=== PATIENT | male | born 1945 | race African-American/Black ===

== ENCOUNTER 2016-11-06 14:04 | Inpatient (IN) | payer MEDICARE, OTHER ==
[~2016-11-06] VITALS: Ht 182.9 cm; Wt 59.3 kg
[~2016-11-06 14:04] MED LIST: BUDE6HFA IH; CEPASTAT MT; COLC0.6T49 PO; DICL50TA11 PO; DILT240C70 PO; DOXY100T2 PO; IPRA14.76 IH; LOSA25TA2 PO; MAXIDE PO; PRED10TA PO; PRED20TA PO; PRED50TA PO; SILD100T51 PO; TAMS-14 PO; TIOT18CA PO; TOLT4CAP PO; [UNRECOGNIZED DRUG - CODE] PO; [UNRECOGNIZED DRUG - CODE] TP
[2016-11-06] MEDS ORDERED: ALBUTEROL 0.083% (NEB) 2.5 MG/3 ML AMP HHN STA ×2 (14:21→20:14)
[2016-11-06] MEDS ORDERED: METHYLPREDNISOLONE 125 MG INJ IV ONE (14:30)
[2016-11-06] MEDS ORDERED: IPRATROPIUM (NEB) 0.5 MG/2.5 ML AMP HHN ONE (14:30)
[2016-11-06 14:54] LABS: AADO2 Arterial 558.5 mmHg (7.0-24.0); Allen Test ACCEPTAB; Arterial Base Excess 8.6 mmol/L (-3.0-3); Arterial COHb 0.9 % (0.0-3.0); Arterial Fraction of Oxyhgb 95.5 % (93.0-99.0); Arterial HCO3 35.6 mmol/L (22.0-26.0); Arterial MetHb 0.3 % (0.0-1.5); Arterial Total Hemglobin 12.4 g/dl (12.0-18.0); MODE MASK - NRB
[2016-11-06 15:09] LABS: ABNORMAL IP MESSAGE 1; HEMOGLOBIN 11.9 g/dl (14.0-18.0); MEAN CORPUSCULAR HEMOGLOBIN 24.6 pg (29.0-33.0); MEAN CORPUSCULAR HGB CONC 29.8 g/dl (32.0-37.0); MEAN CORPUSCULAR VOLUME 82.8 fl (82.0-101.0); MEAN PLATELET VOLUME 9.9 fl (7.4-10.4); PLATELET COUNT 299 10^3/UL (140-415); POSITIVE DIFF @See below; RED BLOOD COUNT 4.83 10^6/ul (4.70-6.10); WHITE BLOOD COUNT 47.7 10^3/ul (4.8-10.8)
[2016-11-06 15:26] LABS: CALCIUM 9.3 mg/dl (8.4-10.2); CREATININE 2.53 mg/dl (0.61-1.24); POTASSIUM 4.1 mmol/L (3.5-5.1)
[2016-11-06 15:42] LABS: TROPONIN-I 5.14 ng/ml (0.00-0.12)
[2016-11-06] MEDS ORDERED: HEPARIN 1000 UNITS/ML 10 ML INJ IV STA (15:45)
[2016-11-06] MEDS ORDERED: HEPARIN 25000 UNITS/250 ML 250 ML IV STA (15:53)
[2016-11-06] MEDS ORDERED: ASPIRIN 81 MG TAB PO ONE (16:00)
--- NOTE | 2016-11-06 16:08 | RADRPT ---
PROCEDURE: XR Chest. CLINICAL INDICATION: Chest pain. Dyspnea. TECHNIQUE: Anterior chest x-ray. COMPARISON: 07/04/2014 FINDINGS: Dense infiltrate in lateral segment of right middle lobe. No pleural effusion identified. There is no evidence of pneumothorax. Atherosclerotic calcification of the aorta. The cardiomediastinal silhouette is unremarkable. The soft tissues are normal. Healed fracture deformity of the anterior right seventh rib, unchanged. Osseous structures are otherwise unremarkable. IMPRESSION: 1. Dense infiltrate in the right middle lobe. Follow-up after treatment is suggested to exclude und erlying mass. 2. Atherosclerotic calcification of the aorta. RPTAT: QQ .Madan Gomez MD, MD Date Time Electronically viewed and signed by .Madan Gomez MD, on 11/06/2016 16:07 .[place]
[2016-11-06 16:09] LABS: EOSINOPHILS % (M) 4 % (0-7); MONOCYTES % (M) 8 % (0-11); PLATELET ESTIMATE NORMAL; POLYCHROMASIA 1+ (0-0)
[2016-11-06] MEDS ORDERED: LEVOFLOXACIN 750MG/D5W (PMX) 150 ML IVPB STA (16:20)
[2016-11-06] MEDS ORDERED: SODIUM CHLORIDE 0.9% 1L BAG IV* STA (16:20)
[2016-11-06] MEDS ORDERED: ACETAMINOPHEN 325 MG TAB PO PRN (16:30)
[2016-11-06] MEDS ORDERED: ONDANSETRON 4 MG INJ IV PRN ×2 (16:30→20:30)
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
[2016-11-06 17:40] LABS: CK-MB 7.25 ng/ml (0.0-2.4)
[2016-11-06 17:44] LABS: TROPONIN-I 6.01 ng/ml (0.00-0.12)
[2016-11-06 18:16] LABS: ADD UMIC YES; UR ASCORBIC ACID NEGATIVE (NEGATIVE); UR BACTERIA MANY /HPF (NONE SEEN); UR BILIRUBIN (Dip) NEGATIVE (NEGATIVE); UR BLOOD (Dip) 3+ mg/dL (NEGATIVE); UR CLARITY CLOUDY (CLEAR); UR COLOR AMBER (YELLOW); UR GLUCOSE (Dip) NEGATIVE (NEGATIVE); UR KETONES (Dip) NEGATIVE (NEGATIVE); UR LEUKOCYTE ESTERASE (Dip) 2+ Leu/ul (NEGATIVE); UR MUCUS FEW /HPF (NONE SEEN); UR NITRITE (Dip) NEGATIVE (NEGATIVE); UR RBC 3 /HPF (0-5); UR SPECIFIC GRAVITY (Dip) 1.014 (1.003-1.030); UR TOTAL PROTEIN (Dip) 2+ mg/dl (NEGATIVE); UR UROBILINOGEN (Dip) 2+ mg/dL (NEGATIVE)
[2016-11-06] MEDS ORDERED: SOD CHLORIDE 0.9% 1,000 ML IV SCH (20:15)
[2016-11-06 20:25] LABS: INR 1.47; PROTIME 17.9 Sec (12.2-14.2); PT RATIO 1.4
[2016-11-06 20:26] LABS: PARTIAL THROMBOPLASTIN TIME 44.5 Sec (25.0-35.0)
[2016-11-06 21:11] LABS: CK-MB 10.6 ng/ml (0.0-2.4); TROPONIN-I 5.87 ng/ml (0.00-0.12)
[2016-11-07] VITALS (27 sets, daily range): BP systolic 116–150; BP diastolic 62–99; PULSE 94–115; RESP 18–39; TEMP 97.1; Ht 182.9 cm; Wt 59.3 kg
[2016-11-07] MEDS ORDERED: LEVOFLOXACIN 750MG/D5W (PMX) 150 ML IVPB SCH (03:00)
[2016-11-07] MEDS ORDERED: FUROSEMIDE 40 MG INJ IV ONE (03:00)
--- NOTE | 2016-11-07 03:02 | RADRPT ---
PROCEDURE: XR Chest. CLINICAL INDICATION: Pain. Pneumonia.. TECHNIQUE: Single frontal chest x-ray. COMPARISON: 11/16/2016 FINDINGS: The cardiomediastinal silhouette is unremarkable. There are atherosclerotic calcifications of the a ortic knob. There is no CHF.. There is a right mid lung infiltrate which is not significantly change d.. There is no pleural effusion. There is no pneumothorax. The osseous structures are unremarkab le. IMPRESSION: No significant change. Unchanged right mid lung infiltrate. RPTAT: HMVK .Rickey Shields MD, MD Date Time Electronically viewed and signed by .Rickey Shields MD, MD on 11/07/2016 03:01 .K/
[2016-11-07] MEDS: PANTOPRAZOLE 40 MG INJ IV SCH (05:32)
[2016-11-07 06:20] LABS: INR 1.47; PROTIME 17.9 Sec (12.2-14.2); PT RATIO 1.4
[2016-11-07 06:28] LABS: ABNORMAL IP MESSAGE 1; HEMATOCRIT 33.3 % (42.0-52.0); HEMOGLOBIN 10.5 g/dl (14.0-18.0); MEAN CORPUSCULAR HEMOGLOBIN 25.6 pg (29.0-33.0); MEAN CORPUSCULAR HGB CONC 31.5 g/dl (32.0-37.0); MEAN CORPUSCULAR VOLUME 81.2 fl (82.0-101.0); MEAN PLATELET VOLUME 9.3 fl (7.4-10.4); PLATELET COUNT 283 10^3/UL (140-415); POSITIVE DIFF @See below; RED CELL DISTRIBUTION WIDTH 18.3 % (11.5-14.5); WHITE BLOOD COUNT 53.6 10^3/ul (4.8-10.8)
[2016-11-07 06:40] LABS: ALBUMIN 3.6 g/dl (3.3-4.9); ALBUMIN/GLOBULIN RATIO 0.7; BILIRUBIN,DIRECT 0.8 mg/dl (0.00-0.20); BILIRUBIN,INDIRECT 0.6 mg/dl (0-1.1); BILIRUBIN,TOTAL 1.4 mg/dl (0.2-1.3); CALCIUM 8.6 mg/dl (8.4-10.2); CREATININE 1.47 mg/dl (0.61-1.24); TOTAL PROTEIN 8.7 g/dl (6.1-8.1)
[2016-11-07 06:56] LABS: CK-MB 10.4 ng/ml (0.0-2.4); POTASSIUM 2.9 mmol/L (3.5-5.1); TROPONIN-I 2.7 ng/ml (0.00-0.12)
--- NOTE | 2016-11-07 07:24 | HP ---
Date/Time of Note Date/Time of Note DATE: 11/07/16 TIME: 07:07 Assessment/Plan VTE Prophylaxis VTE Prophylaxis Intervention: heparin Lines/Catheters IV Catheter Type (from Nrs): Peripheral IV Urinary Cath still in place: Yes Reason Cath still needed: other (indicate) (critical conditon) Assessment/Plan Chief Complaint/Hosp Course This is a 8-year-old male being admitted to the ICU floor for: #1 Acute respiratory distress: Likely appears to be multifactorial in the setting of COPD exacerbation as well as Nstemi. ABG shows pH of 7.3 with CO2 retaining pattern consistent with COPD. Continue patient on supplemental oxygen. Will start patient on heparin drip as he does have elevated troponins. Lungs appear to have wheezing on auscultation. Patient was given steroids in the ED as well as Lasix. Lungs do sound slightly wet on auscultation however x- ray does not show any signs of pulmonary vascular congestion. He does not appear to be volume overloaded. BNP though is 20,000. Will check a echocardiogram. Will consult cardiology. #2 Nstemi: Troponin 5.1, patient started on heparin drip. Continue to trend troponins. Cardiology was consulted via the ED based on slight ST elevations on EKG however patient did not meet criteria for STEMI. Follow further cardiology recommendations. Nitro/morphine for pain #3 COPD: Patient did receive steroids in the ED. Continue nebulization., BiPAP if indicated. #4 elevated BNP: Patient denies any history of heart failure. BNP level is 20, 000. Will check a echocardiogram, cardiology is on board. Patient likely will eventually need to be started on MITA inhibitor statin and aspirin. #5 Renal failure, acute versus chronic: Previous creatinine from 2014 showed a creatinine of 1.0. At the current time is elevated at approximately 2.5. This could be secondary to prerenal etiology as well as possible cardiorenal syndrome however that will need to be further worked up. At the current time will provide very gentle fluid hydration. And monitor creatinine levels. Will also consult nephrology. #6 lactic acidosis: Multifactorial in nature secondary to the acute illness as well as possible underlying infection. Will continue to trend lactate and provide IV antibiotics. #7 leukocytosis: Patient has white blood cell count of 47 which significantly high just for a acute underlying infection. He does have history of bladder cancer and hepatitis C. Chest x-ray does show a possible right-sided infiltrate versus mass. Will obtain a CAT scan of the chest when the patient is more stable. At the current time patient is on antibiotics for possible suspected pneumonia. #8 community acquired pneumonia: There is a possible infiltrate versus mass seen on the chest x-ray at the current time is being treated with Levaquin. Will obtain a CAT scan when the patient is more stable respiratory nam to further assess his lung morphology. #9 history of bladder cancer: There appears to be an infiltrate versus mass on the chest x-ray. Patient also has a significantly elevated white blood cell count which I feel is simply too high just for a infectious process, nonetheless we will treating him for underlying pneumonia. Will also obtain a CAT scan to further assess the lungs. Depending on the findings may need hematology consultation. #10 history of hepatitis C: We will check a HCV RNA level. #11 DVT and GI prophylactic: Heparin drip, Protonix Further treatment strategy will be implemented as per the clinical course Problems: HPI/ROS Admit Date/Time Admit Date/Time Nov 06, 2016 at 16:26 Hx of Present Illness Chief complaint: Shortness of breath 2 days This is a 71-year-old male brought in by ambulance for increasing shortness of breath for 2 days. He is also had a cough. Denies fever or chills. Denies chest pain denies nausea and vomiting. States that he has COPD and has home oxygen which she has been using increasingly. Did not take his medications today because he felt so bad this morning. He states he lives by himself and does not have any sick contacts that he knows of at this time. He states that because he was not getting better thus we called ambulance. Allergies: Mometasone, oxybutynin, amoxicillin, doxycycline, indomethacin, Medications: See Apr Const: As per HPI Eyes : No pain discharge or redness or change in visual acuity ENT: No pain, sore throat, congestion, congestion, dysphagia or discharge Respiratory: As per HPI Cardiovascular: As per HPI GI : no change in appetite, abdominal pain, nausea, vomiting, diarrhea, constipation, or change in the color his stool Genitourinary: No dysuria, hematuria, flank pain , discharge or CVA tenderness Musculoskeletal: No joint pain, back pain, neck pain, restricted range of motion in neck or joints Skin: No rash, bruising or hives Neuro: No headache, dizziness, syncope, seizure, focal weakness Endocrine: No polyuria, polydipsia, temperature intolerance Psych: No hallucination, depression, anxiety or suicidal ideation PMH/Family/Social Past Medical History COPD/emphysema, hypertension, hyperlipidemia, Hepatitis C, Bladder cancer. Past Surgical History Right foot surgery Family History Significant Family History: hypertension Social History Alcohol Use: none (He smoked cocaine in the past) Smoking Status: Current every day smoker (Half pack per day 30 years) Drug Use: other Exam/Review of Systems Vital Signs Vitals Vital Signs Date Time Temp Pulse Resp B/P Pulse Ox O2 Delivery O2 Flow Rate FiO2 11/07/16 06:00 109 27 130/75 96 Nasal Cannula 3.0 11/07/16 04:00 98.5 11/06/16 15:23 30 Intake and Output 11/06/16 11/06/16 11/07/16 15:00 23:00 07:00 Intake Total 987.4 ml Output Total 1625 ml Balance -637.6 ml Exam Exam General: Patient is lying in bed and appears to be showing increased work of breathing with the use of accessory muscles, he has to pause to catch his breath while speaking HEENT: Atraumatic, normocephalic. The pupils are equal, round and reactive. Extraocular motor are intact Neck: Supple with full range of motion. No rigidity or meningismus Chest: Nontender Lungs: Diffuse bilateral coarse breath sounds and expiratory wheezing, increased work of breathing with use of accessory muscles and abdominal retractions Heart: Normal S1-S2, Regular rhythm and rate. No overt murmurs appreciated Abdomen: Soft , nontender, nondistended , bowel sounds are present. No guarding no rebound tenderness , No masses or organomegaly. No costovertebral temporal angle mass Extremities: Normal to inspection, no edema no cyanosis Neurologic: Normal mental status, speech normal, cranial nerves II through XII are intact, motor and sensory are intact, unable to assess gait secondary to patient's respiratory distress Additional Comments PROCEDURE: XR Chest. CLINICAL INDICATION: Chest pain. Dyspnea. TECHNIQUE: Anterior chest x-ray. COMPARISON: 07/04/2014 FINDINGS: Dense infiltrate in lateral segment of right middle lobe. No pleural effusion identified. There is no evidence of pneumothorax. Atherosclerotic calcification of the aorta. The cardiomediastinal silhouette is unremarkable. The soft tissues are normal. Healed fracture deformity of the anterior right seventh rib, unchanged. Osseous structures are otherwise unremarkable. IMPRESSION: 1. Dense infiltrate in the right middle lobe. Follow-up after treatment is suggested to exclude underlying mass. 2. Atherosclerotic calcification of the aorta. RPTAT: QQ .Madan Gomez MD, MD Date Time Electronically viewed and signed by .Madan Gomez MD, MD on 11/06/2016 16: 07 .M/ CC: CHELSEY MONTOYA DO EKG interpretation: Sinus tachycardia rate of 120, 2 PVCs, mild ST elevations in leads V1 and V2 with ST depression in lead II. EKG does not meet STEMI criteria. Normal axis, normal intervals. As per ED physician augmentation Labs Result Diagram: 11/07/1653311/07/16533 Medications Medications Current Medications Sodium Chloride (NS) 1,000 ml @ 50 mls/hr Q20H IV Last administered on 21:00; Admin Dose 50 MLS/HR; Start 11/06/16 at 20:15 Ondansetron HCl (Zofran Inj) 4 mg Q6H PRN IV NAUSEA AND/OR VOMITING; Start 12/13 at 20:30 Acetaminophen (Tylenol Liquid) 650 mg Q6H PRN PO PAIN LEVEL 1-3 OR FEVER; Start 11/06/16 at 20:30 Morphine Sulfate (morphine) 2 mg Q4H PRN IV PAIN LEVEL 7-10; Start 11/06/16 at 20:30 Pantoprazole 40 mg 40 mg DAILY@06 IV Last administered on 11/07/16 05:32; Admin Dose 40 MG; Start 11/07/16 at 06:00 Levofloxacin/ Dextrose 150 ml @ 100 mls/hr Q48H IVPB Last administered on 11/07 05:20; Admin Dose 100 MLS/HR; Start 11/07/16 at 03:00 Potassium Chloride (KCl 40 MEQ/250 ML NS) 250 ml @ 62.5 mls/hr Q4H IVPB ; Start 9/11/17 at 07:30; Stop 11/07/16 at 15:29 LINDA REYNOLDS Nov 07, 2016 07:18
[2016-11-07] MEDS ORDERED: HEPARIN 1000 UNITS/ML 10 ML INJ ONE (07:30)
[2016-11-07] MEDS ORDERED: HEPARIN 1000 UNITS/ML 10 ML INJ IV ONE (08:00)
[2016-11-07] MEDS ORDERED: HEPARIN 1000 UNITS/ML 10 ML INJ IV PRN ×2 (08:00)
[2016-11-07] MEDS: POTASSIUM CHLORIDE 250 ML IVPB SCH ×2 (08:34→12:41)
[2016-11-07 09:34] LABS: ANISOCYTOSIS 2+ (0-0); EOSINOPHILS % (M) 1 % (0-7); HYPOCHROMASIA 1+ (0-0); MICROCYTOSIS 1+ (0-0); MONOCYTES % (M) 20 % (0-11); MYELOCYTES % (M) 2 % (0-0); PLATELET ESTIMATE NORMAL; POIKILOCYTOSIS 2+ (0-0); POLYCHROMASIA 3+ (0-0)
[2016-11-07] MEDS ORDERED: POTASSIUM CHLORIDE 20 MEQ POWDER FOR ORAL SOLN PO ONE ×2 (10:00→13:00)
--- NOTE | 2016-11-07 10:00 | CONS ---
Date/Time of Note Date/Time of Note DATE: 11/07/16 TIME: 09:46 Assessment/Plan Assessment/Plan Chief Complaint/Hosp Course NSTEMI: Peak trop 6. Pt will need a cardiac cath at some point but currently has active issues including respiratory failure (multifactorial), renal failure , sepsis. No chest pain or significant EKG changes. For now medical management including heparin drip Acute on chronic respiratory failure: Has underlying COPD and is on oxygen at baseline. Likely has a RML PNA on CXR but per radiology read cant exclude mass especially in this pt with long standing smoking history. Possibly component of CHF as well. Lactic acidosis: improved with IV hydration and antibiotics Acute renal failure: Cr 25 on admission, now 1.5 after IVF Hep C COPD with acute exacerbation chronic leukocytosis: ?MDS tobacco use -continue heparin drip to complete 48 hrs -ASA, lipitor -hold off on MTP for now with active COPD exacerbation -f/u echo -?CTA at some point when renal function improves to evaluated RML infiltrate vs mass prior to cardiac cath as if this is a mass and needs biopsy/surgical intervention, would change house attendant strategy during cath -cardiac cath when active issues resolved -hold lasix for now but will not give further IVF either Problems: Consultation Date/Type/Reason Admit Date/Time Nov 06, 2016 at 16:26 Date of Consultation: Nov 07, 2016 Type of Consultation: Cardiology Reason for Consultation NSTEMI Referring Provider: LINDA REYNOLDS Hx of Present Illness 71 yo M with a h/o Hep C, chronic resp failure on 3L home oxygen, COPD, chronic leukocytosis, tobacco use, who presented with SOB and was found to have COPD exacerbation, PNA, NSTEMI. The pt is a poor historian. When asked when his SOB started, he states "when havent I been SOB". He denies CP. No prior cardiac disease. He tells me that [facility] told him about his leukocytosis but it is unclear what the diagnosis is. limited, per HPI. Past Medical History per HPI Social History Alcohol Use: none (He smoked cocaine in the past) Smoking Status: Current every day smoker (Half pack per day 30 years) Drug Use: other Exam/Review of Systems Vital Signs Vitals Vital Signs Date Time Temp Pulse Resp B/P Pulse Ox O2 Delivery O2 Flow Rate FiO2 11/07/16 09:00 111 26 137/70 96 Nasal Cannula 3.0 11/07/16 08:00 98.5 11/06/16 15:23 30 Intake and Output 11/06/16 11/06/16 11/07/16 15:00 23:00 07:00 Intake Total 987.4 ml Output Total 1625 ml Balance -637.6 ml Exam Constitutional: alert, distress (mild respiratory ), oriented Psych: No nl mood/affect Head: atraumatic, normocephalic Neck: jvd (distended EJ during expiration ) Respiratory: crackles/rales, diminished breath sounds, No clear to auscultation (ronchi) Cardiovascular: systolic murmur (2/6 ROXANNE), No edema, No regular rate and rhythm (tachycardic ) Gastrointestinal: soft, No non-tender (mild to palpation ) Neurological: nl mental status, nl speech Skin: No rash or lesions Results EKG: sinus tachycardia, PVCs, inferolateral ST/T changes Result Diagram: 11/07/16 0534 11/07/16 0534 Results 24 hrs Laboratory Tests Test 11/06/16 14:42 11/06/16 14:50 11/06/16 17:00 11/06/16 17:50 Blood Gas Specimen Source Blood arterial Arterial Blood Date Drawn 11/06/2016 2:50:51 PM Arterial Blood pH (Temp corrected) 7.386 Arterial Blood pCO2 (Temp correct) 60.7 H Arterial Blood pO2 (Temp corrected) 93.8 Arterial Blood HCO3 35.6 H Arterial Blood Base Excess 8.6 H Arterial Blood Oxygen Saturation 96.7 Trent Test ACCEPTAB Arterial Blood Gas Puncture Site Right Radial Arterial Blood Carboxyhemoglobin 0.9 Arterial Blood Methemoglobin 0.3 Blood Gas A-a O2 Differential 558.5 H Oxyhemoglobin Percent 95.5 Total Hemoglobin 12.4 Blood Gas Temperature 37.0 Blood Gas Modality MASK - NRB FiO2 100.0 Blood Gas Notified Whom RT Blood Gas Notified Time 11/06/2016 2:53:50 PM White Blood Count 47.7 #H Red Blood Count 4.83 # Hemoglobin 11.9 L Hematocrit 40.0 L Mean Corpuscular Volume 82.8 Mean Corpuscular Hemoglobin 24.6 L Mean Corpuscular Hemoglobin Concent 29.8 L Red Cell Distribution Width 19.0 #H Platelet Count 299 Mean Platelet Volume 9.9 # Neutrophils % Segmented Neutrophils % (Manual) 84 H Lymphocytes % Lymphocytes % (Manual) 4 L Monocytes % Monocytes % (Manual) 8 Eosinophils % Eosinophils % (Manual) 4 Basophils % Nucleated Red Blood Cells % 0.0 Neutrophils # (Manual) Absolute Lymphocytes (Manual) 1.9 Lymphocytes # Monocytes # Absolute Monocytes (Manual) 3.8 H Eosinophils # Basophils # Nucleated Red Blood Cells # Platelet Estimate NORMAL Polychromasia 1+ Sodium Level 132 L Potassium Level 4.1 Chloride Level 80 L Carbon Dioxide Level 34 H Anion Gap 22 H Blood Urea Nitrogen 70 H Creatinine 2.53 H Glucose Level 96 Calcium Level 9.3 Troponin I 5.140 *H 6.010 *H Lactic Acid Level 4.2 *H Creatine Kinase 740 H Creatine Kinase Index 1.0 Creatinine Kinase MB (Mass) 7.25 H B-Type Natriuretic Peptide 95765 H Urine Color TESS Urine Clarity CLOUDY A Urine pH 5.0 Urine Specific [place] 1.014 Urine Ketones NEGATIVE Urine Nitrite NEGATIVE Urine Bilirubin NEGATIVE Urine Urobilinogen 2+ H Urine Leukocyte Esterase 2+ H Urine Microscopic RBC 3 Urine Microscopic WBC 37 H Urine Bacteria MANY A Urine Mucus FEW A Urine Hemoglobin 3+ H Urine Glucose NEGATIVE Urine Total Protein 2+ H Test 11/06/16 18:55 11/06/16 20:05 11/07/16 05:34 Lactic Acid Level 5.2 *H 4.2 *H 2.3 *H Prothrombin Time 17.9 H 17.9 H Prothrombin Time Ratio 1.4 1.4 INR International Normalized Ratio 1.47 1.47 Activated Partial Thromboplast Time 44.5 H 39.0 H Creatine Kinase 749 H 615 H Creatine Kinase Index 1.4 1.7 Creatinine Kinase MB (Mass) 10.60 H 10.40 H Troponin I 5.870 *H 2.700 *H White Blood Count 53.6 H Red Blood Count 4.10 L Hemoglobin 10.5 L Hematocrit 33.3 L Mean Corpuscular Volume 81.2 L Mean Corpuscular Hemoglobin 25.6 L Mean Corpuscular Hemoglobin Concent 31.5 L Red Cell Distribution Width 18.3 H Platelet Count 283 Mean Platelet Volume 9.3 Neutrophils % Segmented Neutrophils % (Manual) 65 Band Neutrophils % (Manual) 3 Lymphocytes % Lymphocytes % (Manual) 9 L Monocytes % Monocytes % (Manual) 20 H Eosinophils % Eosinophils % (Manual) 1 Basophils % Myelocytes % (Manual) 2 H Nucleated Red Blood Cells % 0.0 Neutrophils # (Manual) 35.7 H Band Neutrophils # 1.6 H Absolute Lymphocytes (Manual) 4.8 H Lymphocytes # Monocytes # Absolute Monocytes (Manual) 10.7 H Eosinophils # Basophils # Myelocytes # 1.0 H Nucleated Red Blood Cells # Platelet Estimate NORMAL Polychromasia 3+ Hypochromasia 1+ Poikilocytosis 2+ Anisocytosis 2+ Microcytosis 1+ Macrocytosis 2+ Sodium Level 134 L Potassium Level 2.9 *L Chloride Level 88 L Carbon Dioxide Level 38 H Anion Gap 11 # Blood Urea Nitrogen 63 H Creatinine 1.47 #H Glucose Level 117 Calcium Level 8.6 Magnesium Level 2.3 Total Bilirubin 1.4 H Direct Bilirubin 0.80 H Indirect Bilirubin 0.6 Aspartate Amino Transf (AST/SGOT) 110 H Alanine Aminotransferase (ALT/SGPT) 29 Alkaline Phosphatase 97 Total Protein 8.7 H Albumin 3.6 Globulin 5.10 H Albumin/Globulin Ratio 0.70 Medications Medications Current Medications Ondansetron HCl (Zofran Inj) 4 mg Q6H PRN IV NAUSEA AND/OR VOMITING; Start 12/13 at 20:30 Acetaminophen (Tylenol Liquid) 650 mg Q6H PRN PO PAIN LEVEL 1-3 OR FEVER; Start 11/06/16 at 20:30 Morphine Sulfate (morphine) 2 mg Q4H PRN IV PAIN LEVEL 7-10; Start 11/06/16 at 20:30 Pantoprazole 40 mg 40 mg DAILY@06 IV Last administered on 11/07/16 05:32; Admin Dose 40 MG; Start 11/07/16 at 06:00 Levofloxacin/ Dextrose 150 ml @ 100 mls/hr Q48H IVPB Last administered on 11/07 05:20; Admin Dose 100 MLS/HR; Start 11/07/16 at 03:00 Potassium Chloride (KCl 40 MEQ/250 ML NS) 250 ml @ 62.5 mls/hr Q4H IVPB Last administered on 11/07/16 08:34; Admin Dose 62.5 MLS/HR; Start 11/07/16 at 07:30 ; Stop 11/07/16 at 15:29 Potassium Chloride (Potassium Chloride Pwd/Soln) 40 meq ONCE ONCE PO ; Start at 10:00; Stop 11/07/16 at 10:01 RAULITO PRATT Nov 07, 2016 09:59
--- NOTE | 2016-11-07 10:02 | PN ---
Date/Time of Note Date/Time of Note DATE: 11/07/16 TIME: 09:56 Assessment/Plan VTE Prophylaxis VTE Prophylaxis Intervention: heparin Lines/Catheters IV Catheter Type (from Nrs): Peripheral IV Urinary Cath still in place: Yes Reason Cath still needed: urinary retention Assessment/Plan Chief Complaint/Hosp Course This is a 71-year-old male being admitted to the ICU floor for: #1 Acute respiratory distress: Likely appears to be multifactorial in the setting of COPD exacerbation as well as Nstemi. Initial ABG showed pH of 7.3 with CO2 retaining pattern consistent with COPD. Patient was given steroids in the ED as well as Lasix. Lungs do sound slightly wet on auscultation however x- ray does not show any signs of pulmonary vascular congestion. He does not appear to be volume overloaded. BNP though is 20,000. Lungs appear to have wheezing on auscultation. -Continue patient on supplemental oxygen. - continue heparin drip as he does have elevated troponins. -Follow-up final echocardiogram results and cardiology rec's #2 Nstemi: Troponin 5.1, patient started on heparin drip. Cardiology was consulted via the ED based on slight ST elevations on EKG however patient did not meet criteria for STEMI. - Continue to trend troponins. -Follow further cardiology recommendations. Nitro/morphine for pain #3 COPD: Patient did receive steroids in the ED. -Continue nebulization., BiPAP if indicated. #4 elevated BNP: Patient denies any history of heart failure. BNP level is 20, 000 -again,. f/u echocardiogram, cardiology is on board. Patient likely will eventually need to be started on MITA inhibitor statin and aspirin. #5 Renal failure, acute versus chronic: Previous creatinine from 2014 showed a creatinine of 1.0. On admission creatinine elevated at approximately 2.5 -> 1.4 This could be secondary to prerenal etiology as well as possible cardiorenal syndrome however that will need to be further worked up. - At the current time will provide very gentle fluid hydration. And monitor creatinine levels. -f/u consult nephrology. #6 lactic acidosis: Multifactorial in nature secondary to the acute illness as well as possible underlying infection. - Will continue to trend lactate and provide IV antibiotics. #7 leukocytosis: Patient had white blood cell count of 47 on admission which significantly high just for a acute underlying infection. He does have history of bladder cancer and hepatitis C. Chest x-ray does show a possible right-sided infiltrate versus mass. -Follow-up CAT scan of the chest when the patient is more stable. -continue antibiotics for possible suspected pneumonia. #8 community acquired pneumonia: There is a possible infiltrate versus mass seen on the chest x-ray at the current time is being treated with Levaquin. Will obtain a CAT scan when the patient is more stable respiratory nam to further assess his lung morphology. #9 history of bladder cancer: There appears to be an infiltrate versus mass on the chest x-ray. Patient also has a significantly elevated white blood cell count which I feel is simply too high just for a infectious process, nonetheless we will treating him for underlying pneumonia. Will also obtain a CAT scan to further assess the lungs. Depending on the findings may need hematology consultation. #10 history of hepatitis C: Follow-up HCV RNA level. #11 DVT and GI prophylactic: Heparin drip, Protonix Critical care time spent on patient care today equals 50 minutes. Problems: Subjective 24 Hr Interval Summary Free Text/Dictation Patient seen by cardiology team, occasionally moaning out in distress, but alert. Exam/Review of Systems Vital Signs Vitals Vital Signs Date Time Temp Pulse Resp B/P Pulse Ox O2 Delivery O2 Flow Rate FiO2 11/07/16 09:00 111 26 137/70 96 Nasal Cannula 3.0 11/07/16 08:00 98.5 11/06/16 15:23 30 Intake and Output 11/06/16 11/06/16 11/07/16 15:00 23:00 07:00 Intake Total 987.4 ml Output Total 1625 ml Balance -637.6 ml Exam General: Patient is lying in bed, in mod distress but alert, also appears to be showing increased work of breathing with the use of accessory muscles, he has to pause to catch his breath while speaking HEENT: Atraumatic, normocephalic. The pupils are equal, round and reactive. Extraocular motor are intact Neck: Supple with full range of motion. No rigidity or meningismus Chest: Nontender Lungs: some bilateral coarse breath sounds and expiratory wheezing, increased work of breathing with use of accessory muscles and abdominal retractions Heart: Normal S1-S2, Regular rhythm and rate. No overt murmurs appreciated Abdomen: Soft , nontender, nondistended , bowel sounds are present. No guarding no rebound tenderness , No masses or organomegaly. No costovertebral temporal angle mass Extremities: Normal to inspection, no edema no cyanosis Neurologic: Normal mental status, speech normal, cranial nerves II through XII are intact, motor and sensory are intact, unable to assess gait secondary to patient's respiratory distress Results Result Diagram: 11/07/16 0534 11/07/16 0534 Results 24 hrs Laboratory Tests Test 11/06/16 14:42 11/06/16 14:50 11/06/16 17:00 11/06/16 17:50 Blood Gas Specimen Source Blood arterial Arterial Blood Date Drawn 11/06/2016 2:50:51 PM Arterial Blood pH (Temp corrected) 7.386 Arterial Blood pCO2 (Temp correct) 60.7 H Arterial Blood pO2 (Temp corrected) 93.8 Arterial Blood HCO3 35.6 H Arterial Blood Base Excess 8.6 H Arterial Blood Oxygen Saturation 96.7 Trent Test ACCEPTAB Arterial Blood Gas Puncture Site Right Radial Arterial Blood Carboxyhemoglobin 0.9 Arterial Blood Methemoglobin 0.3 Blood Gas A-a O2 Differential 558.5 H Oxyhemoglobin Percent 95.5 Total Hemoglobin 12.4 Blood Gas Temperature 37.0 Blood Gas Modality MASK - NRB FiO2 100.0 Blood Gas Notified Whom RT Blood Gas Notified Time 11/06/2016 2:53:50 PM White Blood Count 47.7 #H Red Blood Count 4.83 # Hemoglobin 11.9 L Hematocrit 40.0 L Mean Corpuscular Volume 82.8 Mean Corpuscular Hemoglobin 24.6 L Mean Corpuscular Hemoglobin Concent 29.8 L Red Cell Distribution Width 19.0 #H Platelet Count 299 Mean Platelet Volume 9.9 # Neutrophils % Segmented Neutrophils % (Manual) 84 H Lymphocytes % Lymphocytes % (Manual) 4 L Monocytes % Monocytes % (Manual) 8 Eosinophils % Eosinophils % (Manual) 4 Basophils % Nucleated Red Blood Cells % 0.0 Neutrophils # (Manual) Absolute Lymphocytes (Manual) 1.9 Lymphocytes # Monocytes # Absolute Monocytes (Manual) 3.8 H Eosinophils # Basophils # Nucleated Red Blood Cells # Platelet Estimate NORMAL Polychromasia 1+ Sodium Level 132 L Potassium Level 4.1 Chloride Level 80 L Carbon Dioxide Level 34 H Anion Gap 22 H Blood Urea Nitrogen 70 H Creatinine 2.53 H Glucose Level 96 Calcium Level 9.3 Troponin I 5.140 *H 6.010 *H Lactic Acid Level 4.2 *H Creatine Kinase 740 H Creatine Kinase Index 1.0 Creatinine Kinase MB (Mass) 7.25 H B-Type Natriuretic Peptide 96966 H Urine Color TESS Urine Clarity CLOUDY A Urine pH 5.0 Urine Specific [place] 1.014 Urine Ketones NEGATIVE Urine Nitrite NEGATIVE Urine Bilirubin NEGATIVE Urine Urobilinogen 2+ H Urine Leukocyte Esterase 2+ H Urine Microscopic RBC 3 Urine Microscopic WBC 37 H Urine Bacteria MANY A Urine Mucus FEW A Urine Hemoglobin 3+ H Urine Glucose NEGATIVE Urine Total Protein 2+ H Test 11/06/16 18:55 11/06/16 20:05 11/07/16 05:34 Lactic Acid Level 5.2 *H 4.2 *H 2.3 *H Prothrombin Time 17.9 H 17.9 H Prothrombin Time Ratio 1.4 1.4 INR International Normalized Ratio 1.47 1.47 Activated Partial Thromboplast Time 44.5 H 39.0 H Creatine Kinase 749 H 615 H Creatine Kinase Index 1.4 1.7 Creatinine Kinase MB (Mass) 10.60 H 10.40 H Troponin I 5.870 *H 2.700 *H White Blood Count 53.6 H Red Blood Count 4.10 L Hemoglobin 10.5 L Hematocrit 33.3 L Mean Corpuscular Volume 81.2 L Mean Corpuscular Hemoglobin 25.6 L Mean Corpuscular Hemoglobin Concent 31.5 L Red Cell Distribution Width 18.3 H Platelet Count 283 Mean Platelet Volume 9.3 Neutrophils % Segmented Neutrophils % (Manual) 65 Band Neutrophils % (Manual) 3 Lymphocytes % Lymphocytes % (Manual) 9 L Monocytes % Monocytes % (Manual) 20 H Eosinophils % Eosinophils % (Manual) 1 Basophils % Myelocytes % (Manual) 2 H Nucleated Red Blood Cells % 0.0 Neutrophils # (Manual) 35.7 H Band Neutrophils # 1.6 H Absolute Lymphocytes (Manual) 4.8 H Lymphocytes # Monocytes # Absolute Monocytes (Manual) 10.7 H Eosinophils # Basophils # Myelocytes # 1.0 H Nucleated Red Blood Cells # Platelet Estimate NORMAL Polychromasia 3+ Hypochromasia 1+ Poikilocytosis 2+ Anisocytosis 2+ Microcytosis 1+ Macrocytosis 2+ Sodium Level 134 L Potassium Level 2.9 *L Chloride Level 88 L Carbon Dioxide Level 38 H Anion Gap 11 # Blood Urea Nitrogen 63 H Creatinine 1.47 #H Glucose Level 117 Calcium Level 8.6 Magnesium Level 2.3 Total Bilirubin 1.4 H Direct Bilirubin 0.80 H Indirect Bilirubin 0.6 Aspartate Amino Transf (AST/SGOT) 110 H Alanine Aminotransferase (ALT/SGPT) 29 Alkaline Phosphatase 97 Total Protein 8.7 H Albumin 3.6 Globulin 5.10 H Albumin/Globulin Ratio 0.70 Medications Medications Current Medications Ondansetron HCl (Zofran Inj) 4 mg Q6H PRN IV NAUSEA AND/OR VOMITING; Start 12/13 at 20:30 Acetaminophen (Tylenol Liquid) 650 mg Q6H PRN PO PAIN LEVEL 1-3 OR FEVER; Start 11/06/16 at 20:30 Morphine Sulfate (morphine) 2 mg Q4H PRN IV PAIN LEVEL 7-10; Start 11/06/16 at 20:30 Pantoprazole 40 mg 40 mg DAILY@06 IV Last administered on 11/07/16 05:32; Admin Dose 40 MG; Start 11/07/16 at 06:00 Levofloxacin/ Dextrose 150 ml @ 100 mls/hr Q48H IVPB Last administered on 11/07 05:20; Admin Dose 100 MLS/HR; Start 11/07/16 at 03:00 Potassium Chloride (KCl 40 MEQ/250 ML NS) 250 ml @ 62.5 mls/hr Q4H IVPB Last administered on 11/07/16 08:34; Admin Dose 62.5 MLS/HR; Start 11/07/16 at 07:30 ; Stop 11/07/16 at 15:29 Potassium Chloride (Potassium Chloride Pwd/Soln) 40 meq ONCE ONCE PO ; Start at 10:00; Stop 11/07/16 at 10:01 Aspirin (Aspirin) 81 mg DAILY PO ; Start 11/07/16 at 10:00 Atorvastatin Calcium (Lipitor) 40 mg HS PO ; Start 11/07/16 at 21:00 TAYLOR WIGGINS Nov 07, 2016 10:02
[2016-11-07] MEDS: ASPIRIN 81 MG TAB PO SCH (11:00)
[2016-11-07] MEDS: morphine 2 MG INJ IV PRN (11:11)
--- NOTE | 2016-11-07 12:18 | RADRPT ---
Echocardiogram Report Patient Name: MARCSO AUSTIN Gender: Male Date: 1945 Study Date: 07-Nov-2016 Retail Inventory Control Clerk: Chrissie Hidalgo RDCS Location: [facility] Ref. Physician: LINDA REYNOLDS Quality: Technically Difficult Study Procedures: Transthoracic echocardiogram with complete 2D, M-Mode, and doppler examination. Indications: NSTEMI. 2D/M Mode Doppler Measurement Value Normal Ranges Measurement Value Normal Ranges LVIDd 2D 3.3 3.5 - 5.6 cm AV Peak Eric 1.2 m/sec LVIDs 2D 1.9 2.1 - 4.1 cm AV Peak PG 5.6 mmHg LVPWd 2D 1.0 0.6 - 1.1 cm LVOT Peak Eric 0.9 m/sec IVSd 2D 1.0 0.6 - 1.1 cm LVOT Peak PG 3.0 mmHg AoR Diam 2D 2.9 2.0 - 3.7 cm MV E Peak Eric 0.7 m/sec EDV 2D 44.5 cm3 MV A Peak Eric 0.8 m/sec ESV 2D 6.6 cm3 MV E/A 0.9 LA Dimen 2D 2.4 2.3 - 4.0 cm MV Decel Time 121 msec MV Decel [place] 6 MV E/A 0.9 TR Peak Eric 2.6 m/sec TR Peak PG 27.3 mmHg RVSP 30.0 mmHg Findings Left Ventricle: Hyperdynamic left ventricular systolic function. Normal left ventricular cavity size. Normal left ventricular wall thickness. Ejection fraction is visually estimated at 70 %. Tissue Doppler/Mitral Doppler indices are consistent with impaired relaxation (Stage I diastolic dysfunction). Right Ventricle: Moderate enlargement of right ventricle. Mild right ventricular hypokinesis. Flattened septum in systole consistent with RV pressure overload. Left Atrium: There is mild enlargement of left atrium. Right Atrium: There is severe enlargement of right atrium. Mitral Valve: Mitral valve leaflets appear mildly thickened. Mild mitral annular calcification. No mitral valve regurgitation is seen. Aortic Valve: Normal appearance of the aortic valve. No significant aortic stenosis or insufficiency. Tricuspid Valve: Normal appearance of the tricuspid valve. Estimated peak PA systolic pressure 30 mmHg. There is trace tricuspid regurgitation. Pulmonic Valve: Normal pulmonic valve appearance. Pericardium: Normal pericardium with no significant pericardial effusion. Aorta: Normal aortic root. IVC: Normal size and normal respiratory collapse consistent with normal right atrial pressure. Conclusions 1.Hyperdynamic left ventricular systolic function. Normal left ventricular cavity size. Normal left ventricular wall thickness. Ejection fraction is visually estimated at 70 %. 2.Moderate enlargement of right ventricle. Mild right ventricular hypokinesis. Flattened septum in systole consistent with RV pressure overload. There is severe enlargement of right atrium. 3.No significant valvular disease. 4.Estimated peak PA systolic pressure 30 mmHg which may be underestimated as there is evidence of RV pressure overload. Electronically Signed By: Michael Jessica 07-Nov-2016 12:17:55 -0700 Patient Name: MARCOS AUSTIN Study Date: 07-Nov-2016 [id number]
--- NOTE | 2016-11-07 13:20 | RADRPT ---
PROCEDURE: US Renal CLINICAL INDICATION: Acute renal insufficiency. TECHNIQUE: Multiple sonographic images of the kidneys and bladder were obtained. Evaluation of th e kidneys and bladder was performed as well with lopes scale and color and Doppler evaluation using a curved array transducer. The images were reviewed on a high-resolution PACS workstation. COMPARISON: No prior studies are available for comparison. FINDINGS: The right kidney measures 9.2 cm. The left kidney measures 10.1 cm. There is normal echogenicity within the parenchyma of the kidneys bilaterally. There is a 1.7 cm cyst in the left kidney.. No perinephric fluid collection is seen. Puente catheter in the urinary bladder. IMPRESSION: 1. Unremarkable renal ultrasound. 2. 1.7 cm left renal cyst. RPTAT: [facility] Physician Flora Date Time Electronically viewed and signed by Physician Flora on 11/07/2016 13:20 /
[2016-11-07] MEDS: HEPARIN 25000 UNITS/250 ML 250 ML IV SCH (14:46)
[2016-11-07 14:50] LABS: AADO2 Arterial 49.3 mmHg (7.0-24.0); Allen Test ACCEPTAB; Arterial Base Excess 8.8 mmol/L (-3.0-3); Arterial COHb 0.1 % (0.0-3.0); Arterial Fraction of Oxyhgb 92.3 % (93.0-99.0); Arterial HCO3 35.6 mmol/L (22.0-26.0); Arterial MetHb 0.3 % (0.0-1.5); Arterial Total Hemglobin 11.5 g/dl (12.0-18.0); MODE NASAL CANNULA
[2016-11-07] MEDS ORDERED: CEFEPIME 2GM/50 ML (PMX) 50 ML IVPB SCH (15:01)
[2016-11-07] MEDS: ALBUTEROL/IPRATROPIUM (NEB) 3 ML AMP HHN SCH ×3 (15:02→20:01)
--- NOTE | 2016-11-07 15:04 | RADRPT ---
PROCEDURE: CT Chest without contrast. CLINICAL INDICATION: Dyspnea, right lung mass/infiltrate TECHNIQUE: CT of the chest was performed on a multi-detector scanner without IV contrast. Coronal and sagittal images were reformatted from the axial data set. One or more of the following dose re duction techniques were used: automated exposure control, adjustment of the mA and/or kV according t o patient size, use of iterative reconstruction technique. CTDI = 7.79, 9.74 mGy. DLP = 532.56 mGy- cm. COMPARISON: CT, 07/09/2014 FINDINGS: There is severe pulmonary emphysema. Consolidation is seen posteriorly within the right upper and ri ght lower lobes, new when compared to the prior CT, compatible with multilobar pneumonia. No pleural effusion, pulmonary edema or pneumothorax is identified. Bilateral bronchial wall thickening and ec carmen are noted, compatible with chronic bronchitis. No pulmonary nodule or mass lesion is identif ied. The heart size is normal, without pericardial effusion. Coronary arterial and aortic atheroscleroti c calcifications are present. There is no thoracic aortic aneurysm. No mediastinal, hilar, axillar y or supraclavicular lymphadenopathy is identified. Visualized portions of the upper abdomen demonstrate no acute abnormality. The surrounding osseous s tructures are remarkable for degenerative enthesopathy of the spine. No osteolytic or osteoblastic lesion is detected. IMPRESSION: 1. Findings compatible with multilobar pneumonia involving right upper and lower lobes, as above. 2. Severe pulmonary emphysema and findings of chronic bronchitis are identified. 3. Coronary arterial and aortic atherosclerotic calcifications are present. 4. No mass or lymphadenopathy is identified. RPTAT: PP .Munir Olivares MD, MD Date Time Electronically viewed and signed by .Munir Olivares MD, MD on 11/07/2016 15:04 .R/
--- NOTE | 2016-11-07 17:19 | CONS ---
DATE OF ADMISSION: 11/06/2016 DATE OF CONSULTATION: 11/07/2016 REASON FOR CONSULTATION: Acute kidney injury, CKD. REQUESTING PHYSICIAN: Ben Felder MD HISTORY OF PRESENT ILLNESS: This is a 71-year-old male with a past medical history of chronic kidney disease, history of bladder cancer, history of dyslipidemia, hypertension, COPD, hepatitis C, who presents to [facility] with 2 days of shortness of breath. Patient states he has COPD on home oxygen at home which he has been increasingly using. The patient said he did not take his medications and was not feeling well. When he came into the emergency room, the patient had laboratory data drawn which showed a BUN 70, creatinine 2.43, lactic acid 4.2, and troponin 5.4. Patient had a white count of 47,000. X- rays at the time showed infiltration of the right lobe and aortic calcification. The patient was placed on antibiotics, IV fluid, heparin drip, was given 1 dose of diuretics and admitted to intensive care unit. In terms of patient's renal history, patient states he does have underlying renal dysfunction that has been being monitored. He does not know what his baseline renal function is. The patient further denies any hemoptysis, hematemesis, hematochezia, any frothy urine. PAST MEDICAL HISTORY: History of hepatitis C, history of chronic kidney disease, history of COPD, history of bladder cancer. PAST SURGICAL HISTORY: Right foot surgery. FAMILY HISTORY: Positive for hypertension. SOCIAL HISTORY: Positive for smoking. MEDICATION: Reviewed. REVIEW OF SYSTEMS: Fourteen point review of systems was conducted. Pertinent positives in HPI, otherwise negative. PHYSICAL EXAMINATION: VITAL SIGNS: Blood pressure is 130/74, respirations 25, pulse 109, temperature 98.5. HEENT: Head is normocephalic. NECK: Supple. HEART: Tachycardic. LUNGS: Show diminished breath sounds at the base. ABDOMEN: Soft, nontender to palpation. No rebound or guarding. EXTREMITIES: Negative for clubbing, cyanosis. No edema. DERMATOLOGIC: Clean. No rashes. MUSCULOSKELETAL: No joint effusion. NEUROLOGIC: No change. No focal deficits. LABORATORY: Shows sodium 132, potassium 4.1, chloride 80, BUN 70, creatinine 2.53. Lactic acid 4.2. Troponin 6.0. White count 53.6, hemoglobin 10.5, hematocrit 33.3, and platelet count 283. IMPRESSION AND PLAN: This is a 71-year-old male who presents with: 1. Nonoliguric acute kidney injury on top of chronic kidney disease with unknown baseline creatinine. Etiology of acute kidney injury is likely secondary to hemodynamics. Questionable tubular injury. The patient's initial urinalysis shows evidence of pyuria and proteinuria. Plan at this point is to continue current treatment plan, continue supportive care. Renally dose all meds. Continue intravenous antibiotics. Plan will be to further check a renal ultrasound. Will get repeat urinalysis with urine electrolytes. 2. Hypokalemia. Replete with potassium chloride. 3. Hyponatremia. Continue to monitor. 4. Sepsis secondary to possible pneumonia. Continue current antibiotic regimen. 5. Acute respiratory failure secondary to chronic obstructive pulmonary disease, bjl-WY-wlydpvnaa myocardial infarction. Continue current medical management. Continue nebulizers. 6. Ehg-GA-lxwknxlks myocardial infarction. Continue current treatment plan. Continue heparin drip. Follow up with Cardiology. 7. Lactic acidosis likely secondary to underlying sepsis. Continue current treatment plan. Will monitor. 8. History of bladder cancer. 9. History of hepatitis C. Thank you, Dr. Felder for this interesting consult. It will be a pleasure to follow patient with you throughout the hospital course. Dictated By: Ephraim Joya DO /maira/frederick /Document#: [id number]
[2016-11-07 18:38] LABS: ADD UMIC YES; UR ASCORBIC ACID NEGATIVE (NEGATIVE); UR BACTERIA FEW /HPF (NONE SEEN); UR BILIRUBIN (Dip) NEGATIVE (NEGATIVE); UR BLOOD (Dip) 2+ mg/dL (NEGATIVE); UR CLARITY SLIGHTLY CLOUDY (CLEAR); UR COLOR YELLOW (YELLOW); UR GLUCOSE (Dip) NEGATIVE (NEGATIVE); UR KETONES (Dip) NEGATIVE (NEGATIVE); UR LEUKOCYTE ESTERASE (Dip) 3+ Leu/ul (NEGATIVE); UR MUCUS FEW /HPF (NONE SEEN); UR NITRITE (Dip) NEGATIVE (NEGATIVE); UR RBC 16 /HPF (0-5); UR SPECIFIC GRAVITY (Dip) 1.012 (1.003-1.030); UR TOTAL PROTEIN (Dip) NEGATIVE (NEGATIVE); UR UROBILINOGEN (Dip) 2+ mg/dL (NEGATIVE); UR WBC CLUMPS FEW /HPF (NONE SEEN)
--- NOTE | 2016-11-07 19:11 | CONS ---
DATE OF ADMISSION: 11/06/2016 DATE OF CONSULTATION: 11/07/2016 REASON FOR CONSULTATION: Ventilator management. Thank you, Dr. Brito for this consultation. HISTORY OF PRESENT ILLNESS: This is a 71-year-old gentleman well known to me with a history of severe COPD, normally followed at the [place] [facility], comes in with increasing shortness of breath for several days. No nausea. No vomiting. Per chart, he has a history of advanced COPD. On x-ray today, he has lobar infiltrate right middle lobe. In addition, he has also been noted to have significant leukocytosis with lactic acidosis and positive troponins. Per chart, EKG showed no acute ischemic changes. PAST MEDICAL HISTORY: As above. MEDICATION: Per chart. ALLERGIES: INCLUDE: MOMETASONE. AMOXICILLIN. DOXYCYCLINE. INDOMETHACIN. SOCIAL HISTORY: He is an ex-smoker. PHYSICAL EXAMINATION: GENERAL: Well-nourished well-developed gentleman, comfortable at rest, no acute distress. VITAL SIGNS: Currently afebrile. Pulse is 100, blood pressure 137/70, O2 sat 96 percent on 3 L nasal cannula. NECK: Supple. No JVD, no lymphadenopathy. CARDIAC: S1, S2. No added sounds or murmurs. CHEST: Diminished air entry bilaterally. ABDOMEN: Soft, nontender. No guarding or rebound. EXTREMITIES: No cyanosis, clubbing. NEUROLOGIC: Generalized weakness. LABORATORY: White count 53.6, hemoglobin 10.5, platelets of 283. Potassium 2.9, BUN 63, creatinine 1.47. Troponin elevated at 2.7. Lactic acid 2.3. INR 1.47. Arterial blood gas, PaO2 was 60 on non-rebreather. Chest x-ray as above. IMPRESSION AND PLAN: 1. Possible healthcare associated pneumonia. 2. Underlying severe chronic obstructive pulmonary disease. 3. Possible itu-JZ-qzrehqnzr myocardial infarction. 4. 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 PLAN: Patient will need continued antibiotics, bronchodilators, sputum studies, cardiac recommendations, DVT and GI prophylaxis. Dictated By: Jett Modi MD /maira/frederick /Document#: [id number]
[2016-11-07] MEDS: ATORVASTATIN 40 MG TAB PO SCH (21:11)
[2016-11-07] MEDS: ACETAMINOPHEN 650MG/20.3ML CUP PO PRN (21:30)
[2016-11-08] VITALS (21 sets, daily range): BP systolic 106–164; BP diastolic 67–101; PULSE 62–113; RESP 17–28
--- NOTE | 2016-11-08 06:01 | CONS ---
DATE OF ADMISSION: 11/06/2016 DATE OF CONSULTATION: 11/08/2016 I am seeing this patient for Dr. Kareem Bang. REQUESTING PHYSICIAN: Perry Brito MD HISTORY OF PRESENT ILLNESS: The patient is a 71-year-old, Afro- [place] male that presented on 11/06/2016, arriving by rescue ambulance, with a 2-day history of increasing shortness of breath and cough. The patient has COPD and home oxygenation and smokes. On arrival he was noted to have a white count of 47,700, and with 84 polys, hematocrit 40 percent. Urinalysis has a pH of 5, specific gravity 1.014, leukocyte esterase +2, red blood cells 3, white blood cells 37, protein 2+. The patient had a urine culture which grew greater than 100,000 gram-negative rods. The patient was thought to have perhaps a yec-YI-tlpbdam myocardial infarction which was not sustained after being evaluated by the hand tufter. He had an echocardiogram which revealed a 70 percent ejection fraction. Moderate enlargement of the right ventricle and right mid ventricular hyperkinesia. Chest x-ray initially was read as infiltrate versus mass in possible right middle lobe. A CT scan revealed multiple lobar pneumonia right upper lobe and right lower lobe. An ultrasound of the kidneys was revealed as normal. The patient's arterial blood gas on arrival was pH 7.386, pCO2 of 61, and a pO2 of 94. After arrival, the patient's white blood cell count christianne to 53,000. Serum potassium was 2.9, BUN 63, and creatinine 1.40 and subsequently this christianne to a BUN of 70, with a creatinine of 2.43 shortly there afterwards. The patient was treated with methylprednisolone, breathing treatments, supplemental oxygen and transferred to the intensive care unit. PAST MEDICAL HISTORY: Benign prostatic hypertrophy, chronic obstructive pulmonary disease, inflammatory arthritis, possibly gout, and hypertension, and bladder control problems. ALLERGIES: AMOXICILLIN. INDOMETHACIN. DOXYCYCLINE. OXYBUTYNIN. MOMETASONE. MEDICATION: Include: 1. Cefepime. 2. Levaquin. 3. Heparin. 4. Potassium chloride IV. 5. Aspirin 81 mg daily. 6. Atorvastatin 40 mg daily. 7. Furosemide 40 mg one daily. 8. Pantoprazole 40 mg daily. REVIEW OF SYSTEMS: Reveals a talkative, oppositional gainsaying Afro-Israeli male, who is ambivalent about speaking with the examiner, talking about anything except his difficulties prior to coming in here to the hospital. I am unable to get a coherent history out of him and he seems to have fluctuations in consciousness. He does not have any tremor. PHYSICAL EXAMINATION: VITAL SIGNS: The patient's most recent vital signs are pulse 109, respirations 31, blood pressure 194/99, pulse oximetry 93 percent on 3 L/minute by nasal cannula. GENERAL APPEARANCE: The patient declined examination, he did not appear to have labored respirations, but he has rapid respirations. ABDOMEN: Flat. EXTREMITIES: There is no pedal edema. IMPRESSION: 1. Systemic inflammatory response. 2. Right upper and right lower lobe pneumonia. 3. Urinary tract infection and gram-negative dick. 4. Chronic obstructive pulmonary disease, oxygen-dependent. 5. Tobacco use. 6. Hypertension. 7. Hyperlipidemia. 8. Benign prostatic hypertrophy. 9. Dehydration. RECOMMENDATIONS: I would change the patient's antibiotics to ceftriaxone pending culture and sensitivity results and discontinue the Levaquin and cefepime as these are rather over broad for somebody coming in from home without benefit of indicating culture and sensitivity results. I suggest getting sputum culture, cultures of the nares for MRSA and recommend vigorous rehydration and pulmonary toilet to clear the patient's lungs. I have seen this patient for Dr. Kareem Bang. Dictated By: Saira Evans MD /maira/frederick /Document#: [id number]
[2016-11-08] MEDS: PANTOPRAZOLE 40 MG INJ IV SCH (07:03)
[2016-11-08] MEDS: ALBUTEROL/IPRATROPIUM (NEB) 3 ML AMP HHN SCH ×4 (08:31→20:58)
[2016-11-08] MEDS: ASPIRIN 81 MG TAB PO SCH (08:54)
[2016-11-08] MEDS: morphine 2 MG INJ IV PRN ×2 (08:57→22:08)
--- NOTE | 2016-11-08 09:15 | PN ---
DATE: 11/08/2016 SUBJECTIVE DATA: The patient remains tachypneic, although clinically improving. The patient is pending CT angio today. No other events noted. No hemoptysis, hematemesis, hematochezia. The patient is pending cardiac cath today. Otherwise, no other events noted. OBJECTIVE DATA: VITAL SIGNS: Blood pressure 119/83, respirations 18, pulse 102, temperature 98.1. I's and O's have been reviewed, the patient has 1.5 liters in and 2 liters out. HEENT: Head is normocephalic. NECK: Supple. CARDIAC: Heart is tachycardic. LUNGS: Diminished breath sounds base. Positive rhonchi. ABDOMEN: Soft, nontender to palpation. No rebound or guarding. EXTREMITIES: Negative for clubbing, cyanosis. No edema. DERMATOLOGIC: No rashes. MUSCULOSKELETAL: No joint effusion. NEUROLOGIC: No focal deficits. LABORATORY AND DIAGNOSTIC DATA: Shows urinalysis shows a FENa less than 1 percent. Protein creatinine ratio approximately 100 mg/g creatinine. Renal ultrasound is unremarkable. The patient's renal panel is currently pending this morning. White count is 53, hemoglobin 10.5, hematocrit 33.3, platelet count is 283,000. ASSESSMENT AND PLAN: 1. Nonoliguric acute kidney injury on top of chronic kidney disease with unknown baseline creatinine. Etiology of acute kidney injury appears to be secondary to pre-renal volume depleted state. The patient's FENa is less 1 percent consistent with possibly renal state. Urinalysis does show evidence of pyuria and the patient has non-glomerular proteinuria. At this point, would continue current treatment plan. Continue supportive care. Renally dose all meds. Continue IV antibiotics. May consider gentle IV hydration. 2. Hypokalemia. Continue to monitor and replete. 3. Hyponatremia. Continue to monitor. 4. Sepsis secondary to pneumonia. Continue current antibiotic regimen. 5. Acute respiratory failure secondary to chronic obstructive pulmonary disease, pneumonia. Continue current treatment plan. Continue supplemental oxygen. 6. Non-ST elevation myocardial infarction. Continue medical management. Heparin drip. The patient is pending cardiac cath. 7. Lactic acidosis secondary to sepsis. Continue to monitor. 8. History of bladder cancer. 9. History of hepatitis-C. Dictated By: Ephraim Joya DO /maira/ros /Document#: [id number]
[2016-11-08 09:58] LABS: ABNORMAL IP MESSAGE 1; BASOPHIL # 0.1 10^3/ul (0.0-0.1); BASOPHILS % 0.2 % (0.0-2.0); HEMATOCRIT 31.5 % (42.0-52.0); HEMOGLOBIN 9.3 g/dl (14.0-18.0); LYMPHOCYTES # 1.6 10^3/ul (0.8-2.9); LYMPHOCYTES % 3.7 % (15.0-51.0); MEAN CORPUSCULAR HEMOGLOBIN 24.4 pg (29.0-33.0); MEAN CORPUSCULAR HGB CONC 29.5 g/dl (32.0-37.0); MEAN CORPUSCULAR VOLUME 82.7 fl (82.0-101.0); MEAN PLATELET VOLUME 9.3 fl (7.4-10.4); MONOCYTE # 2.8 10^3/ul (0.3-0.9); MONOCYTES % 6.5 % (0.0-11.0); NEUTROPHILS % 87.9 % (39.0-77.0); PLATELET COUNT 292 10^3/UL (140-415); POSITIVE DIFF @See below; RED BLOOD COUNT 3.81 10^6/ul (4.70-6.10); RED CELL DISTRIBUTION WIDTH 18.8 % (11.5-14.5); WHITE BLOOD COUNT 42.3 10^3/ul (4.8-10.8)
[2016-11-08 10:06] LABS: ALBUMIN 2.7 g/dl (3.3-4.9); BILIRUBIN,DIRECT 0.8 mg/dl (0.00-0.20); BILIRUBIN,INDIRECT 0.2 mg/dl (0-1.1); TOTAL PROTEIN 6.7 g/dl (6.1-8.1)
[2016-11-08 10:07] LABS: CALCIUM 8.3 mg/dl (8.4-10.2); CREATININE 0.91 mg/dl (0.61-1.24); MAGNESIUM 2.6 mg/dl (1.7-2.5); PHOSPHORUS 2.4 mg/dl (2.5-4.9); POTASSIUM 3.5 mmol/L (3.5-5.1)
--- NOTE | 2016-11-08 10:11 | CONS ---
Date/Time of Note Date/Time of Note DATE: 11/08/16 TIME: 10:01 Consult Date/Type/Reason Admit Date/Time Nov 06, 2016 at 16:26 Initial Consult Date 11/07/16 Type of Consultation: Pulmonary Ordering Provider: LINDA REYNOLDS Subjective Patient stable this morning. Experienced shortness of breath yesterday requiring temporary BiPAP. Still complaining of shortness of breath. Objective Vital Signs Date Time Temp Pulse Resp B/P Pulse Ox O2 Delivery O2 Flow Rate FiO2 11/08/16 08:32 106 23 100 Nasal Cannula 2.0 11/08/16 07:00 119/83 11/08/16 04:00 98.1 11/07/16 14:50 30 Intake and Output 11/07/16 11/07/16 11/08/16 15:00 23:00 07:00 Intake Total 985 ml 592.0 ml 86.8 ml Output Total 760 ml 670 ml 735 ml Balance 225 ml -78.0 ml -648.2 ml Exam PHYSICAL EXAMINATION: GENERAL: Well-nourished well-developed gentleman, comfortable at rest, no acute distress. VITAL SIGNS: NECK: Supple. No JVD, no lymphadenopathy. CARDIAC: S1, S2. No added sounds or murmurs. CHEST: Diminished air entry bilaterally. ABDOMEN: Soft, nontender. No guarding or rebound. EXTREMITIES: No cyanosis, clubbing. NEUROLOGIC: Generalized weakness. Results/Medications Result Diagram: 11/07/16 0534 11/07/16 0534 Results 24 hrs Laboratory Tests Test 11/07/16 13:35 11/07/16 13:43 11/07/16 14:31 11/07/16 16:22 Troponin I 2.150 *H Activated Partial Thromboplast Time 75.6 *H Lactic Acid Level 1.9 Blood Gas Specimen Source Blood arterial Arterial Blood Date Drawn 11/07/2016 2:40:06 PM Arterial Blood pH (Temp corrected) 7.385 Arterial Blood pCO2 (Temp correct) 60.9 H Arterial Blood pO2 (Temp corrected) 71.2 L Arterial Blood HCO3 35.6 H Arterial Blood Base Excess 8.8 H Arterial Blood Oxygen Saturation 92.7 L Trent Test ACCEPTAB Arterial Blood Gas Puncture Site Right Radial Arterial Blood Carboxyhemoglobin 0.1 Arterial Blood Methemoglobin 0.3 Blood Gas A-a O2 Differential 49.3 H Oxyhemoglobin Percent 92.3 L Total Hemoglobin 11.5 L Blood Gas Temperature 37.0 Blood Gas Modality NASAL CANNULA FiO2 27.0 Blood Gas Notified Whom JLD Blood Gas Notified Time 11/07/2016 2:50:39 PM Bedside Glucose 134 Test 11/07/16 18:45 11/07/16 20:05 11/08/16 01:55 11/08/16 08:58 Lactic Acid Level 1.8 1.3 1.0 Activated Partial Thromboplast Time 58.8 H 58.3 H White Blood Count Pending Red Blood Count Pending Hemoglobin Pending Hematocrit Pending Mean Corpuscular Volume Pending Mean Corpuscular Hemoglobin Pending Mean Corpuscular Hemoglobin Concent Pending Red Cell Distribution Width Pending Platelet Count Pending Mean Platelet Volume Pending Medications Current Medications Ondansetron HCl (Zofran Inj) 4 mg Q6H PRN IV NAUSEA AND/OR VOMITING; Start 12/13 at 20:30 Acetaminophen (Tylenol Liquid) 650 mg Q6H PRN PO PAIN LEVEL 1-3 OR FEVER Last administered on 11/07/16 21:30; Admin Dose 650 MG; Start 11/06/16 at 20:30 Morphine Sulfate (morphine) 2 mg Q4H PRN IV PAIN LEVEL 7-10 Last administered on 11/08/16 08:57; Admin Dose 2 MG; Start 11/06/16 at 20:30 Pantoprazole (Protonix Iv) 40 mg DAILY@06 IV Last administered on 11/08/16 07: 03; Admin Dose 40 MG; Start 11/07/16 at 06:00 Aspirin (Aspirin) 81 mg DAILY PO Last administered on 11/08/16 08:54; Admin Dose 81 MG; Start 11/07/16 at 10:00 Atorvastatin Calcium (Lipitor) 40 mg HS PO Last administered on 11/07/16 21:11 ; Admin Dose 40 MG; Start 11/07/16 at 21:00 Assessment/Plan Chief Complaint/Hosp Course IMPRESSION AND PLAN: 1. Possible healthcare associated pneumonia. 2. Underlying severe chronic obstructive pulmonary disease. 3. Possible nkj-WS-ztfyrjrer myocardial infarction. 4. Severe emphysema with right upper lobe pneumonia 5. Hypokalemia Plan 1. Continue antibiotic coverage 2. Cardiac catheterization today 3. Likely leukemoid reaction. 4. Replace potassium Keep in icu. Problems: ANGE KUHN MD, [facility] Nov 08, 2016 10:11
--- NOTE | 2016-11-08 10:29 | PN ---
Date/Time of Note Date/Time of Note DATE: 11/08/16 TIME: 10:21 Assessment/Plan VTE Prophylaxis VTE Prophylaxis Intervention: heparin Lines/Catheters IV Catheter Type (from [facility]): Peripheral IV Urinary Cath still in place: Yes Reason Cath still needed: urinary retention Assessment/Plan Chief Complaint/Hosp Course This is a 71-year-old male being admitted to the ICU floor for: #1 Acute respiratory distress: Likely appears to be multifactorial: Multifocal pneumonia plus COPD exacerbation as well as Nstemi. -Continue duo nebs, broad-spectrum antibiotics - continue heparin drip as he does have elevated troponins. -Follow-up pulmonary, infectious disease, and cardiology rec's #2 Nstemi: Troponin 5.1 on admission, patient started on heparin drip. Cardiology was consulted via the ED based on slight ST elevations on EKG however patient did not meet criteria for STEMI. - Continue to trend troponins, heparin drip -Follow further cardiology recommendations. Likely for left heart cath later today - nitro/morphine for pain #3 COPD: Patient did receive steroids in the ED. -Continue nebulization., BiPAP if indicated. #4 Renal failure, acute versus chronic: Previous creatinine from 2015 showed a creatinine of 1.0. On admission creatinine elevated at approximately 2.5 -> 1.4 This could be secondary to prerenal etiology as well as possible cardiorenal syndrome -Monitor urine output, BMP every morning -f/u consult nephrology recommendations #5 lactic acidosis: Multifactorial in nature secondary to the acute illness as well as possible underlying infection. Trending down now - Will continue to trend lactate and provide IV antibiotics. #6 leukocytosis: Patient had white blood cell count of 47 on admission which significantly high just for a acute underlying infection. He does have history of bladder cancer and hepatitis C. Again, he does have multifocal pneumonia, also could be leukemoid reaction -continue antibiotics , monitor daily CBC #7 history of bladder cancer: Monitor for now #8 history of hepatitis C: Follow-up HCV RNA level. #9 DVT and GI prophylactic: Heparin drip, Protonix Critical care time spent on patient care today = 45 minutes. Problems: Subjective 24 Hr Interval Summary Free Text/Dictation Still on heparin drip, required BiPAP yesterday. Awaiting left heart cath for later today. Seen by [facility] consultant teams yesterday, no acute events overnight. Exam/Review of Systems Vital Signs Vitals Vital Signs Date Time Temp Pulse Resp B/P Pulse Ox O2 Delivery O2 Flow Rate FiO2 11/08/16 08:32 106 23 100 Nasal Cannula 2.0 11/08/16 07:00 119/83 11/08/16 04:00 98.1 11/07/16 14:50 30 Intake and Output 11/07/16 11/07/16 11/08/16 15:00 23:00 07:00 Intake Total 985 ml 592.0 ml 86.8 ml Output Total 760 ml 670 ml 735 ml Balance 225 ml -78.0 ml -648.2 ml Exam General: Patient is lying in bed, NAD HEENT: Atraumatic, normocephalic. The pupils are equal, round and reactive. Extraocular motor are intact Neck: Supple with full range of motion. No rigidity or meningismus Lungs: less bilateral coarse breath sounds and expiratory wheezing B/L Heart: Normal S1-S2, Regular rhythm and rate. No overt murmurs appreciated Abdomen: Soft , nontender, nondistended , bowel sounds are present. No guarding no rebound tenderness , No masses or organomegaly Neurologic: no focal deficits Results Result Diagram: 11/08/16 0858 11/07/16 0534 Results 24 hrs Laboratory Tests Test 11/07/16 13:35 11/07/16 13:43 11/07/16 14:31 11/07/16 16:22 Troponin I 2.150 *H Activated Partial Thromboplast Time 75.6 *H Lactic Acid Level 1.9 Blood Gas Specimen Source Blood arterial Arterial Blood Date Drawn 11/07/2016 2:40:06 PM Arterial Blood pH (Temp corrected) 7.385 Arterial Blood pCO2 (Temp correct) 60.9 H Arterial Blood pO2 (Temp corrected) 71.2 L Arterial Blood HCO3 35.6 H Arterial Blood Base Excess 8.8 H Arterial Blood Oxygen Saturation 92.7 L Trent Test ACCEPTAB Arterial Blood Gas Puncture Site Right Radial Arterial Blood Carboxyhemoglobin 0.1 Arterial Blood Methemoglobin 0.3 Blood Gas A-a O2 Differential 49.3 H Oxyhemoglobin Percent 92.3 L Total Hemoglobin 11.5 L Blood Gas Temperature 37.0 Blood Gas Modality NASAL CANNULA FiO2 27.0 Blood Gas Notified Whom WILFREDD Blood Gas Notified Time 11/07/2016 2:50:39 PM Bedside Glucose 134 Test 11/07/16 18:45 11/07/16 20:05 11/08/16 01:55 11/08/16 08:58 Lactic Acid Level 1.8 1.3 1.0 Activated Partial Thromboplast Time 58.8 H 58.3 H White Blood Count 42.3 #H Red Blood Count 3.81 L Hemoglobin 9.3 L Hematocrit 31.5 L Mean Corpuscular Volume 82.7 Mean Corpuscular Hemoglobin 24.4 L Mean Corpuscular Hemoglobin Concent 29.5 L Red Cell Distribution Width 18.8 H Platelet Count 292 Mean Platelet Volume 9.3 Neutrophils % 87.9 H Lymphocytes % 3.7 L Monocytes % 6.5 Eosinophils % 0.0 Basophils % 0.2 Nucleated Red Blood Cells % 0.0 Neutrophils # (Manual) 37.2 H Lymphocytes # 1.6 Monocytes # 2.8 H Eosinophils # 0.0 Basophils # 0.1 Nucleated Red Blood Cells # 0.0 Total Bilirubin 1.0 Direct Bilirubin 0.80 H Indirect Bilirubin 0.2 Aspartate Amino Transf (AST/SGOT) 71 H Alanine Aminotransferase (ALT/SGPT) 43 Alkaline Phosphatase 78 Total Protein 6.7 # Albumin 2.7 L Medications Medications Current Medications Ondansetron HCl (Zofran Inj) 4 mg Q6H PRN IV NAUSEA AND/OR VOMITING; Start 12/13 at 20:30 Acetaminophen (Tylenol Liquid) 650 mg Q6H PRN PO PAIN LEVEL 1-3 OR FEVER Last administered on 11/07/16 21:30; Admin Dose 650 MG; Start 11/06/16 at 20:30 Morphine Sulfate (morphine) 2 mg Q4H PRN IV PAIN LEVEL 7-10 Last administered on 11/08/16 08:57; Admin Dose 2 MG; Start 11/06/16 at 20:30 Pantoprazole (Protonix Iv) 40 mg DAILY@06 IV Last administered on 11/08/16 07: 03; Admin Dose 40 MG; Start 11/07/16 at 06:00 Aspirin (Aspirin) 81 mg DAILY PO Last administered on 11/08/16 08:54; Admin Dose 81 MG; Start 11/07/16 at 10:00 Atorvastatin Calcium (Lipitor) 40 mg HS PO Last administered on 11/07/16 21:11 ; Admin Dose 40 MG; Start 11/07/16 at 21:[address] chest: IMPRESSION: 1. Findings compatible with multilobar pneumonia involving right upper and lower lobes, as above. 2. Severe pulmonary emphysema and findings of chronic bronchitis are identified. 3. Coronary arterial and aortic atherosclerotic calcifications are present. 4. No mass or lymphadenopathy is identified. B. 2D ECHO: Conclusions 1. Hyperdynamic left ventricular systolic function. Normal left ventricular cavity size. Normal left ventricular wall thickness. Ejection fraction is visually estimated at 70 %. 2. Moderate enlargement of right ventricle. Mild right ventricular hypokinesis. Flattened septum in systole consistent with RV pressure overload. There is severe enlargement of right atrium. 3. No significant valvular disease. 4. Estimated peak PA systolic pressure 30 mmHg which may be underestimated as there is evidence of RV pressure overload. TAYLOR WIGGINS Nov 08, 2016 10:29
--- NOTE | 2016-11-08 11:04 | RADRPT ---
PROCEDURE: XR Chest. CLINICAL INDICATION: Pneumonia and congestive heart failure. TECHNIQUE: Chest x-ray, single view. COMPARISON: Chest x-ray 11/07/2016. CT chest 11/07/2016. FINDINGS: The cardiac silhouette is magnified.Thoracic aortic arch atherosclerotic calcification is present. P ulmonary vascularity is within normal limits. Hyperinflation is present. Focal parenchymal opacifica tion within the midportion of the right lung is grossly unchanged. There is no evidence of new pulmo nary parenchymal abnormality. Degenerative changes of the spine are observed. The visualized upper a bdomen is unremarkable. IMPRESSION: Focal parenchymal opacification within the midportion of the right lung, unchanged. No evidence of n ew pulmonary parenchymal abnormality. Hyperinflation. Thoracic aortic atherosclerosis. RPTAT: HLST .Rabia Jones MD, MD Date Time Electronically viewed and signed by .Rabia Jones MD, MD on 11/08/2016 11:03 .T/
[2016-11-08] MEDS: HEPARIN 25000 UNITS/250 ML 250 ML IV SCH (12:25)
[2016-11-08] MEDS: CEFEPIME 1GM/50 ML (PMX) 50 ML IVPB SCH ×2 (14:16→21:53)
--- NOTE | 2016-11-08 17:05 | PN ---
DATE: 11/08/2016 SUBJECTIVE DATA: No events overnight. The patient is lying comfortably in bed. No fevers. OBJECTIVE DATA: VITAL SIGNS: Temperature 98.1, pulse 105, respirations 26, blood pressure 131/84, and saturation 100 on 3 L. LABORATORY AND DIAGNOSTIC DATA: WBC 42.3, H and H 9.3 and 31.5, platelets 292,000, neutrophils 87.9, BUN 43, and creatinine 0.91. MICROBIOLOGY: Urine culture growing Klebsiella oxytoca. Blood cultures remain negative. DIAGNOSTICS: Chest x-ray revealed focal pericardial opacification with the midpoint of the right lung unchanged, hyperinflation. ANTIMICROBIALS: The patient is on cefepime. PHYSICAL EXAMINATION: GENERAL: Cachectic, well-developed, elderly man who is in no distress. HEENT: Head atraumatic, normocephalic. Sclerae anicteric. Buccal mucosa dry. NECK: Supple. CHEST: Rise symmetrical. Breath sounds diminished at the bases. HEART: S1, S2. ABDOMEN: Soft, bowel sounds present. EXTREMITIES: Without cyanosis. ASSESSMENT: 1. Pneumonia with a severe chronic obstructive pulmonary disease (COPD). 2. Cachexia. 3. Acute renal failure. 4. Non ST-elevation myocardial infarction (CT). 5. History of bladder cancer. 6. Hepatitis C virus. 7. Allergy to amoxicillin and doxycycline. PLAN: 1. Patient remains hemodynamically stable. 2. Covered with appropriate antibiotics. 3. He is being seen by multiple consultants. 4. He is on heparin drip. 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 Dictated By: Chang Pop NP /maira/brown /Document#: [id number]
[2016-11-08] MEDS: ATORVASTATIN 40 MG TAB PO SCH (21:48)
--- NOTE | 2016-11-08 21:52 | CONS ---
Date/Time of Note Date/Time of Note DATE: 11/08/16 TIME: 21:41 Assessment/Plan Assessment/Plan Chief Complaint/Hosp Course Assessment: NSTEMI - peak troponin 6 Right ventricular dysfunction - rule out pulmonary embolism, can also be from severe chronic obstructive pulmonary disease Acute on chronic hypoxic respiratory failure Chronic obstructive pulmonary disease exacerbation and possible pneumonia - per pulmonology Acute kidney injury - improving Chronic leukocytosis - possible myelodysplastic syndrome Hepatitis C Tobacco use Recommendations: -echocardiogram showed LVEF 70%, moderate RV enlargement with mild hypokinesis -renal function has improved, will obtain chest CTA to rule out pulmonary embolism -if negative for pulmonary embolism, will eventually need coronary angiography when respiratory status improved -continue heparin drip -continue aspirin and atorvastatin -hold off on metoprolol for now given chronic obstructive pulmonary disease exacerbation Problems: Consultation Date/Type/Reason Admit Date/Time Nov 06, 2016 at 16:26 Initial Consult Date 11/07/16 Type of Consultation: Cardiology 24 HR Interval Summary Free Text/Dictation Transferred out of ICU. Still complaining of shortness of breath. Detailed Summary Additional Comments 14 point review of systems without changes. Exam/Review of Systems Vital Signs Vitals Vital Signs Date Time Temp Pulse Resp B/P Pulse Ox O2 Delivery O2 Flow Rate FiO2 11/08/16 20:58 2.0 11/08/16 20:58 111 24 98 Nasal Cannula 11/08/16 20:13 98.3 149/80 11/07/16 14:50 30 Intake and Output 11/07/16 11/07/16 11/08/16 15:00 23:00 07:00 Intake Total 985 ml 592.0 ml 99.2 ml Output Total 760 ml 670 ml 735 ml Balance 225 ml -78.0 ml -635.8 ml Exam Constitutional: alert, distress (mild respiratory ), oriented Psych: No nl mood/affect Head: atraumatic, normocephalic Neck: jvd (distended EJ during expiration ) Respiratory: crackles/rales, diminished breath sounds, No clear to auscultation (ronchi) Cardiovascular: systolic murmur (2/6 ROXANNE), No edema, No regular rate and rhythm (tachycardic ) Gastrointestinal: soft, No non-tender (mild to palpation ) Neurological: nl mental status, nl speech Skin: No rash or lesions Results Result Diagram: 11/08/1658 11/08/1658 Results 24 hrs Laboratory Tests Test 11/08/16 01:55 11/08/16 08:58 11/08/16 11:40 11/08/16 15:07 Activated Partial Thromboplast Time 58.3 H 67.7 H Lactic Acid Level 1.3 1.0 1.3 White Blood Count 42.3 #H Red Blood Count 3.81 L Hemoglobin 9.3 L Hematocrit 31.5 L Mean Corpuscular Volume 82.7 Mean Corpuscular Hemoglobin 24.4 L Mean Corpuscular Hemoglobin Concent 29.5 L Red Cell Distribution Width 18.8 H Platelet Count 292 Mean Platelet Volume 9.3 Neutrophils % 87.9 H Lymphocytes % 3.7 L Monocytes % 6.5 Eosinophils % 0.0 Basophils % 0.2 Nucleated Red Blood Cells % 0.0 Neutrophils # (Manual) 37.2 H Lymphocytes # 1.6 Monocytes # 2.8 H Eosinophils # 0.0 Basophils # 0.1 Nucleated Red Blood Cells # 0.0 Sodium Level 136 Potassium Level 3.5 Chloride Level 92 L Carbon Dioxide Level 39 H Anion Gap 9 Blood Urea Nitrogen 43 #H Creatinine 0.91 Glucose Level 90 Calcium Level 8.3 L Phosphorus Level 2.4 L Magnesium Level 2.6 H Total Bilirubin 1.0 Direct Bilirubin 0.80 H Indirect Bilirubin 0.2 Aspartate Amino Transf (AST/SGOT) 71 H Alanine Aminotransferase (ALT/SGPT) 43 Alkaline Phosphatase 78 Total Protein 6.7 # Albumin 2.7 L Test 11/08/16 18:50 Lactic Acid Level 1.5 Medications Medications Current Medications Ondansetron HCl (Zofran Inj) 4 mg Q6H PRN IV NAUSEA AND/OR VOMITING; Start 12/13 at 20:30 Acetaminophen (Tylenol Liquid) 650 mg Q6H PRN PO PAIN LEVEL 1-3 OR FEVER Last administered on 11/07/16 21:30; Admin Dose 650 MG; Start 11/06/16 at 20:30 Morphine Sulfate (morphine) 2 mg Q4H PRN IV PAIN LEVEL 7-10 Last administered on 11/08/16 08:57; Admin Dose 2 MG; Start 11/06/16 at 20:30 Aspirin (Aspirin) 81 mg DAILY PO Last administered on 11/08/16 08:54; Admin Dose 81 MG; Start 11/07/16 at 10:00 Atorvastatin Calcium 40 mg 40 mg HS PO Last administered on 11/07/16 21:11; Admin Dose 40 MG; Start 11/07/16 at 21:00 Cefepime HCl (Maxipime 1gm/50 ml (Pmx)) 50 ml @ 100 mls/hr Q12 IVPB Last administered on 11/08/16 14:16; Admin Dose 100 MLS/HR; Start 11/08/16 at 13:30 Pantoprazole (Protonix Tab) 40 mg DAILY@06 PO ; Start 11/09/16 at 06:00 LISA SEARS MD Nov 08, 2016 21:52
[2016-11-09] VITALS (11 sets, daily range): BP systolic 109–134; BP diastolic 60–71; PULSE 98–117; RESP 16–20
[2016-11-09] MEDS: morphine 2 MG INJ IV PRN ×5 (02:51→20:54)
[2016-11-09] MEDS: ALBUTEROL/IPRATROPIUM (NEB) 3 ML AMP HHN PRN (05:34)
[2016-11-09] MEDS: PANTOPRAZOLE (EC) 40 MG TAB PO SCH (06:18)
[2016-11-09 06:23] LABS: ABNORMAL IP MESSAGE 1; BASOPHIL # 0.1 10^3/ul (0.0-0.1); BASOPHILS % 0.2 % (0.0-2.0); HEMATOCRIT 33.5 % (42.0-52.0); HEMOGLOBIN 9.9 g/dl (14.0-18.0); LYMPHOCYTES # 2.2 10^3/ul (0.8-2.9); LYMPHOCYTES % 7.3 % (15.0-51.0); MEAN CORPUSCULAR HEMOGLOBIN 24.8 pg (29.0-33.0); MEAN CORPUSCULAR HGB CONC 29.6 g/dl (32.0-37.0); MEAN PLATELET VOLUME 9.2 fl (7.4-10.4); MONOCYTE # 2.4 10^3/ul (0.3-0.9); NEUTROPHILS % 82.7 % (39.0-77.0); PLATELET COUNT 316 10^3/UL (140-415); POSITIVE DIFF @See below; RED BLOOD COUNT 3.99 10^6/ul (4.70-6.10); WHITE BLOOD COUNT 30.4 10^3/ul (4.8-10.8)
[2016-11-09 06:58] LABS: CALCIUM 8.6 mg/dl (8.4-10.2); CREATININE 0.82 mg/dl (0.61-1.24); POTASSIUM 3.5 mmol/L (3.5-5.1)
[2016-11-09] MEDS: ALBUTEROL/IPRATROPIUM (NEB) 3 ML AMP HHN SCH ×4 (08:04→20:27)
[2016-11-09] MEDS: CEFEPIME 1GM/50 ML (PMX) 50 ML IVPB SCH ×2 (08:35→20:48)
[2016-11-09] MEDS: ASPIRIN 81 MG TAB PO SCH (08:35)
[2016-11-09] MEDS: HEPARIN 25000 UNITS/250 ML 250 ML IV SCH (08:41)
--- NOTE | 2016-11-09 10:39 | RADRPT ---
PROCEDURE: XR Chest 1 View. CLINICAL INDICATION: Shortness of breath. TECHNIQUE: AP view of the chest was obtained. COMPARISON: November 08, 2016 FINDINGS: The heart size is within normal limits. Calcified atherosclerosis is noted in the aorta. The lungs are hyperexpanded. Right upper lobe infiltrates are stable. The osseous structures are unchanged. IMPRESSION: Calcified atherosclerosis in the aorta. Stable patchy right upper lobe infiltrates. Hyperexpanded lungs. RPTAT: AA .Sergei Fish MD, MD Date Time Electronically viewed and signed by .Sergei Fish MD, on 11/09/2016 10:39 .P/
--- NOTE | 2016-11-09 10:47 | CONS ---
Date/Time of Note Date/Time of Note DATE: 11/09/16 TIME: 10:42 Consult Date/Type/Reason Admit Date/Time Nov 06, 2016 at 16:26 Initial Consult Date 11/07/16 Type of Consultation: pulm Subjective Doing okay. Still short of breath. No fever or chills. Objective Vital Signs Date Time Temp Pulse Resp B/P Pulse Ox O2 Delivery O2 Flow Rate FiO2 11/09/16 10:06 Nasal Cannula 2.0 11/09/16 08:05 112 11/09/16 08:05 95 11/09/16 08:05 28 11/09/16 07:59 99.3 134/71 11/07/16 14:50 30 Intake and Output 11/08/16 11/08/16 11/09/16 15:00 23:00 07:00 Intake Total 149.2 ml 327.2 ml 650 ml Output Total 690 ml 260 ml 800 ml Balance -540.8 ml 67.2 ml -150 ml Results/Medications Result Diagram: 11/09/16 0606 11/09/16 0606 Results 24 hrs Laboratory Tests Test 11/08/16 11:40 11/08/16 15:07 11/08/16 18:50 11/09/16 06:06 Activated Partial Thromboplast Time 67.7 H 66.6 H Lactic Acid Level 1.3 1.5 White Blood Count 30.4 #H Red Blood Count 3.99 L Hemoglobin 9.9 L Hematocrit 33.5 L Mean Corpuscular Volume 84.0 Mean Corpuscular Hemoglobin 24.8 L Mean Corpuscular Hemoglobin Concent 29.6 L Red Cell Distribution Width 19.0 H Platelet Count 316 Mean Platelet Volume 9.2 Neutrophils % 82.7 H Lymphocytes % 7.3 L Monocytes % 8.0 Eosinophils % 0.0 Basophils % 0.2 Nucleated Red Blood Cells % 0.0 Neutrophils # (Manual) 25.1 H Lymphocytes # 2.2 Monocytes # 2.4 H Eosinophils # 0.0 Basophils # 0.1 Nucleated Red Blood Cells # 0.0 Sodium Level 134 L Potassium Level 3.5 Chloride Level 90 L Carbon Dioxide Level 44 *H Anion Gap 4 L Blood Urea Nitrogen 27 #H Creatinine 0.82 Glucose Level 87 Calcium Level 8.6 Medications Current Medications Ondansetron HCl (Zofran Inj) 4 mg Q6H PRN IV NAUSEA AND/OR VOMITING; Start 12/13 at 20:30 Acetaminophen (Tylenol Liquid) 650 mg Q6H PRN PO PAIN LEVEL 1-3 OR FEVER Last administered on 11/07/16 21:30; Admin Dose 650 MG; Start 11/06/16 at 20:30 Morphine Sulfate (morphine) 2 mg Q4H PRN IV PAIN LEVEL 7-10 Last administered on 11/09/16 06:18; Admin Dose 2 MG; Start 11/06/16 at 20:30 Aspirin (Aspirin) 81 mg DAILY PO Last administered on 11/09/16 08:35; Admin Dose 81 MG; Start 11/07/16 at 10:00 Atorvastatin Calcium 40 mg 40 mg HS PO Last administered on 11/08/16 21:48; Admin Dose 40 MG; Start 11/07/16 at 21:00 Cefepime HCl (Maxipime 1gm/50 ml (Pmx)) 50 ml @ 100 mls/hr Q12 IVPB Last administered on 11/09/16 08:35; Admin Dose 100 MLS/HR; Start 11/08/16 at 13:30 Pantoprazole (Protonix Tab) 40 mg DAILY@06 PO Last administered on 11/09/16 06 :18; Admin Dose 40 MG; Start 11/09/16 at 06:00 Guaifenesin (Robitussin Liquid Cup) 200 mg Q4H PRN PO COUGH; Start 11/09/16 at 11:00 Phenol (Cepastat Lozenge) 1 lozenge Q1H PRN MT COUGH; Start 11/09/16 at 11:00 Acetaminophen/ Hydrocodone Bitart ([place] (5/325)) 1 tab Q6H PRN PO PAIN LEVEL 8 -10; Start 11/09/16 at 11:00; Status UNV Assessment/Plan Chief Complaint/Hosp Course IMPRESSION AND PLAN: 1. Probable healthcare associated pneumonia. 2. Underlying severe chronic obstructive pulmonary disease. 3. Non-ST elevation CA, preserved ejection fraction elevated PA pressures concerning for possible pulmonary embolism although may be secondary to chronic hypoxemia from underlying severe COPD. 4. Severe emphysema with right upper lobe pneumonia 5. Hypokalemia Plan 1. Continue antibiotic coverage 2. CTPA 3. Likely leukemoid reaction. 4. Replace potassium 5. Encourage out of bed Problems: ANGE KUHN MD, [facility] Nov 09, 2016 10:47
--- NOTE | 2016-11-09 10:55 | PN ---
Date/Time of Note Date/Time of Note DATE: 11/09/16 TIME: 10:51 Assessment/Plan VTE Prophylaxis VTE Prophylaxis Intervention: heparin Lines/Catheters IV Catheter Type (from Nrs): Saline Lock Urinary Cath still in place: Yes Reason Cath still needed: urinary retention Assessment/Plan Chief Complaint/Hosp Course This is a 71-year-old male being admitted to the ICU floor for: #1 Acute respiratory distress: Likely appears to be multifactorial: Multifocal pneumonia plus COPD exacerbation as well as Nstemi. -Continue duo nebs, broad-spectrum antibiotics, will add Mucomyst as well - continue heparin drip as he does have elevated troponins - NSTEMI -Follow-up pulmonary, infectious disease, and cardiology rec's -Consider repeat ABG - PT eval #2 Nstemi: Troponin 5.1 on admission, patient started on heparin drip. Cardiology was consulted via the ED based on slight ST elevations on EKG however patient did not meet criteria for STEMI. - Continue to trend troponins, heparin drip -Follow further cardiology recommendations. For possible heart cath this admission after results of CTA are known - nitro/morphine for pain #3 COPD: Patient did receive steroids in the ED. -Continue nebulization., BiPAP if indicated, add Mucomyst #4 Renal failure, acute versus chronic: Previous creatinine from 2014 showed a creatinine of 1.0. On admission creatinine elevated at approximately 2.5 -> 1.4 -> 1.0, so normalizing now - this could be secondary to prerenal etiology as well as possible cardiorenal syndrome -Monitor urine output, BMP every morning -f/u consult nephrology recommendations #5 lactic acidosis: Multifactorial in nature secondary to the acute illness as well as possible underlying infection. Trending down now. - Will continue IV antibiotics. #6 leukocytosis: Patient had white blood cell count of 47 on admission which significantly high just for a acute underlying infection. He does have history of bladder cancer and hepatitis C. Again, he does have multifocal pneumonia, also could be leukemoid reaction, now trending down to 30,000 range today. -continue antibiotics , monitor daily CBC #7 history of bladder cancer: Monitor for now #8 history of hepatitis C: Follow-up HCV RNA level. #9 DVT and GI prophylactic: Heparin drip, Protonix Problems: Subjective 24 Hr Interval Summary Free Text/Dictation Patient states slightly less shortness of breath since admission. Seen by cardiology team and pulmonary team. Still on heparin drip. Awaiting CTA chest. Exam/Review of Systems Vital Signs Vitals Vital Signs Date Time Temp Pulse Resp B/P Pulse Ox O2 Delivery O2 Flow Rate FiO2 11/09/16 10:06 Nasal Cannula 2.0 11/09/16 08:05 112 11/09/16 08:05 95 11/09/16 08:05 28 11/09/16 07:59 99.3 134/71 11/07/16 14:50 30 Intake and Output 11/08/16 11/08/16 11/09/16 15:00 23:00 07:00 Intake Total 149.2 ml 327.2 ml 650 ml Output Total 690 ml 260 ml 800 ml Balance -540.8 ml 67.2 ml -150 ml Exam General: Patient is lying in bed, answering questions appropriately HEENT: Atraumatic, normocephalic. The pupils are equal, round and reactive. Extraocular motor are intact Neck: Supple with full range of motion. No rigidity or meningismus Lungs: less bilateral coarse breath sounds Heart: Normal S1-S2, Regular rhythm and rate. No overt murmurs appreciated Abdomen: Soft , nontender, nondistended , bowel sounds are present. No guarding no rebound tenderness , No masses or organomegaly Neurologic: no focal deficits Results Result Diagram: 11/09/16 0611/09/16 0606 Results 24 hrs Laboratory Tests Test 11/08/16 11:40 11/08/16 15:07 11/08/16 18:50 11/09/16 06:06 Activated Partial Thromboplast Time 67.7 H 66.6 H Lactic Acid Level 1.3 1.5 White Blood Count 30.4 #H Red Blood Count 3.99 L Hemoglobin 9.9 L Hematocrit 33.5 L Mean Corpuscular Volume 84.0 Mean Corpuscular Hemoglobin 24.8 L Mean Corpuscular Hemoglobin Concent 29.6 L Red Cell Distribution Width 19.0 H Platelet Count 316 Mean Platelet Volume 9.2 Neutrophils % 82.7 H Lymphocytes % 7.3 L Monocytes % 8.0 Eosinophils % 0.0 Basophils % 0.2 Nucleated Red Blood Cells % 0.0 Neutrophils # (Manual) 25.1 H Lymphocytes # 2.2 Monocytes # 2.4 H Eosinophils # 0.0 Basophils # 0.1 Nucleated Red Blood Cells # 0.0 Sodium Level 134 L Potassium Level 3.5 Chloride Level 90 L Carbon Dioxide Level 44 *H Anion Gap 4 L Blood Urea Nitrogen 27 #H Creatinine 0.82 Glucose Level 87 Calcium Level 8.6 Medications Medications Current Medications Ondansetron HCl (Zofran Inj) 4 mg Q6H PRN IV NAUSEA AND/OR VOMITING; Start 12/13 at 20:30 Acetaminophen (Tylenol Liquid) 650 mg Q6H PRN PO PAIN LEVEL 1-3 OR FEVER Last administered on 11/07/16 21:30; Admin Dose 650 MG; Start 11/06/16 at 20:30 Morphine Sulfate (morphine) 2 mg Q4H PRN IV PAIN LEVEL 7-10 Last administered on 11/09/16 10:44; Admin Dose 2 MG; Start 11/06/16 at 20:30 Aspirin (Aspirin) 81 mg DAILY PO Last administered on 11/09/16 08:35; Admin Dose 81 MG; Start 11/07/16 at 10:00 Atorvastatin Calcium 40 mg 40 mg HS PO Last administered on 11/08/16 21:48; Admin Dose 40 MG; Start 11/07/16 at 21:00 Cefepime HCl (Maxipime 1gm/50 ml (Pmx)) 50 ml @ 100 mls/hr Q12 IVPB Last administered on 11/09/16 08:35; Admin Dose 100 MLS/HR; Start 11/08/16 at 13:30 Pantoprazole (Protonix Tab) 40 mg DAILY@06 PO Last administered on 11/09/16 06 :18; Admin Dose 40 MG; Start 11/09/16 at 06:00 Guaifenesin (Robitussin Liquid Cup) 200 mg Q4H PRN PO COUGH Last administered on 11/09/16 10:43; Admin Dose 200 MG; Start 11/09/16 at 11:00 Phenol (Cepastat Lozenge) 1 lozenge Q1H PRN MT COUGH; Start 11/09/16 at 11:00 Acetaminophen/ Hydrocodone Bitart ([place] (5/325)) 1 tab Q6H PRN PO PAIN LEVEL 8 -10; Start 11/09/16 at 11:00 TAYLOR WIGGINS Nov 09, 2016 10:55
--- NOTE | 2016-11-09 10:59 | PN ---
DATE: 11/09/2016 SUBJECTIVE DATA: The patient is stable. No events overnight. The patient continues to have respiratory distress. The patient remains tachycardic. A CT angio is pending. No other events noted. OBJECTIVE DATA: VITAL SIGNS: Blood pressure is 134/71, respirations 18, pulse 112, temperature 99.3. HEENT: Head is normocephalic. NECK: Supple. HEART: Regular rate. LUNGS: Showed diminished breath sounds at the base. ABDOMEN: Soft, nontender to palpation. No rebound or guarding. EXTREMITIES: Negative for clubbing, cyanosis. No edema. DERMATOLOGIC: Clean. No rashes. MUSCULOSKELETAL: No joint effusion. NEUROLOGIC: Unchanged exam. MEDICATIONS: Reviewed. LABORATORY AND DIAGNOSTIC DATA: Shows white count 30.4, hemoglobin 9.9, crit 33.5, platelet count 316. Sodium 134, potassium 3.5, chloride 95, BUN 26, creatinine 0.82. ASSESSMENT AND PLAN: 1. Nonoliguric acute kidney injury on top of chronic kidney disease with unknown baseline creatinine. Etiology of acute kidney injury secondary to volume depletion. The patient's renal function has improved with supportive care. Continue current treatment plan. Renally dose all meds. Avoid nephrotoxins. 2. Hypokalemia, improved. Continue to monitor. 3. Hyponatremia. Continue to monitor. 4. Sepsis secondary to pneumonia. Continue current antibiotic regimen. 5. Acute respiratory failure secondary to chronic obstructive pulmonary disease, pneumonia. Continue current treatment plan. 6. [id number] myocardial infarction. Continue medical management. Follow up with Cardiology. 7. History of bladder cancer. 8. History of hepatitis C. Dictated By: Ephraim Joya DO /maira/anita /Document#: [id number]
[2016-11-09] MEDS ORDERED: CEPASTAT LOZENGE MT PRN (11:00)
[2016-11-09] MEDS ORDERED: GUAIFENESIN 20 MG/ML 5ML CUP PO PRN (11:00)
[2016-11-09] MEDS: ACETYLCYSTEINE 20% 4 ML VIAL NEB SCH ×3 (11:00→20:28)
[2016-11-09 11:43] LABS: AADO2 Arterial 43.8 mmHg (7.0-24.0); Allen Test ACCEPTAB; Arterial Base Excess 12.4 mmol/L (-3.0-3); Arterial COHb 0.3 % (0.0-3.0); Arterial Fraction of Oxyhgb 94.7 % (93.0-99.0); Arterial HCO3 38.4 mmol/L (22.0-26.0); Arterial MetHb 0.5 % (0.0-1.5); Arterial Total Hemglobin 10.1 g/dl (12.0-18.0); MODE NASAL CANNULA
[2016-11-09 14:12] LABS: MICROALBUMIN 5.5 mg/dL
--- NOTE | 2016-11-09 14:52 | CONS ---
Date/Time of Note Date/Time of Note DATE: 11/09/16 TIME: 14:50 Assessment/Plan Assessment/Plan Chief Complaint/Hosp Course Assessment: NSTEMI - peak troponin 6 Right ventricular dysfunction - rule out pulmonary embolism, can also be from severe chronic obstructive pulmonary disease Acute on chronic hypoxic respiratory failure Chronic obstructive pulmonary disease exacerbation and possible pneumonia - per pulmonology Acute kidney injury - improving Chronic leukocytosis - possible myelodysplastic syndrome Hepatitis C Tobacco use Recommendations: -echocardiogram showed LVEF 70%, moderate RV enlargement with mild hypokinesis -chest CTA pending to rule out pulmonary embolism -if negative for pulmonary embolism, will eventually need coronary angiography when respiratory status improved -continue heparin drip -continue aspirin and atorvastatin -hold off on metoprolol for now given chronic obstructive pulmonary disease exacerbation Problems: Consultation Date/Type/Reason Admit Date/Time Nov 06, 2016 at 16:26 Initial Consult Date 11/07/16 Type of Consultation: Cardiology 24 HR Interval Summary Free Text/Dictation Shortness of breath improving. No chest pain. Awaiting chest CTA. Detailed Summary Additional Comments 14 point review of systems without changes. Exam/Review of Systems Vital Signs Vitals Vital Signs Date Time Temp Pulse Resp B/P Pulse Ox O2 Delivery O2 Flow Rate FiO2 11/09/16 13:26 111 18 99 Nasal Cannula 2.0 11/09/16 12:08 98.2 121/69 11/07/16 14:50 30 Intake and Output 11/08/16 11/08/16 11/09/16 15:00 23:00 07:00 Intake Total 149.2 ml 327.2 ml 650 ml Output Total 690 ml 260 ml 800 ml Balance -540.8 ml 67.2 ml -150 ml Exam Constitutional: alert, distress (mild respiratory ), oriented Psych: No nl mood/affect Head: atraumatic, normocephalic Neck: jvd (distended EJ during expiration ) Respiratory: crackles/rales, diminished breath sounds, No clear to auscultation (ronchi) Cardiovascular: systolic murmur (2/6 ROXANNE), No edema, No regular rate and rhythm (tachycardic ) Gastrointestinal: soft, No non-tender (mild to palpation ) Neurological: nl mental status, nl speech Skin: No rash or lesions Results Result Diagram: 11/09/16 0606 11/09/16 0606 Results 24 hrs Laboratory Tests Test 11/08/16 15:07 11/08/16 18:50 11/09/16 06:06 11/09/16 10:31 Lactic Acid Level 1.3 1.5 White Blood Count 30.4 #H Red Blood Count 3.99 L Hemoglobin 9.9 L Hematocrit 33.5 L Mean Corpuscular Volume 84.0 Mean Corpuscular Hemoglobin 24.8 L Mean Corpuscular Hemoglobin Concent 29.6 L Red Cell Distribution Width 19.0 H Platelet Count 316 Mean Platelet Volume 9.2 Neutrophils % 82.7 H Lymphocytes % 7.3 L Monocytes % 8.0 Eosinophils % 0.0 Basophils % 0.2 Nucleated Red Blood Cells % 0.0 Neutrophils # (Manual) 25.1 H Lymphocytes # 2.2 Monocytes # 2.4 H Eosinophils # 0.0 Basophils # 0.1 Nucleated Red Blood Cells # 0.0 Activated Partial Thromboplast Time 66.6 H Sodium Level 134 L Potassium Level 3.5 Chloride Level 90 L Carbon Dioxide Level 44 *H Anion Gap 4 L Blood Urea Nitrogen 27 #H Creatinine 0.82 Glucose Level 87 Calcium Level 8.6 Blood Gas Specimen Source Blood arterial Arterial Blood Date Drawn 11/09/2016 11:30:36 AM Arterial Blood pH (Temp corrected) 7.434 Arterial Blood pCO2 (Temp correct) 58.7 H Arterial Blood pO2 (Temp corrected) 79.3 L Arterial Blood HCO3 38.4 H Arterial Blood Base Excess 12.4 H Arterial Blood Oxygen Saturation 95.5 [place] Test ACCEPTAB Arterial Blood Gas Puncture Site Right Radial Arterial Blood Carboxyhemoglobin 0.3 Arterial Blood Methemoglobin 0.5 Blood Gas A-a O2 Differential 43.8 H Oxyhemoglobin Percent 94.7 Total Hemoglobin 10.1 L Blood Gas Temperature 37.0 Blood Gas Modality NASAL CANNULA FiO2 27.0 Blood Gas Notified Whom JLD Blood Gas Notified Time 11/09/2016 11:43:18 AM Medications Medications Current Medications Ondansetron HCl (Zofran Inj) 4 mg Q6H PRN IV NAUSEA AND/OR VOMITING; Start 12/13 at 20:30 Acetaminophen (Tylenol Liquid) 650 mg Q6H PRN PO PAIN LEVEL 1-3 OR FEVER Last administered on 11/07/16t 21:30; Admin Dose 650 MG; Start 11/06/16 at 20:30 Morphine Sulfate (morphine) 2 mg Q4H PRN IV PAIN LEVEL 7-10 Last administered on 11/09/16 14:48; Admin Dose 2 MG; Start 11/06/16 at 20:30 Aspirin (Aspirin) 81 mg DAILY PO Last administered on 11/09/16 08:35; Admin Dose 81 MG; Start 11/07/16 at 10:00 Atorvastatin Calcium 40 mg 40 mg HS PO Last administered on 11/08/16 21:48; Admin Dose 40 MG; Start 11/07/16 at 21:00 Cefepime HCl (Maxipime 1gm/50 ml (Pmx)) 50 ml @ 100 mls/hr Q12 IVPB Last administered on 11/09/16 08:35; Admin Dose 100 MLS/HR; Start 11/08/16 at 13:30 Pantoprazole (Protonix Tab) 40 mg DAILY@06 PO Last administered on 11/09/16 06 :18; Admin Dose 40 MG; Start 11/09/16 at 06:00 Guaifenesin (Robitussin Liquid Cup) 200 mg Q4H PRN PO COUGH Last administered on 11/09/16 10:43; Admin Dose 200 MG; Start 11/09/16 at 11:00 Phenol (Cepastat Lozenge) 1 lozenge Q1H PRN MT COUGH; Start 11/09/16 at 11:00 Acetaminophen/ Hydrocodone Bitart ([place] (5/325)) 1 tab Q6H PRN PO PAIN LEVEL 8 -10; Start 11/09/16 at 11:00 LISA SEARS MD Nov 09, 2016 14:52
[2016-11-09] MEDS: HYDROCODONE/APAP (5/325) TAB PO PRN (17:56)
[2016-11-09] MEDS ORDERED: IOHEXOL 100 ML ONE (18:25)
[2016-11-09] MEDS ORDERED: IOHEXOL 350MG/ML 50 ML BTL ONE (18:25)
[2016-11-09] MEDS ORDERED: SOD CHLORIDE 0.9% 100 ML ONE (18:25)
[2016-11-09] MEDS: ATORVASTATIN 40 MG TAB PO SCH (20:46)
--- NOTE | 2016-11-09 21:27 | PN ---
DATE: 11/09/2016 SUBJECTIVE DATA: No acute changes overnight. Patient is lying comfortably in bed. He is afebrile and in no distress. VITAL SIGNS: Temperature 98.2, pulse 112, respirations 16, blood pressure 121/69, saturation 96 on nasal cannula. LABORATORY AND DIAGNOSTIC DATA: WBC 30.4, H and H 9.9 and 33.5, platelets 316, neutrophils 82.7. BUN 27, creatinine 0.82. MICROBIOLOGY: Blood culture negative. Sputum culture pending. Urine culture growing Klebsiella oxytoca. DIAGNOSTICS: Chest x-ray this morning revealed stable patchy right upper lobe infiltrates. ANTIMICROBIALS: Patient is on cefepime. OBJECTIVE DATA: GENERAL: Wasted, elderly man who is lethargic, weak, in no distress. HEENT: Head atraumatic, normocephalic. Sclerae anicteric. Buccal mucosa dry. NECK: Supple. CHEST: Rise symmetrical. Breath sounds diminished at the bases. HEART: S1, S2. ABDOMEN: Soft, bowel sounds present. EXTREMITIES: No cyanosis. ASSESSMENT: 1. Pneumonia, with chronic obstructive pulmonary disease exacerbation. 2. Urinary tract infection. 3. Gvdgl-cg-oalooku kidney disease. 4. Non ST-elevation myocardial infarction. 5. History of bladder cancer. 6. History of hepatitis C virus. 7. Cachexia. 8. ALLERGY: AMOXICILLIN, DOXYCYCLINE. PLAN: Patient remains stable on appropriate antimicrobials. Seen by multiple consultants. Pending CT of the chest. Dictated By: Chang Pop NP /maira/lindsay /Document#: [id number]
[2016-11-10] VITALS (12 sets, daily range): BP systolic 112–132; BP diastolic 60–72; PULSE 93–116; RESP 16–19
[2016-11-10] MEDS: ACETYLCYSTEINE 20% 4 ML VIAL NEB SCH ×4 (01:22→20:04)
[2016-11-10] MEDS: ALBUTEROL/IPRATROPIUM (NEB) 3 ML AMP HHN PRN (01:26)
--- NOTE | 2016-11-10 01:36 | RADRPT ---
PROCEDURE: CT angiogram of the chest with contrast. CLINICAL INDICATION: Chest pain. TECHNIQUE: CT angiogram of the chest was obtained using a multi-detector high-resolution CT. Con tiguous axial images were obtained during the dynamic injection of 80 cc of Omnipaque 350 intravenou s contrast. Coronal and sagittal reformatted images were obtained. 3-D reformatted images were als o obtained. Images were reviewed on a PACS workstation. One or more of the following dose reduction techniques were used: - Automated exposure control. - Adjustment of the mA and/or kV according to patient size. - Use of iterative reconstruction technique. Exam CTD/vol = 7.14 mGy. Total exam DLP = 344.59 mGy-cm. COMPARISON: 11/07/2016. FINDINGS: The main pulmonary artery followed to the segmental divisions are well opacified. There is no filli ng defect or evidence of pulmonary embolism. The heart is normal in size. There is no pericardial thickening or effusion. The aorta is of normal course and caliber with scattered atherosclerotic ca lcifications. There is no evidence of aortic aneurysm or dissection. There is no evidence of chest wall mass. The visualized thyroid is unremarkable. There are no enla rged axillary lymph nodes. There are paratracheal, precarinal, subcarinal and right hilar lymph nod es with the largest in the precarinal space measuring 2.1 x 1.2 cm. There are extensive emphysematou s changes. There is bilateral peribronchial thickening with distal mucus plugging within the right l ower lung. There are patchy consolidations within the right upper and lower lobes. There is a small right pleural effusion. Limited evaluation of the upper abdomen demonstrates a small right renal cysts. IMPRESSION: No evidence of pulmonary embolism or aortic dissection. Right upper and lower lobe patchy consolidations, unchanged. Small right-sided pleural effusion, new compared with the prior study. Extensive emphysematous changes. Bilateral peribronchial thickening compatible with chronic bronchitis. There is right lower lobe dis sinan mucus plugging. Shotty mediastinal and right hilar lymph nodes. Vascular calcifications reflective of atherosclerosis. .Salvador Daley MD, MD Date Time Electronically viewed and signed by .Salvador Daley MD, on 11/10/2016 01:36 .T/
[2016-11-10] MEDS: morphine 2 MG INJ IV PRN ×4 (03:47→16:10)
[2016-11-10] MEDS: PANTOPRAZOLE (EC) 40 MG TAB PO SCH (05:28)
[2016-11-10] MEDS: HEPARIN 25000 UNITS/250 ML 250 ML IV SCH (05:33)
[2016-11-10 07:02] LABS: ABNORMAL IP MESSAGE 1; BASOPHILS % 0.1 % (0.0-2.0); EOSINOPHILS # 0.2 10^3/ul (0.0-0.5); EOSINOPHILS % 0.7 % (0.0-7.0); HEMOGLOBIN 9.8 g/dl (14.0-18.0); LYMPHOCYTES # 2.7 10^3/ul (0.8-2.9); LYMPHOCYTES % 12.2 % (15.0-51.0); MEAN CORPUSCULAR HEMOGLOBIN 24.4 pg (29.0-33.0); MEAN CORPUSCULAR HGB CONC 28.8 g/dl (32.0-37.0); MEAN CORPUSCULAR VOLUME 84.6 fl (82.0-101.0); MEAN PLATELET VOLUME 10.1 fl (7.4-10.4); MONOCYTE # 2.2 10^3/ul (0.3-0.9); MONOCYTES % 9.9 % (0.0-11.0); NEUTROPHIL # 16.8 10^3/ul (1.6-7.5); NEUTROPHILS % 74.8 % (39.0-77.0); PLATELET COUNT 305 10^3/UL (140-415); POSITIVE DIFF @See below; RED BLOOD COUNT 4.02 10^6/ul (4.70-6.10); WHITE BLOOD COUNT 22.5 10^3/ul (4.8-10.8)
[2016-11-10 07:24] LABS: CALCIUM 8.6 mg/dl (8.4-10.2); CREATININE 0.75 mg/dl (0.61-1.24); POTASSIUM 3.3 mmol/L (3.5-5.1)
[2016-11-10 07:27] LABS: MAGNESIUM 2.3 mg/dl (1.7-2.5); PHOSPHORUS 2.6 mg/dl (2.5-4.9)
[2016-11-10] MEDS: ALBUTEROL/IPRATROPIUM (NEB) 3 ML AMP HHN SCH ×3 (08:34→20:04)
[2016-11-10] MEDS: ASPIRIN 81 MG TAB PO SCH (09:05)
[2016-11-10] MEDS: CEFEPIME 1GM/50 ML (PMX) 50 ML IVPB SCH ×2 (09:05→21:27)
[2016-11-10] MEDS ORDERED: POTASSIUM CHLORIDE (SR) 20 MEQ TAB PO STA (09:17)
--- NOTE | 2016-11-10 10:17 | PN ---
DATE: 11/10/2016 SUBJECTIVE DATA: The patient continues to have low-grade fever, positive shortness of breath. No other events noted. OBJECTIVE DATA: VITAL SIGNS: Blood pressure is 120/72, respirations 19, pulse 111, temperature 100. HEENT: Head is normocephalic. NECK: Supple. HEART: Regular rate. LUNGS: Showed diminished breath sounds at the base. Positive rhonchi. ABDOMEN: Soft, nontender to palpation. No rebound or guarding. EXTREMITIES: Negative for clubbing, cyanosis. No edema. DERMATOLOGIC: Clean. No rashes. MUSCULOSKELETAL: No joint effusion. NEUROLOGIC: Unchanged exam. MEDICATIONS: Reviewed. LABORATORY AND DIAGNOSTIC DATA: Shows white count 22.5, hemoglobin 9.8, crit 34.0, platelet count 305. Sodium 134, potassium 3.3, BUN 16, creatinine 0.75. It is also of note, patient had a CT angio, which shows no evidence of PE, positive for consolidation, emphysematous changes. ASSESSMENT AND PLAN: 1. Nonoliguric acute kidney injury on top of chronic kidney disease with unknown baseline creatinine. Etiology secondary to hemodynamics. The patient's renal function has improved. Continue current treatment plan and supportive care. Renally dose all meds. 2. Hypokalemia. Continue to monitor and replete. 3. Hyponatremia. Continue to monitor. 4. Sepsis secondary to pneumonia. Continue current antibiotic regimen. 5. Acute respiratory failure secondary to chronic obstructive pulmonary disease, pneumonia, possible congestive heart failure. Continue current treatment plan. 6. Shh-IH-vqynktogx myocardial infarction. Continue current medical management. Follow up with Cardiology. Pending possible cardiac cath. 7. History of bladder cancer. 8. History of hepatitis C. Dictated By: Ephraim Joya DO /maira/aarti /Document#: [id number]
--- NOTE | 2016-11-10 10:17 | RADRPT ---
PROCEDURE: XR Chest. CLINICAL INDICATION: Shortness of breath. TECHNIQUE: Single frontal view. COMPARISON: 11/09/2016. FINDINGS: There is patchy consolidation in the right mid and lower lung zones, unchanged. The lungs are otherw ise clear. The heart size is normal. There is calcification in the aorta consistent with atherosclerosis. There is no pleural effusion. There is no pneumothorax. IMPRESSION: 1. Patchy consolidation in the right mid and lower lung zones, unchanged. 2. Atherosclerosis. 2. Otherwise normal chest x-ray. RPTAT: QQ .Femi Rivero MD, MD Date Time Electronically viewed and signed by .Femi Rivero MD, on 11/10/2016 10:17 .R/
--- NOTE | 2016-11-10 10:42 | CONS ---
Date/Time of Note Date/Time of Note DATE: 11/10/16 TIME: 10:39 Consult Date/Type/Reason Admit Date/Time Nov 06, 2016 at 16:26 Initial Consult Date 11/07/16 Type of Consultation: Pulmonary Subjective States he is feeling somewhat better today. Still has limited mobility. Objective Vital Signs Date Time Temp Pulse Resp B/P Pulse Ox O2 Delivery O2 Flow Rate FiO2 11/10/16 08:35 83 23 96 Nasal Cannula 2.0 11/10/16 07:13 100.0 120/72 11/07/16 14:50 30 Intake and Output 11/09/16 11/09/16 11/10/16 15:00 23:00 07:00 Intake Total 798.8 ml 500 ml Output Total 1000 ml 1000 ml Balance -201.2 ml -500 ml Exam GENERAL: Chronically ill-appearing gentleman comfortable at rest VITAL SIGNS: per chart NECK: Supple. No JVD or lymphadenopathy. CARDIAC EXAM: S1, S2. No added sounds or murmurs. CHEST: Diminished air entry bilaterally. ABDOMEN: Soft, nontender. No guarding or rebound. EXTREMITIES: No cyanosis, clubbing or edema. NEUROLOGIC: Generalized weakness. No focal deficits. Results/Medications Result Diagram: 11/10/16 0543 11/10/16 [address] chest Severe emphysema and no pneumonia noted. No pulmonary embolism Laboratory Tests Test 11/10/16 05:43 White Blood Count 22.5 #H Red Blood Count 4.02 L Hemoglobin 9.8 L Hematocrit 34.0 L Mean Corpuscular Volume 84.6 Mean Corpuscular Hemoglobin 24.4 L Mean Corpuscular Hemoglobin Concent 28.8 L Red Cell Distribution Width 19.0 H Platelet Count 305 Mean Platelet Volume 10.1 Neutrophils % 74.8 Lymphocytes % 12.2 L Monocytes % 9.9 Eosinophils % 0.7 Basophils % 0.1 Nucleated Red Blood Cells % 0.0 Neutrophils # 16.8 H Lymphocytes # 2.7 Monocytes # 2.2 H Eosinophils # 0.2 Basophils # 0.0 Nucleated Red Blood Cells # 0.0 Activated Partial Thromboplast Time 63.2 H Sodium Level 134 L Potassium Level 3.3 L Chloride Level 88 L Carbon Dioxide Level Anion Gap 5 L Blood Urea Nitrogen 16 # Creatinine 0.75 Glucose Level 117 Calcium Level 8.6 Phosphorus Level 2.6 Magnesium Level 2.3 Medications Current Medications Ondansetron HCl (Zofran Inj) 4 mg Q6H PRN IV NAUSEA AND/OR VOMITING; Start 12/13 at 20:30 Acetaminophen (Tylenol Liquid) 650 mg Q6H PRN PO PAIN LEVEL 1-3 OR FEVER Last administered on 11/07/16 21:30; Admin Dose 650 MG; Start 11/06/16 at 20:30 Morphine Sulfate (morphine) 2 mg Q4H PRN IV PAIN LEVEL 7-10 Last administered on 11/10/16 07:58; Admin Dose 2 MG; Start 11/06/16 at 20:30 Aspirin (Aspirin) 81 mg DAILY PO Last administered on 11/10/16 09:05; Admin Dose 81 MG; Start 11/07/16 at 10:00 Atorvastatin Calcium 40 mg 40 mg HS PO Last administered on 11/09/16 20:46; Admin Dose 40 MG; Start 11/07/16 at 21:00 Cefepime HCl (Maxipime 1gm/50 ml (Pmx)) 50 ml @ 100 mls/hr Q12 IVPB Last administered on 11/10/16 09:05; Admin Dose 100 MLS/HR; Start 11/08/16 at 13:30 Pantoprazole (Protonix Tab) 40 mg DAILY@06 PO Last administered on 11/10/16 05 :28; Admin Dose 40 MG; Start 11/09/16 at 06:00 Guaifenesin (Robitussin Liquid Cup) 200 mg Q4H PRN PO COUGH Last administered on 11/09/16 10:43; Admin Dose 200 MG; Start 11/09/16 at 11:00 Phenol (Cepastat Lozenge) 1 lozenge Q1H PRN MT COUGH; Start 11/09/16 at 11:00 Acetaminophen/ Hydrocodone Bitart ([place] (5/325)) 1 tab Q6H PRN PO PAIN LEVEL 8 -10 Last administered on 11/09/16 17:56; Admin Dose 1 TAB; Start 11/09/16 at 11 :00 Assessment/Plan Chief Complaint/Hosp Course IMPRESSION AND PLAN: 1. Probable healthcare associated pneumonia. 2. Underlying severe chronic obstructive pulmonary disease. No evidence of pulmonary embolism on CT angiogram 3. Non-ST elevation [place], preserved ejection fraction elevated PA pressures probably secondary to chronic lung disease and hypoxemia. 4. Severe emphysema with right upper lobe pneumonia 5. Hypokalemia Plan 1. Continue antibiotic coverage 2. Bronchodilators, 3. Likely leukemoid reaction. 4. Replace potassium 5. Encourage out of bed, PT eval may need fci facility. Consider transfer to [place] associated [facility] facility. Problems: ANGE KUHN MD, [facility] Nov 10, 2016 10:42
[2016-11-10] MEDS: ACETAMINOPHEN 650MG/20.3ML CUP PO PRN (11:39)
--- NOTE | 2016-11-10 11:45 | PN ---
Date/Time of Note Date/Time of Note DATE: 11/10/16 TIME: 11:44 Assessment/Plan VTE Prophylaxis VTE Prophylaxis Intervention: heparin Lines/Catheters IV [facility] Saline Lock Urinary Cath still in place: Yes Reason Cath still needed: urinary retention Assessment/Plan Chief Complaint/Hosp Course This is a 71-year-old male being admitted to the ICU floor for: #1 Acute respiratory distress: Likely appears to be multifactorial: Multifocal pneumonia plus COPD exacerbation as well as Nstemi. CTA was negative for pulmonary embolism -Continue duo nebs, broad-spectrum antibiotics, Mucomyst as well - continue heparin drip as he does have elevated troponins - NSTEMI -Follow-up pulmonary, infectious disease, and cardiology rec's - PT eval #2 Nstemi: Troponin 5.1 on admission, patient started on heparin drip. Cardiology was consulted via the ED based on slight ST elevations on EKG however patient did not meet criteria for STEMI. - Continue to trend troponins, heparin drip -Follow further cardiology recommendations. For possible heart cath this admission - nitro/morphine for pain #3 COPD: Patient did receive steroids in the ED. -Continue nebulization., BiPAP if indicated, add Mucomyst #4 Renal failure, acute versus chronic: Previous creatinine from 2014 showed a creatinine of 1.0. On admission creatinine elevated at approximately 2.5 -> 1.4 -> 1.0, so normalizing now - this could be secondary to prerenal etiology as well as possible cardiorenal syndrome -Monitor urine output, BMP every morning -f/u consult nephrology recommendations #5 lactic acidosis: Multifactorial in nature secondary to the acute illness as well as possible underlying infection. Trending down now. - Will continue IV antibiotics. #6 leukocytosis: Patient had white blood cell count of 47 on admission which significantly high just for a acute underlying infection. He does have history of bladder cancer and hepatitis C. Again, he does have multifocal pneumonia, also could be leukemoid reaction, now trending down to 22 range today. -continue antibiotics , monitor daily CBC #7 history of bladder cancer: Monitor for now #8 history of hepatitis C: Follow-up HCV RNA level. #9 DVT and GI prophylactic: Heparin drip, Protonix Problems: Subjective 24 Hr Interval Summary Free Text/Dictation Patient had CTA performed yesterday. Still with some productive cough. Seen by pulmonary team this morning. Still on heparin drip. Exam/Review of Systems Vital Signs Vitals Vital Signs Date Time Temp Pulse Resp B/P Pulse Ox O2 Delivery O2 Flow Rate FiO2 11/10/16 10:58 100.5 109 19 112/64 98 11/10/16 08:35 Nasal Cannula 2.0 11/07/16 14:50 30 Intake and Output 11/09/16 11/09/16 11/10/16 15:00 23:00 07:00 Intake Total 798.8 ml 500 ml Output Total 1000 ml 1000 ml Balance -201.2 ml -500 ml Exam General: Patient is lying in bed, answering questions appropriately HEENT: Atraumatic, normocephalic. The pupils are equal, round and reactive. Extraocular motor are intact Neck: Supple with full range of motion. No rigidity or meningismus Lungs: less bilateral coarse breath sounds Heart: Normal S1-S2, Regular rhythm and rate. No overt murmurs appreciated Abdomen: Soft , nontender, nondistended , bowel sounds are present. No guarding no rebound tenderness , No masses or organomegaly Neurologic: no focal deficits Results Result Diagram: 11/10/16 0543 11/10/16 0543 Results 24 hrs Laboratory Tests Test 11/10/16 05:43 White Blood Count 22.5 #H Red Blood Count 4.02 L Hemoglobin 9.8 L Hematocrit 34.0 L Mean Corpuscular Volume 84.6 Mean Corpuscular Hemoglobin 24.4 L Mean Corpuscular Hemoglobin Concent 28.8 L Red Cell Distribution Width 19.0 H Platelet Count 305 Mean Platelet Volume 10.1 Neutrophils % 74.8 Lymphocytes % 12.2 L Monocytes % 9.9 Eosinophils % 0.7 Basophils % 0.1 Nucleated Red Blood Cells % 0.0 Neutrophils # 16.8 H Lymphocytes # 2.7 Monocytes # 2.2 H Eosinophils # 0.2 Basophils # 0.0 Nucleated Red Blood Cells # 0.0 Activated Partial Thromboplast Time 63.2 H Sodium Level 134 L Potassium Level 3.3 L Chloride Level 88 L Carbon Dioxide Level Anion Gap 5 L Blood Urea Nitrogen 16 # Creatinine 0.75 Glucose Level 117 Calcium Level 8.6 Phosphorus Level 2.6 Magnesium Level 2.3 Medications Medications Current Medications Ondansetron HCl (Zofran Inj) 4 mg Q6H PRN IV NAUSEA AND/OR VOMITING; Start 12/13 at 20:30 Acetaminophen (Tylenol Liquid) 650 mg Q6H PRN PO PAIN LEVEL 1-3 OR FEVER Last administered on 11/10/16 11:39; Admin Dose 650 MG; Start 11/06/16 at 20:30 Morphine Sulfate (morphine) 2 mg Q4H PRN IV PAIN LEVEL 7-10 Last administered on 11/10/16 11:39; Admin Dose 2 MG; Start 11/06/16 at 20:30 Aspirin (Aspirin) 81 mg DAILY PO Last administered on 11/10/16 09:05; Admin Dose 81 MG; Start 11/07/16 at 10:00 Atorvastatin Calcium 40 mg 40 mg HS PO Last administered on 11/09/16 20:46; Admin Dose 40 MG; Start 11/07/16 at 21:00 Cefepime HCl (Maxipime 1gm/50 ml (Pmx)) 50 ml @ 100 mls/hr Q12 IVPB Last administered on 11/10/16 09:05; Admin Dose 100 MLS/HR; Start 11/08/16 at 13:30 Pantoprazole (Protonix Tab) 40 mg DAILY@06 PO Last administered on 11/10/16 05 :28; Admin Dose 40 MG; Start 11/09/16 at 06:00 Guaifenesin (Robitussin Liquid Cup) 200 mg Q4H PRN PO COUGH Last administered on 11/09/16 10:43; Admin Dose 200 MG; Start 11/09/16 at 11:00 Phenol (Cepastat Lozenge) 1 lozenge Q1H PRN MT COUGH; Start 11/09/16 at 11:00 Acetaminophen/ Hydrocodone Bitart ([place] (5/325)) 1 tab Q6H PRN PO PAIN LEVEL 8 -10 Last administered on 11/09/16 17:56; Admin Dose 1 TAB; Start 11/09/16 at 11 :00 TAYLOR WIGGINS Nov 10, 2016 11:45
--- NOTE | 2016-11-10 15:24 | CONS ---
Date/Time of Note Date/Time of Note DATE: 11/10/16 TIME: 15:21 Assessment/Plan Assessment/Plan Chief Complaint/Hosp Course SUBJECTIVE DATA: No acute changes overnight. Patient is awake, denies pain, no v/d Tm 100.5 MICROBIOLOGY: Blood culture negative. Sputum culture pending. Urine culture growing Klebsiella oxytoca. ANTIMICROBIALS: Cefepime. OBJECTIVE DATA: GENERAL: Wasted, elderly man who is lethargic, weak, in no distress. HEENT: Head atraumatic, normocephalic. Sclerae anicteric. Buccal mucosa dry. NECK: Supple. CHEST: Rise symmetrical. Breath sounds diminished at the bases. HEART: S1, S2. ABDOMEN: Soft, bowel sounds present. EXTREMITIES: No cyanosis. ASSESSMENT: 1. Pneumonia, with chronic obstructive pulmonary disease exacerbation. 2. Urinary tract infection. 3. Vacsm-cc-lawzrwe kidney disease. 4. Non ST-elevation myocardial infarction. 5. History of bladder cancer. 6. History of hepatitis C virus. 7. Cachexia. 8. ALLERGY: AMOXICILLIN, DOXYCYCLINE. PLAN: Patient remains stable, s/p low grade temp earlier, he is on appropriate antimicrobials, pulmonary follows, will repeat bld cx for t 101. DW staff Problems: Consultation Date/Type/Reason Admit Date/Time Nov 06, 2016 at 16:26 Initial Consult Date 11/07/16 Type of Consultation: ID Exam/Review of Systems Vital Signs Vitals Vital Signs Date Time Temp Pulse Resp B/P Pulse Ox O2 Delivery O2 Flow Rate FiO2 11/10/16 15:19 98.3 105 18 120/60 95 11/10/16 14:54 3.0 11/10/16 14:53 Nasal Cannula 11/07/16 14:50 30 Intake and Output 11/09/16 11/09/16 11/10/16 15:00 23:00 07:00 Intake Total 798.8 ml 500 ml Output Total 1000 ml 1000 ml Balance -201.2 ml -500 ml Results Result Diagram: 11/10/16 0543 11/10/16 0543 Results 24 hrs Laboratory Tests Test 11/10/16 05:43 White Blood Count 22.5 #H Red Blood Count 4.02 L Hemoglobin 9.8 L Hematocrit 34.0 L Mean Corpuscular Volume 84.6 Mean Corpuscular Hemoglobin 24.4 L Mean Corpuscular Hemoglobin Concent 28.8 L Red Cell Distribution Width 19.0 H Platelet Count 305 Mean Platelet Volume 10.1 Neutrophils % 74.8 Lymphocytes % 12.2 L Monocytes % 9.9 Eosinophils % 0.7 Basophils % 0.1 Nucleated Red Blood Cells % 0.0 Neutrophils # 16.8 H Lymphocytes # 2.7 Monocytes # 2.2 H Eosinophils # 0.2 Basophils # 0.0 Nucleated Red Blood Cells # 0.0 Activated Partial Thromboplast Time 63.2 H Sodium Level 134 L Potassium Level 3.3 L Chloride Level 88 L Carbon Dioxide Level Anion Gap 5 L Blood Urea Nitrogen 16 # Creatinine 0.75 Glucose Level 117 Calcium Level 8.6 Phosphorus Level 2.6 Magnesium Level 2.3 Medications Medications Current Medications Ondansetron HCl (Zofran Inj) 4 mg Q6H PRN IV NAUSEA AND/OR VOMITING; Start 12/13 at 20:30 Acetaminophen (Tylenol Liquid) 650 mg Q6H PRN PO PAIN LEVEL 1-3 OR FEVER Last administered on 11/10/16 11:39; Admin Dose 650 MG; Start 11/06/16 at 20:30 Morphine Sulfate (morphine) 2 mg Q4H PRN IV PAIN LEVEL 7-10 Last administered on 11/10/16 11:39; Admin Dose 2 MG; Start 11/06/16 at 20:30 Aspirin (Aspirin) 81 mg DAILY PO Last administered on 11/10/16 09:05; Admin Dose 81 MG; Start 11/07/16 at 10:00 Atorvastatin Calcium 40 mg 40 mg HS PO Last administered on 11/09/16 20:46; Admin Dose 40 MG; Start 11/07/16 at 21:00 Cefepime HCl (Maxipime 1gm/50 ml (Pmx)) 50 ml @ 100 mls/hr Q12 IVPB Last administered on 11/10/16 09:05; Admin Dose 100 MLS/HR; Start 11/08/16 at 13:30 Pantoprazole (Protonix Tab) 40 mg DAILY@06 PO Last administered on 11/10/16 05 :28; Admin Dose 40 MG; Start 11/09/16 at 06:00 Guaifenesin (Robitussin Liquid Cup) 200 mg Q4H PRN PO COUGH Last administered on 11/09/16 10:43; Admin Dose 200 MG; Start 11/09/16 at 11:00 Phenol (Cepastat Lozenge) 1 lozenge Q1H PRN MT COUGH; Start 11/09/16 at 11:00 Acetaminophen/ Hydrocodone Bitart ([place] (5/325)) 1 tab Q6H PRN PO PAIN LEVEL 8 -10 Last administered on 11/09/16t 17:56; Admin Dose 1 TAB; Start 11/09/16 at 11 :00 MITCH MELGAR NP Nov 10, 2016 15:24
--- NOTE | 2016-11-10 15:42 | CONS ---
Date/Time of Note Date/Time of Note DATE: 11/10/16 TIME: 15:39 Assessment/Plan Assessment/Plan Chief Complaint/Hosp Course Assessment: NSTEMI - peak troponin 6 Right ventricular dysfunction - no pulmonary embolism on CTA, likely from severe chronic obstructive pulmonary disease Acute on chronic hypoxic respiratory failure Chronic obstructive pulmonary disease exacerbation and pneumonia - per pulmonology and infectious disease Acute kidney injury - improving Chronic leukocytosis - possible myelodysplastic syndrome Hepatitis C Tobacco use Recommendations: -echocardiogram showed LVEF 70%, moderate RV enlargement with mild hypokinesis -discontinue heparin drip -continue aspirin and atorvastatin -hold off on metoprolol for now given chronic obstructive pulmonary disease exacerbation -plan for coronary angiography after ensuring renal function stable after recent contrast load and as respiratory status improves Problems: Consultation Date/Type/Reason Admit Date/Time Nov 06, 2016 at 16:26 Initial Consult Date 11/07/16 Type of Consultation: Cardiology 24 HR Interval Summary Free Text/Dictation Chest CTA negative for pulmonary embolism. Detailed Summary Additional Comments 14 point review of systems without changes. Exam/Review of Systems Vital Signs Vitals Vital Signs Date Time Temp Pulse Resp B/P Pulse Ox O2 Delivery O2 Flow Rate FiO2 11/10/16 15:19 98.3 105 18 120/60 95 11/10/16 14:54 3.0 11/10/16 14:53 Nasal Cannula 11/07/16 14:50 30 Intake and Output 11/09/16 11/09/16 11/10/16 15:00 23:00 07:00 Intake Total 798.8 ml 500 ml Output Total 1000 ml 1000 ml Balance -201.2 ml -500 ml Exam Constitutional: alert, distress (mild respiratory ), oriented Psych: No nl mood/affect Head: atraumatic, normocephalic Neck: jvd (distended EJ during expiration ) Respiratory: crackles/rales, diminished breath sounds, No clear to auscultation (ronchi) Cardiovascular: systolic murmur (2/6 ROXANNE), No edema, No regular rate and rhythm (tachycardic ) Gastrointestinal: soft, No non-tender (mild to palpation ) Neurological: nl mental status, nl speech Skin: No rash or lesions Results Result Diagram: 11/10/16 0543 11/10/16 0543 Results 24 hrs Laboratory Tests Test 11/10/16 05:43 White Blood Count 22.5 #H Red Blood Count 4.02 L Hemoglobin 9.8 L Hematocrit 34.0 L Mean Corpuscular Volume 84.6 Mean Corpuscular Hemoglobin 24.4 L Mean Corpuscular Hemoglobin Concent 28.8 L Red Cell Distribution Width 19.0 H Platelet Count 305 Mean Platelet Volume 10.1 Neutrophils % 74.8 Lymphocytes % 12.2 L Monocytes % 9.9 Eosinophils % 0.7 Basophils % 0.1 Nucleated Red Blood Cells % 0.0 Neutrophils # 16.8 H Lymphocytes # 2.7 Monocytes # 2.2 H Eosinophils # 0.2 Basophils # 0.0 Nucleated Red Blood Cells # 0.0 Activated Partial Thromboplast Time 63.2 H Sodium Level 134 L Potassium Level 3.3 L Chloride Level 88 L Carbon Dioxide Level Anion Gap 5 L Blood Urea Nitrogen 16 # Creatinine 0.75 Glucose Level 117 Calcium Level 8.6 Phosphorus Level 2.6 Magnesium Level 2.3 Medications Medications Current Medications Ondansetron HCl (Zofran Inj) 4 mg Q6H PRN IV NAUSEA AND/OR VOMITING; Start 12/13 at 20:30 Acetaminophen (Tylenol Liquid) 650 mg Q6H PRN PO PAIN LEVEL 1-3 OR FEVER Last administered on 11/10/16 11:39; Admin Dose 650 MG; Start 11/06/16 at 20:30 Morphine Sulfate (morphine) 2 mg Q4H PRN IV PAIN LEVEL 7-10 Last administered on 11/10/16 11:39; Admin Dose 2 MG; Start 11/06/16 at 20:30 Aspirin (Aspirin) 81 mg DAILY PO Last administered on 11/10/16 09:05; Admin Dose 81 MG; Start 11/07/16 at 10:00 Atorvastatin Calcium 40 mg 40 mg HS PO Last administered on 11/09/16 20:46; Admin Dose 40 MG; Start 11/07/16 at 21:00 Cefepime HCl (Maxipime 1gm/50 ml (Pmx)) 50 ml @ 100 mls/hr Q12 IVPB Last administered on 11/10/16 09:05; Admin Dose 100 MLS/HR; Start 11/08/16 at 13:30 Pantoprazole (Protonix Tab) 40 mg DAILY@06 PO Last administered on 11/10/16 05 :28; Admin Dose 40 MG; Start 11/09/16 at 06:00 Guaifenesin (Robitussin Liquid Cup) 200 mg Q4H PRN PO COUGH Last administered on 11/09/16 10:43; Admin Dose 200 MG; Start 11/09/16 at 11:00 Phenol (Cepastat Lozenge) 1 lozenge Q1H PRN MT COUGH; Start 11/09/16 at 11:00 Acetaminophen/ Hydrocodone Bitart ([place] (5/325)) 1 tab Q6H PRN PO PAIN LEVEL 8 -10 Last administered on 11/09/16 17:56; Admin Dose 1 TAB; Start 11/09/16 at 11 :00 LISA SEARS MD Nov 10, 2016 15:42
[2016-11-10] MEDS: ATORVASTATIN 40 MG TAB PO SCH (21:15)
[2016-11-11] VITALS (27 sets, daily range): BP systolic 110–139; BP diastolic 66–83; PULSE 100–114; RESP 17–37
[2016-11-11] MEDS: morphine 2 MG INJ IV PRN ×6 (00:08→17:39)
[2016-11-11] MEDS: ACETYLCYSTEINE 20% 4 ML VIAL NEB SCH ×4 (02:00→20:03)
[2016-11-11] MEDS: HYDROCODONE/APAP (5/325) TAB PO PRN ×2 (02:32→11:53)
[2016-11-11] MEDS: PANTOPRAZOLE (EC) 40 MG TAB PO SCH (05:53)
[2016-11-11] MEDS: ASPIRIN 81 MG TAB PO SCH (07:52)
[2016-11-11] MEDS: CEFEPIME 1GM/50 ML (PMX) 50 ML IVPB SCH ×2 (07:52→20:39)
[2016-11-11] MEDS: ALBUTEROL/IPRATROPIUM (NEB) 3 ML AMP HHN SCH ×4 (08:27→20:03)
[2016-11-11] MEDS ORDERED: MIDAZOLAM 1 MG/ML 2 ML INJ ONE (08:49)
[2016-11-11] MEDS ORDERED: NITROGLYCERIN (IC) 100 MCG/ML INJ ONE (08:54)
[2016-11-11] MEDS ORDERED: HEPARIN 1000 UNITS/ML 10 ML INJ ONE (08:54)
[2016-11-11] MEDS ORDERED: LIDOCAINE 1% (MDV) 20 ML INJ ONE (08:54)
[2016-11-11] MEDS ORDERED: VERAPAMIL 5 MG INJ ONE (08:54)
[2016-11-11] MEDS ORDERED: FENTAnyl 50 MCG/ML VIAL ONE (08:55)
--- NOTE | 2016-11-11 09:23 | OPR ---
Date/Time of Note Date/Time of Note DATE: 11/11/16 TIME: 09:19 Operative Report Free Text/Dictation Procedure Date:11/11/2016 Crusher Foreman/surgeon:Michael Jessica MD. Procedures Performed: 1)Left heart catheterization with selective left and right coronary angiography. 2)Left ventricle angiography Pre-operative Diagnosis:NSTEMI Post-operative Diagnosis: NSTEMI Indications: 71 yo M with COPD, HCV, heavy tobacco use, who presented with respiratory failure and was found to have an NSTEMI (trop 6). CTA did not show a PE. He had renal failure which resolved. Cardiac cath for definitive coronary evaluation. Description of Procedure: After informed consent, the patient was brought to the cardiac catheterization lab. The procedure site was prepped and draped in usual manner. The patient was premedicated with versed 0.5 mg and fentanyl 25 mcg. 2 mL lidocaine was injected into the right wrist. Next using the posterior wall technique, the 6/ 5 congolese sheath was inserted into the right radial artery. Next using the JL3.0 and JR4, selective angiography of the left and right coronary arteries were obtained. The pigtail was then advanced into the ventricle and hemodynamics obtained. Left ventricle angiography was obtained. Next all equipment was removed and hemostasis was obtained by TR band. Findings: Anatomy/Hemodynamics: Calcification of coronaries noted Left main:luminal irregularities LAD:luminal irregularities Diagonal:luminal irregularities Circumflex:luminal irregularities Obtuse marginal:luminal irregularities RCA:luminal irregularities PDA:luminal irregularities PLV:luminal irregularities LV angiography: EF hyperdynamic >80% LV-Ao: no gradient LVEDP: 12 mmHg Contrast used: 68 mL Fluoroscopy time: 3.6 mL Estimated bloss loss<10 mL. Specimen: none Complications: none Assessment: NSTEMI without obstructive CAD CAD: no obstructive lesions but coronary calcification noted Respiratory failure Renal failure: resolved Plan: -back to tele room after TR band is removed -medical management Surgeon see signature line MICHAEL JESSICA Nov 11, 2016 09:23
[2016-11-11] MEDS ORDERED: SOD CHLORIDE 0.9% 1,000 ML IV SCH (09:25)
--- NOTE | 2016-11-11 09:37 | PN ---
DATE: 11/11/2016 SUBJECTIVE DATA: The patient remains tachycardic, febrile, pending cardiac cath today. No other events noted. OBJECTIVE DATA: VITAL SIGNS: Blood pressure 134/80, respiration 18, pulse 103, temperature 100.6. HEENT: Head is normocephalic. NECK: Supple. CARDIAC: Heart is tachycardic. LUNGS: Showed diminished breath sounds base. ABDOMEN: Soft, nontender to palpation. No rebound or guarding. EXTREMITIES: Negative for clubbing, cyanosis. No edema. DERMATOLOGIC: Clean. No rashes. MUSCULOSKELETAL: No joint effusion. NEUROLOGIC: Unchanged exam. MEDICATIONS: Reviewed. LABORATORY AND DIAGNOSTIC DATA: Reviewed. Currently pending. ASSESSMENT AND PLAN: 1. Nonoliguric acute kidney injury on top of chronic kidney disease with unknown baseline creatinine. Etiology secondary to hemodynamics. Renal function has improved. At this point, continue current treatment, supportive care. Renally dose all meds. Monitor for any signs of contrast-associated nephropathy. 2. Hypokalemia. Continue to monitor and replete. 3. Hyponatremia. Continue to monitor. 4. Sepsis secondary to pneumonia. Continue antibiotic regimen. 5. Acute respiratory failure secondary to chronic obstructive pulmonary disease, pneumonia, possible congestive heart failure. Continue current treatment plan. 6. Gjx-AB-hypccgmzd myocardial infarction. Continue medical management. Follow up with Cardiology. 7. History of thyroid cancer. 8. History of hepatitis C. Dictated By: Ephraim Joya DO /maira/anita /Document#: [id number]
--- NOTE | 2016-11-11 09:39 | CONS ---
Date/Time of Note Date/Time of Note DATE: 11/11/16 TIME: 09:37 Assessment/Plan Assessment/Plan Additional Assessment/Plan Assessment and recommendations; 1. Patient admitted with right upper lobe community-acquired pneumonia with significant clinical improvement. 2. Underlying COPD. Continue current treatment. Consultation Date/Type/Reason Admit Date/Time Nov 06, 2016 at 16:26 Initial Consult Date 11/07/16 Type of Consultation: Pulmonary 24 HR Interval Summary Free Text/Dictation Patient's condition stable. Feeling much better since admission. Denies any chest pain, coughing. General exam; elderly male, awake and alert. Currently in no distress. Exam/Review of Systems Vital Signs Vitals Vital Signs Date Time Temp Pulse Resp B/P Pulse Ox O2 Delivery O2 Flow Rate FiO2 11/11/16 07:03 100.6 103 18 134/80 100 11/11/16 02:15 3.0 11/10/16 21:30 Nasal Cannula 11/07/16 14:50 30 Intake and Output 11/10/16 11/10/16 11/11/16 15:00 23:00 07:00 Intake Total 1361.6 ml 1040 ml Output Total 1000 ml 1900 ml Balance 361.6 ml -860 ml Exam HEENT exam; supple neck, no JVD. No lymphadenopathy. Midline trachea. No thyromegaly. Pharynx is clear. Is edentulous. Pupils are midsize and reactive to light. Chest exam; diminished but clear breath sound. S1-S2 audible, no murmurs. Regular rhythm. Abdomen exam; soft, no organomegaly. Bowel sounds audible. Extremity exam; no peripheral edema. No clubbing. [employer] exam; no focal deficit. Results Result Diagram: 11/10/16 0543 11/10/16 0543 Medications Medications Current Medications Ondansetron HCl (Zofran Inj) 4 mg Q6H PRN IV NAUSEA AND/OR VOMITING; Start 12/13 at 20:30 Acetaminophen (Tylenol Liquid) 650 mg Q6H PRN PO PAIN LEVEL 1-3 OR FEVER Last administered on 11/10/16 11:39; Admin Dose 650 MG; Start 11/06/16 at 20:30 Morphine Sulfate (morphine) 2 mg Q4H PRN IV PAIN LEVEL 7-10 Last administered on 11/11/16 07:52; Admin Dose 2 MG; Start 11/06/16 at 20:30 Aspirin (Aspirin) 81 mg DAILY PO Last administered on 11/11/16 07:52; Admin Dose 81 MG; Start 11/07/16 at 10:00 Atorvastatin Calcium 40 mg 40 mg HS PO Last administered on 11/10/16 21:15; Admin Dose 40 MG; Start 11/07/16 at 21:00 Cefepime HCl (Maxipime 1gm/50 ml (Pmx)) 50 ml @ 100 mls/hr Q12 IVPB Last administered on 11/11/16 07:52; Admin Dose 100 MLS/HR; Start 11/08/16 at 13:30 Pantoprazole (Protonix Tab) 40 mg DAILY@06 PO Last administered on 11/11/16 05 :53; Admin Dose 40 MG; Start 11/09/16 at 06:00 Guaifenesin (Robitussin Liquid Cup) 200 mg Q4H PRN PO COUGH Last administered on 11/09/16 10:43; Admin Dose 200 MG; Start 11/09/16 at 11:00 Phenol (Cepastat Lozenge) 1 lozenge Q1H PRN MT COUGH; Start 11/09/16 at 11:00 Acetaminophen/ Hydrocodone Bitart 1 tab 1 tab Q6H PRN PO PAIN LEVEL 8-10 Last administered on 11/11/16 02:32; Admin Dose 1 TAB; Start 11/09/16 at 11:00 Sodium Chloride (NS) 1,000 ml @ 75 mls/hr [id number] IV ; Start 11/11/16 at 09:25 ; Stop 11/11/16 at 14:24 ANNIKA KAYE Nov 11, 2016 09:39
--- NOTE | 2016-11-11 10:47 | PN ---
Date/Time of Note Date/Time of Note DATE: 11/11/16 TIME: 10:40 Assessment/Plan VTE Prophylaxis VTE Prophylaxis Intervention: SCD's Lines/Catheters IV Catheter Type (from Nrs): Peripheral IV Urinary Cath still in place: Yes Reason Cath still needed: urinary retention Assessment/Plan Chief Complaint/Hosp Course This is a 71-year-old male being admitted to the ICU floor for: #1 Acute respiratory distress: Likely appears to be multifactorial: Multifocal pneumonia plus COPD exacerbation as well as Nstemi. CTA was negative for pulmonary embolism -Continue duo nebs, broad-spectrum antibiotics, Mucomyst as well - for NSTEMI -follow up post catheterization results, cardiology recommendations, continue current cardiac medication -Follow-up pulmonary, infectious disease - PT eval #2 Nstemi: Troponin 5.1 on admission, patient started on heparin drip. Cardiology was consulted via the ED based on slight ST elevations on EKG however patient did not meet criteria for STEMI. - Continue to trend troponins, again, getting left heart catheterization, follow-up results from this -Follow further cardiology recommendations - nitro/morphine for pain #3 COPD: Patient did receive steroids in the ED. slowly improving overall -Continue nebulization., BiPAP if indicated, Mucomyst, antibiotics #4 Renal failure, acute versus chronic: Previous creatinine from 2014 showed a creatinine of 1.0. On admission creatinine elevated at approximately 2.5 -> 1.4 -> 1.0, so normalizing now - this could be secondary to prerenal etiology as well as possible cardiorenal syndrome -Monitor urine output, BMP every morning -f/u consult nephrology recommendations #5 lactic acidosis: Multifactorial in nature secondary to the acute illness as well as possible underlying infection. Trending down now. - Will continue IV antibiotics. #6 leukocytosis: Patient had white blood cell count of 47 on admission which significantly high just for a acute underlying infection. He does have history of bladder cancer and hepatitis C. Again, he does have multifocal pneumonia, also could be leukemoid reaction, now trending down to 22 range today. -continue antibiotics , monitor daily CBC #7 history of bladder cancer: Monitor for now #8 history of hepatitis C: Follow-up HCV RNA level. #9 GI prophylactic: Protonix Problems: Subjective 24 Hr Interval Summary Free Text/Dictation Patient had fever 100.6 this morning, presently getting left heart cath. Otherwise no acute events overnight. Exam/Review of Systems Vital Signs Vitals Vital Signs Date Time Temp Pulse Resp B/P Pulse Ox O2 Delivery O2 Flow Rate FiO2 11/11/16 10:02 Nasal Cannula 3.0 11/11/16 09:52 106 35 123/66 98 11/11/16 09:42 99.6 11/07/16 14:50 30 Intake and Output 11/10/16 11/10/16 11/11/16 15:00 23:00 07:00 Intake Total 1361.6 ml 1040 ml Output Total 1000 ml 1900 ml Balance 361.6 ml -860 ml Exam Physical exam: Unable to be performed today because patient is presently off the floor at left heart cath Results Result Diagram: 11/10/16 0543 11/10/16 0543 Medications Medications Current Medications Ondansetron HCl (Zofran Inj) 4 mg Q6H PRN IV NAUSEA AND/OR VOMITING; Start 12/13 at 20:30 Acetaminophen (Tylenol Liquid) 650 mg Q6H PRN PO PAIN LEVEL 1-3 OR FEVER Last administered on 11/10/16 11:39; Admin Dose 650 MG; Start 11/06/16 at 20:30 Morphine Sulfate (morphine) 2 mg Q4H PRN IV PAIN LEVEL 7-10 Last administered on 11/11/16 09:48; Admin Dose 2 MG; Start 11/06/16 at 20:30 Aspirin (Aspirin) 81 mg DAILY PO Last administered on 11/11/16 07:52; Admin Dose 81 MG; Start 11/07/16 at 10:00 Atorvastatin Calcium 40 mg 40 mg HS PO Last administered on 11/10/16 21:15; Admin Dose 40 MG; Start 11/07/16 at 21:00 Cefepime HCl (Maxipime 1gm/50 ml (Pmx)) 50 ml @ 100 mls/hr Q12 IVPB Last administered on 11/11/16 07:52; Admin Dose 100 MLS/HR; Start 11/08/16 at 13:30 Pantoprazole (Protonix Tab) 40 mg DAILY@06 PO Last administered on 11/11/16 05 :53; Admin Dose 40 MG; Start 11/09/16 at 06:00 Guaifenesin (Robitussin Liquid Cup) 200 mg Q4H PRN PO COUGH Last administered on 11/09/16 10:43; Admin Dose 200 MG; Start 11/09/16 at 11:00 Phenol (Cepastat Lozenge) 1 lozenge Q1H PRN MT COUGH; Start 11/09/16 at 11:00 Acetaminophen/ Hydrocodone Bitart 1 tab 1 tab Q6H PRN PO PAIN LEVEL 8-10 Last administered on 11/11/16 02:32; Admin Dose 1 TAB; Start 11/09/16 at 11:00 Sodium Chloride (NS) 1,000 ml @ 75 mls/hr [id number] IV ; Start 11/11/16 at 09:25 ; Stop 11/11/16 at 14:24 TAYLOR WIGGINS Nov 11, 2016 10:47
[2016-11-11 12:50] LABS: ABNORMAL IP MESSAGE 1; BASOPHIL # 0.1 10^3/ul (0.0-0.1); BASOPHILS % 0.3 % (0.0-2.0); EOSINOPHILS # 0.5 10^3/ul (0.0-0.5); EOSINOPHILS % 2.6 % (0.0-7.0); HEMATOCRIT 29.5 % (42.0-52.0); HEMOGLOBIN 8.8 g/dl (14.0-18.0); LYMPHOCYTES # 3.1 10^3/ul (0.8-2.9); MEAN CORPUSCULAR HEMOGLOBIN 25.7 pg (29.0-33.0); MEAN CORPUSCULAR HGB CONC 29.8 g/dl (32.0-37.0); MEAN PLATELET VOLUME 8.9 fl (7.4-10.4); MONOCYTE # 2.2 10^3/ul (0.3-0.9); MONOCYTES % 10.7 % (0.0-11.0); NEUTROPHIL # 13.8 10^3/ul (1.6-7.5); NEUTROPHILS % 66.1 % (39.0-77.0); PLATELET COUNT 323 10^3/UL (140-415); POSITIVE DIFF @See below; RED BLOOD COUNT 3.43 10^6/ul (4.70-6.10); WHITE BLOOD COUNT 20.8 10^3/ul (4.8-10.8)
[2016-11-11 13:10] LABS: CALCIUM 8.4 mg/dl (8.4-10.2); CREATININE 0.82 mg/dl (0.61-1.24); POTASSIUM 3.5 mmol/L (3.5-5.1)
[2016-11-11] MEDS: FLUCONAZOLE 100 MG TAB PO SCH (13:52)
[2016-11-11] MEDS ORDERED: BISACODYL (EC) 5 MG TAB PO PRN (17:00)
[2016-11-11] MEDS: NYSTATIN SUSP 5 ML CUP PO SCH ×2 (17:39→20:39)
--- NOTE | 2016-11-11 20:19 | CONS ---
Date/Time of Note Date/Time of Note DATE: 11/11/16 TIME: 20:18 Assessment/Plan Assessment/Plan Chief Complaint/Hosp Course Assessment: NSTEMI - appears to be type 2, coronary angiography without significant coronary artery disease Right ventricular dysfunction - no pulmonary embolism on CTA, likely from severe chronic obstructive pulmonary disease Acute on chronic hypoxic respiratory failure Chronic obstructive pulmonary disease exacerbation and pneumonia - per pulmonology and infectious disease Acute kidney injury - resolved Chronic leukocytosis - possible myelodysplastic syndrome Hepatitis C Tobacco use Recommendations: -echocardiogram showed LVEF 70%, moderate RV enlargement with mild hypokinesis -continue aspirin and atorvastatin -hold off on metoprolol for now given chronic obstructive pulmonary disease exacerbation Problems: Consultation Date/Type/Reason Admit Date/Time Nov 06, 2016 at 16:26 Initial Consult Date 11/07/16 Type of Consultation: Cardiology 24 HR Interval Summary Free Text/Dictation Coronary angiography today showed no significant coronary artery disease. Right radial artery access site intact. Detailed Summary Additional Comments 14 point review of systems without changes. Exam/Review of Systems Vital Signs Vitals Vital Signs Date Time Temp Pulse Resp B/P Pulse Ox O2 Delivery O2 Flow Rate FiO2 11/11/16 20:04 3.0 11/11/16 20:04 110 18 96 Nasal Cannula 11/11/16 15:26 98.0 116/73 11/07/16 14:50 30 Intake and Output 11/10/16 11/10/16 11/11/16 15:00 23:00 07:00 Intake Total 1361.6 ml 1040 ml Output Total 1000 ml 1900 ml Balance 361.6 ml -860 ml Exam Constitutional: alert, no distress Psych: No nl mood/affect Head: atraumatic, normocephalic Neck: jvd (distended EJ during expiration ) Respiratory: crackles/rales, diminished breath sounds, No clear to auscultation (ronchi) Cardiovascular: systolic murmur (2/6 ROXANNE), No edema, No regular rate and rhythm (tachycardic ) Gastrointestinal: soft, No non-tender (mild to palpation ) Neurological: nl mental status, nl speech Skin: No rash or lesions Results Result Diagram: 11/11/16 1236 11/11/16 1236 Results 24 hrs Laboratory Tests Test 11/11/16 12:36 White Blood Count 20.8 H Red Blood Count 3.43 L Hemoglobin 8.8 L Hematocrit 29.5 L Mean Corpuscular Volume 86.0 Mean Corpuscular Hemoglobin 25.7 L Mean Corpuscular Hemoglobin Concent 29.8 L Red Cell Distribution Width 19.0 H Platelet Count 323 Mean Platelet Volume 8.9 Neutrophils % 66.1 Lymphocytes % 15.0 Monocytes % 10.7 Eosinophils % 2.6 Basophils % 0.3 Nucleated Red Blood Cells % 0.0 Neutrophils # 13.8 H Lymphocytes # 3.1 H Monocytes # 2.2 H Eosinophils # 0.5 Basophils # 0.1 Nucleated Red Blood Cells # 0.0 Sodium Level 133 L Potassium Level 3.5 Chloride Level 92 L Carbon Dioxide Level 43 *H Anion Gap 2 L Blood Urea Nitrogen 10 Creatinine 0.82 Glucose Level 143 Calcium Level 8.4 Medications Medications Current Medications Ondansetron HCl (Zofran Inj) 4 mg Q6H PRN IV NAUSEA AND/OR VOMITING; Start 12/13 at 20:30 Acetaminophen (Tylenol Liquid) 650 mg Q6H PRN PO PAIN LEVEL 1-3 OR FEVER Last administered on 11/10/16 11:39; Admin Dose 650 MG; Start 11/06/16 at 20:30 Morphine Sulfate (morphine) 2 mg Q4H PRN IV PAIN LEVEL 7-10 Last administered on 11/11/16 17:39; Admin Dose 2 MG; Start 11/06/16 at 20:30 Aspirin (Aspirin) 81 mg DAILY PO Last administered on 11/11/16 07:52; Admin Dose 81 MG; Start 11/07/16 at 10:00 Atorvastatin Calcium 40 mg 40 mg HS PO Last administered on 11/10/16 21:15; Admin Dose 40 MG; Start 11/07/16 at 21:00 Cefepime HCl (Maxipime 1gm/50 ml (Pmx)) 50 ml @ 100 mls/hr Q12 IVPB Last administered on 11/11/16 07:52; Admin Dose 100 MLS/HR; Start 11/08/16 at 13:30 Pantoprazole (Protonix Tab) 40 mg DAILY@06 PO Last administered on 11/11/16 05 :53; Admin Dose 40 MG; Start 11/09/16 at 06:00 Guaifenesin (Robitussin Liquid Cup) 200 mg Q4H PRN PO COUGH Last administered on 11/09/16 10:43; Admin Dose 200 MG; Start 11/09/16 at 11:00 Phenol (Cepastat Lozenge) 1 lozenge Q1H PRN MT COUGH; Start 11/09/16 at 11:00 Acetaminophen/ Hydrocodone Bitart ([place] (5/325)) 1 tab Q6H PRN PO PAIN LEVEL 8 -10 Last administered on 11/11/16 11:53; Admin Dose 1 TAB; Start 11/09/16 at 11 :00 Fluconazole (Diflucan) 100 mg DAILY PO Last administered on 11/11/16 13:52; Admin Dose 100 MG; Start 11/11/16 at 13:30 Nystatin (Nystatin Susp) 5 ml QID PO Last administered on 11/11/16 17:39; Admin Dose 5 ML; Start 11/11/16 at 17:00 Bisacodyl (Dulcolax) 10 mg DAILY PRN PO CONSTIPATION Last administered on 17:39; Admin Dose 10 MG; Start 11/11/16 at 17:00 LISA SEARS MD Nov 11, 2016 20:19
--- NOTE | 2016-11-11 20:21 | PN ---
DATE: 11/11/2016 SUBJECTIVE DATA: The patient is lying comfortably in bed. Still with low grade fevers. T-max 100.6 this morning. OBJECTIVE DATA: VITAL SIGNS: T current 99.6, pulse 114, respirations 20, blood pressure 116/66, and saturation 96 on 3 L. LABORATORY AND DIAGNOSTIC DATA: WBC 20.8, H and H 8.8 and 29.5, platelets 323, no shift. BUN 10, creatinine 0.82. MICROBIOLOGY: Stool for C difficile came back negative. ANTIMICROBIAL: Cefepime. ALLERGIES: AMOXICILLIN AND DOXYCYCLINE. LABORATORY AND DIAGNOSTIC DATA: Puente catheter. PHYSICAL EXAMINATION: GENERAL: This is a well-developed, wasted, cachectic elderly man who is alert, in no distress. HEENT: Head atraumatic, normocephalic. Sclerae anicteric. Buccal mucosa pink. NECK: Supple. CHEST: Chest rise symmetrical. Breath sounds diminished at the bases. HEART: S1, S2. ABDOMEN: Soft, bowel sounds present. EXTREMITIES: Without cyanosis. SKIN: No jaundice. No cyanosis. ASSESSMENT: 1. Resolving sepsis. 2. Acute respiratory failure secondary to pneumonia and chronic obstructive pulmonary disease (COPD) exacerbation. 3. Resolving urinary tract infection (UTI). 4. Non ST-elevation myocardial infarction (AR). 5. Acute on chronic kidney disease. 6. History of bladder cancer. PLAN: 1. The patient remains stable. 2. We are going to add Diflucan and oral nystatin to the regimen as he is growing yeast in his sputum. 3. Continue him on cefepime. 4. Repeat urine culture and repeat blood cultures if he spikes a fever of 101 or above. Dictated By: Chang Pop NP /maira/brown /Document#: [id number] JULIANA
[2016-11-11] MEDS: ATORVASTATIN 40 MG TAB PO SCH (20:39)
[2016-11-12] VITALS (12 sets, daily range): BP systolic 116–145; BP diastolic 68–78; PULSE 96–106; RESP 16–20
[2016-11-12] MEDS: ALBUTEROL/IPRATROPIUM (NEB) 3 ML AMP HHN PRN (01:14)
[2016-11-12] MEDS: ACETYLCYSTEINE 20% 4 ML VIAL NEB SCH ×4 (01:14→21:38)
[2016-11-12] MEDS: morphine 2 MG INJ IV PRN ×6 (03:53→23:54)
[2016-11-12] MEDS: PANTOPRAZOLE (EC) 40 MG TAB PO SCH (07:03)
[2016-11-12 07:11] LABS: ABNORMAL IP MESSAGE 1; BASOPHILS % 0.1 % (0.0-2.0); EOSINOPHILS # 0.5 10^3/ul (0.0-0.5); EOSINOPHILS % 1.9 % (0.0-7.0); HEMATOCRIT 28.9 % (42.0-52.0); HEMOGLOBIN 8.2 g/dl (14.0-18.0); LYMPHOCYTES # 3.3 10^3/ul (0.8-2.9); LYMPHOCYTES % 13.6 % (15.0-51.0); MEAN CORPUSCULAR HEMOGLOBIN 24.3 pg (29.0-33.0); MEAN CORPUSCULAR HGB CONC 28.4 g/dl (32.0-37.0); MEAN CORPUSCULAR VOLUME 85.5 fl (82.0-101.0); MEAN PLATELET VOLUME 9.3 fl (7.4-10.4); MONOCYTE # 2.5 10^3/ul (0.3-0.9); MONOCYTES % 10.4 % (0.0-11.0); NEUTROPHIL # 16.7 10^3/ul (1.6-7.5); NEUTROPHILS % 69.7 % (39.0-77.0); PLATELET COUNT 360 10^3/UL (140-415); POSITIVE DIFF @See below; RED BLOOD COUNT 3.38 10^6/ul (4.70-6.10)
[2016-11-12 07:41] LABS: MAGNESIUM 1.8 mg/dl (1.7-2.5); PHOSPHORUS 3.3 mg/dl (2.5-4.9)
[2016-11-12 08:15] LABS: CALCIUM 8.3 mg/dl (8.4-10.2); CREATININE 0.85 mg/dl (0.61-1.24); POTASSIUM 3.8 mmol/L (3.5-5.1)
[2016-11-12] MEDS: ASPIRIN 81 MG TAB PO SCH (08:26)
[2016-11-12] MEDS: NYSTATIN SUSP 5 ML CUP PO SCH ×4 (08:26→20:26)
[2016-11-12] MEDS: FLUCONAZOLE 100 MG TAB PO SCH (08:26)
[2016-11-12] MEDS: CEFEPIME 1GM/50 ML (PMX) 50 ML IVPB SCH ×2 (08:26→20:26)
[2016-11-12] MEDS: ALBUTEROL/IPRATROPIUM (NEB) 3 ML AMP HHN SCH ×4 (10:06→21:38)
--- NOTE | 2016-11-12 10:32 | PN ---
Date/Time of Note Date/Time of Note DATE: 11/12/16 TIME: 10:31 Assessment/Plan VTE Prophylaxis VTE Prophylaxis Intervention: other Lines/Catheters IV Catheter Type (from [facility]): Peripheral IV Urinary Cath still in place: No Assessment/Plan Chief Complaint/Hosp Course SUBJECTIVE DATA: events were reviewed d/w Dr Joya OBJECTIVE DATA: HEENT: Head is normocephalic. NECK: Supple. CARDIAC: Heart is tachycardic. LUNGS: Showed diminished breath sounds base. ABDOMEN: Soft, nontender to palpation. No rebound or guarding. EXTREMITIES: Negative for clubbing, cyanosis. No edema. DERMATOLOGIC: Clean. No rashes. MUSCULOSKELETAL: No joint effusion. NEUROLOGIC: Unchanged exam. MEDICATIONS: Reviewed. LABORATORY AND DIAGNOSTIC DATA: Reviewed. Currently pending. ASSESSMENT AND PLAN: 1. Nonoliguric acute kidney injury on top of chronic kidney disease with unknown baseline creatinine. Etiology secondary to hemodynamics. Renal function has improved. At this point, continue current treatment, supportive care. Renally dose all meds. Monitor for any signs of contrast-associated nephropathy. 2. Hypokalemia. Continue to monitor and replete. 3. Hyponatremia. Continue to monitor. 4. Sepsis secondary to pneumonia. Continue antibiotic regimen. 5. Acute respiratory failure secondary to chronic obstructive pulmonary disease, pneumonia, possible congestive heart failure. Continue current treatment plan. 6. Sba-FY-wzjxuaadd myocardial infarction. Continue medical management. Follow up with Cardiology. 7. History of thyroid cancer. 8. History of hepatitis C. Problems: Exam/Review of Systems Vital Signs Vitals Vital Signs Date Time Temp Pulse Resp B/P Pulse Ox O2 Delivery O2 Flow Rate FiO2 11/12/16 10:09 98 3.0 11/12/16 10:07 112 26 Nasal Cannula 11/12/16 08:09 99.9 145/68 Intake and Output 11/11/16 11/11/16 11/12/16 15:00 23:00 07:00 Intake Total 1200 ml 500 ml Output Total 1150 ml 600 ml Balance 50 ml -100 ml Results Result Diagram: 11/12/1631 11/12/1631 Results 24 hrs Laboratory Tests Test 11/11/16 12:36 11/12/16 06:31 11/12/16 07:56 White Blood Count 20.8 H 24.0 H Red Blood Count 3.43 L 3.38 L Hemoglobin 8.8 L 8.2 L Hematocrit 29.5 L 28.9 L Mean Corpuscular Volume 86.0 85.5 Mean Corpuscular Hemoglobin 25.7 L 24.3 L Mean Corpuscular Hemoglobin Concent 29.8 L 28.4 L Red Cell Distribution Width 19.0 H 19.0 H Platelet Count 323 360 Mean Platelet Volume 8.9 9.3 Neutrophils % 66.1 69.7 Lymphocytes % 15.0 13.6 L Monocytes % 10.7 10.4 Eosinophils % 2.6 1.9 Basophils % 0.3 0.1 Nucleated Red Blood Cells % 0.0 0.0 Neutrophils # 13.8 H 16.7 H Lymphocytes # 3.1 H 3.3 H Monocytes # 2.2 H 2.5 H Eosinophils # 0.5 0.5 Basophils # 0.1 0.0 Nucleated Red Blood Cells # 0.0 0.0 Sodium Level 133 L 136 Potassium Level 3.5 3.8 Chloride Level 92 L 94 L Carbon Dioxide Level 43 *H 41 *H Anion Gap 2 L 6 L Blood Urea Nitrogen 10 8 Creatinine 0.82 0.85 Glucose Level 143 85 # Calcium Level 8.4 8.3 L Phosphorus Level 3.3 Magnesium Level 1.8 Bedside Glucose 144 Medications Medications Current Medications Ondansetron HCl (Zofran Inj) 4 mg Q6H PRN IV NAUSEA AND/OR VOMITING; Start 12/13 at 20:30 Acetaminophen (Tylenol Liquid) 650 mg Q6H PRN PO PAIN LEVEL 1-3 OR FEVER Last administered on 11/10/16 11:39; Admin Dose 650 MG; Start 11/06/16 at 20:30 Morphine Sulfate (morphine) 2 mg Q4H PRN IV PAIN LEVEL 7-10 Last administered on 11/12/16 08:23; Admin Dose 2 MG; Start 11/06/16 at 20:30 Aspirin (Aspirin) 81 mg DAILY PO Last administered on 11/12/16 08:26; Admin Dose 81 MG; Start 11/07/16 at 10:00 Atorvastatin Calcium 40 mg 40 mg HS PO Last administered on 11/11/16 20:39; Admin Dose 40 MG; Start 11/07/16 at 21:00 Cefepime HCl (Maxipime 1gm/50 ml (Pmx)) 50 ml @ 100 mls/hr Q12 IVPB Last administered on 11/12/16 08:26; Admin Dose 100 MLS/HR; Start 11/08/16 at 13:30 Pantoprazole (Protonix Tab) 40 mg DAILY@06 PO Last administered on 11/12/16 07 :03; Admin Dose 40 MG; Start 11/09/16 at 06:00 Guaifenesin (Robitussin Liquid Cup) 200 mg Q4H PRN PO COUGH Last administered on 11/09/16 10:43; Admin Dose 200 MG; Start 11/09/16 at 11:00 Phenol (Cepastat Lozenge) 1 lozenge Q1H PRN MT COUGH; Start 11/09/16 at 11:00 Acetaminophen/ Hydrocodone Bitart ([place] (5/325)) 1 tab Q6H PRN PO PAIN LEVEL 8 -10 Last administered on 11/11/16 11:53; Admin Dose 1 TAB; Start 11/09/16 at 11 :00 Fluconazole (Diflucan) 100 mg DAILY PO Last administered on 11/12/16 08:26; Admin Dose 100 MG; Start 11/11/16 at 13:30 Nystatin (Nystatin Susp) 5 ml QID PO Last administered on 11/12/16 08:26; Admin Dose 5 ML; Start 11/11/16 at 17:00 Bisacodyl (Dulcolax) 10 mg DAILY PRN PO CONSTIPATION Last administered on 17:39; Admin Dose 10 MG; Start 11/11/16 at 17:00 MICHAEL ALVARENGA DO Nov 12, 2016 10:32
--- NOTE | 2016-11-12 11:38 | PN ---
Date/Time of Note Date/Time of Note DATE: 11/12/16 TIME: 11:33 Assessment/Plan VTE Prophylaxis VTE Prophylaxis Intervention: heparin Lines/Catheters IV Catheter Type (from [facility]): Peripheral IV Urinary Cath still in place: No Assessment/Plan Chief Complaint/Hosp Course This is a 71-year-old male being admitted to the ICU floor for: #1 Acute respiratory distress: Likely appears to be multifactorial: Multifocal pneumonia plus COPD exacerbation as well as Nstemi - type 2 event. CTA was negative for pulmonary embolism -Continue duo nebs, broad-spectrum antibiotics, Mucomyst as well - NSTEMI - appears to be type 2, coronary angiography without significant coronary artery disease -continue medical management for now -Follow-up pulmonary, infectious disease -Follow-up PT eval #2 Nstemi: Likely type II event: Troponin 5.1 on admission, patient started on heparin drip. Cardiology was consulted via the ED based on slight ST elevations on EKG however patient did not meet criteria for STEMI. - NSTEMI - appears to be type 2, coronary angiography without significant coronary artery disease -continue medical management for now -Follow further cardiology recommendations - nitro/morphine for pain #3 COPD: Patient did receive steroids in the ED. slowly improving overall -Continue nebulization., BiPAP if indicated, Mucomyst, antibiotics #4 Renal failure, acute versus chronic: Previous creatinine from 2014 showed a creatinine of 1.0. On admission creatinine elevated at approximately 2.5 -> 1.4 -> 1.0, so normalizing now - this could be secondary to prerenal etiology as well as possible cardiorenal syndrome -Monitor urine output, BMP every morning -f/u consult nephrology recommendations #5 lactic acidosis: Multifactorial in nature secondary to the acute illness as well as possible underlying infection. Trending down now. - Will continue IV antibiotics. #6 leukocytosis: Patient had white blood cell count of 47 on admission which significantly high just for a acute underlying infection. He does have history of bladder cancer and hepatitis C. Again, he does have multifocal pneumonia, also could be leukemoid reaction, now trending down to 22 range today. -continue antibiotics , monitor daily CBC #7 history of bladder cancer: Monitor for now #8 history of hepatitis C: Follow-up HCV RNA level. #9 GI prophylactic: Protonix 10. Dispo: Likely to [facility] facility in the next 24-48 hours Problems: Subjective 24 Hr Interval Summary Free Text/Dictation Patient had left heart cath yesterday. 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 Exam/Review of Systems Vital Signs Vitals Vital Signs Date Time Temp Pulse Resp B/P Pulse Ox O2 Delivery O2 Flow Rate FiO2 11/12/16 11:11 99.2 110 20 129/69 98 11/12/16 10:09 3.0 11/12/16 10:07 Nasal Cannula Intake and Output 11/11/16 11/11/16 11/12/16 15:00 23:00 07:00 Intake Total 1200 ml 500 ml Output Total 1150 ml 600 ml Balance 50 ml -100 ml Exam General: Patient is lying in bed, answering questions appropriately HEENT: Atraumatic, normocephalic. The pupils are equal, round and reactive. Extraocular motor are intact Neck: Supple with full range of motion. No rigidity or meningismus Lungs: less bilateral coarse breath sounds Heart: Normal S1-S2, Regular rhythm and rate. No overt murmurs appreciated Abdomen: Soft , nontender, nondistended , bowel sounds are present. No guarding no rebound tenderness , No masses or organomegaly Neurologic: no focal deficits Results Result Diagram: 11/12/16 0631 11/12/16 0631 Results 24 hrs Laboratory Tests Test 11/11/16 12:36 11/12/16 06:31 11/12/16 07:56 White Blood Count 20.8 H 24.0 H Red Blood Count 3.43 L 3.38 L Hemoglobin 8.8 L 8.2 L Hematocrit 29.5 L 28.9 L Mean Corpuscular Volume 86.0 85.5 Mean Corpuscular Hemoglobin 25.7 L 24.3 L Mean Corpuscular Hemoglobin Concent 29.8 L 28.4 L Red Cell Distribution Width 19.0 H 19.0 H Platelet Count 323 360 Mean Platelet Volume 8.9 9.3 Neutrophils % 66.1 69.7 Lymphocytes % 15.0 13.6 L Monocytes % 10.7 10.4 Eosinophils % 2.6 1.9 Basophils % 0.3 0.1 Nucleated Red Blood Cells % 0.0 0.0 Neutrophils # 13.8 H 16.7 H Lymphocytes # 3.1 H 3.3 H Monocytes # 2.2 H 2.5 H Eosinophils # 0.5 0.5 Basophils # 0.1 0.0 Nucleated Red Blood Cells # 0.0 0.0 Sodium Level 133 L 136 Potassium Level 3.5 3.8 Chloride Level 92 L 94 L Carbon Dioxide Level 43 *H 41 *H Anion Gap 2 L 6 L Blood Urea Nitrogen 10 8 Creatinine 0.82 0.85 Glucose Level 143 85 # Calcium Level 8.4 8.3 L Phosphorus Level 3.3 Magnesium Level 1.8 Bedside Glucose 144 Medications Medications Current Medications Ondansetron HCl (Zofran Inj) 4 mg Q6H PRN IV NAUSEA AND/OR VOMITING; Start 12/13 at 20:30 Acetaminophen (Tylenol Liquid) 650 mg Q6H PRN PO PAIN LEVEL 1-3 OR FEVER Last administered on 11/10/16 11:39; Admin Dose 650 MG; Start 11/06/16 at 20:30 Morphine Sulfate (morphine) 2 mg Q4H PRN IV PAIN LEVEL 7-10 Last administered on 11/12/16 08:23; Admin Dose 2 MG; Start 11/06/16 at 20:30 Aspirin (Aspirin) 81 mg DAILY PO Last administered on 11/12/16 08:26; Admin Dose 81 MG; Start 11/07/16 at 10:00 Atorvastatin Calcium 40 mg 40 mg HS PO Last administered on 11/11/16 20:39; Admin Dose 40 MG; Start 11/07/16 at 21:00 Cefepime HCl (Maxipime 1gm/50 ml (Pmx)) 50 ml @ 100 mls/hr Q12 IVPB Last administered on 11/12/16 08:26; Admin Dose 100 MLS/HR; Start 11/08/16 at 13:30 Pantoprazole (Protonix Tab) 40 mg DAILY@06 PO Last administered on 11/12/16 07 :03; Admin Dose 40 MG; Start 11/09/16 at 06:00 Guaifenesin (Robitussin Liquid Cup) 200 mg Q4H PRN PO COUGH Last administered on 11/09/16 10:43; Admin Dose 200 MG; Start 11/09/16 at 11:00 Phenol (Cepastat Lozenge) 1 lozenge Q1H PRN MT COUGH; Start 11/09/16 at 11:00 Acetaminophen/ Hydrocodone Bitart ([place] (5/325)) 1 tab Q6H PRN PO PAIN LEVEL 8 -10 Last administered on 11/11/16 11:53; Admin Dose 1 TAB; Start 11/09/16 at 11 :00 Fluconazole (Diflucan) 100 mg DAILY PO Last administered on 11/12/16 08:26; Admin Dose 100 MG; Start 11/11/16 at 13:30 Nystatin (Nystatin Susp) 5 ml QID PO Last administered on 11/12/16 08:26; Admin Dose 5 ML; Start 11/11/16 at 17:00 Bisacodyl (Dulcolax) 10 mg DAILY PRN PO CONSTIPATION Last administered on 17:39; Admin Dose 10 MG; Start 11/11/16 at 17:00 TAYLOR WIGGINS Nov 12, 2016 11:38
[2016-11-12] MEDS ORDERED: VANCOMYCIN IV PER PHARMACY XX SCH (15:30)
--- NOTE | 2016-11-12 15:41 | CONS ---
Date/Time of Note Date/Time of Note DATE: 11/12/16 TIME: 15:13 Assessment/Plan Assessment/Plan Chief Complaint/Hosp Course ID PROGRESS NOTE CURRENT ABX: Cefepime + Diflucan 24H INTERVAL SUMMARY * A/A/O, (+)course cough, (+)wheeze, tells me breathing is not back to normal yet, supplemental O2 * Fever > 103 -- UA, urine cx, blood cx ordered, Mycoplasma PNA order, Start Vanco after BCx sent * (+)Large volume liquid diarrhea last night "i woke up and it was everywhere and I didn't even know I did it" EXAM GEN: 71 yo M on supplemental O2 via NC with course bronchial cough, wheeze, VSS HEENT: Unremarkable except edentulous NECK: supple CV: RRR CHEST: Equal chest rise bilaterally, shallow breathing, diminished BLL, expir wheeze ABD: Soft, NT, + BS EXT: No c/c/e NEURO: Grossly intact, moves all extremities SKIN: No diaphoresis, no obvious rash ID ASSESSMENT 71 yo M admit with: 1. Resolving sepsis. * Fevers: Temp range 99.6-100.6 * Leukocytosis: partially r/t IV steroids demargination 2. Acute respiratory failure secondary to pneumonia and chronic obstructive pulmonary disease (COPD) exacerbation. * CT CHEST * Right upper and lower lobe patchy consolidations, unchanged. * Small right-sided pleural effusion, new compared with the prior study. * Extensive emphysematous changes. * Bilateral peribronchial thickening compatible with chronic bronchitis. There is right lower lobe distal mucus plugging. 3. Resolving urinary tract infection (UTI). 4. Non ST-elevation myocardial infarction (SD). 5. Acute on chronic kidney disease. 6. History of bladder cancer. 7. NEW: ABX associated diarrhea (-)MRSA Nares INVASIVES: PIV ABX ALLERGIES: Doxy/Amoxicillin CURRENT ABX: Cefepime + Diflucan ID RECOMMENDATIONS 1. Fever > 103 -- UA, urine cx, blood cx ordered, Mycoplasma PNA order, Start Vanco after BCx sent 2. Change Diflucan to Cancidas as yeast is NOT C.Albicans 3. Add Flagyl po 250 TID for ABX associated diarrhea, despite (-)C.Diff toxin 4. Send Mycoplasma PNA IFA 5. Per CT -> (+)DIstal LLL mucous plugging -- defer to pulmonary ?Bronch? . Problems: Consultation Date/Type/Reason Admit Date/Time Nov 06, 2016 at 16:26 Initial Consult Date 11/07/16 Type of Consultation: ID Exam/Review of Systems Vital Signs Vitals Vital Signs Date Time Temp Pulse Resp B/P Pulse Ox O2 Delivery O2 Flow Rate FiO2 11/12/16 12:03 103 11/12/16 11:11 99.2 20 129/69 98 11/12/16 10:09 3.0 11/12/16 10:07 Nasal Cannula Intake and Output 11/11/16 11/11/16 11/12/16 15:00 23:00 07:00 Intake Total 1200 ml 500 ml Output Total 1150 ml 600 ml Balance 50 ml -100 ml Results Result Diagram: 11/12/16 0631 11/12/16 0631 Results 24 hrs Laboratory Tests Test 11/12/16 06:31 11/12/16 07:56 White Blood Count 24.0 H Red Blood Count 3.38 L Hemoglobin 8.2 L Hematocrit 28.9 L Mean Corpuscular Volume 85.5 Mean Corpuscular Hemoglobin 24.3 L Mean Corpuscular Hemoglobin Concent 28.4 L Red Cell Distribution Width 19.0 H Platelet Count 360 Mean Platelet Volume 9.3 Neutrophils % 69.7 Lymphocytes % 13.6 L Monocytes % 10.4 Eosinophils % 1.9 Basophils % 0.1 Nucleated Red Blood Cells % 0.0 Neutrophils # 16.7 H Lymphocytes # 3.3 H Monocytes # 2.5 H Eosinophils # 0.5 Basophils # 0.0 Nucleated Red Blood Cells # 0.0 Sodium Level 136 Potassium Level 3.8 Chloride Level 94 L Carbon Dioxide Level 41 *H Anion Gap 6 L Blood Urea Nitrogen 8 Creatinine 0.85 Glucose Level 85 # Calcium Level 8.3 L Phosphorus Level 3.3 Magnesium Level 1.8 Bedside Glucose 144 Medications Medications Current Medications Ondansetron HCl (Zofran Inj) 4 mg Q6H PRN IV NAUSEA AND/OR VOMITING; Start 12/13 at 20:30 Acetaminophen (Tylenol Liquid) 650 mg Q6H PRN PO PAIN LEVEL 1-3 OR FEVER Last administered on 11/10/16t 11:39; Admin Dose 650 MG; Start 11/06/16 at 20:30 Morphine Sulfate (morphine) 2 mg Q4H PRN IV PAIN LEVEL 7-10 Last administered on 11/12/16 11:34; Admin Dose 2 MG; Start 11/06/16 at 20:30 Aspirin (Aspirin) 81 mg DAILY PO Last administered on 11/12/16 08:26; Admin Dose 81 MG; Start 11/07/16 at 10:00 Atorvastatin Calcium 40 mg 40 mg HS PO Last administered on 11/11/16 20:39; Admin Dose 40 MG; Start 11/07/16 at 21:00 Cefepime HCl (Maxipime 1gm/50 ml (Pmx)) 50 ml @ 100 mls/hr Q12 IVPB Last administered on 11/12/16 08:26; Admin Dose 100 MLS/HR; Start 11/08/16 at 13:30 Pantoprazole (Protonix Tab) 40 mg DAILY@06 PO Last administered on 11/12/16 07 :03; Admin Dose 40 MG; Start 11/09/16 at 06:00 Guaifenesin (Robitussin Liquid Cup) 200 mg Q4H PRN PO COUGH Last administered on 11/09/16 10:43; Admin Dose 200 MG; Start 11/09/16 at 11:00 Phenol (Cepastat Lozenge) 1 lozenge Q1H PRN MT COUGH; Start 11/09/16 at 11:00 Acetaminophen/ Hydrocodone Bitart ([place] (5/325)) 1 tab Q6H PRN PO PAIN LEVEL 8 -10 Last administered on 11/11/16 11:53; Admin Dose 1 TAB; Start 11/09/16 at 11 :00 Fluconazole (Diflucan) 100 mg DAILY PO Last administered on 11/12/16 08:26; Admin Dose 100 MG; Start 11/11/16 at 13:30 Nystatin (Nystatin Susp) 5 ml QID PO Last administered on 11/12/16 13:50; Admin Dose 5 ML; Start 11/11/16 at 17:00 Bisacodyl (Dulcolax) 10 mg DAILY PRN PO CONSTIPATION Last administered on 17:39; Admin Dose 10 MG; Start 11/11/16 at 17:00 CALVIN HO NP Nov 12, 2016 15:23
[2016-11-12] MEDS: ACETAMINOPHEN 650MG/20.3ML CUP PO PRN (15:42)
[2016-11-12 15:54] LABS: AADO2 Arterial 68.6 mmHg (7.0-24.0); Arterial Base Excess 15.7 mmol/L (-3.0-3); Arterial COHb 0.2 % (0.0-3.0); Arterial Fraction of Oxyhgb 93.4 % (93.0-99.0); Arterial HCO3 42.1 mmol/L (22.0-26.0); Arterial MetHb 0.3 % (0.0-1.5); Arterial Total Hemglobin 9.5 g/dl (12.0-18.0); MODE NASAL CANNULA
[2016-11-12 15:57] LABS: ADD UMIC YES; UR ASCORBIC ACID NEGATIVE (NEGATIVE); UR BACTERIA FEW /HPF (NONE SEEN); UR BILIRUBIN (Dip) NEGATIVE (NEGATIVE); UR BLOOD (Dip) 2+ mg/dL (NEGATIVE); UR CLARITY CLEAR (CLEAR); UR COLOR YELLOW (YELLOW); UR GLUCOSE (Dip) NEGATIVE (NEGATIVE); UR KETONES (Dip) NEGATIVE (NEGATIVE); UR LEUKOCYTE ESTERASE (Dip) TRACE Leu/ul (NEGATIVE); UR NITRITE (Dip) NEGATIVE (NEGATIVE); UR RBC 10 /HPF (0-5); UR SPECIFIC GRAVITY (Dip) 1.006 (1.003-1.030); UR TOTAL PROTEIN (Dip) NEGATIVE (NEGATIVE); UR UROBILINOGEN (Dip) 2+ mg/dL (NEGATIVE)
[2016-11-12] MEDS ORDERED: CASPOFUNGIN 70 MG in SOD CHLORIDE 0.9% 250 ML IVPB ONE (17:00)
[2016-11-12] MEDS: metroNIDAZOLE 250 MG TAB PO SCH ×2 (17:29→22:50)
--- NOTE | 2016-11-12 18:48 | CONS ---
Date/Time of Note Date/Time of Note DATE: 11/12/16 TIME: 18:47 Consult Date/Type/Reason Admit Date/Time Nov 06, 2016 at 16:26 Initial Consult Date 11/07/16 Type of Consultation: Pulm Subjective No events. Objective Vital Signs Date Time Temp Pulse Resp B/P Pulse Ox O2 Delivery O2 Flow Rate FiO2 11/12/16 16:02 106 11/12/16 16:00 Nasal Cannula 3.0 11/12/16 15:33 100.3 20 116/74 98 Intake and Output 11/11/16 11/11/16 11/12/16 15:00 23:00 07:00 Intake Total 1200 ml 500 ml Output Total 1150 ml 600 ml Balance 50 ml -100 ml Exam HEENT: Neck supple; no JVD; no LAD CVS: RRR, S1 and S2 CHEST: Coarse BS ABD: Soft, NT, + BS EXT: No c/c/e Results/Medications Result Diagram: 11/12/16 0631 11/12/16 0631 Results 24 hrs Laboratory Tests Test 11/12/16 06:31 11/12/16 07:56 11/12/16 15:30 11/12/16 16:00 White Blood Count 24.0 H Red Blood Count 3.38 L Hemoglobin 8.2 L Hematocrit 28.9 L Mean Corpuscular Volume 85.5 Mean Corpuscular Hemoglobin 24.3 L Mean Corpuscular Hemoglobin Concent 28.4 L Red Cell Distribution Width 19.0 H Platelet Count 360 Mean Platelet Volume 9.3 Neutrophils % 69.7 Lymphocytes % 13.6 L Monocytes % 10.4 Eosinophils % 1.9 Basophils % 0.1 Nucleated Red Blood Cells % 0.0 Neutrophils # 16.7 H Lymphocytes # 3.3 H Monocytes # 2.5 H Eosinophils # 0.5 Basophils # 0.0 Nucleated Red Blood Cells # 0.0 Sodium Level 136 Potassium Level 3.8 Chloride Level 94 L Carbon Dioxide Level 41 *H Anion Gap 6 L Blood Urea Nitrogen 8 Creatinine 0.85 Glucose Level 85 # Calcium Level 8.3 L Phosphorus Level 3.3 Magnesium Level 1.8 Bedside Glucose 144 Urine Color YELLOW Urine Clarity CLEAR Urine pH 7.0 Urine Specific [place] 1.006 Urine Ketones NEGATIVE Urine Nitrite NEGATIVE Urine Bilirubin NEGATIVE Urine Urobilinogen 2+ H Urine Leukocyte Esterase TRACE A Urine Microscopic RBC 10 H Urine Microscopic WBC 6 H Urine Bacteria FEW A Urine Hemoglobin 2+ H Urine Glucose NEGATIVE Urine Total Protein NEGATIVE Blood Gas Specimen Source Blood arterial Arterial Blood Date Drawn 11/12/2016 3:45:29 PM Arterial Blood pH (Temp corrected) 7.441 Arterial Blood pCO2 (Temp correct) 63.2 H Arterial Blood pO2 (Temp corrected) 71.0 L Arterial Blood HCO3 42.1 *H Arterial Blood Base Excess 15.7 H Arterial Blood Oxygen Saturation 93.9 L Trent Test N/A Arterial Blood Gas Puncture Site LB Arterial Blood Carboxyhemoglobin 0.2 Arterial Blood Methemoglobin 0.3 Blood Gas A-a O2 Differential 68.6 H Oxyhemoglobin Percent 93.4 Total Hemoglobin 9.5 L Blood Gas Temperature 37.0 Blood Gas Modality NASAL CANNULA FiO2 30.0 Blood Gas Critical Value Read Back ab Blood Gas Notified Whom Chris cardenas Blood Gas Notified Time 11/12/2016 3:54:28 PM Medications Current Medications Ondansetron HCl (Zofran Inj) 4 mg Q6H PRN IV NAUSEA AND/OR VOMITING; Start 12/13 at 20:30 Acetaminophen (Tylenol Liquid) 650 mg Q6H PRN PO PAIN LEVEL 1-3 OR FEVER Last administered on 11/12/16 15:42; Admin Dose 650 MG; Start 11/06/16 at 20:30 Morphine Sulfate (morphine) 2 mg Q4H PRN IV PAIN LEVEL 7-10 Last administered on 11/12/16 15:42; Admin Dose 2 MG; Start 11/06/16 at 20:30 Aspirin (Aspirin) 81 mg DAILY PO Last administered on 11/12/16 08:26; Admin Dose 81 MG; Start 11/07/16 at 10:00 Atorvastatin Calcium 40 mg 40 mg HS PO Last administered on 11/11/16 20:39; Admin Dose 40 MG; Start 11/07/16 at 21:00 Cefepime HCl (Maxipime 1gm/50 ml (Pmx)) 50 ml @ 100 mls/hr Q12 IVPB Last administered on 11/12/16 08:26; Admin Dose 100 MLS/HR; Start 11/08/16 at 13:30 Pantoprazole (Protonix Tab) 40 mg DAILY@06 PO Last administered on 11/12/16 07 :03; Admin Dose 40 MG; Start 11/09/16 at 06:00 Guaifenesin (Robitussin Liquid Cup) 200 mg Q4H PRN PO COUGH Last administered on 11/09/16 10:43; Admin Dose 200 MG; Start 11/09/16 at 11:00 Phenol (Cepastat Lozenge) 1 lozenge Q1H PRN MT COUGH; Start 11/09/16 at 11:00 Acetaminophen/ Hydrocodone Bitart ([place] (5/325)) 1 tab Q6H PRN PO PAIN LEVEL 8 -10 Last administered on 11/11/16 11:53; Admin Dose 1 TAB; Start 11/09/16 at 11 :00 Nystatin (Nystatin Susp) 5 ml QID PO Last administered on 11/12/16 16:56; Admin Dose 5 ML; Start 11/11/16 at 17:00 Bisacodyl (Dulcolax) 10 mg DAILY PRN PO CONSTIPATION Last administered on 17:39; Admin Dose 10 MG; Start 11/11/16 at 17:00 Metronidazole 250 mg 250 mg Q8 PO Last administered on 11/12/16 17:29; Admin Dose 250 MG; Start 11/12/16 at 17:00 Caspofungin 50 mg/ Sodium Chloride 250 ml @ 250 mls/hr Q24H IVPB ; Start at 17:00 Vancomycin HCl/ Sodium Chloride (Vancocin/NS) 250 ml @ 83.333 mls/ hr Q24H IVPB ; Start 11/12/16 at 18:00 Assessment/Plan Additional Assessment/Plan MPRESSION: 1. Probable healthcare associated pneumonia. 2. Underlying severe chronic obstructive pulmonary disease. No evidence of pulmonary embolism on CT angiogram 3. Non-ST elevation MN, preserved ejection fraction elevated PA pressures probably secondary to chronic lung disease and hypoxemia. 4. Severe emphysema with right upper lobe pneumonia 5. Hypokalemia RECS 1. Aspiration precautions 2. BDs 3. RITU Cook MD Nov 12, 2016 18:48
[2016-11-12] MEDS: VANCOMYCIN 1.25 GM in SOD CHLORIDE 0.9% 250 ML IVPB SCH (18:59)
--- NOTE | 2016-11-12 19:36 | CONS ---
Date/Time of Note Date/Time of Note DATE: 11/12/16 TIME: 19:34 Assessment/Plan Assessment/Plan Chief Complaint/Hosp Course Assessment: NSTEMI - appears to be type 2, coronary angiography without significant coronary artery disease Right ventricular dysfunction - no pulmonary embolism on CTA, likely from severe chronic obstructive pulmonary disease Acute on chronic hypoxic respiratory failure Chronic obstructive pulmonary disease exacerbation and pneumonia - per pulmonology and infectious disease Acute kidney injury - resolved Chronic leukocytosis - possible myelodysplastic syndrome Hepatitis C Tobacco use Recommendations: -echocardiogram showed LVEF 70%, moderate RV enlargement with mild hypokinesis -continue aspirin and atorvastatin -hold off on metoprolol for now given chronic obstructive pulmonary disease exacerbation Problems: Consultation Date/Type/Reason Admit Date/Time Nov 06, 2016 at 16:26 Initial Consult Date 11/07/16 Type of Consultation: Cardiology 24 HR Interval Summary Free Text/Dictation No acute events. Detailed Summary Additional Comments 14 point review of systems without changes. Exam/Review of Systems Vital Signs Vitals Vital Signs Date Time Temp Pulse Resp B/P Pulse Ox O2 Delivery O2 Flow Rate FiO2 11/12/16 16:02 106 11/12/16 16:00 Nasal Cannula 3.0 11/12/16 15:33 100.3 20 116/74 98 Intake and Output 11/11/16 11/11/16 11/12/16 15:00 23:00 07:00 Intake Total 1200 ml 500 ml Output Total 1150 ml 600 ml Balance 50 ml -100 ml Exam Constitutional: alert, no distress Psych: No nl mood/affect Head: atraumatic, normocephalic Neck: jvd (distended EJ during expiration ) Respiratory: crackles/rales, diminished breath sounds, No clear to auscultation (ronchi) Cardiovascular: systolic murmur (2/6 ROXANNE), No edema, No regular rate and rhythm (tachycardic ) Gastrointestinal: soft, No non-tender (mild to palpation ) Neurological: nl mental status, nl speech Skin: No rash or lesions Results Result Diagram: 11/12/16 0631 11/12/16 0631 Results 24 hrs Laboratory Tests Test 11/12/16 06:31 11/12/16 07:56 11/12/16 15:30 11/12/16 16:00 White Blood Count 24.0 H Red Blood Count 3.38 L Hemoglobin 8.2 L Hematocrit 28.9 L Mean Corpuscular Volume 85.5 Mean Corpuscular Hemoglobin 24.3 L Mean Corpuscular Hemoglobin Concent 28.4 L Red Cell Distribution Width 19.0 H Platelet Count 360 Mean Platelet Volume 9.3 Neutrophils % 69.7 Lymphocytes % 13.6 L Monocytes % 10.4 Eosinophils % 1.9 Basophils % 0.1 Nucleated Red Blood Cells % 0.0 Neutrophils # 16.7 H Lymphocytes # 3.3 H Monocytes # 2.5 H Eosinophils # 0.5 Basophils # 0.0 Nucleated Red Blood Cells # 0.0 Sodium Level 136 Potassium Level 3.8 Chloride Level 94 L Carbon Dioxide Level 41 *H Anion Gap 6 L Blood Urea Nitrogen 8 Creatinine 0.85 Glucose Level 85 # Calcium Level 8.3 L Phosphorus Level 3.3 Magnesium Level 1.8 Bedside Glucose 144 Urine Color YELLOW Urine Clarity CLEAR Urine pH 7.0 Urine Specific [place] 1.006 Urine Ketones NEGATIVE Urine Nitrite NEGATIVE Urine Bilirubin NEGATIVE Urine Urobilinogen 2+ H Urine Leukocyte Esterase TRACE A Urine Microscopic RBC 10 H Urine Microscopic WBC 6 H Urine Bacteria FEW A Urine Hemoglobin 2+ H Urine Glucose NEGATIVE Urine Total Protein NEGATIVE Blood Gas Specimen Source Blood arterial Arterial Blood Date Drawn 11/12/2016 3:45:29 PM Arterial Blood pH (Temp corrected) 7.441 Arterial Blood pCO2 (Temp correct) 63.2 H Arterial Blood pO2 (Temp corrected) 71.0 L Arterial Blood HCO3 42.1 *H Arterial Blood Base Excess 15.7 H Arterial Blood Oxygen Saturation 93.9 L Trent Test N/A Arterial Blood Gas Puncture Site LB Arterial Blood Carboxyhemoglobin 0.2 Arterial Blood Methemoglobin 0.3 Blood Gas A-a O2 Differential 68.6 H Oxyhemoglobin Percent 93.4 Total Hemoglobin 9.5 L Blood Gas Temperature 37.0 Blood Gas Modality NASAL CANNULA FiO2 30.0 Blood Gas Critical Value Read Back ab Blood Gas Notified Whom Chris carednas Blood Gas Notified Time 11/12/2016 3:54:28 PM Medications Medications Current Medications Ondansetron HCl (Zofran Inj) 4 mg Q6H PRN IV NAUSEA AND/OR VOMITING; Start 12/13 at 20:30 Acetaminophen (Tylenol Liquid) 650 mg Q6H PRN PO PAIN LEVEL 1-3 OR FEVER Last administered on 11/12/16t 15:42; Admin Dose 650 MG; Start 11/06/16 at 20:30 Morphine Sulfate (morphine) 2 mg Q4H PRN IV PAIN LEVEL 7-10 Last administered on 11/12/16 15:42; Admin Dose 2 MG; Start 11/06/16 at 20:30 Aspirin (Aspirin) 81 mg DAILY PO Last administered on 11/12/16 08:26; Admin Dose 81 MG; Start 11/07/16 at 10:00 Atorvastatin Calcium 40 mg 40 mg HS PO Last administered on 11/11/16 20:39; Admin Dose 40 MG; Start 11/07/16 at 21:00 Cefepime HCl (Maxipime 1gm/50 ml (Pmx)) 50 ml @ 100 mls/hr Q12 IVPB Last administered on 11/12/16 08:26; Admin Dose 100 MLS/HR; Start 11/08/16 at 13:30 Pantoprazole (Protonix Tab) 40 mg DAILY@06 PO Last administered on 11/12/16 07 :03; Admin Dose 40 MG; Start 11/09/16 at 06:00 Guaifenesin (Robitussin Liquid Cup) 200 mg Q4H PRN PO COUGH Last administered on 11/09/16 10:43; Admin Dose 200 MG; Start 11/09/16 at 11:00 Phenol (Cepastat Lozenge) 1 lozenge Q1H PRN MT COUGH; Start 11/09/16 at 11:00 Acetaminophen/ Hydrocodone Bitart ([place] (5/325)) 1 tab Q6H PRN PO PAIN LEVEL 8 -10 Last administered on 11/11/16 11:53; Admin Dose 1 TAB; Start 11/09/16 at 11 :00 Nystatin (Nystatin Susp) 5 ml QID PO Last administered on 11/12/16 16:56; Admin Dose 5 ML; Start 11/11/16 at 17:00 Bisacodyl (Dulcolax) 10 mg DAILY PRN PO CONSTIPATION Last administered on 17:39; Admin Dose 10 MG; Start 11/11/16 at 17:00 Metronidazole 250 mg 250 mg Q8 PO Last administered on 11/12/16 17:29; Admin Dose 250 MG; Start 11/12/16 at 17:00 Caspofungin 50 mg/ Sodium Chloride 250 ml @ 250 mls/hr Q24H IVPB ; Start at 17:00 Vancomycin HCl/ Sodium Chloride (Vancocin/NS) 250 ml @ 83.333 mls/ hr Q24H IVPB Last administered on 11/12/16t 18:59; Admin Dose 83.333 MLS/HR; Start at 18:00 LISA SEARS MD Nov 12, 2016 19:36
[2016-11-12] MEDS: ATORVASTATIN 40 MG TAB PO SCH (20:26)
[2016-11-12] MEDS: HYDROCODONE/APAP (5/325) TAB PO PRN (21:02)
[2016-11-13] VITALS (13 sets, daily range): BP systolic 118–152; BP diastolic 66–95; PULSE 89–103; RESP 19–22
[2016-11-13] MEDS: ACETYLCYSTEINE 20% 4 ML VIAL NEB SCH ×4 (02:18→20:24)
[2016-11-13] MEDS: morphine 2 MG INJ IV PRN ×5 (03:56→21:03)
[2016-11-13] MEDS: PANTOPRAZOLE (EC) 40 MG TAB PO SCH (05:38)
[2016-11-13] MEDS: metroNIDAZOLE 250 MG TAB PO SCH ×3 (05:38→20:56)
[2016-11-13] MEDS: CEFEPIME 1GM/50 ML (PMX) 50 ML IVPB SCH ×2 (08:06→20:56)
[2016-11-13] MEDS: NYSTATIN SUSP 5 ML CUP PO SCH ×4 (08:06→20:57)
[2016-11-13] MEDS: ASPIRIN 81 MG TAB PO SCH (08:06)
[2016-11-13] MEDS: ALBUTEROL/IPRATROPIUM (NEB) 3 ML AMP HHN SCH ×3 (08:54→20:24)
--- NOTE | 2016-11-13 09:44 | PN ---
Date/Time of Note Date/Time of Note DATE: 11/13/16 TIME: 09:44 Assessment/Plan VTE Prophylaxis VTE Prophylaxis Intervention: other Lines/Catheters IV [facility]ter [facility]from [facility]): Saline Lock Urinary Cath still in place: No Assessment/Plan Chief Complaint/Hosp Course SUBJECTIVE DATA: events were reviewed d/w Dr Joya OBJECTIVE DATA: HEENT: Head is normocephalic. NECK: Supple. CARDIAC: Heart is tachycardic. LUNGS: Showed diminished breath sounds base. ABDOMEN: Soft, nontender to palpation. No rebound or guarding. EXTREMITIES: Negative for clubbing, cyanosis. No edema. DERMATOLOGIC: Clean. No rashes. MUSCULOSKELETAL: No joint effusion. NEUROLOGIC: Unchanged exam. MEDICATIONS: Reviewed. LABORATORY AND DIAGNOSTIC DATA: Reviewed. Currently pending. ASSESSMENT AND PLAN: 1. Nonoliguric acute kidney injury on top of chronic kidney disease with unknown baseline creatinine. Etiology secondary to hemodynamics. Renal function has improved. At this point, continue current treatment, supportive care. Renally dose all meds. Monitor for any signs of contrast-associated nephropathy. 2. Hypokalemia. Continue to monitor and replete. 3. Hyponatremia. Continue to monitor. 4. Sepsis secondary to pneumonia. Continue antibiotic regimen. 5. Acute respiratory failure secondary to chronic obstructive pulmonary disease, pneumonia, possible congestive heart failure. Continue current treatment plan. 6. [id number] myocardial infarction. Continue medical management. Follow up with Cardiology. 7. History of thyroid cancer. 8. History of hepatitis C. Problems: Exam/Review of Systems Vital Signs Vitals Vital Signs Date Time Temp Pulse Resp B/P Pulse Ox O2 Delivery O2 Flow Rate FiO2 11/13/16 09:02 100 22 97 Nasal Cannula 3.0 11/13/16 07:39 99.1 142/78 11/13/16 02:18 30 Intake and Output 11/12/16 11/12/16 11/13/16 15:00 23:00 07:00 Intake Total 50 ml 1510 ml 200 ml Output Total 1300 ml 1100 ml Balance 50 ml 210 ml -900 ml Results Result Diagram: 11/12/16 0631 11/12/16 0631 Results 24 hrs Laboratory Tests Test 11/12/16 15:30 11/12/16 16:00 Urine Color YELLOW Urine Clarity CLEAR Urine pH 7.0 Urine Specific [place] 1.006 Urine Ketones NEGATIVE Urine Nitrite NEGATIVE Urine Bilirubin NEGATIVE Urine Urobilinogen 2+ H Urine Leukocyte Esterase TRACE A Urine Microscopic RBC 10 H Urine Microscopic WBC 6 H Urine Bacteria FEW A Urine Hemoglobin 2+ H Urine Glucose NEGATIVE Urine Total Protein NEGATIVE Blood Gas Specimen Source Blood arterial Arterial Blood Date Drawn 11/12/2016 3:45:29 PM Arterial Blood pH (Temp corrected) 7.441 Arterial Blood pCO2 (Temp correct) 63.2 H Arterial Blood pO2 (Temp corrected) 71.0 L Arterial Blood HCO3 42.1 *H Arterial Blood Base Excess 15.7 H Arterial Blood Oxygen Saturation 93.9 L Trent Test N/A Arterial Blood Gas Puncture Site LB Arterial Blood Carboxyhemoglobin 0.2 Arterial Blood Methemoglobin 0.3 Blood Gas A-a O2 Differential 68.6 H Oxyhemoglobin Percent 93.4 Total Hemoglobin 9.5 L Blood Gas Temperature 37.0 Blood Gas Modality NASAL CANNULA FiO2 30.0 Blood Gas Critical Value Read Back ab Blood Gas Notified Whom Chris cardenas Blood Gas Notified Time 11/12/2016 3:54:28 PM Medications Medications Current Medications Ondansetron HCl (Zofran Inj) 4 mg Q6H PRN IV NAUSEA AND/OR VOMITING; Start 12/13 at 20:30 Acetaminophen (Tylenol Liquid) 650 mg Q6H PRN PO PAIN LEVEL 1-3 OR FEVER Last administered on 11/12/16 15:42; Admin Dose 650 MG; Start 11/06/16 at 20:30 Morphine Sulfate (morphine) 2 mg Q4H PRN IV PAIN LEVEL 7-10 Last administered on 11/13/16 08:06; Admin Dose 2 MG; Start 11/06/16 at 20:30 Aspirin (Aspirin) 81 mg DAILY PO Last administered on 11/13/16 08:06; Admin Dose 81 MG; Start 11/07/16 at 10:00 Atorvastatin Calcium 40 mg 40 mg HS PO Last administered on 11/12/16 20:26; Admin Dose 40 MG; Start 11/07/16 at 21:00 Cefepime HCl (Maxipime 1gm/50 ml (Pmx)) 50 ml @ 100 mls/hr Q12 IVPB Last administered on 11/13/16 08:06; Admin Dose 100 MLS/HR; Start 11/08/16 at 13:30 Pantoprazole (Protonix Tab) 40 mg DAILY@06 PO Last administered on 11/13/16 05 :38; Admin Dose 40 MG; Start 11/09/16 at 06:00 Guaifenesin (Robitussin Liquid Cup) 200 mg Q4H PRN PO COUGH Last administered on 11/09/16 10:43; Admin Dose 200 MG; Start 11/09/16 at 11:00 Phenol (Cepastat Lozenge) 1 lozenge Q1H PRN MT COUGH; Start 11/09/16 at 11:00 Acetaminophen/ Hydrocodone Bitart ([place] (5/325)) 1 tab Q6H PRN PO PAIN LEVEL 8 -10 Last administered on 11/12/16 21:02; Admin Dose 1 TAB; Start 11/09/16 at 11 :00 Nystatin (Nystatin Susp) 5 ml QID PO Last administered on 11/13/16 08:06; Admin Dose 5 ML; Start 11/11/16 at 17:00 Bisacodyl (Dulcolax) 10 mg DAILY PRN PO CONSTIPATION Last administered on 17:39; Admin Dose 10 MG; Start 11/11/16 at 17:00 Metronidazole 250 mg 250 mg Q8 PO Last administered on 11/13/16 05:38; Admin Dose 250 MG; Start 11/12/16 at 17:00 Caspofungin 50 mg/ Sodium Chloride 250 ml @ 250 mls/hr Q24H IVPB ; Start at 17:00 Vancomycin HCl/ Sodium Chloride (Vancocin/NS) 250 ml @ 83.333 mls/ hr Q24H IVPB Last administered on 11/12/16 18:59; Admin Dose 83.333 MLS/HR; Start at 18:00 MICHAEL ALVARENGA DO Nov 13, 2016 09:44
--- NOTE | 2016-11-13 10:48 | PN ---
Date/Time of Note Date/Time of Note DATE: 11/13/16 TIME: 10:43 Assessment/Plan VTE Prophylaxis VTE Prophylaxis Intervention: heparin Lines/Catheters IV Catheter Type (from Nrs): Saline Lock Urinary Cath still in place: No Assessment/Plan Chief Complaint/Hosp Course This is a 71-year-old male being admitted to the ICU floor for: #1 Acute respiratory distress: Likely appears to be multifactorial: Multifocal pneumonia plus COPD exacerbation as well as Nstemi - type 2 event. CTA was negative for pulmonary embolism -Continue duo nebs, broad-spectrum antibiotics, Mucomyst as well - NSTEMI - appears to be type 2, coronary angiography without significant coronary artery disease - continue medical management for now -Follow-up pulmonary, infectious disease -Follow-up PT eval #2 Nstemi: Likely type II event: Troponin 5.1 on admission, patient started on heparin drip. Cardiology was consulted via the ED based on slight ST elevations on EKG however patient did not meet criteria for STEMI. - NSTEMI - appears to be type 2, coronary angiography without significant coronary artery disease -continue medical management for now -Follow further cardiology recommendations - nitro/morphine for pain #3 COPD: Patient did receive steroids in the ED. slowly improving overall, although ABG yesterday showed slightly elevated PCO2 levels. -Continue nebulization, will order for BiPAP today 2 hours, continue Mucomyst, antibiotics #4 Renal failure, acute versus chronic: Improving now - this could be secondary to prerenal etiology as well as possible cardiorenal syndrome -Monitor urine output, BMP every morning -f/u consult nephrology recommendations #5 lactic acidosis: Resolved now - Will continue IV antibiotics Flagyl, caspofungin, vancomycin per ID recommendation for treatment of pneumonia and likely antibiotic associated diarrhea #6 leukocytosis: Patient had white blood cell count of 47 on admission, He does have history of bladder cancer and hepatitis C. Again, he does have multifocal pneumonia, also could be leukemoid reaction, hovering the low 20,000 range the last few days now -continue antibiotics , monitor daily CBC #7 history of bladder cancer: Monitor for now #8 history of hepatitis C: Follow-up HCV RNA level. #9 GI prophylactic: Protonix 10. Dispo: [facility] facility in the next 24-48 hours Problems: Subjective 24 Hr Interval Summary Free Text/Dictation Patient still with some mild shortness of breath symptoms, seen by renal team this morning. Exam/Review of Systems Vital Signs Vitals Vital Signs Date Time Temp Pulse Resp B/P Pulse Ox O2 Delivery O2 Flow Rate FiO2 11/13/16 09:02 100 22 97 Nasal Cannula 3.0 11/13/16 07:39 99.1 142/78 11/13/16 02:18 30 Intake and Output 11/12/16 11/12/16 11/13/16 15:00 23:00 07:00 Intake Total 50 ml 1510 ml 200 ml Output Total 1300 ml 1100 ml Balance 50 ml 210 ml -900 ml Exam General: Patient is lying in bed, answering questions appropriately HEENT: Atraumatic, normocephalic. The pupils are equal, round and reactive. Extraocular motor are intact Neck: Supple with full range of motion. No rigidity or meningismus Lungs: less bilateral coarse breath sounds Heart: Normal S1-S2, Regular rhythm and rate. No overt murmurs appreciated Abdomen: Soft , nontender, nondistended , bowel sounds are present. No guarding no rebound tenderness , No masses or organomegaly Neurologic: no focal deficits Results Result Diagram: 11/12/16 0631 11/12/1631 Results 24 hrs Laboratory Tests Test 11/12/16 15:30 11/12/16 16:00 Urine Color YELLOW Urine Clarity CLEAR Urine pH 7.0 Urine Specific [place] 1.006 Urine Ketones NEGATIVE Urine Nitrite NEGATIVE Urine Bilirubin NEGATIVE Urine Urobilinogen 2+ H Urine Leukocyte Esterase TRACE A Urine Microscopic RBC 10 H Urine Microscopic WBC 6 H Urine Bacteria FEW A Urine Hemoglobin 2+ H Urine Glucose NEGATIVE Urine Total Protein NEGATIVE Blood Gas Specimen Source Blood arterial Arterial Blood Date Drawn 11/12/2016 3:45:29 PM Arterial Blood pH (Temp corrected) 7.441 Arterial Blood pCO2 (Temp correct) 63.2 H Arterial Blood pO2 (Temp corrected) 71.0 L Arterial Blood HCO3 42.1 *H Arterial Blood Base Excess 15.7 H Arterial Blood Oxygen Saturation 93.9 L Trent Test N/A Arterial Blood Gas Puncture Site LB Arterial Blood Carboxyhemoglobin 0.2 Arterial Blood Methemoglobin 0.3 Blood Gas A-a O2 Differential 68.6 H Oxyhemoglobin Percent 93.4 Total Hemoglobin 9.5 L Blood Gas Temperature 37.0 Blood Gas Modality NASAL CANNULA FiO2 30.0 Blood Gas Critical Value Read Back ab Blood Gas Notified Whom Chris cardenas Blood Gas Notified Time 11/12/2016 3:54:28 PM Medications Medications Current Medications Ondansetron HCl (Zofran Inj) 4 mg Q6H PRN IV NAUSEA AND/OR VOMITING; Start 12/13 at 20:30 Acetaminophen (Tylenol Liquid) 650 mg Q6H PRN PO PAIN LEVEL 1-3 OR FEVER Last administered on 11/12/16 15:42; Admin Dose 650 MG; Start 11/06/16 at 20:30 Morphine Sulfate (morphine) 2 mg Q4H PRN IV PAIN LEVEL 7-10 Last administered on 11/13/16 08:06; Admin Dose 2 MG; Start 11/06/16 at 20:30 Aspirin (Aspirin) 81 mg DAILY PO Last administered on 11/13/16 08:06; Admin Dose 81 MG; Start 11/07/16 at 10:00 Atorvastatin Calcium 40 mg 40 mg HS PO Last administered on 11/12/16 20:26; Admin Dose 40 MG; Start 11/07/16 at 21:00 Cefepime HCl (Maxipime 1gm/50 ml (Pmx)) 50 ml @ 100 mls/hr Q12 IVPB Last administered on 11/13/16 08:06; Admin Dose 100 MLS/HR; Start 11/08/16 at 13:30 Pantoprazole (Protonix Tab) 40 mg DAILY@06 PO Last administered on 11/13/16 05 :38; Admin Dose 40 MG; Start 11/09/16 at 06:00 Guaifenesin (Robitussin Liquid Cup) 200 mg Q4H PRN PO COUGH Last administered on 11/09/16 10:43; Admin Dose 200 MG; Start 11/09/16 at 11:00 Phenol (Cepastat Lozenge) 1 lozenge Q1H PRN MT COUGH; Start 11/09/16 at 11:00 Acetaminophen/ Hydrocodone Bitart ([place] (5/325)) 1 tab Q6H PRN PO PAIN LEVEL 8 -10 Last administered on 11/12/16 21:02; Admin Dose 1 TAB; Start 11/09/16 at 11 :00 Nystatin (Nystatin Susp) 5 ml QID PO Last administered on 11/13/16 08:06; Admin Dose 5 ML; Start 11/11/16 at 17:00 Bisacodyl (Dulcolax) 10 mg DAILY PRN PO CONSTIPATION Last administered on 17:39; Admin Dose 10 MG; Start 11/11/16 at 17:00 Metronidazole 250 mg 250 mg Q8 PO Last administered on 11/13/16 05:38; Admin Dose 250 MG; Start 11/12/16 at 17:00 Caspofungin 50 mg/ Sodium Chloride 250 ml @ 250 mls/hr Q24H IVPB ; Start at 17:00 Vancomycin HCl/ Sodium Chloride (Vancocin/NS) 250 ml @ 83.333 mls/ hr Q24H IVPB Last administered on 11/12/16 18:59; Admin Dose 83.333 MLS/HR; Start at 18:00 TAYLOR WIGGINS Nov 13, 2016 10:48
[2016-11-13] MEDS: CASPOFUNGIN 50 MG in SOD CHLORIDE 0.9% 250 ML IVPB SCH (16:32)
--- NOTE | 2016-11-13 16:51 | CONS ---
Date/Time of Note Date/Time of Note DATE: 11/13/16 TIME: 16:42 Assessment/Plan Assessment/Plan Chief Complaint/Hosp Course ID PROGRESS NOTE CURRENT ABX: Cefepime + Cancidas + Vanco IV + Flagyl PO 24H INTERVAL SUMMARY * TMax yesterday 103 (not recorded ?) -> today @ 99.7 => severe emphysema + RUL PNA * (+)course cough, (+)wheeze, supplemental O2 * I was called by RN yesterday pm pt had Fever > 103 -- UA, urine cx, blood cx ordered, Mycoplasma PNA order, Started Vanco after BCx sent * (+)Large volume liquid diarrhea 2 nights ago -> laxative given "i woke up and it was everywhere and I didn't even know I did it" EXAM GEN: 71 yo M on supplemental O2 via NC with course bronchial cough, wheeze, VSS HEENT: Unremarkable except edentulous NECK: supple CV: RRR CHEST: Equal chest rise bilaterally, shallow breathing, diminished BLL, expir wheeze ABD: Soft, NT, + BS EXT: No c/c/e NEURO: Grossly intact, moves all extremities SKIN: No diaphoresis, no obvious rash ID ASSESSMENT 71 yo M admit with: 1. Resolving sepsis. * Fevers: Temp range 99.6-100.6 * Fever 103 reported to me by FAISAL 11/12/16 = I do not see recorded ? * Leukocytosis: partially r/t IV steroids demargination 2. Acute respiratory failure secondary to pneumonia and chronic obstructive pulmonary disease (COPD) exacerbation. * CT CHEST * Right upper and lower lobe patchy consolidations, unchanged. * Small right-sided pleural effusion, new compared with the prior study. * Extensive emphysematous changes. * Bilateral peribronchial thickening compatible with chronic bronchitis. There is right lower lobe distal mucus plugging. 3. Resolving urinary tract infection (UTI). 4. Non ST-elevation myocardial infarction (VT). 5. Acute on chronic kidney disease. 6. History of bladder cancer. 7. NEW: ABX associated diarrhea (-)MRSA Nares INVASIVES: PIV ABX ALLERGIES: Doxy/Amoxicillin CURRENT ABX: Cefepime + Cancidas #2 + Vanco IV #2 + Flagyl PO ID RECOMMENDATIONS 1.I was called by RN yesterday pm pt had Fever > 103 * Fever 103 reported to me by FAISAL 11/12/16 = I do not see recorded ? * 11/12/16 orders -- UA, urine cx, blood cx ordered, Mycoplasma PNA order, Started Vanco after BCx sent 2. Changed Diflucan to Cancidas as yeast is NOT C.Albicans 3. Added Flagyl po 250 TID for ABX associated diarrhea, despite (-)C.Diff toxin 4.Mycoplasma PNA 5. Per CT -> (+)DIstal LLL mucous plugging -- defer to pulmonary ?Bronch? 6. f/u on micro pending from 11/12/16 . Problems: Consultation Date/Type/Reason Admit Date/Time Nov 06, 2016 at 16:26 Initial Consult Date 11/07/16 Type of Consultation: ID Exam/Review of Systems Vital Signs Vitals Vital Signs Date Time Temp Pulse Resp B/P Pulse Ox O2 Delivery O2 Flow Rate FiO2 11/13/16 16:25 100 11/13/16 15:27 98.2 20 119/66 99 11/13/16 13:53 Nasal Cannula 3.0 11/13/16 02:18 30 Intake and Output 11/12/16 11/12/16 11/13/16 14:59 22:59 06:59 Intake Total 50 ml 1510 ml 200 ml Output Total 1300 ml 1100 ml Balance 50 ml 210 ml -900 ml Results Result Diagram: 11/12/16 0631 11/12/16 0631 Medications Medications Current Medications Ondansetron HCl (Zofran Inj) 4 mg Q6H PRN IV NAUSEA AND/OR VOMITING; Start 12/13 at 20:30 Acetaminophen (Tylenol Liquid) 650 mg Q6H PRN PO PAIN LEVEL 1-3 OR FEVER Last administered on 11/12/16 15:42; Admin Dose 650 MG; Start 11/06/16 at 20:30 Morphine Sulfate (morphine) 2 mg Q4H PRN IV PAIN LEVEL 7-10 Last administered on 11/13/16 15:59; Admin Dose 2 MG; Start 11/06/16 at 20:30 Aspirin (Aspirin) 81 mg DAILY PO Last administered on 11/13/16 08:06; Admin Dose 81 MG; Start 11/07/16 at 10:00 Atorvastatin Calcium 40 mg 40 mg HS PO Last administered on 11/12/16 20:26; Admin Dose 40 MG; Start 11/07/16 at 21:00 Cefepime HCl (Maxipime 1gm/50 ml (Pmx)) 50 ml @ 100 mls/hr Q12 IVPB Last administered on 11/13/16 08:06; Admin Dose 100 MLS/HR; Start 11/08/16 at 13:30 Pantoprazole (Protonix Tab) 40 mg DAILY@06 PO Last administered on 11/13/16 05 :38; Admin Dose 40 MG; Start 11/09/16 at 06:00 Guaifenesin (Robitussin Liquid Cup) 200 mg Q4H PRN PO COUGH Last administered on 11/09/16 10:43; Admin Dose 200 MG; Start 11/09/16 at 11:00 Phenol (Cepastat Lozenge) 1 lozenge Q1H PRN MT COUGH; Start 11/09/16 at 11:00 Acetaminophen/ Hydrocodone Bitart ([place] (5/325)) 1 tab Q6H PRN PO PAIN LEVEL 8 -10 Last administered on 11/12/16 21:02; Admin Dose 1 TAB; Start 11/09/16 at 11 :00 Nystatin (Nystatin Susp) 5 ml QID PO Last administered on 11/13/16 16:32; Admin Dose 5 ML; Start 11/11/16 at 17:00 Bisacodyl (Dulcolax) 10 mg DAILY PRN PO CONSTIPATION Last administered on 17:39; Admin Dose 10 MG; Start 11/11/16 at 17:00 Metronidazole 250 mg 250 mg Q8 PO Last administered on 11/13/16 13:12; Admin Dose 250 MG; Start 11/12/16 at 17:00 Caspofungin 50 mg/ Sodium Chloride 250 ml @ 250 mls/hr Q24H IVPB Last administered on 11/13/16 16:32; Admin Dose 250 MLS/HR; Start 11/13/16 at 17:00 Vancomycin HCl/ Sodium Chloride (Vancocin/NS) 250 ml @ 83.333 mls/ hr Q24H IVPB Last administered on 11/12/16 18:59; Admin Dose 83.333 MLS/HR; Start at 18:00 CALVIN HO NP Nov 13, 2016 16:51
--- NOTE | 2016-11-13 17:11 | CONS ---
Date/Time of Note Date/Time of Note DATE: 11/13/16 TIME: 17:10 Consult Date/Type/Reason Admit Date/Time Nov 06, 2016 at 16:26 Initial Consult Date 11/07/16 Type of Consultation: Pulm Subjective Febrile overnight Objective Vital Signs Date Time Temp Pulse Resp B/P Pulse Ox O2 Delivery O2 Flow Rate FiO2 11/13/16 16:25 100 11/13/16 15:27 98.2 20 119/66 99 11/13/16 13:53 Nasal Cannula 3.0 11/13/16 02:18 30 Intake and Output 11/12/16 11/12/16 11/13/16 15:00 23:00 07:00 Intake Total 50 ml 1510 ml 200 ml Output Total 1300 ml 1100 ml Balance 50 ml 210 ml -900 ml Exam HEENT: Neck supple; no JVD; no LAD CVS: RRR, S1 and S2 CHEST: Coarse BS ABD: Soft, NT, + BS EXT: No c/c/e Results/Medications Result Diagram: 11/12/1631 11/12/16 0631 Medications Current Medications Ondansetron HCl (Zofran Inj) 4 mg Q6H PRN IV NAUSEA AND/OR VOMITING; Start 12/13 at 20:30 Acetaminophen (Tylenol Liquid) 650 mg Q6H PRN PO PAIN LEVEL 1-3 OR FEVER Last administered on 11/12/16 15:42; Admin Dose 650 MG; Start 11/06/16 at 20:30 Morphine Sulfate (morphine) 2 mg Q4H PRN IV PAIN LEVEL 7-10 Last administered on 11/13/16 15:59; Admin Dose 2 MG; Start 11/06/16 at 20:30 Aspirin (Aspirin) 81 mg DAILY PO Last administered on 11/13/16 08:06; Admin Dose 81 MG; Start 11/07/16 at 10:00 Atorvastatin Calcium 40 mg 40 mg HS PO Last administered on 11/12/16 20:26; Admin Dose 40 MG; Start 11/07/16 at 21:00 Cefepime HCl (Maxipime 1gm/50 ml (Pmx)) 50 ml @ 100 mls/hr Q12 IVPB Last administered on 11/13/16 08:06; Admin Dose 100 MLS/HR; Start 11/08/16 at 13:30 Pantoprazole (Protonix Tab) 40 mg DAILY@06 PO Last administered on 11/13/16 05 :38; Admin Dose 40 MG; Start 11/09/16 at 06:00 Guaifenesin (Robitussin Liquid Cup) 200 mg Q4H PRN PO COUGH Last administered on 11/09/16 10:43; Admin Dose 200 MG; Start 11/09/16 at 11:00 Phenol (Cepastat Lozenge) 1 lozenge Q1H PRN MT COUGH; Start 11/09/16 at 11:00 Acetaminophen/ Hydrocodone Bitart ([place] (5/325)) 1 tab Q6H PRN PO PAIN LEVEL 8 -10 Last administered on 11/12/16 21:02; Admin Dose 1 TAB; Start 11/09/16 at 11 :00 Nystatin (Nystatin Susp) 5 ml QID PO Last administered on 11/13/16 16:32; Admin Dose 5 ML; Start 11/11/16 at 17:00 Bisacodyl (Dulcolax) 10 mg DAILY PRN PO CONSTIPATION Last administered on 17:39; Admin Dose 10 MG; Start 11/11/16 at 17:00 Metronidazole 250 mg 250 mg Q8 PO Last administered on 11/13/16 13:12; Admin Dose 250 MG; Start 11/12/16 at 17:00 Caspofungin 50 mg/ Sodium Chloride 250 ml @ 250 mls/hr Q24H IVPB Last administered on 11/13/16 16:32; Admin Dose 250 MLS/HR; Start 11/13/16 at 17:00 Vancomycin HCl/ Sodium Chloride (Vancocin/NS) 250 ml @ 83.333 mls/ hr Q24H IVPB Last administered on 11/12/16 18:59; Admin Dose 83.333 MLS/HR; Start at 18:00 Assessment/Plan Additional Assessment/Plan IMP: 1. Probable healthcare associated pneumonia. 2. Underlying severe chronic obstructive pulmonary disease. No evidence of pulmonary embolism on CT angiogram 3. Non-ST elevation VA, preserved ejection fraction elevated PA pressures probably secondary to chronic lung disease and hypoxemia. 4. Severe emphysema with right upper lobe pneumonia 5. Hypokalemia RECS 1. Aspiration precautions 2. BDs 3. Abx as per RITU LEE MD Nov 13, 2016 17:11
[2016-11-13] MEDS: VANCOMYCIN 1.25 GM in SOD CHLORIDE 0.9% 250 ML IVPB SCH (17:45)
--- NOTE | 2016-11-13 18:00 | CONS ---
Date/Time of Note Date/Time of Note DATE: 11/13/16 TIME: 17:59 Assessment/Plan Assessment/Plan Chief Complaint/Hosp Course Assessment: NSTEMI - appears to be type 2, coronary angiography without significant coronary artery disease Right ventricular dysfunction - no pulmonary embolism on CTA, likely from severe chronic obstructive pulmonary disease Acute on chronic hypoxic respiratory failure Chronic obstructive pulmonary disease exacerbation and pneumonia - per pulmonology and infectious disease Acute kidney injury - resolved Chronic leukocytosis - possible myelodysplastic syndrome Hepatitis C Tobacco use Recommendations: -echocardiogram showed LVEF 70%, moderate RV enlargement with mild hypokinesis -continue aspirin and atorvastatin -hold off on metoprolol for now given chronic obstructive pulmonary disease exacerbation Problems: Consultation Date/Type/Reason Admit Date/Time Nov 06, 2016 at 16:26 Initial Consult Date 11/07/16 Type of Consultation: Cardiology 24 HR Interval Summary Free Text/Dictation Shortness of breath improving. Detailed Summary Additional Comments 14 point review of systems without changes. Exam/Review of Systems Vital Signs Vitals Vital Signs Date Time Temp Pulse Resp B/P Pulse Ox O2 Delivery O2 Flow Rate FiO2 11/13/16 16:25 100 11/13/16 15:27 98.2 20 119/66 99 11/13/16 13:53 Nasal Cannula 3.0 11/13/16 02:18 30 Intake and Output 11/12/16 11/12/16 11/13/16 15:00 23:00 07:00 Intake Total 50 ml 1510 ml 200 ml Output Total 1300 ml 1100 ml Balance 50 ml 210 ml -900 ml Exam Constitutional: alert, no distress Psych: No nl mood/affect Head: atraumatic, normocephalic Neck: jvd (distended EJ during expiration ) Respiratory: crackles/rales, diminished breath sounds, No clear to auscultation (ronchi) Cardiovascular: systolic murmur (2/6 ROXANNE), No edema, No regular rate and rhythm (tachycardic ) Gastrointestinal: soft, No non-tender (mild to palpation ) Neurological: nl mental status, nl speech Skin: No rash or lesions Results Result Diagram: 11/12/1631 11/12/1631 Medications Medications Current Medications Ondansetron HCl (Zofran Inj) 4 mg Q6H PRN IV NAUSEA AND/OR VOMITING; Start 12/13 at 20:30 Acetaminophen (Tylenol Liquid) 650 mg Q6H PRN PO PAIN LEVEL 1-3 OR FEVER Last administered on 11/12/16 15:42; Admin Dose 650 MG; Start 11/06/16 at 20:30 Morphine Sulfate (morphine) 2 mg Q4H PRN IV PAIN LEVEL 7-10 Last administered on 11/13/16 15:59; Admin Dose 2 MG; Start 11/06/16 at 20:30 Aspirin (Aspirin) 81 mg DAILY PO Last administered on 11/13/16 08:06; Admin Dose 81 MG; Start 11/07/16 at 10:00 Atorvastatin Calcium 40 mg 40 mg HS PO Last administered on 11/12/16 20:26; Admin Dose 40 MG; Start 11/07/16 at 21:00 Cefepime HCl (Maxipime 1gm/50 ml (Pmx)) 50 ml @ 100 mls/hr Q12 IVPB Last administered on 11/13/16 08:06; Admin Dose 100 MLS/HR; Start 11/08/16 at 13:30 Pantoprazole (Protonix Tab) 40 mg DAILY@06 PO Last administered on 11/13/16 05 :38; Admin Dose 40 MG; Start 11/09/16 at 06:00 Guaifenesin (Robitussin Liquid Cup) 200 mg Q4H PRN PO COUGH Last administered on 11/09/16 10:43; Admin Dose 200 MG; Start 11/09/16 at 11:00 Phenol (Cepastat Lozenge) 1 lozenge Q1H PRN MT COUGH; Start 11/09/16 at 11:00 Acetaminophen/ Hydrocodone Bitart ([place] (5/325)) 1 tab Q6H PRN PO PAIN LEVEL 8 -10 Last administered on 11/12/16 21:02; Admin Dose 1 TAB; Start 11/09/16 at 11 :00 Nystatin (Nystatin Susp) 5 ml QID PO Last administered on 11/13/16 16:32; Admin Dose 5 ML; Start 11/11/16 at 17:00 Bisacodyl (Dulcolax) 10 mg DAILY PRN PO CONSTIPATION Last administered on 17:39; Admin Dose 10 MG; Start 11/11/16 at 17:00 Metronidazole 250 mg 250 mg Q8 PO Last administered on 11/13/16 13:12; Admin Dose 250 MG; Start 11/12/16 at 17:00 Caspofungin 50 mg/ Sodium Chloride 250 ml @ 250 mls/hr Q24H IVPB Last administered on 11/13/16 16:32; Admin Dose 250 MLS/HR; Start 11/13/16 at 17:00 Vancomycin HCl/ Sodium Chloride (Vancocin/NS) 250 ml @ 83.333 mls/ hr Q24H IVPB Last administered on 11/13/16 17:45; Admin Dose 83.333 MLS/HR; Start at 18:00 LISA SEARS MD Nov 13, 2016 18:00
[2016-11-13] MEDS: ATORVASTATIN 40 MG TAB PO SCH (20:56)
[2016-11-14] VITALS (12 sets, daily range): BP systolic 128–149; BP diastolic 64–78; PULSE 93–103; RESP 17–18
[2016-11-14] MEDS: morphine 2 MG INJ IV PRN ×5 (01:03→22:40)
[2016-11-14] MEDS ORDERED: GUAIFENESIN/CODEINE 5ML CUP PO ONE (02:00)
[2016-11-14] MEDS: ACETYLCYSTEINE 20% 4 ML VIAL NEB SCH ×4 (02:00→21:50)
[2016-11-14] MEDS: metroNIDAZOLE 250 MG TAB PO SCH ×2 (05:07→12:41)
[2016-11-14] MEDS: PANTOPRAZOLE (EC) 40 MG TAB PO SCH (05:07)
[2016-11-14 07:53] LABS: CREATININE 0.77 mg/dl (0.61-1.24)
[2016-11-14] MEDS: HYDROCODONE/APAP (5/325) TAB PO PRN (08:13)
[2016-11-14] MEDS: ALBUTEROL/IPRATROPIUM (NEB) 3 ML AMP HHN SCH ×4 (09:00→22:02)
[2016-11-14] MEDS: NYSTATIN SUSP 5 ML CUP PO SCH ×4 (09:05→21:57)
[2016-11-14] MEDS: CEFEPIME 1GM/50 ML (PMX) 50 ML IVPB SCH ×2 (09:05→21:57)
[2016-11-14] MEDS: ASPIRIN 81 MG TAB PO SCH (09:06)
--- NOTE | 2016-11-14 11:02 | CONS ---
Date/Time of Note Date/Time of Note DATE: 11/14/16 TIME: 11:01 Assessment/Plan Assessment/Plan Additional Assessment/Plan Chest pain and recommendations; 1. Patient admitted with right upper lobe pneumonia with significant clinical improvement. 2. underlying COPD. Continue current treatment. Consultation Date/Type/Reason Admit Date/Time Nov 06, 2016 at 16:26 Initial Consult Date 11/07/16 Type of Consultation: Pulmonary 24 HR Interval Summary Free Text/Dictation Patient condition stable. Denies any shortness of breath, coughing, wheezing. General exam; elderly male, awake alert currently in no distress. Exam/Review of Systems Vital Signs Vitals Vital Signs Date Time Temp Pulse Resp B/P Pulse Ox O2 Delivery O2 Flow Rate FiO2 11/14/16 08:15 98 4.0 11/14/16 08:07 103 11/14/16 07:19 99.0 18 149/77 11/13/16 20:26 Nasal Cannula 11/13/16 02:18 30 Intake and Output 11/13/16 11/13/16 11/14/16 15:00 23:00 07:00 Intake Total 50 ml 1210 ml 250 ml Output Total 1600 ml 1000 ml Balance 50 ml -390 ml -750 ml Exam HEENT exam; supple neck, no JVD. No lymphadenopathy. Midline trachea. No thyromegaly. Patient is edentulous. Chest exam; diminished but clear breath sounds. S1-S2 audible, no murmurs. Regular rhythm. Abdomen exam; soft, no organomegaly. Nontender. Bowel sounds audible. Extremity exam; no peripheral edema. [employer] exam; no focal deficit. Results Result Diagram: 11/12/16 0631 11/14/16 0705 Results 24 hrs Laboratory Tests Test 11/14/16 07:05 Blood Urea Nitrogen 8 Creatinine 0.77 Medications Medications Current Medications Ondansetron HCl (Zofran Inj) 4 mg Q6H PRN IV NAUSEA AND/OR VOMITING; Start 12/13 at 20:30 Acetaminophen (Tylenol Liquid) 650 mg Q6H PRN PO PAIN LEVEL 1-3 OR FEVER Last administered on 11/12/16 15:42; Admin Dose 650 MG; Start 11/06/16 at 20:30 Morphine Sulfate (morphine) 2 mg Q4H PRN IV PAIN LEVEL 7-10 Last administered on 11/14/16 05:07; Admin Dose 2 MG; Start 11/06/16 at 20:30 Aspirin (Aspirin) 81 mg DAILY PO Last administered on 11/14/16 09:06; Admin Dose 81 MG; Start 11/07/16 at 10:00 Atorvastatin Calcium 40 mg 40 mg HS PO Last administered on 11/13/16 20:56; Admin Dose 40 MG; Start 11/07/16 at 21:00 Cefepime HCl (Maxipime 1gm/50 ml (Pmx)) 50 ml @ 100 mls/hr Q12 IVPB Last administered on 11/14/16 09:05; Admin Dose 100 MLS/HR; Start 11/08/16 at 13:30 Pantoprazole (Protonix Tab) 40 mg DAILY@06 PO Last administered on 11/14/16 05 :07; Admin Dose 40 MG; Start 11/09/16 at 06:00 Guaifenesin (Robitussin Liquid Cup) 200 mg Q4H PRN PO COUGH Last administered on 11/09/16 10:43; Admin Dose 200 MG; Start 11/09/16 at 11:00 Phenol (Cepastat Lozenge) 1 lozenge Q1H PRN MT COUGH; Start 11/09/16 at 11:00 Acetaminophen/ Hydrocodone Bitart ([place] (5/325)) 1 tab Q6H PRN PO PAIN LEVEL 8 -10 Last administered on 11/14/16 08:13; Admin Dose 1 TAB; Start 11/09/16 at 11 :00 Nystatin (Nystatin Susp) 5 ml QID PO Last administered on 11/14/16 09:05; Admin Dose 5 ML; Start 11/11/16 at 17:00 Bisacodyl (Dulcolax) 10 mg DAILY PRN PO CONSTIPATION Last administered on 17:39; Admin Dose 10 MG; Start 11/11/16 at 17:00 Metronidazole 250 mg 250 mg Q8 PO Last administered on 11/14/16 05:07; Admin Dose 250 MG; Start 11/12/16 at 17:00 Caspofungin 50 mg/ Sodium Chloride 250 ml @ 250 mls/hr Q24H IVPB Last administered on 11/13/16 16:32; Admin Dose 250 MLS/HR; Start 11/13/16 at 17:00 Vancomycin HCl/ Sodium Chloride (Vancocin/NS) 250 ml @ 83.333 mls/ hr Q24H IVPB Last administered on 11/13/16t 17:45; Admin Dose 83.333 MLS/HR; Start at 18:00 ANNIKA KAYE Nov 14, 2016 11:02
--- NOTE | 2016-11-14 13:11 | PN ---
Date/Time of Note Date/Time of Note DATE: 11/14/16 TIME: 13:08 Assessment/Plan VTE Prophylaxis VTE Prophylaxis Intervention: SCD's Lines/Catheters IV [facility]from [facility] Urinary Cath still in place: No Assessment/Plan Chief Complaint/Hosp Course #1 Acute respiratory distress: Likely appears to be multifactorial: Multifocal pneumonia plus COPD exacerbation as well as Nstemi - type 2 event. CTA was negative for pulmonary embolism -Continue duo nebs, broad-spectrum antibiotics, Mucomyst as well - NSTEMI - appears to be type 2, coronary angiography without significant coronary artery disease - continue medical management for now -Follow-up pulmonary, infectious disease -Follow-up PT eval #2 Nstemi: Type II event: Troponin 5.1 on admission, patient started on heparin drip. Cardiology was consulted via the ED based on slight ST elevations on EKG however patient did not meet criteria for STEMI. - NSTEMI - appears to be type 2, coronary angiography without significant coronary artery disease -continue medical management for now -Follow further cardiology recommendations - nitro/morphine for pain #3 COPD: Patient did receive steroids in the ED. slowly improving overall, although ABG yesterday showed slightly elevated PCO2 levels. -Continue nebulization, will order for BiPAP today 2 hours, continue Mucomyst, antibiotics #4 Renal failure, acute versus chronic: Improving now - this could be secondary to prerenal etiology as well as possible cardiorenal syndrome -Monitor urine output, BMP every morning -f/u consult nephrology recommendations #5 lactic acidosis: Resolved now - Will continue IV antibiotics Flagyl, caspofungin, vancomycin per ID recommendation for treatment of pneumonia and likely antibiotic associated diarrhea #6 leukocytosis: Patient had white blood cell count of 47 on admission, He does have history of bladder cancer and hepatitis C. Again, he does have multifocal pneumonia, also could be leukemoid reaction, hovering the low 20,000 range the last few days now -continue antibiotics , monitor daily CBC #7 history of bladder cancer: Monitor for now #8 history of hepatitis C: Follow-up HCV RNA level. Prophylaxis: SCDs Dispo: Likely to [facility] facility in the next 24-48 hours Problems: Subjective 24 Hr Interval Summary Respiratory: shortness of breath Exam/Review of Systems Vital Signs Vitals Vital Signs Date Time Temp Pulse Resp B/P Pulse Ox O2 Delivery O2 Flow Rate FiO2 11/14/16 12:06 103 11/14/16 11:18 98.3 18 145/77 100 11/14/16 08:15 4.0 11/13/16 20:26 Nasal Cannula 11/13/16 02:18 30 Intake and Output 11/13/16 11/13/16 11/14/16 15:00 23:00 07:00 Intake Total 50 ml 1210 ml 250 ml Output Total 1600 ml 1000 ml Balance 50 ml -390 ml -750 ml Exam Constitutional: alert, oriented Respiratory: clear to auscultation Cardiovascular: regular rate and rhythm Gastrointestinal: soft, No distended Musculoskeletal: nl extremities to inspection Results Result Diagram: 11/12/16 0631 11/14/16 0705 Results 24 hrs Laboratory Tests Test 11/14/16 07:05 Blood Urea Nitrogen 8 Creatinine 0.77 Medications Medications Current Medications Ondansetron HCl (Zofran Inj) 4 mg Q6H PRN IV NAUSEA AND/OR VOMITING; Start 12/13 at 20:30 Acetaminophen (Tylenol Liquid) 650 mg Q6H PRN PO PAIN LEVEL 1-3 OR FEVER Last administered on 11/12/16 15:42; Admin Dose 650 MG; Start 11/06/16 at 20:30 Morphine Sulfate (morphine) 2 mg Q4H PRN IV PAIN LEVEL 7-10 Last administered on 11/14/16 05:07; Admin Dose 2 MG; Start 11/06/16 at 20:30 Aspirin (Aspirin) 81 mg DAILY PO Last administered on 11/14/16 09:06; Admin Dose 81 MG; Start 11/07/16 at 10:00 Atorvastatin Calcium 40 mg 40 mg HS PO Last administered on 11/13/16 20:56; Admin Dose 40 MG; Start 11/07/16 at 21:00 Cefepime HCl (Maxipime 1gm/50 ml (Pmx)) 50 ml @ 100 mls/hr Q12 IVPB Last administered on 11/14/16 09:05; Admin Dose 100 MLS/HR; Start 11/08/16 at 13:30 Pantoprazole (Protonix Tab) 40 mg DAILY@06 PO Last administered on 11/14/16 05 :07; Admin Dose 40 MG; Start 11/09/16 at 06:00 Guaifenesin (Robitussin Liquid Cup) 200 mg Q4H PRN PO COUGH Last administered on 11/09/16 10:43; Admin Dose 200 MG; Start 11/09/16 at 11:00 Phenol (Cepastat Lozenge) 1 lozenge Q1H PRN MT COUGH; Start 11/09/16 at 11:00 Acetaminophen/ Hydrocodone Bitart ([place] (5/325)) 1 tab Q6H PRN PO PAIN LEVEL 8 -10 Last administered on 11/14/16 08:13; Admin Dose 1 TAB; Start 11/09/16 at 11 :00 Nystatin (Nystatin Susp) 5 ml QID PO Last administered on 11/14/16 12:41; Admin Dose 5 ML; Start 11/11/16 at 17:00 Bisacodyl (Dulcolax) 10 mg DAILY PRN PO CONSTIPATION Last administered on 17:39; Admin Dose 10 MG; Start 11/11/16 at 17:00 Metronidazole 250 mg 250 mg Q8 PO Last administered on 11/14/16 12:41; Admin Dose 250 MG; Start 11/12/16 at 17:00 Caspofungin 50 mg/ Sodium Chloride 250 ml @ 250 mls/hr Q24H IVPB Last administered on 11/13/16 16:32; Admin Dose 250 MLS/HR; Start 11/13/16 at 17:00 Vancomycin HCl/ Sodium Chloride (Vancocin/NS) 250 ml @ 83.333 mls/ hr Q24H IVPB Last administered on 11/13/16 17:45; Admin Dose 83.333 MLS/HR; Start at 18:00 FUAD HAMILTON Nov 14, 2016 13:11
--- NOTE | 2016-11-14 14:31 | PN ---
DATE: 11/14/2016 SUBJECTIVE DATA: The patient is stable. No events overnight. No fevers, chills, nausea, vomiting. OBJECTIVE DATA: VITAL SIGNS: Blood pressure is 149/77, pulse 103, respiration 18, temperature 99.0. HEENT: Head is normocephalic. NECK: Supple. HEART: Regular rate. LUNGS: Diminished breath sounds at the base. ABDOMEN: Soft, nontender to palpation. No guarding. EXTREMITIES: Negative for clubbing, cyanosis. No edema. DERMATOLOGIC: No rashes. MUSCULOSKELETAL: No joint effusion. NEUROLOGIC: No change in exam. MEDICATIONS: Reviewed. LABORATORY AND DIAGNOSTIC DATA: Been reviewed. No new labs. ASSESSMENT AND PLAN: 1. Nonoliguric acute kidney injury on top of chronic kidney disease with unknown baseline creatinine. Etiology secondary to hemodynamics. Renal function has improved. At this point, continue current treatment plan. Supportive care. Renally dose all medications. We will monitor for signs of an conscious associated nephropathy. 2. Hypokalemia, improved. 3. Hyponatremia. Continue to monitor. 4. Sepsis secondary to pneumonia. Continue current antibiotic regimen. 5. Acute respiratory failure secondary to chronic obstructive pulmonary disease, pneumonia. Continue current treatment plan. 6. Non-ST elevation myocardial infarction. Status post cardiac cath. Continue current medical management. Follow up with Cardiology. 7. History of hepatitis C. Dictated By: Ephraim Joya DO /maira/sonya /Document#: [id number]
[2016-11-14] MEDS: CASPOFUNGIN 50 MG in SOD CHLORIDE 0.9% 250 ML IVPB SCH (17:10)
[2016-11-14] MEDS: VANCOMYCIN 1.25 GM in SOD CHLORIDE 0.9% 250 ML IVPB SCH (17:26)
--- NOTE | 2016-11-14 18:51 | PN ---
DATE: 11/14/2016 SUBJECTIVE DATA: The patient is alert, feels good, looks comfortable. No fevers. Repeat blood and urine cultures negative. ANTIMICROBIALS: He is on Cancidas, vancomycin, Flagyl, and cefepime. INDWELLINGS: Puente catheter. ALLERGIES: AMOXICILLIN, DOXYCYCLINE. PHYSICAL EXAMINATION: GENERAL: This is a fragile, well-developed, elderly, man, who is alert, feels good, and in no distress. HEENT: Head atraumatic, normocephalic. Sclerae anicteric. Buccal mucosa pink. NECK: Supple. CHEST: Rise symmetrical. Breath sounds clear. HEART: S1, S2. ABDOMEN: Soft, bowel sounds present. EXTREMITIES: Without cyanosis. ASSESSMENT: 1. Status post septic shock. 2. Right upper lobe pneumonia with underlying chronic obstructive pulmonary disease exacerbation. 3. Non ST-elevation myocardial infarction. 4. Status post urinary tract infection. 5. History of bladder cancer. 6. Acute on chronic kidney disease. PLAN: The patient remains stable, covered with appropriate antimicrobials. Stool for Clostridium difficile came back negative. We are going to discontinue Flagyl. Dictated By: Chang Pop NP /maira/william /Document#: [id number]
--- NOTE | 2016-11-14 21:12 | CONS ---
Date/Time of Note Date/Time of Note DATE: 11/14/16 TIME: 21:11 Assessment/Plan Assessment/Plan Chief Complaint/Hosp Course Assessment: NSTEMI - appears to be type 2, coronary angiography without significant coronary artery disease Right ventricular dysfunction - no pulmonary embolism on CTA, likely from severe chronic obstructive pulmonary disease Acute on chronic hypoxic respiratory failure Chronic obstructive pulmonary disease exacerbation and pneumonia - per pulmonology and infectious disease Acute kidney injury - resolved Chronic leukocytosis - possible myelodysplastic syndrome Hepatitis C Tobacco use Recommendations: -echocardiogram showed LVEF 70%, moderate RV enlargement with mild hypokinesis -continue aspirin and atorvastatin -hold off on metoprolol for now given chronic obstructive pulmonary disease exacerbation Problems: Consultation Date/Type/Reason Admit Date/Time Nov 06, 2016 at 16:26 Initial Consult Date 11/07/16 Type of Consultation: Cardiology 24 HR Interval Summary Free Text/Dictation No acute events. Detailed Summary Additional Comments 14 point review of systems without changes. Exam/Review of Systems Vital Signs Vitals Vital Signs Date Time Temp Pulse Resp B/P Pulse Ox O2 Delivery O2 Flow Rate FiO2 11/14/16 20:00 99.0 102 18 131/66 99 11/14/16 17:47 4.0 11/14/16 16:53 Nasal Cannula 11/13/16 02:18 30 Intake and Output 11/13/16 11/13/16 11/14/16 15:00 23:00 07:00 Intake Total 50 ml 1210 ml 250 ml Output Total 1600 ml 1000 ml Balance 50 ml -390 ml -750 ml Exam Constitutional: alert, no distress Psych: No nl mood/affect Head: atraumatic, normocephalic Neck: jvd (distended EJ during expiration ) Respiratory: crackles/rales, diminished breath sounds, No clear to auscultation (ronchi) Cardiovascular: systolic murmur (2/6 ROXANNE), No edema, No regular rate and rhythm (tachycardic ) Gastrointestinal: soft, No non-tender (mild to palpation ) Neurological: nl mental status, nl speech Skin: No rash or lesions Results Result Diagram: 11/12/16 0631 11/14/16 0705 Results 24 hrs Laboratory Tests Test 11/14/16 07:05 Blood Urea Nitrogen 8 Creatinine 0.77 Medications Medications Current Medications Ondansetron HCl (Zofran Inj) 4 mg Q6H PRN IV NAUSEA AND/OR VOMITING; Start 12/13 at 20:30 Acetaminophen (Tylenol Liquid) 650 mg Q6H PRN PO PAIN LEVEL 1-3 OR FEVER Last administered on 11/12/16 15:42; Admin Dose 650 MG; Start 11/06/16 at 20:30 Morphine Sulfate (morphine) 2 mg Q4H PRN IV PAIN LEVEL 7-10 Last administered on 11/14/16 17:26; Admin Dose 2 MG; Start 11/06/16 at 20:30 Aspirin (Aspirin) 81 mg DAILY PO Last administered on 11/14/16 09:06; Admin Dose 81 MG; Start 11/07/16 at 10:00 Atorvastatin Calcium 40 mg 40 mg HS PO Last administered on 11/13/16 20:56; Admin Dose 40 MG; Start 11/07/16 at 21:00 Cefepime HCl (Maxipime 1gm/50 ml (Pmx)) 50 ml @ 100 mls/hr Q12 IVPB Last administered on 11/14/16 09:05; Admin Dose 100 MLS/HR; Start 11/08/16 at 13:30 Guaifenesin (Robitussin Liquid Cup) 200 mg Q4H PRN PO COUGH Last administered on 11/09/16 10:43; Admin Dose 200 MG; Start 11/09/16 at 11:00 Phenol (Cepastat Lozenge) 1 lozenge Q1H PRN MT COUGH; Start 11/09/16 at 11:00 Acetaminophen/ Hydrocodone Bitart ([place] (5/325)) 1 tab Q6H PRN PO PAIN LEVEL 8 -10 Last administered on 11/14/16 08:13; Admin Dose 1 TAB; Start 11/09/16 at 11 :00 Nystatin (Nystatin Susp) 5 ml QID PO Last administered on 11/14/16 17:11; Admin Dose 5 ML; Start 11/11/16 at 17:00 Bisacodyl 10 mg 10 mg DAILY PRN PO CONSTIPATION Last administered on 11/11/16 17:39; Admin Dose 10 MG; Start 11/11/16 at 17:00 Caspofungin 50 mg/ Sodium Chloride 250 ml @ 250 mls/hr Q24H IVPB Last administered on 11/14/16 17:10; Admin Dose 250 MLS/HR; Start 11/13/16 at 17:00 Vancomycin HCl/ Sodium Chloride (Vancocin/NS) 250 ml @ 83.333 mls/ hr Q24H IVPB Last administered on 11/14/16t 17:26; Admin Dose 83.333 MLS/HR; Start at 18:00 Miscellaneous Information (*Rx Drug Level Order Reminder*) VANCOMYCIN TROUGH AT 1700 ONCE ONCE XX ; Start 11/15/16 at 17:00; Stop 11/15/16 at 17:01 LISA SEARS MD Nov 14, 2016 21:11
[2016-11-14] MEDS: ATORVASTATIN 40 MG TAB PO SCH (21:57)
[2016-11-15] VITALS (13 sets, daily range): BP systolic 119–150; BP diastolic 63–77; PULSE 61–105; RESP 17–20
[2016-11-15] MEDS: ACETYLCYSTEINE 20% 4 ML VIAL NEB SCH ×4 (02:00→20:00)
[2016-11-15] MEDS: ALBUTEROL/IPRATROPIUM (NEB) 3 ML AMP HHN PRN (02:47)
[2016-11-15] MEDS: morphine 2 MG INJ IV PRN ×2 (03:04→07:05)
[2016-11-15 08:21] LABS: ABNORMAL IP MESSAGE 1; BASOPHILS % 0.2 % (0.0-2.0); EOSINOPHILS # 0.3 10^3/ul (0.0-0.5); EOSINOPHILS % 1.2 % (0.0-7.0); HEMATOCRIT 27.4 % (42.0-52.0); HEMOGLOBIN 7.9 g/dl (14.0-18.0); LYMPHOCYTES % 14.2 % (15.0-51.0); MEAN CORPUSCULAR HEMOGLOBIN 24.7 pg (29.0-33.0); MEAN CORPUSCULAR HGB CONC 28.8 g/dl (32.0-37.0); MEAN CORPUSCULAR VOLUME 85.6 fl (82.0-101.0); MEAN PLATELET VOLUME 9.5 fl (7.4-10.4); MONOCYTE # 1.7 10^3/ul (0.3-0.9); NEUTROPHIL # 16.2 10^3/ul (1.6-7.5); NEUTROPHILS % 75.2 % (39.0-77.0); PLATELET COUNT 426 10^3/UL (140-415); POSITIVE DIFF @See below; RED CELL DISTRIBUTION WIDTH 18.7 % (11.5-14.5); WHITE BLOOD COUNT 21.5 10^3/ul (4.8-10.8)
[2016-11-15 09:34] LABS: CREATININE 0.77 mg/dl (0.61-1.24); MAGNESIUM 1.8 mg/dl (1.7-2.5); POTASSIUM 3.6 mmol/L (3.5-5.1)
[2016-11-15] MEDS: ALBUTEROL/IPRATROPIUM (NEB) 3 ML AMP HHN SCH ×4 (09:38→20:00)
[2016-11-15] MEDS: ASPIRIN 81 MG TAB PO SCH (09:54)
[2016-11-15] MEDS: NYSTATIN SUSP 5 ML CUP PO SCH ×4 (09:54→20:41)
[2016-11-15] MEDS: CEFEPIME 1GM/50 ML (PMX) 50 ML IVPB SCH ×2 (09:55→20:41)
[2016-11-15] MEDS: HYDROCODONE/APAP (5/325) TAB PO PRN (09:58)
--- NOTE | 2016-11-15 12:10 | CONS ---
Date/Time of Note Date/Time of Note DATE: 11/15/16 TIME: 12:08 Consult Date/Type/Reason Admit Date/Time Nov 06, 2016 at 16:26 Initial Consult Date 11/07/16 Type of Consultation: Pulmonary Subjective Patient appears comfortable this morning no new events. Objective Vital Signs Date Time Temp Pulse Resp B/P Pulse Ox O2 Delivery O2 Flow Rate FiO2 11/15/16 11:24 99.1 111 18 139/73 92 11/15/16 09:45 4.0 11/15/16 09:43 Nasal Cannula 11/13/16 02:18 30 Exam GENERAL: Chronically ill-appearing -English gentleman comfortable at rest VITAL SIGNS: per chart NECK: Supple. No JVD or lymphadenopathy. CARDIAC EXAM: S1, S2. No added sounds or murmurs. CHEST: Diminished air entry right base. ABDOMEN: Soft, nontender. No guarding or rebound. EXTREMITIES: No cyanosis, clubbing or edema. NEUROLOGIC: Generalized weakness. No focal deficits. Results/Medications Result Diagram: 11/15/16 0707 11/15/16 0707 Results 24 hrs Laboratory Tests Test 11/15/16 07:07 White Blood Count 21.5 H Red Blood Count 3.20 L Hemoglobin 7.9 L Hematocrit 27.4 L Mean Corpuscular Volume 85.6 Mean Corpuscular Hemoglobin 24.7 L Mean Corpuscular Hemoglobin Concent 28.8 L Red Cell Distribution Width 18.7 H Platelet Count 426 H Mean Platelet Volume 9.5 Neutrophils % 75.2 Lymphocytes % 14.2 L Monocytes % 8.0 Eosinophils % 1.2 Basophils % 0.2 Nucleated Red Blood Cells % 0.0 Neutrophils # 16.2 H Lymphocytes # 3.0 H Monocytes # 1.7 H Eosinophils # 0.3 Basophils # 0.0 Nucleated Red Blood Cells # 0.0 Sodium Level 135 Potassium Level 3.6 Chloride Level 91 L Carbon Dioxide Level 41 *H Anion Gap 7 L Blood Urea Nitrogen 8 Creatinine 0.77 Glucose Level 122 Calcium Level 8.0 L Phosphorus Level 3.0 Magnesium Level 1.8 Medications Current Medications Ondansetron HCl (Zofran Inj) 4 mg Q6H PRN IV NAUSEA AND/OR VOMITING; Start 12/13 at 20:30 Acetaminophen (Tylenol Liquid) 650 mg Q6H PRN PO PAIN LEVEL 1-3 OR FEVER Last administered on 11/12/16 15:42; Admin Dose 650 MG; Start 11/06/16 at 20:30 Aspirin (Aspirin) 81 mg DAILY PO Last administered on 11/15/16 09:54; Admin Dose 81 MG; Start 11/07/16 at 10:00 Atorvastatin Calcium 40 mg 40 mg HS PO Last administered on 11/14/16 21:57; Admin Dose 40 MG; Start 11/07/16 at 21:00 Cefepime HCl (Maxipime 1gm/50 ml (Pmx)) 50 ml @ 100 mls/hr Q12 IVPB Last administered on 11/15/16 09:55; Admin Dose 100 MLS/HR; Start 11/08/16 at 13:30 Guaifenesin (Robitussin Liquid Cup) 200 mg Q4H PRN PO COUGH Last administered on 11/09/16 10:43; Admin Dose 200 MG; Start 11/09/16 at 11:00 Phenol (Cepastat Lozenge) 1 lozenge Q1H PRN MT COUGH; Start 11/09/16 at 11:00 Nystatin (Nystatin Susp) 5 ml QID PO Last administered on 11/15/16 09:54; Admin Dose 5 ML; Start 11/11/16 at 17:00 Bisacodyl 10 mg 10 mg DAILY PRN PO CONSTIPATION Last administered on 11/11/16 17:39; Admin Dose 10 MG; Start 11/11/16 at 17:00 Caspofungin 50 mg/ Sodium Chloride 250 ml @ 250 mls/hr Q24H IVPB Last administered on 11/14/16 17:10; Admin Dose 250 MLS/HR; Start 11/13/16 at 17:00 Vancomycin HCl/ Sodium Chloride (Vancocin/NS) 250 ml @ 83.333 mls/ hr Q24H IVPB Last administered on 11/14/16 17:26; Admin Dose 83.333 MLS/HR; Start at 18:00 Miscellaneous Information (*Rx Drug Level Order Reminder*) VANCOMYCIN TROUGH AT 1700 ONCE ONCE XX ; Start 11/15/16 at 17:00; Stop 11/15/16 at 17:01 Assessment/Plan Chief Complaint/Hosp Course IMPRESSION AND PLAN: 1. Probable healthcare associated pneumonia. 2. Underlying severe chronic obstructive pulmonary disease. No evidence of pulmonary embolism on CT angiogram 3. Non-ST elevation OK, preserved ejection fraction elevated PA pressures probably secondary to chronic lung disease and hypoxemia. 4. Persistent leukocytosis 5. Hypokalemia 6. BPH patient self catheterizes at home. Plan 1. ID recommendations 2. Bronchodilators, 3. Continue pulmonary toilet 4. Replace potassium 5. Encourage out of bed, PT eval discharge planning 6. DC Puente catheter prior to discharge Problems: ANGE KUHN MD, [facility] Nov 15, 2016 12:10
--- NOTE | 2016-11-15 12:19 | PN ---
DATE: 11/15/2016 SUBJECTIVE DATA: The patient is stable. No events overnight. No fevers, chills, nausea, vomiting. OBJECTIVE DATA: VITAL SIGNS: Blood pressure 150/77, respirations 18, pulse 111, temperature 99.8. HEENT: Head is normocephalic. NECK: Supple. HEART: Regular rate. LUNGS: Diminished breath sounds at the base. ABDOMEN: Soft, nontender to palpation. No rebound or guarding. EXTREMITIES: Negative for clubbing, cyanosis. No edema. DERMATOLOGIC: Clean. No rashes. MUSCULOSKELETAL: No joint effusion. NEUROLOGIC: Unchanged exam. MEDICATIONS: Reviewed. LABORATORY AND DIAGNOSTIC DATA: Been reviewed. ASSESSMENT AND PLAN: 1. Nonoliguric acute kidney injury. Etiology secondary to hemodynamics. Renal function has improved. Continue current treatment. Supportive care. 2. Hypokalemia, improved. Continue to monitor and replete. 3. Hyponatremia, resolved. 4. Sepsis secondary to pneumonia. Continue current antibiotic regimen. 5. Acute respiratory failure secondary to chronic obstructive pulmonary disease, pneumonia. Continue current treatment plan. 6. Vnc-PW-aaeizibmf myocardial infarction. Continue medical management. The patient is status post cardiac catheterization. 7. History of hepatitis C. 8. History of bladder cancer. Dictated By: Ephraim Joya DO /maira/divine /Document#: [id number]
[2016-11-15] MEDS: ACETAMINOPHEN 650MG/20.3ML CUP PO PRN (12:27)
[2016-11-15 12:40] LABS: Allen Test ACCEPTAB; Arterial Base Excess 12.1 mmol/L (-3.0-3); Arterial COHb 0.4 % (0.0-3.0); Arterial Fraction of Oxyhgb 90.1 % (93.0-99.0); Arterial HCO3 37.8 mmol/L (22.0-26.0); Arterial MetHb 0.3 % (0.0-1.5); Arterial Total Hemglobin 8.9 g/dl (12.0-18.0); MODE NASAL CANNULA
--- NOTE | 2016-11-15 15:12 | PN ---
Date/Time of Note Date/Time of Note DATE: 11/15/16 TIME: 15:07 Assessment/Plan VTE Prophylaxis VTE Prophylaxis Intervention: LMWH Lines/Catheters IV Catheter Type (from Nrsg): Saline Lock Urinary Cath still in place: Yes Reason Cath still needed: urinary retention Assessment/Plan Chief Complaint/Hosp Course 71 yo male with severe emphysema, pulmonary hypertension, BPH requiring self cathetrization who presented with acute COPD exacerbation in setting of community acquired pneumonia, and type II NSTEMI COPD exacerbation: - Continue nebulizers - Conitnue O2 to 88-92% Patient has a chronic compensated respiratory acidosis - Avoid opiates if at all possible given CO2 retention - Use of nocturnal NIPPV per pulmonary, sleep study as outpatient Community acquired pneumonia: - Continue abx course per ID Pulmonary hypertension, likely 2/2 hypoxic lung disease AISHWARYA: - Resolved NSTEMI: - Type II - Continue aspirin and statin Discharge to home w services likely tomorrow Problems: Subjective 24 Hr Interval Summary Free Text/Dictation Patient's respiratory status has improved Breathing comfortably Wants to be discharge to home, very uninterested in potential SNF placement Exam/Review of Systems Vital Signs Vitals Vital Signs Date Time Temp Pulse Resp B/P Pulse Ox O2 Delivery O2 Flow Rate FiO2 11/15/16 12:00 105 11/15/16 11:24 99.1 18 139/73 92 11/15/16 09:45 4.0 11/15/16 09:43 Nasal Cannula 11/13/16 02:18 30 Exam A bit ornery temperment, but calm RRR Lungs are with rhonchi bilaterally, nonlabored. no wheezing or prolonged expiratory phase No peripheral edema Constitutional: alert, oriented, well developed Psych: nl mood/affect, no complaints Head: atraumatic, normocephalic Eyes: EOMI, PERRL, nl conjunctiva, nl lids, nl sclera ENMT: nl external ears & nose, nl lips & teeth, nl nasal mucosa & septum Neck: non-tender, supple Respiratory: clear to auscultation, normal air movement Cardiovascular: nl pulses, regular rate and rhythm Gastrointestinal: nl liver, spleen, non-tender, soft Musculoskeletal: nl extremities to inspection, nl gait and stance Extremities: normal pulses Neurological: [employer] II-XII intact, nl mental status, nl speech, nl strength Skin: nl turgor, No rash or lesions Lymph: nl lymph nodes Results Result Diagram: 11/15/16 0707 11/15/16 0707 Results 24 hrs Laboratory Tests Test 11/15/16 07:07 11/15/16 10:38 White Blood Count 21.5 H Red Blood Count 3.20 L Hemoglobin 7.9 L Hematocrit 27.4 L Mean Corpuscular Volume 85.6 Mean Corpuscular Hemoglobin 24.7 L Mean Corpuscular Hemoglobin Concent 28.8 L Red Cell Distribution Width 18.7 H Platelet Count 426 H Mean Platelet Volume 9.5 Neutrophils % 75.2 Lymphocytes % 14.2 L Monocytes % 8.0 Eosinophils % 1.2 Basophils % 0.2 Nucleated Red Blood Cells % 0.0 Neutrophils # 16.2 H Lymphocytes # 3.0 H Monocytes # 1.7 H Eosinophils # 0.3 Basophils # 0.0 Nucleated Red Blood Cells # 0.0 Sodium Level 135 Potassium Level 3.6 Chloride Level 91 L Carbon Dioxide Level 41 *H Anion Gap 7 L Blood Urea Nitrogen 8 Creatinine 0.77 Glucose Level 122 Calcium Level 8.0 L Phosphorus Level 3.0 Magnesium Level 1.8 Blood Gas Specimen Source Blood arterial Arterial Blood Date Drawn 11/15/2016 12:14:35 PM Arterial Blood pH (Temp corrected) 7.442 Arterial Blood pCO2 (Temp correct) 56.7 H Arterial Blood pO2 (Temp corrected) 61.8 L Arterial Blood HCO3 37.8 H Arterial Blood Base Excess 12.1 H Arterial Blood Oxygen Saturation 90.7 L Trent Test ACCEPTAB Arterial Blood Gas Puncture Site Right Radial Arterial Blood Carboxyhemoglobin 0.4 Arterial Blood Methemoglobin 0.3 Blood Gas A-a O2 Differential 20.0 Oxyhemoglobin Percent 90.1 L Total Hemoglobin 8.9 L Blood Gas Temperature 37.0 Blood Gas Modality NASAL CANNULA FiO2 21.0 Blood Gas Notified Whom TM Blood Gas Notified Time 11/15/2016 12:40:05 PM Medications Medications Current Medications Ondansetron HCl (Zofran Inj) 4 mg Q6H PRN IV NAUSEA AND/OR VOMITING; Start 12/13 at 20:30 Acetaminophen (Tylenol Liquid) 650 mg Q6H PRN PO PAIN LEVEL 1-3 OR FEVER Last administered on 11/15/16t 12:27; Admin Dose 650 MG; Start 11/06/16 at 20:30 Aspirin (Aspirin) 81 mg DAILY PO Last administered on 11/15/16 09:54; Admin Dose 81 MG; Start 11/07/16 at 10:00 Atorvastatin Calcium 40 mg 40 mg HS PO Last administered on 11/14/16 21:57; Admin Dose 40 MG; Start 11/07/16 at 21:00 Cefepime HCl (Maxipime 1gm/50 ml (Pmx)) 50 ml @ 100 mls/hr Q12 IVPB Last administered on 11/15/16 09:55; Admin Dose 100 MLS/HR; Start 11/08/16 at 13:30 Guaifenesin (Robitussin Liquid Cup) 200 mg Q4H PRN PO COUGH Last administered on 11/09/16 10:43; Admin Dose 200 MG; Start 11/09/16 at 11:00 Phenol (Cepastat Lozenge) 1 lozenge Q1H PRN MT COUGH; Start 11/09/16 at 11:00 Nystatin (Nystatin Susp) 5 ml QID PO Last administered on 11/15/16 12:27; Admin Dose 5 ML; Start 11/11/16 at 17:00 Bisacodyl 10 mg 10 mg DAILY PRN PO CONSTIPATION Last administered on 11/11/16 17:39; Admin Dose 10 MG; Start 11/11/16 at 17:00 Caspofungin 50 mg/ Sodium Chloride 250 ml @ 250 mls/hr Q24H IVPB Last administered on 11/14/16 17:10; Admin Dose 250 MLS/HR; Start 11/13/16 at 17:00 Vancomycin HCl/ Sodium Chloride (Vancocin/NS) 250 ml @ 83.333 mls/ hr Q24H IVPB Last administered on 11/14/16 17:26; Admin Dose 83.333 MLS/HR; Start at 18:00 Miscellaneous Information (*Rx Drug Level Order Reminder*) VANCOMYCIN TROUGH AT 1700 ONCE ONCE XX ; Start 11/15/16 at 17:00; Stop 11/15/16 at 17:01 FLORENCE MENDOZA MD Nov 15, 2016 15:12
[2016-11-15] MEDS ORDERED: OXYCODONE/ACETAMINOPHEN (5/325) TAB PO PRN (15:30)
[2016-11-15 16:41] LABS: MYCOPLASMA PNEUMONIAE AB (IGG) >5.00
--- NOTE | 2016-11-15 17:49 | CONS ---
Date/Time of Note Date/Time of Note DATE: 11/15/16 TIME: 17:48 Assessment/Plan Assessment/Plan Chief Complaint/Hosp Course Assessment: NSTEMI - appears to be type 2, coronary angiography without significant coronary artery disease Right ventricular dysfunction - no pulmonary embolism on CTA, likely from severe chronic obstructive pulmonary disease Acute on chronic hypoxic respiratory failure Chronic obstructive pulmonary disease exacerbation and pneumonia - per pulmonology and infectious disease Acute kidney injury - resolved Chronic leukocytosis - possible myelodysplastic syndrome Hepatitis C Tobacco use Recommendations: -echocardiogram showed LVEF 70%, moderate RV enlargement with mild hypokinesis -continue aspirin and atorvastatin -hold off on metoprolol for now given chronic obstructive pulmonary disease exacerbation Problems: Consultation Date/Type/Reason Admit Date/Time Nov 06, 2016 at 16:26 Initial Consult Date 11/07/16 Type of Consultation: Cardiology 24 HR Interval Summary Free Text/Dictation No acute events. Detailed Summary Additional Comments 14 point review of systems without changes. Exam/Review of Systems Vital Signs Vitals Vital Signs Date Time Temp Pulse Resp B/P Pulse Ox O2 Delivery O2 Flow Rate FiO2 11/15/16 16:21 97 4.0 11/15/16 16:19 95 23 Nasal Cannula 11/15/16 15:42 98.3 128/71 11/13/16 02:18 30 Exam Constitutional: alert, no distress Psych: No nl mood/affect Head: atraumatic, normocephalic Neck: jvd (distended EJ during expiration ) Respiratory: crackles/rales, diminished breath sounds, No clear to auscultation (ronchi) Cardiovascular: systolic murmur (2/6 ROXANNE), No edema, No regular rate and rhythm (tachycardic ) Gastrointestinal: soft, No non-tender (mild to palpation ) Neurological: nl mental status, nl speech Skin: No rash or lesions Results Result Diagram: 11/15/16 0707 11/15/16 0707 Results 24 hrs Laboratory Tests Test 11/15/16 07:07 11/15/16 10:38 White Blood Count 21.5 H Red Blood Count 3.20 L Hemoglobin 7.9 L Hematocrit 27.4 L Mean Corpuscular Volume 85.6 Mean Corpuscular Hemoglobin 24.7 L Mean Corpuscular Hemoglobin Concent 28.8 L Red Cell Distribution Width 18.7 H Platelet Count 426 H Mean Platelet Volume 9.5 Neutrophils % 75.2 Lymphocytes % 14.2 L Monocytes % 8.0 Eosinophils % 1.2 Basophils % 0.2 Nucleated Red Blood Cells % 0.0 Neutrophils # 16.2 H Lymphocytes # 3.0 H Monocytes # 1.7 H Eosinophils # 0.3 Basophils # 0.0 Nucleated Red Blood Cells # 0.0 Sodium Level 135 Potassium Level 3.6 Chloride Level 91 L Carbon Dioxide Level 41 *H Anion Gap 7 L Blood Urea Nitrogen 8 Creatinine 0.77 Glucose Level 122 Calcium Level 8.0 L Phosphorus Level 3.0 Magnesium Level 1.8 Blood Gas Specimen Source Blood arterial Arterial Blood Date Drawn 11/15/2016 12:14:35 PM Arterial Blood pH (Temp corrected) 7.442 Arterial Blood pCO2 (Temp correct) 56.7 H Arterial Blood pO2 (Temp corrected) 61.8 L Arterial Blood HCO3 37.8 H Arterial Blood Base Excess 12.1 H Arterial Blood Oxygen Saturation 90.7 L Trent Test ACCEPTAB Arterial Blood Gas Puncture Site Right Radial Arterial Blood Carboxyhemoglobin 0.4 Arterial Blood Methemoglobin 0.3 Blood Gas A-a O2 Differential 20.0 Oxyhemoglobin Percent 90.1 L Total Hemoglobin 8.9 L Blood Gas Temperature 37.0 Blood Gas Modality NASAL CANNULA FiO2 21.0 Blood Gas Notified Whom TM Blood Gas Notified Time 11/15/2016 12:40:05 PM Medications Medications Current Medications Ondansetron HCl (Zofran Inj) 4 mg Q6H PRN IV NAUSEA AND/OR VOMITING; Start 12/13 at 20:30 Acetaminophen (Tylenol Liquid) 650 mg Q6H PRN PO PAIN LEVEL 1-3 OR FEVER Last administered on 11/15/16 12:27; Admin Dose 650 MG; Start 11/06/16 at 20:30 Aspirin (Aspirin) 81 mg DAILY PO Last administered on 11/15/16 09:54; Admin Dose 81 MG; Start 11/07/16 at 10:00 Atorvastatin Calcium 40 mg 40 mg HS PO Last administered on 11/14/16 21:57; Admin Dose 40 MG; Start 11/07/16 at 21:00 Cefepime HCl (Maxipime 1gm/50 ml (Pmx)) 50 ml @ 100 mls/hr Q12 IVPB Last administered on 11/15/16 09:55; Admin Dose 100 MLS/HR; Start 11/08/16 at 13:30 Guaifenesin (Robitussin Liquid Cup) 200 mg Q4H PRN PO COUGH Last administered on 11/09/16 10:43; Admin Dose 200 MG; Start 11/09/16 at 11:00 Phenol (Cepastat Lozenge) 1 lozenge Q1H PRN MT COUGH; Start 11/09/16 at 11:00 Nystatin (Nystatin Susp) 5 ml QID PO Last administered on 11/15/16 12:27; Admin Dose 5 ML; Start 11/11/16 at 17:00 Bisacodyl 10 mg 10 mg DAILY PRN PO CONSTIPATION Last administered on 11/11/16 17:39; Admin Dose 10 MG; Start 11/11/16 at 17:00 Caspofungin 50 mg/ Sodium Chloride 250 ml @ 250 mls/hr Q24H IVPB Last administered on 11/14/16 17:10; Admin Dose 250 MLS/HR; Start 11/13/16 at 17:00 Vancomycin HCl/ Sodium Chloride (Vancocin/NS) 250 ml @ 83.333 mls/ hr Q24H IVPB Last administered on 11/14/16 17:26; Admin Dose 83.333 MLS/HR; Start at 18:00 Oxycodone HCl (Roxicodone) 5 mg BID PO ; Start 11/15/16 at 21:00 Oxycodone/ Acetaminophen (Percocet (5/ 325)) 1 tab Q4H PRN PO PAIN Last administered on 11/15/16 15:49; Admin Dose 1 TAB; Start 11/15/16 at 15:30 Tamsulosin HCl (Flomax) 0.4 mg HS PO ; Start 11/15/16 at 21:00 LISA SEARS MD Nov 15, 2016 17:49
--- NOTE | 2016-11-15 17:53 | PN ---
DATE: 11/15/2016 SUBJECTIVE DATA: No acute changes. The patient is afebrile, looks comfortable. No fevers. INDWELLING: He has Puente catheter. ANTIMICROBIALS: 1. Cancidas. 2. Vancomycin. 3. Cefepime. PHYSICAL EXAMINATION: GENERAL: Fragile, elderly man in no distress. HEENT: Head atraumatic, normocephalic. Sclerae anicteric. Buccal mucosa dry. NECK: Supple. CHEST: Rise symmetrical. Breath sounds clear. Diminished at the bases. HEART: S1, S2. ABDOMEN: Soft, bowel sounds present. EXTREMITIES: Without cyanosis. ASSESSMENT: 1. Status post sepsis with shock. 2. Right upper lobe pneumonia. 3. Severe chronic obstructive pulmonary disease with exacerbation. 4. Non ST-elevation myocardial infarction ([place]). 5. Status post urinary tract infection. 6. History of bladder cancer. 7. Chronic kidney disease. PLAN: The patient remains stable. Continue present care. Antibiotics. Follow recommendations of consultants. Dictated By: Chang Pop NP /maira/sonya /Document#: [id number]
[2016-11-15] MEDS: CASPOFUNGIN 50 MG in SOD CHLORIDE 0.9% 250 ML IVPB SCH (18:34)
[2016-11-15] MEDS: VANCOMYCIN 1.25 GM in SOD CHLORIDE 0.9% 250 ML IVPB SCH (20:00)
[2016-11-15] MEDS: VANCOMYCIN 1 GM in NS 250 ML IVPB SCH (20:41)
[2016-11-15] MEDS: oxyCODONE 5 MG TAB PO SCH (20:42)
[2016-11-15] MEDS: ATORVASTATIN 40 MG TAB PO SCH (20:46)
[2016-11-15] MEDS ORDERED: TAMSULOSIN (SR) 0.4 MG CAP PO SCH (21:00)
[2016-11-16] VITALS (9 sets, daily range): BP systolic 136–152; BP diastolic 71–83; PULSE 87–109; RESP 16–19
[2016-11-16] MEDS: ACETYLCYSTEINE 20% 4 ML VIAL NEB SCH ×3 (02:00→14:00)
[2016-11-16] MEDS: VANCOMYCIN 1 GM in NS 250 ML IVPB SCH (07:59)
[2016-11-16] MEDS: NYSTATIN SUSP 5 ML CUP PO SCH ×2 (07:59→13:00)
[2016-11-16] MEDS: oxyCODONE 5 MG TAB PO SCH (08:00)
[2016-11-16] MEDS: ASPIRIN 81 MG TAB PO SCH (08:00)
[2016-11-16] MEDS: ALBUTEROL/IPRATROPIUM (NEB) 3 ML AMP HHN SCH ×2 (09:20→13:00)
[2016-11-16] MEDS: CEFEPIME 1GM/50 ML (PMX) 50 ML IVPB SCH (10:15)
[2016-11-16] MEDS ORDERED: ASPI81TA3 PO (10:22)
--- NOTE | 2016-11-16 10:24 | PDOCDIS ---
Discharge Instructions DIAGNOSIS Discharge Diagnosis Acute COPD exacerbation CONDITION Patient Condition: Good HOME CARE INSTRUCTIONS: Diet Instructions: RegularSpecial Diet: Mechanical Soft Diet FOLLOW UP/APPOINTMENTS Follow-up Plan Follow up with your primary care doctor at your scheduled appointment later today Return to the hosptial if you have shortness of breath, chest pain, or any other concerning symptoms FLORENCE MENDOZA MD Nov 16, 2016 10:24
--- NOTE | 2016-11-16 11:27 | PN ---
DATE: 11/16/2016 SUBJECTIVE DATA: Patient is stable. No events overnight. No fevers, chills, nausea, vomiting. No shortness of breath. OBJECTIVE DATA: VITAL SIGNS: Blood pressure is 150/62, respiration 17, pulse 106, temperature 98.8. HEENT: Head is normocephalic. NECK: Supple. HEART: Regular rate. LUNGS: Show diminished breath sounds at the base. ABDOMEN: Soft, nontender to palpation. No guarding. EXTREMITIES: Negative for clubbing, cyanosis. No edema. DERMATOLOGIC: Clear. No rashes. MUSCULOSKELETAL: No joint effusion. NEUROLOGIC: No change in exam. SUBJECTIVE DATA: Patient's medications reviewed. LABORATORY AND DIAGNOSTIC DATA: Sodium 135, chloride 91, BUN 8, creatinine 0.77. ASSESSMENT AND PLAN: 1. Nonoliguric acute kidney injury, etiology secondary to hemodynamics. Renal function has improved. Continue current treatment plan. 2. Hypokalemia, improved. 3. Hyponatremia, improved. 4. Alkalosis. Etiology is compensatory due to hypercapnia. 5. Sepsis secondary to pneumonia. Continue current antibiotic regimen. 6. Acute respiratory failure, secondary to chronic obstructive pulmonary disease, pneumonia. Continue current treatment plan. 7. Hay-NC-qzfdcnhiz myocardial infarction. Continue current medical management. 8. History of hepatitis C. 9. History of bladder cancer. Dictated By: Ephraim Joya DO /maira/domenic /Document#: [id number]
[2016-11-16] MEDS ORDERED: LEVOFLOXACIN 500 MG TAB PO ONE (12:30)
--- NOTE | 2016-11-16 15:13 | CONS ---
Date/Time of Note Date/Time of Note DATE: 11/16/16 TIME: 15:11 Consult Date/Type/Reason Admit Date/Time Nov 06, 2016 at 16:26 Initial Consult Date 11/07/16 Type of Consultation: Pulm Subjective Comfortable. No events. Objective Vital Signs Date Time Temp Pulse Resp B/P Pulse Ox O2 Delivery O2 Flow Rate FiO2 11/16/16 12:30 105 11/16/16 11:22 99.6 18 149/77 96 11/16/16 09:20 3.0 11/16/16 09:20 Nasal Cannula 11/13/16 02:18 30 Intake and Output 11/15/16 11/15/16 11/16/16 15:00 23:00 07:00 Intake Total 50 ml 2000 ml 1600 ml Output Total 1300 ml 1900 ml Balance 50 ml 700 ml -300 ml Results/Medications Result Diagram: 11/15/16 0707 11/15/16 0707 Results 24 hrs Laboratory Tests Test 11/15/16 17:24 Vancomycin Level Trough 7.8 L Medications Current Medications Ondansetron HCl (Zofran Inj) 4 mg Q6H PRN IV NAUSEA AND/OR VOMITING; Start 12/13 at 20:30 Acetaminophen (Tylenol Liquid) 650 mg Q6H PRN PO PAIN LEVEL 1-3 OR FEVER Last administered on 11/15/16 12:27; Admin Dose 650 MG; Start 11/06/16 at 20:30 Aspirin (Aspirin) 81 mg DAILY PO Last administered on 11/16/16 08:00; Admin Dose 81 MG; Start 11/07/16 at 10:00 Atorvastatin Calcium (Lipitor) 40 mg HS PO Last administered on 11/15/16 20:46 ; Admin Dose 40 MG; Start 11/07/16 at 21:00 Guaifenesin (Robitussin Liquid Cup) 200 mg Q4H PRN PO COUGH Last administered on 11/09/16 10:43; Admin Dose 200 MG; Start 11/09/16 at 11:00 Phenol (Cepastat Lozenge) 1 lozenge Q1H PRN MT COUGH; Start 11/09/16 at 11:00 Nystatin (Nystatin Susp) 5 ml QID PO Last administered on 11/16/16 13:00; Admin Dose 5 ML; Start 11/11/16 at 17:00 Bisacodyl (Dulcolax) 10 mg DAILY PRN PO CONSTIPATION Last administered on 17:39; Admin Dose 10 MG; Start 11/11/16 at 17:00 Oxycodone HCl (Roxicodone) 5 mg BID PO Last administered on 11/16/16 08:00; Admin Dose 5 MG; Start 11/15/16 at 21:00 Oxycodone/ Acetaminophen (Percocet (5/ 325)) 1 tab Q4H PRN PO PAIN Last administered on 11/15/16 15:49; Admin Dose 1 TAB; Start 11/15/16 at 15:30 Tamsulosin HCl (Flomax) 0.4 mg HS PO Last administered on 11/15/16 20:41; Admin Dose 0.4 MG; Start 11/15/16 at 21:00 Levofloxacin (Levaquin) 500 mg DAILY@06 PO ; Start 11/17/16 at 06:00 Assessment/Plan Chief Complaint/Hosp Course IMPRESSION AND PLAN: 1. Probable healthcare associated pneumonia. 2. Underlying severe chronic obstructive pulmonary disease. No evidence of pulmonary embolism on CT angiogram 3. Non-ST elevation [place], preserved ejection fraction elevated PA pressures probably secondary to chronic lung disease and hypoxemia. 4. Persistent leukocytosis 5. Hypokalemia 6. BPH patient self catheterizes at home. Plan 1. ID recommendations 2. Bronchodilators, 3. Continue pulmonary toilet 4. Replace potassium 5. Encourage out of bed, PT eval discharge planning 6. DC Puente catheter prior to discharge dc planning Problems: [facility] KUHN [facility] Nov 16, 2016 15:13
--- NOTE | 2016-11-16 15:34 | CONS ---
Date/Time of Note Date/Time of Note DATE: 11/16/16 TIME: 15:33 Assessment/Plan Assessment/Plan Chief Complaint/Hosp Course Assessment: NSTEMI - appears to be type 2, coronary angiography without significant coronary artery disease Right ventricular dysfunction - no pulmonary embolism on CTA, likely from severe chronic obstructive pulmonary disease Acute on chronic hypoxic respiratory failure Chronic obstructive pulmonary disease exacerbation and pneumonia - per pulmonology and infectious disease Acute kidney injury - resolved Chronic leukocytosis - possible myelodysplastic syndrome Hepatitis C Tobacco use Recommendations: -echocardiogram showed LVEF 70%, moderate RV enlargement with mild hypokinesis -continue aspirin and atorvastatin -hold off on metoprolol for now given chronic obstructive pulmonary disease exacerbation Problems: Consultation Date/Type/Reason Admit Date/Time Nov 06, 2016 at 16:26 Initial Consult Date 11/07/16 Type of Consultation: Cardiology 24 HR Interval Summary Free Text/Dictation No acute events. Detailed Summary Additional Comments 14 point review of systems without changes. Exam/Review of Systems Vital Signs Vitals Vital Signs Date Time Temp Pulse Resp B/P Pulse Ox O2 Delivery O2 Flow Rate FiO2 11/16/16 15:25 98.8 104 16 152/83 99 11/16/16 09:20 3.0 11/16/16 09:20 Nasal Cannula 11/13/16 02:18 30 Intake and Output 11/15/16 11/15/16 11/16/16 15:00 23:00 07:00 Intake Total 50 ml 2000 ml 1600 ml Output Total 1300 ml 1900 ml Balance 50 ml 700 ml -300 ml Exam Constitutional: alert, no distress Psych: No nl mood/affect Head: atraumatic, normocephalic Neck: jvd (distended EJ during expiration ) Respiratory: crackles/rales, diminished breath sounds, No clear to auscultation (ronchi) Cardiovascular: systolic murmur (2/6 ROXANNE), No edema, No regular rate and rhythm (tachycardic ) Gastrointestinal: soft, No non-tender (mild to palpation ) Neurological: nl mental status, nl speech Skin: No rash or lesions Results Result Diagram: 11/15/16 0707 11/15/16 0707 Results 24 hrs Laboratory Tests Test 11/15/16 17:24 Vancomycin Level Trough 7.8 L Medications Medications Current Medications Ondansetron HCl (Zofran Inj) 4 mg Q6H PRN IV NAUSEA AND/OR VOMITING; Start 12/13 at 20:30 Acetaminophen (Tylenol Liquid) 650 mg Q6H PRN PO PAIN LEVEL 1-3 OR FEVER Last administered on 11/15/16 12:27; Admin Dose 650 MG; Start 11/06/16 at 20:30 Aspirin (Aspirin) 81 mg DAILY PO Last administered on 11/16/16 08:00; Admin Dose 81 MG; Start 11/07/16 at 10:00 Atorvastatin Calcium (Lipitor) 40 mg HS PO Last administered on 11/15/16 20:46 ; Admin Dose 40 MG; Start 11/07/16 at 21:00 Guaifenesin (Robitussin Liquid Cup) 200 mg Q4H PRN PO COUGH Last administered on 11/09/16 10:43; Admin Dose 200 MG; Start 11/09/16 at 11:00 Phenol (Cepastat Lozenge) 1 lozenge Q1H PRN MT COUGH; Start 11/09/16 at 11:00 Nystatin (Nystatin Susp) 5 ml QID PO Last administered on 11/16/16 13:00; Admin Dose 5 ML; Start 11/11/16 at 17:00 Bisacodyl (Dulcolax) 10 mg DAILY PRN PO CONSTIPATION Last administered on 17:39; Admin Dose 10 MG; Start 11/11/16 at 17:00 Oxycodone HCl (Roxicodone) 5 mg BID PO Last administered on 11/16/16 08:00; Admin Dose 5 MG; Start 11/15/16 at 21:00 Oxycodone/ Acetaminophen (Percocet (5/ 325)) 1 tab Q4H PRN PO PAIN Last administered on 11/15/16 15:49; Admin Dose 1 TAB; Start 11/15/16 at 15:30 Tamsulosin HCl (Flomax) 0.4 mg HS PO Last administered on 11/15/16 20:41; Admin Dose 0.4 MG; Start 11/15/16 at 21:00 Levofloxacin (Levaquin) 500 mg DAILY@06 PO ; Start 11/17/16 at 06:00 LISA SEARS MD Nov 16, 2016 15:34
--- NOTE | 2016-11-16 16:26 | PN ---
DATE: 11/16/2016 SUBJECTIVE DATA: No events overnight. The patient is alert, looks comfortable. Denies pain. No fevers. LABORATORY AND DIAGNOSTIC DATA: No labs this morning. ANTIMICROBIALS: 1. IV vancomycin. 2. Cancidas. 3. Cefepime. INDWELLINGS: Puente catheter. PHYSICAL EXAMINATION: GENERAL: Fragile, well-developed elderly man, who is in no distress. HEENT: Head atraumatic, normocephalic. Sclerae anicteric. Buccal mucosa dry. NECK: Supple. CHEST: Chest rise symmetrical. Breath sounds diminished at the bases. HEART: S1, S2. ABDOMEN: Soft, bowel sounds present. EXTREMITIES: Without cyanosis. ASSESSMENT: 1. Resolving sepsis. 2. Status post shock. 3. Pneumonia. 4. Chronic obstructive pulmonary disease exacerbation. 5. Non ST-elevation myocardial infarction ([place]). 6. Status post urinary tract infection. 7. Bladder cancer, with chronic urinary retention requiring self catheterization at home. 8. Chronic kidney disease. PLAN: The patient remains stable. We are going to change antibiotics to Levaquin to complete treatment for pneumonia pending discharge planning. Dictated By: Chang Pop NP /maira/aarti /Document#: [id number]
[2016-11-17] MEDS ORDERED: LEVOFLOXACIN 500 MG TAB PO SCH (06:00)
== END 2016-11-16 16:35 | disposition home health service (06) | DRG 871 ==
LOC: E/R 14:04 → ICU 16:26 → TEL 11-08 19:08
PROVIDERS: ADMIT Internal Medicine; ATTEND Internal Medicine
PROC: B211YZZ Fluoroscopy of Multiple Coronary Arteries using Other Contrast (ICD-10-PCS; 2016-11-11)
PROC: B215YZZ Fluoroscopy of Left Heart using Other Contrast (ICD-10-PCS; 2016-11-11)
PROC: 4A023N7 Measurement of Cardiac Sampling and Pressure, Left Heart, Percutaneous Approach (ICD-10-PCS; principal; 2016-11-11 09:00)
DX: A41.9 Sepsis, unspecified organism (principal); I21.4 Non-ST elevation (NSTEMI) myocardial infarction; J96.21 Acute and chronic respiratory failure with hypoxia; R65.21 Severe sepsis with septic shock; J18.9 Pneumonia, unspecified organism; N17.9 Acute kidney failure, unspecified; R64 Cachexia; E86.0 Dehydration; E87.2 Acidosis; J44.1 Chronic obstructive pulmonary disease with (acute) exacerbation; Z68.1 Body mass index [BMI] 19.9 or less, adult; E87.1 Hypo-osmolality and hyponatremia; F17.210 Nicotine dependence, cigarettes, uncomplicated; N40.0 Benign prostatic hyperplasia without lower urinary tract symptoms; E78.5 Hyperlipidemia, unspecified; I12.9 Hypertensive chronic kidney disease with stage 1 through stage 4 chronic kidney disease, or unspecified chronic kidney disease; N18.9 Chronic kidney disease, unspecified; B19.20 Unspecified viral hepatitis C without hepatic coma; E87.6 Hypokalemia; Z99.81 Dependence on supplemental oxygen; Z85.51 Personal history of malignant neoplasm of bladder
CPT/HCPCS: 36415; 36600; 71010; 71250; 71275; 76775; 80048; 80053; 80076; 80202; 81001; 81003; 82043; 82550; 82553; 82565; 82803; 82962; 83605; 83735; 83880; 84100; 84155; 84300; 84484; 84520; 85025; 85610; 85730; 86738; 87040; 87070; 87075; 87081; 87086; 87522; 92526; 92610; 93005; 93306; 93458; 94640; 94644; 94660; 94664; 96374; 96375; 97110; 97116; 97161; 97164; 97530; C1887; C9113; J0692; J1644; J1940; J1956; J2250; J2270; J2930; J3010; J3370; J3480; J7030; J7050; Q9967

== ENCOUNTER 2018-08-12 16:04 | Inpatient (IN) | payer MEDICARE, OTHER ==
[~2018-08-12] VITALS: Ht 172.7 cm; Wt 50.1 kg
[~2018-08-12 16:04] MED LIST changes: +ASPI-831 PO; -CEPASTAT MT; -DOXY100T2 PO; -PRED10TA PO; -PRED20TA PO; -PRED50TA PO; -SILD100T51 PO; -TOLT4CAP PO; +VIA100 PO; -[UNRECOGNIZED DRUG - CODE] TP
[2018-08-12] MEDS ORDERED: ALBUTEROL 0.5% (NEB) 2.5 MG/0.5 ML AMP INH STA (20:29)
[2018-08-12] MEDS ORDERED: SOD CHLORIDE 0.9% 1,000 ML IV STA (20:29)
[2018-08-12] MEDS ORDERED: METHYLPREDNISOLONE 125 MG INJ IV STA (20:29)
[2018-08-12] MEDS ORDERED: IPRATROPIUM (NEB) 0.5 MG/2.5 ML AMP INH STA (20:29)
[2018-08-12] MEDS ORDERED: AZITHROMYCIN 500MG/NS (PMX) 250 ML IVPB ONE (20:30)
[2018-08-12] MEDS ORDERED: CEFTRIAXONE 1 GM/50 ML (PMX) 50 ML IVPB ONE (20:30)
[2018-08-12] MEDS ORDERED: ACETAMINOPHEN 325 MG TAB PO PRN (21:30)
[2018-08-12] MEDS ORDERED: BISACODYL (EC) 5 MG TAB PO PRN (21:30)
[2018-08-12] MEDS ORDERED: DOCUSATE SODIUM 100 MG CAP PO PRN (21:30)
[2018-08-12] MEDS ORDERED: NACL 0.9% 3 ML SYG IV SCH (21:30)
[2018-08-12] MEDS ORDERED: SOD CHLORIDE 0.9% 500 ML IV ONE (22:00)
--- NOTE | 2018-08-12 22:09 | ERD ---
ER Documentation Chief Complaint Chief Complaint SOB WITH COUGH AND PRODUCTIVE THICK MUCUS X 7 DAYS HPI This is a 73-year-old man with history of COPD complains of shortness of breath, cough, thick purulent sputum production x3 to 4 days. Patient denies fevers, denies chest pain, no calf or leg swelling, no vomiting or diarrhea, no abdominal pain. ROS All systems reviewed and are negative except as per history of present illness. Medications Home Meds Active Scripts Aspirin (Aspirin) 81 Mg Chew, 81 MG PO DAILY for 30 Days, #30 TAB Prov:FLORENCE MENDOZA MD 11/16/16 Reported Medications Budesonide-Formoterol Fumarate* (Symbicort*) 6 Gm Hfa.aer.ad, 6 GM IH BID 05/07/12 Albuterol/Ipratropium (Combivent) 14.7 Gm Inha, 14.7 GM IH DAILY 05/07/12 Colchicine (Colchicine) 0.6 Mg Tablet, 0.6 MG PO BID 05/07/12 Diclofenac Sodium* (Diclofenac Sodium*) 50 Mg Tablet.dr, 50 MG PO TID 05/07/12 Sildenafil Citrate* (Viagra*) 100 Mg Tablet, 100 MG PO PRN 05/07/12 Docusate Sodium (Stool Softener) 250 Mg Capsule, 250 MG PO BID 05/07/12 Losartan Potassium* (Cozaar*) 25 Mg Tablet, 25 MG PO DAILY 05/07/12 Tamsulosin Hcl* (Flomax*) 0.4 Mg Cap.sr.24h, 0.4 MG PO HS 05/07/12 Triamterene/Hctz (Maxzide (75-50)*) 1 Tab Tablet, 1 TAB PO DAILY 11/12/11 Diltiazem Hcl (Diltiazem Er) 240 Mg Capsule.cr, 240 MG PO daily 11/12/11 Tiotropium [place]* (Spiriva*) 18 Mcg Cap.w.dev, 1 PUFF PO DAILY 04/03/11 Allergies Allergies: Coded Allergies: amoxicillin (Verified Allergy, Intermediate, 07/04/14) indomethacin (Verified Allergy, Intermediate, N/V, 07/04/14) indomethacin sodium (Verified Allergy, Intermediate, N/V, 07/04/14) oxybutynin (Verified Allergy, Intermediate, 07/05/14) tadalafil (Verified Allergy, Intermediate, N/V, 07/04/14) doxycycline (Verified Allergy, Unknown, 07/04/14) mometasone furoate (Verified Allergy, Unknown, 07/05/14) Uncoded Allergies: OXYBUTYNIN CHLORID (Allergy, Intermediate, 04/04/11) MOMETAZONE (Allergy, Unknown, 07/04/14) PMhx/Soc Hypertension, dementia, COPD, bladder cancer History of Surgery: No Anesthesia Reaction: No Hx Neurological Disorder: No Hx Respiratory Disorders: Yes (COPD) Hx Cardiac Disorders: Yes (HTN) Hx Psychiatric Problems: No Hx Miscellaneous Medical Probl: Yes (BLADDER CA) Hx Alcohol Use: Yes Hx Substance Use: No Hx Tobacco Use: Yes Smoking Status: Smoker,current status unk FmHx Family History: No diabetes Physical Exam Vitals Vital Signs Date Temp Pulse Resp B/P (MAP) Pulse Ox O2 O2 Flow FiO2 Time Delivery Rate 08/12/18 Nasal 20:45 Cannula 08/12/18 90 20 100 Nasal 2.0 20:40 Cannula 08/12/18 Nasal 20:00 Cannula 08/12/18 99.0 96 24 128/71 98 16:23 (90) Physical Exam GENERAL: Elderly, emaciated man, appears dehydrated, afebrile HEENT: Dry mucous membranes, pink conjunctiva, no cervical spine tenderness or step-off deformities, no goiter, no jaundice or icterus, extraocular movements intact without pain. No submandibular induration, and no pharyngeal erythema NEURO: Alert and oriented 3, able to answer simple questions and follow simple commands, pupils equal round reactive to light, no focal deficits or facial asymmetry CARDIAC: Regular rate and rhythm, no murmurs rubs or gallops LUNGS: Dense wheezes bilaterally, poor breath sounds, no crackles or stridor EXTREMITIES: No clubbing cyanosis or edema, calves are bilaterally symmetrical, no Homans sign, no popliteal cord sign. Distal pulses equal and bilateral PSYCH: Normal affect without agitation or irritability Result Diagram: 08/12/18200408/12/182004 Results 24 hrs Laboratory Tests Test 08/12/18 20:05 08/12/18 21:17 White Blood Count 21.9 10^3/ul Red Blood Count 4.10 10^6/ul Hemoglobin 11.7 g/dl Hematocrit 38.4 % Mean Corpuscular Volume 93.7 fl Mean Corpuscular Hemoglobin 28.5 pg Mean Corpuscular Hemoglobin Concent 30.5 g/dl Red Cell Distribution Width 12.8 % Platelet Count 274 10^3/UL Mean Platelet Volume 9.5 fl Immature Granulocytes % 0.500 % Neutrophils % 86.5 % Lymphocytes % 7.0 % Monocytes % 5.5 % Eosinophils % 0.3 % Basophils % 0.2 % Nucleated Red Blood Cells % 0.0 /100WBC Immature Granulocytes # 0.120 10^3/ul Neutrophils # 18.9 10^3/ul Lymphocytes # 1.5 10^3/ul Monocytes # 1.2 10^3/ul Eosinophils # 0.1 10^3/ul Basophils # 0.0 10^3/ul Nucleated Red Blood Cells # 0.0 10^3/ul Sodium Level 133 mmol/L Potassium Level 4.0 mmol/L Chloride Level 81 mmol/L Carbon Dioxide Level 42 mmol/L Anion Gap 10 Blood Urea Nitrogen 15 mg/dl Creatinine 0.78 mg/dl Est Glomerular Filtrat Rate mL/min mL/min Glucose Level 114 mg/dl Calcium Level 9.6 mg/dl Troponin I < 0.012 ng/ml Blood Gas Specimen Source Blood arterial Arterial Blood Date Drawn 08/12/2018 9:40:37 PM Arterial Blood pH (Temp corrected) 7.382 Arterial Blood pCO2 (Temp correct) 76.1 mmhg Arterial Blood pO2 (Temp corrected) 80.4 mmHG Arterial Blood HCO3 44.2 mmol/L Arterial Blood Base Excess 15.9 mmol/L Arterial Blood Oxygen Saturation 95.6 mmHG Trent Test ACCEPTAB Arterial Blood Gas Puncture Site Right Radial Arterial Blood Carboxyhemoglobin 1.9 % Arterial Blood Methemoglobin 0.3 % Blood Gas A-a O2 Differential 22.1 mmHg Oxyhemoglobin Percent 93.5 % Blood Gas Temperature 37.0 C Blood Gas Modality NASAL CANNULA FiO2 27.0 % Blood Gas Critical Value Read Back Stephany REYNOLDS MD Blood Gas Notified Whom MM Blood Gas Notified Time 08/05/2018 9:49:07 PM Current Medications Medications Dose Sig/[place] Start Time Status Last (Trade) Ordered Route PRN Stop Time Admin Dose Reason Admin Sodium 1,000 ml @ Q1H STAT 08/12/18 DC 08/12/18 Chloride 1,000 mls/hr IV 20:29 21:19 08/12/18 21:28 Albuterol 10 mg ONCE STAT 08/12/18 DC 08/12/18 (Proventil INH 20:29 20:39 0.5% (Neb)) 08/12/18 20:32 Ipratropium 1 mg ONCE STAT 08/12/18 DC 08/12/18 [place] INH 20:29 20:39 (Atrovent 08/12/18 20:32 0.02% (Neb)) 125 mg ONCE STAT 08/12/18 DC 08/12/18 Methylprednis IV 20:29 21:13 olone Sodium 08/12/18 20:32 Succinate (Solu-Medrol) Ceftriaxone 50 ml @ ONCE ONCE 08/12/18 DC 08/12/18 Sodium 100 mls/hr IVPB 20:30 21:13 08/12/18 20:59 Azithromycin 250 ml @ ONCE ONCE 08/12/18 DC 08/12/18 250 mls/hr IVPB 20:30 21:37 08/12/18 21:29 IV Flush 3 ml PER 08/12/18 UNV (NS 3 ml) PROTOCOL IV 21:30 Ondansetron 4 mg Q6H PRN 08/12/18 UNV HCl (Zofran IV 21:30 Inj) NAUSEA/VOMITI NG 40 mg Q8 IV 08/12/18 UNV Methylprednis 22:00 olone Sodium Succinate (Solu-Medrol) 650 mg Q6H PRN 08/12/18 UNV Acetaminophen PO .PAIN 1-3 21:30 (Tylenol OR TEMP Tab) 1 tab Q6H PRN 08/12/18 UNV Acetaminophen PO .PAIN 4-6 21:30 / Hydrocodone Bitart ([place] (5/325)) Docusate 100 mg Q12H PRN 08/12/18 UNV Sodium PO 21:30 (Colace) .CONSTIPATION Bisacodyl 5 mg DAILY PRN 08/12/18 UNV (Dulcolax) PO 21:30 .CONSTIPATION Famotidine 20 mg Q12 PO 08/13/18 UNV (Pepcid) 09:00 Enoxaparin 40 mg DAILY SC 08/12/18 UNV Sodium 21:30 (Lovenox) Albuterol/ 3 ml Q4H RESP 08/13/18 UNV Ipratropium THERAPY HHN 01:00 (Duoneb) Sodium 500 ml @ Q1H ONCE 08/12/18 UNV Chloride 500 mls/hr IV 22:00 08/12/18 22:59 Sodium 1,000 ml @ [id number] IV 08/12/18 UNV Chloride 80 mls/hr 22:00 08/13/18 21:59 Procedures/MDM IV line was established patient was placed on spinner frame rhythm strip revealed a sinus rhythm at about 80 bpm with upright P and T waves. Patient was afebrile, I do not suspect sepsis. I administered 1 L normal saline IV, albuterol 10 mg via nebulizer, ipratropium 1 mg via nebulizer, methylprednisolone 125 mg IV, ceftriaxone 1 g IV, and azith romycin 500 mg IV 1 view chest x-ray performed, read by me revealed atelectatic changes, no acute infiltrates, no pneumothorax CBC reveals a leukocytosis of 22, electrolytes revealed chronic respiratory acidosis with a bicarb of 42, troponin negative Critical Care: Time: 43 minutes, this was time separate from other billable procedures. Treatments/Evaluations: Close monitoring and treatment of unstable vital signs, cardiorespiratory, and neurologic status, while maintaining tight balance of fluid, respiratory, and cardiac interventions. Patient has bacterial exacerbation of chronic obstructive pulmonary disease and will be admitted to telemetry for continued medical management, bronchodilator therapy, antibiotics. Departure Diagnosis: Primary Impression: COPD (chronic obstructive pulmonary disease) COPD type: COPD with acute exacerbation Qualified Codes: J44.1 - Chronic o bstructive pulmonary disease with (acute) exacerbation Additional Impressions: Acute bronchitis Bronchitis organism: unspecified organism Qualified Codes: J20.9 - Acute bronchitis, unspecified Acute dehydration Bladder carcinoma Condition: SUDEEP Sanchez MD Aug 12, 2018 22:09
[2018-08-12] MEDS: ENOXAPARIN 40 MG/0.4 ML SYG SC SCH (23:05)
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
[2018-08-13] VITALS (14 sets, daily range): BP systolic 123–158; BP diastolic 64–80; PULSE 89–108; RESP 17–22; Ht 172.7 cm; Wt 50.1 kg
[2018-08-13] MEDS: ALBUTEROL/IPRATROPIUM (NEB) 3 ML AMP HHN SCH ×5 (00:54→20:28)
[2018-08-13] MEDS: METHYLPREDNISOLONE 40 MG INJ IV SCH ×2 (01:24→06:37)
[2018-08-13] MEDS: HYDROCODONE/APAP (5/325) TAB PO PRN ×2 (02:55→09:45)
[2018-08-13] MEDS: SOD CHLORIDE 0.9% 1,000 ML IV SCH ×2 (02:57→10:30)
[2018-08-13] MEDS ORDERED: oxyCODONE 5 MG TAB PO PRN ×2 (04:00→11:00)
[2018-08-13] MEDS ORDERED: IPRATROPIUM IH SCH (09:00)
[2018-08-13] MEDS ORDERED: ALBUTEROL IH SCH (09:00)
[2018-08-13] MEDS: ASPIRIN 81 MG TAB PO SCH (09:41)
[2018-08-13] MEDS: LOSARTAN 25 MG TAB PO SCH (09:44)
[2018-08-13] MEDS: DILTIAZEM (CD) 240 MG CAP PO SCH (09:44)
[2018-08-13] MEDS: DOCUSATE SODIUM 250 MG CAP PO SCH ×2 (09:44→20:43)
[2018-08-13] MEDS: FAMOTIDINE 20 MG TAB PO SCH ×2 (09:45→20:43)
[2018-08-13] MEDS: TRIAMTERENE/HCTZ (75-50) TAB PO SCH (09:45)
[2018-08-13] MEDS: ENOXAPARIN 40 MG/0.4 ML SYG SC SCH (10:18)
--- NOTE | 2018-08-13 10:24 | PN ---
Date/Time of Note Date/Time of Note DATE: 08/13/18 TIME: 10:24 Objective Vitals Vital Signs Date Temp Pulse Resp B/P (MAP) Pulse Ox O2 O2 Flow FiO2 Time Delivery Rate 08/13/18 86 20 98 Nasal 3.0 08:41 Cannula 08/13/18 98.0 146/71 07:21 (96) 08/13/18 30 01:09 Intake and Output 08/12/18 08/12/18 08/13/18 1515:00 23:00 07:00 IntakeIntake Total 1180 ml OutputOutput Total 800 ml BalanceBalance 380 ml Results Result Diagram: 08/13/18 0537 08/13/1837 Medications Medications Current Medications IV Flush (NS 3 ml) 3 ml PER PROTOCOL IV ; Start 08/12/18 at 21:30 Ondansetron HCl (Zofran Inj) 4 mg Q6H PRN IV NAUSEA/VOMITING; Start 08/12/18 at 21:30 Acetaminophen (Tylenol Tab) 650 mg Q6H PRN PO .PAIN 1-3 OR TEMP; Start 08/12/18 at 21:30 Acetaminophen/ Hydrocodone Bitart ([place] (5/325)) 1 tab Q6H PRN PO .PAIN 4-6 Last administered on 08/13/18at 09:45; Admin Dose 1 TAB; Start 08/12/18 at 21:30 Docusate Sodium (Colace) 100 mg Q12H PRN PO .CONSTIPATION; Start 08/12/18 at 21:30 Bisacodyl (Dulcolax) 5 mg DAILY PRN PO .CONSTIPATION; Start 08/12/18 at 21:30 Famotidine (Pepcid) 20 mg Q12 PO Last administered on 08/13/18at 09:45; Admin Dose 20 MG; Start 08/13/18 at 09:00 Enoxaparin Sodium (Lovenox) 40 mg DAILY SC Last administered on 08/13/18at 10:18; Admin Dose 40 MG; Start 08/12/18 at 21:30 Sodium Chloride 1,000 ml @ 80 mls/hr [id number] IV Last administered on 08/13/18at 02:57; Admin Dose 80 MLS/HR; Start 08/12/18 at 22:00; Stop 08/13/18 at 21:59 Oxycodone HCl (Roxicodone) 5 mg Q8H PRN PO PAIN LEVEL 6-10 Last administered on 08/13/18at 04:09; Admin Dose 5 MG; Start 08/13/18 at 04:00 Aspirin (Aspirin) 81 mg DAILY PO Last administered on 08/13/18at 09:41; Admin Dose 81 MG; Start 08/13/18 at 09:00 Docusate Sodium (Colace) 250 mg BID PO Last administered on 08/13/18at 09:44; A dmin Dose 250 MG; Start 08/13/18 at 09:00 Losartan Potassium (Cozaar) 25 mg DAILY PO Last administered on 08/13/18 09:44; Admin Dose 25 MG; Start 08/13/18 at 09:00 Tamsulosin HCl (Flomax) 0.4 mg HS PO ; Start 08/13/18 at 21:00 Triamterene/HCTZ (Maxzide (75/50)) 1 tab DAILY PO Last administered on 08/13/18at 09:45; Admin Dose 1 TAB; Start 08/13/18 at 09:00 Diltiazem HCl (Cardizem Cd) 240 mg daily PO Last administered on 08/13/18at 09:44; Admin Dose 240 MG; Start 08/13/18 at 09:00 Albuterol/ Ipratropium (Duoneb) 3 ml Q6H RESP THERAPY HHN ; Start 08/13/18 at 14:00 Methylprednisolone Sodium Succinate (Solu-Medrol) 40 mg Q12 IV ; Start 08/13/18 at 21:00 Levofloxacin/ Dextrose 100 ml @ 100 mls/hr Q24H IVPB ; Start 08/13/18 at 10:30; Status UNV Lines/Catheters IV Catheter Type: Puente in Place: No Assessment/Plan Hospital Course Subjective Patient feeling much better when compared to when he first came in, feeling near at baseline Objective Physical exam General: Patient is laying in bed and answers questions appropriately Mentation: Patient is alert and oriented 4, Head: Normocephalic atraumatic Eyes: EOMI, pupils reactive to light Neck: Supple, nontender, midline Respiratory: Wheezing to auscultation bilaterally Cardiovascular: regular rate, no obvious murmurs Gastrointestinal: non-tender to palpation, bowel sounds heard. Neurological: Moves all extremities spontaneously Skin: No new skin lesions Assessment and plan Acute on chronic hypercapnic and hypoxic respiratory failure -Secondary to COPD exacerbation -Continue nebulizers -Continue steroids, taper when able -ABG is already improved -Patient on 3 L of O2 at home Acute on chronic COPD exacerbation -Nebulizers -BiPAP if needed, currently on nasal cannula -Patient cannot remember the names of inhalers that he takes at home -Taper steroids when able Questionable pneumonia -Continue Levaquin for now -Monitor Hyponatremia with contraction alkalosis -Monitor closely, nephrology on board Poor p.o. intake -Patient reports poor appetite, IV hydration was given, encourage oral intake Hypertension -Continue home medications Dyslipidemia -Continue home meds History of bladder cancer status post chemotherapy -Patient chronically straight caths at home, continue Puente catheter while in house -Follow-up with outpatient urology and oncology Gout -Patient takes colchicine as needed, no issues currently Disposition -Continue treatment for COPD exacerbation, will likely require 1 to 2-day additional inpatient stay to ensure resolution of COPD exacerbation. SUDEEP LARIOS Aug 13, 2018 10:24
[2018-08-13] MEDS ORDERED: NICOTINE (14 MG/24 HR) PATCH TRANSDERM PRN (10:30)
[2018-08-13] MEDS ORDERED: LEVOFLOXACIN 500MG/D5W (PMX) 100 ML IVPB SCH (10:30)
[2018-08-13] MEDS: ONDANSETRON 4 MG INJ IV PRN (13:32)
[2018-08-13] MEDS: oxyCODONE 5 MG TAB PO PRN ×2 (17:20→21:36)
--- NOTE | 2018-08-13 18:45 | CONS ---
DATE OF ADMISSION: 08/12/2018 DATE OF CONSULTATION: 08/13/2018 REASON FOR CONSULTATION: Alkalosis, hyponatremia. PHYSICIAN REQUESTING CONSULT: Dr. Jackson. HISTORY OF PRESENT ILLNESS: This is a 73-year-old male with a past, COPD, history of hypertension, d yslipidemia, history of bladder cancer, who presents to the emergency room with shortness of breath x 5 days. The patient states he has had a cough with thick sputum. The patient denied any hemoptysis or hematemesis. The patient states he does have history of bladder cancer status post chemotherapy a nd performs self-catheterization at home. On arrival to the emergency room, the patient had laborato ry drawn, which showed a white count of 21,000, hemoglobin of 11.7. The patient was started on antib iotic therapy, nebulizers, and admitted to telemetry for treatment of COPD exacerbation and possible pneumonia. In terms of patient's renal history, the patient denies any prior history of acute kidney injury or C KD, denies any hemoptysis, hematemesis, or hematochezia. PAST MEDICAL HISTORY: As stated above, history of hypertension, dyslipidemia, history of COPD, histo ry of bladder cancer. PAST SURGICAL HISTORY: The patient had right toe surgery, abdominal surgery. FAMILY HISTORY: No family history of kidney disease. SOCIAL HISTORY: Positive for tobacco use. MEDICATIONS: The patient's medications have been reviewed. REVIEW OF SYSTEMS: A 14-point review of system was conducted. Pertinent positives as stated in HPI, otherwise negative. PHYSICAL EXAMINATION: VITAL SIGNS: Blood pressure is 123/72, respiration 18, pulse 100, temperature 98.7. HEENT: Head is normocephalic. NECK: Supple. HEART: Regular rate. LUNGS: Show diminished breath sounds at the base. ABDOMEN: Soft, nontender to palpation. No rebound or guarding. EXTREMITIES: Negative for clubbing, cyanosis, no edema. DERMATOLOGIC: No rashes. MUSCULOSKELETAL: No joint effusions. NEUROLOGIC: No change in exam. LABORATORY DATA: Has been reviewed. IMAGING STUDY: Has been reviewed. ARTERIAL BLOOD GASES: Have been reviewed. IMPRESSION AND PLAN: This is a 73-year-old male who presents with: 1. Hyponatremia. The etiology is unclear, possibly due to diuretic hydrochlorothiazide effect. Oth er possibilities such as syndrome of inappropriate antidiuretic hormone are considerations. Plan at this point is to do a full evaluation. We will check urine sodium and urine osmolarity, check TSH le shanon and a.m. cortisol level. Monitor sodium levels closely and limit free water intake. We will con tinue to hold hydrochlorothiazide and diuretics. 2. Mixed acid base disorder. The patient has a primary metabolic alkalosis and respiratory acidosis . The etiology of alkalosis is likely secondary to recent diuretic therapy. Etiology of respiratory acidosis, possibly due to chronic obstructive pulmonary disease. The patient's alkalosis has been i mproving. Recommendation is to continue intravenous hydration. We will hold diuretic therapy, keith nue supportive care, and monitor. 3. Anemia. Monitor hemoglobin and hematocrit levels. 4. Acute on chronic hypercapnic hypoxemic respiratory failure secondary to chronic obstructive pulmo nary disease exacerbation. Continue medical management. Continue nebulizers, steroids. 5. Possible pneumonia. Continue antibiotic therapy. 6. Hypertension. Continue current blood pressure regimen, holding diuretic therapy. 7. History of bladder cancer, status post chemotherapy. Continue to monitor. 8. History of gout. Thank you, Dr. Jackson, for this interesting consult. It will be a pleasure to follow patient with laila olmedoout the hospital course. Dictated By: CLARICE CHAVIS DO NR/NTS Conf#: [id number] DID#: [id number] CC: LINDA REYNOLDS MD;*EndCC*
[2018-08-13] MEDS ORDERED: AZITHROMYCIN 500MG/NS (PMX) 250 ML IVPB SCH (20:00)
[2018-08-13] MEDS ORDERED: CEFTRIAXONE 1 GM/50 ML (PMX) 50 ML IVPB SCH (20:00)
[2018-08-13] MEDS: TAMSULOSIN (SR) 0.4 MG CAP PO SCH (20:43)
[2018-08-13] MEDS ORDERED: METHYLPREDNISOLONE 40 MG INJ IV SCH (21:00)
[2018-08-14] VITALS (12 sets, daily range): BP systolic 118–151; BP diastolic 57–77; PULSE 87–99; RESP 19–22
[2018-08-14] MEDS: oxyCODONE 5 MG TAB PO PRN ×6 (01:44→22:35)
[2018-08-14] MEDS: ALBUTEROL/IPRATROPIUM (NEB) 3 ML AMP HHN SCH ×4 (02:19→20:09)
[2018-08-14] MEDS ORDERED: POTASSIUM CHLORIDE 20 MEQ POWDER FOR ORAL SOLN PO ONE (09:00)
[2018-08-14] MEDS ORDERED: predniSONE 20 MG TAB PO SCH (09:00)
[2018-08-14] MEDS: ASPIRIN 81 MG TAB PO SCH (09:31)
[2018-08-14] MEDS: DILTIAZEM (CD) 240 MG CAP PO SCH (09:31)
[2018-08-14] MEDS: DOCUSATE SODIUM 250 MG CAP PO SCH ×2 (09:31→21:29)
[2018-08-14] MEDS: LOSARTAN 25 MG TAB PO SCH (09:32)
[2018-08-14] MEDS: TRIAMTERENE/HCTZ (75-50) TAB PO SCH (09:32)
[2018-08-14] MEDS: FAMOTIDINE 20 MG TAB PO SCH (09:32)
[2018-08-14] MEDS: ENOXAPARIN 40 MG/0.4 ML SYG SC SCH (10:06)
[2018-08-14] MEDS: CEFEPIME 1GM/50 ML (PMX) 50 ML IVPB SCH ×2 (10:08→21:29)
--- NOTE | 2018-08-14 13:06 | PN ---
Date/Time of Note Date/Time of Note DATE: 08/14/18 TIME: 13:03 Objective Vitals Vital Signs Date Temp Pulse Resp B/P (MAP) Pulse Ox O2 O2 Flow FiO2 Time Delivery Rate 08/14/18 94 12:05 08/14/18 98.4 19 128/60 100 Nasal 11:00 (82) Cannula 08/14/18 3.0 08:28 08/13/18 30 01:09 Intake and Output 08/13/18 08/13/18 08/14/18 1515:00 23:00 07:00 IntakeIntake Total 100 ml 2140 ml OutputOutput Total 1400 ml BalanceBalance 100 ml 740 ml Results Result Diagram: 08/14/1844 08/14/18 0544 Medications Medications Current Medications IV Flush (NS 3 ml) 3 ml PER PROTOCOL IV ; Start 08/12/18 at 21:30 Ondansetron HCl (Zofran Inj) 4 mg Q6H PRN IV NAUSEA/VOMITING Last administered on 08/13/18at 13:32; Admin Dose 4 MG; Start 08/12/18 at 21:30 Acetaminophen (Tylenol Tab) 650 mg Q6H PRN PO .PAIN 1-3 OR TEMP; Start 08/12/18 at 21:30 Docusate Sodium (Colace) 100 mg Q12H PRN PO .CONSTIPATION; Start 08/12/18 at 21:30 Bisacodyl (Dulcolax) 5 mg DAILY PRN PO .CONSTIPATION; Start 08/12/18 at 21:30 Enoxaparin Sodium (Lovenox) 40 mg DAILY SC Last administered on 08/14/18at 10:06; Admin Dose 40 MG; Start 08/12/18 at 21:30 Aspirin (Aspirin) 81 mg DAILY PO Last administered on 08/14/18at 09:31; Admin Dose 81 MG; Start 08/13/18 at 09:00 Docusate Sodium (Colace) 250 mg BID PO Last administered on 08/14/18at 09:31; Admin Dose 250 MG; Start 08/13/18 at 09:00 Losartan Potassium (Cozaar) 25 mg DAILY PO Last administered on 08/14/18at 09:32; Admin Dose 25 MG; Start 08/13/18 at 09:00 Tamsulosin HCl (Flomax) 0.4 mg HS PO Last administered on 08/13/18at 20:43; Admin Dose 0.4 MG; Start 08/13/18 at 21:00 Triamterene/HCTZ (Maxzide (75/50)) 1 tab DAILY PO Last administered on 08/14/18at 09:32; Admin Dose 1 TAB; Start 08/13/18 at 09:00 Diltiazem HCl (Cardizem Cd) 240 mg daily PO Last administered on 08/14/18 09:31; Admin Dose 240 MG; Start 08/13/18 at 09:00 Albuterol/ Ipratropium (Duoneb) 3 ml Q6H RESP THERAPY HHN Last administered on 08/14/18 08:28; Admin Dose 3 ML; Start 08/13/18 at 14:00 Nicotine (Nicoderm 14 Mg/ 24hr) 1 patch DAILY PRN TRANSDERM SMOKING URGE; Start 08/13/18 at 10:30 Oxycodone HCl (Roxicodone) 5 mg Q4 PRN PO MODERATE PAIN LEVEL 4-6 Last administered on 08/14/18at 09:33; Admin Dose 5 MG; Start 08/13/18 at 16:30 Cefepime HCl 50 ml @ 100 mls/hr Q12 IVPB Last administered on 08/14/18at 10:08; Admin Dose 100 MLS/HR; Start 08/14/18 at 09:00 Methylprednisolone Sodium Succinate (Solu-Medrol) 40 mg Q8 IV ; Start 08/14/18 at 14:00 Budesonide (Pulmicort (Neb)) 0.5 mg BID RESP THERAPY HHN ; Start 08/14/18 at 20:00 Pantoprazole (Protonix Tab) 40 mg DAILY@06 PO ; Start 08/14/18 at 13:30 Sucralfate (Carafate Susp) 1 gm QID PO ; Start 08/14/18 at 13:00 VTE Prophylaxis Risk score (from Nsg)>0 risk: 7 SCD applied (from Nsg): Yes Lines/Catheters IV Catheter Type: Puente in Place: No Assessment/Plan Hospital Course Subjective Patient feeling a lot worse today, generalized complaints of headache, nausea, overall fatigue Objective Physical exam General: Patient is laying in bed and answers questions appropriately Mentation: Patient is alert and oriented 4, Head: Normocephalic atraumatic Eyes: EOMI, pupils reactive to light Neck: Supple, nontender, midline Respiratory: Wheezing to auscultation bilaterally Cardiovascular: regular rate, no obvious murmurs Gastrointestinal: non-tender to palpation, bowel sounds heard. Neurological: Moves all extremities spontaneously Skin: No new skin lesions Assessment and plan Acute on chronic hypercapnic and hypoxic respiratory failure -Secondary to COPD exacerbation -Continue nebulizers, add budesonide -Continue steroids, increase steroids for now -Patient on 3 L of O2 at home Acute on chronic COPD exacerbation -Nebulizers, add budesonide -BiPAP if needed, currently on nasal cannula -Patient cannot remember the names of inhalers that he takes at home -Taper steroids when able, increase for now Questionable pneumonia -Change Levaquin to cefepime -Monitor Sepsis, secondary pneumonia -Changed to Levaquin to cefepime -Have been downtrending with steroids so this is an unexpected change, will consult infectious disease -Lactic acid -We will restart IV fluids -Get repeat chest x-ray Hyponatremia with contraction alkalosis -Monitor closely, nephrology on board Poor p.o. intake -Patient reports poor appetite, IV hydration was given, encourage oral intake Hypertension -Continue home medications Dyslipidemia -Continue home meds History of bladder cancer status post chemotherapy -Patient chronically straight caths at home, continue Puente catheter while in house -Follow-up with outpatient urology and oncology Gout -Patient takes colchicine as needed, no issues currently Disposition -Continue treatment for COPD exacerbation, with pneumonia versus bronchitis SUDEEP LARIOS Aug 14, 2018 13:06
[2018-08-14] MEDS ORDERED: SOD CHLORIDE 0.9% 1,000 ML IV SCH (13:30)
[2018-08-14] MEDS: SUCRALFATE (100 MG/ML) 10ML CUP PO SCH ×3 (13:40→21:29)
[2018-08-14] MEDS: PANTOPRAZOLE (EC) 40 MG TAB PO SCH (13:40)
[2018-08-14] MEDS: METHYLPREDNISOLONE 40 MG INJ IV SCH ×2 (13:41→21:30)
--- NOTE | 2018-08-14 15:09 | CONS ---
DATE OF ADMISSION: 08/12/2018 DATE OF CONSULTATION: 08/14/2018 TYPE OF CONSULTATION: Infectious disease. REASON FOR CONSULTATION: Antibiotic management. HISTORY OF PRESENT ILLNESS: Palmer Mcknight is a 73-year-old male with a history of COPD who comes in c omplaining of shortness of breath with thick purulent sputum for 3 or 4 days. He denies fever or marlee st pain. His past problems include: 1. COPD. 2. Hypertension. 3. Dementia. 4. Bladder CA. PAST MEDICAL HISTORY: As outlined. FAMILY HISTORY: Noncontributory. SOCIAL HISTORY: He is a current every day smoker. He does not drink or abuse drugs. ALLERGIES: 1. AMOXICILLIN. 2. INDOCIN. 3. OXYBUTYNIN. 4. CATAPHYLL. 5. DOXYCYCLINE. 6. MOMETASONE. MEDICATIONS: Per chart. REVIEW OF SYSTEMS: As per HPI. PHYSICAL EXAMINATION: GENERAL: The patient is an elderly, emaciated, dehydrated individual who is awake, responsive, in no acute distress. VITAL SIGNS: Stable. He is afebrile. He is on nasal cannula with a pulse ox of 100. SKIN: Without generalized rash. HEENT: Within normal limits. NECK: Supple. LYMPH NODES: None palpable. CHEST: Decreased breath sounds at the bases. HEART: Without murmur or gallop. ABDOMEN: Soft, nontender, without organosplenomegaly or masses. EXTREMITIES: Without cyanosis, clubbing, or edema. RECTAL AND GENITAL: Deferred. NEUROLOGIC: No focal neurological abnormalities. ANCILLARY LABORATORY DATA: White count 21.9, H and H of 11.7 and 38.4, platelet count 274,000. BUN and creatinine 15/0.78, CO2 42. He has 87% neutrophils with a white count of 21.9. The patient was started on ceftriaxone and azithromycin. He is felt to have acute bronchitis with exacerbation of ch ronic obstructive pulmonary disease. Blood cultures negative. Influenza A and B are negative. MEDICATIONS: Changed to cefepime. Chest x-ray showed hyperinflation compatible with emphysema, mild right basilar interstitial opacitie s which may represent an atypical infectious or inflammatory process and aortic atherosclerosis. The patient was seen by Dr. Joya for alkalosis and hyponatremia. White count as noted was 21,000. Etiology of the hyponatremia was unclear, possibly due to hydrochlorothiazide effect. Inappropriat e ADH has to be considered. Patient with possible pneumonia. We will continue to observe. I want to thank the hospitalists for asking us to see this howard gentleman in consultation. Dictated By: RACHEL LANDON MD, JD/MARLENA Conf#: [id number] DID#: [id number] CC: LINDA REYNOLDS MD;*EndCC*
[2018-08-14] MEDS: BUDESONIDE (NEB) 0.5MG/2ML AMP HHN SCH (20:09)
--- NOTE | 2018-08-14 20:58 | PN ---
DATE: 08/14/2018 SUBJECTIVE: The patient is stable, no events overnight. No fevers, chills, nausea, vomiting. OBJECTIVE: VITAL SIGNS: Blood pressure 128/60, respiration 19, pulse 75, temperature 98.4. HEENT: Head is normocephalic. NECK: Supple. HEART: Regular rate. LUNGS: Show diminished breath sounds at base. ABDOMEN: Soft, nontender to palpation without rebound or guarding. EXTREMITIES: Negative for clubbing, cyanosis, no edema. DERMATOLOGIC: No rashes. MUSCULOSKELETAL: No joint effusion. NEUROLOGIC: No change in exam. MEDICATIONS: Have been reviewed. LABORATORY DATA: Has been reviewed. ASSESSMENT AND PLAN: 1. Hyponatremia. Etiology is likely multifactorial secondary to hydrochlorothiazide effect, hyperka lemia. The patient's sodium levels are improving. We will correct the patient's underlying hypokale johnny. Continue to monitor closely. 2. Mixed acid base disorder. Patient has a primary metabolic alkalosis, respiratory acidosis. Etio logy of alkalosis likely due to volume depletion, diuretic therapy. 3. Respiratory acidosis secondary to chronic obstructive pulmonary disease. The patient's bicarbona te levels have improved with IV hydration. Will continue to monitor closely. We will also correct u nderlying hypokalemia, which is a contributing factor for alkalosis. 4. Anemia. Monitor hemoglobin and hematocrit levels. 5. Acute on chronic obstructive pulmonary disease exacerbation. Continue medical management, contin ue nebulized steroids. 6. Possible pneumonia. Continue antibiotic therapy. 7. Hypertension. Continue blood pressure regimen. 8. History of bladder cancer, status post chemotherapy. 9. History of gout. Dictated By: CLARICE ZAFAR/NTS Conf#: [id number] DID#: [id number] CC: LINDA REYNOLDS MD;*EndCC*
[2018-08-14] MEDS: TAMSULOSIN (SR) 0.4 MG CAP PO SCH (21:29)
[2018-08-15] VITALS (10 sets, daily range): BP systolic 126–162; BP diastolic 66–78; PULSE 81–100; RESP 18–20
[2018-08-15] MEDS: ALBUTEROL/IPRATROPIUM (NEB) 3 ML AMP HHN SCH ×4 (01:52→20:30)
[2018-08-15] MEDS: oxyCODONE 5 MG TAB PO PRN ×5 (03:14→20:46)
[2018-08-15] MEDS: METHYLPREDNISOLONE 40 MG INJ IV SCH ×3 (06:03→21:06)
[2018-08-15] MEDS: PANTOPRAZOLE (EC) 40 MG TAB PO SCH (06:03)
[2018-08-15] MEDS: CEFEPIME 1GM/50 ML (PMX) 50 ML IVPB SCH ×2 (08:27→20:45)
[2018-08-15] MEDS: DILTIAZEM (CD) 240 MG CAP PO SCH (08:27)
[2018-08-15] MEDS: SUCRALFATE (100 MG/ML) 10ML CUP PO SCH ×4 (08:27→20:45)
[2018-08-15] MEDS: DOCUSATE SODIUM 250 MG CAP PO SCH ×2 (08:27→20:45)
[2018-08-15] MEDS: ASPIRIN 81 MG TAB PO SCH (08:28)
[2018-08-15] MEDS: LOSARTAN 50 MG TAB PO SCH (08:28)
[2018-08-15] MEDS: ENOXAPARIN 40 MG/0.4 ML SYG SC SCH (08:40)
[2018-08-15] MEDS: BUDESONIDE (NEB) 0.5MG/2ML AMP HHN SCH ×2 (09:07→20:30)
[2018-08-15] MEDS: SOD CHLORIDE 0.9% 1,000 ML IV SCH (09:11)
[2018-08-15] MEDS ORDERED: ACETAZOLAMIDE 500 MG INJ IV ONE (09:30)
--- NOTE | 2018-08-15 13:22 | PN ---
DATE: 08/15/2018 SUBJECTIVE: The patient is stable. No events overnight. OBJECTIVE: VITAL SIGNS: Blood pressure is 151/78, respiration 19, pulse 85, temperature 98.6. HEENT: Head is normocephalic. NECK: Supple. HEART: Regular rate. LUNGS: Show diminished breath sounds at the base. ABDOMEN: Soft, nontender to palpation without rebound or guarding. EXTREMITIES: Negative for clubbing, cyanosis, no edema. DERMATOLOGIC: No rashes. MUSCULOSKELETAL: No joint effusion. NEUROLOGIC: No change in exam. MEDICATIONS: The patient's medications have been reviewed. LABORATORY DATA: Has been reviewed. IMAGING STUDIES: Have been reviewed. ASSESSMENT AND PLAN: 1. 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 Continue to kelyl tor closely, limit free water intake. 2. The patient has metabolic alkalosis and respiratory acidosis. Plan is to give a dose of Diamox. Will continue to monitor bicarbonate levels closely. 3. Anemia. Monitor hemoglobin and hematocrit levels. 4. Acute chronic obstructive pulmonary disease exacerbation. Continue medical management and nebuli zers and steroids. 5. Positive pneumonia. Continue antibiotic regimen. 6. Hypertension. Continue current blood pressure regimen. 7. History of bladder cancer, status post chemotherapy. 8. History of gout. Dictated By: CLARICE CHAVIS DO NR/NTS Conf#: [id number] DID#: [id number] CC: LINDA REYNOLDS MD; SUDEEP LARIOS MD;*End*
--- NOTE | 2018-08-15 13:28 | PN ---
Date/Time of Note Date/Time of Note DATE: 08/15/18 TIME: 13:25 Objective Vitals Vital Signs Date Temp Pulse Resp B/P (MAP) Pulse Ox O2 O2 Flow FiO2 Time Delivery Rate 08/15/18 85 12:06 08/15/18 98.5 19 142/67 100 Nasal 2.0 11:21 (92) Cannula 08/13/18 30 01:09 Intake and Output 08/14/18 08/14/18 08/15/18 1515:00 23:00 07:00 IntakeIntake Total 550 ml 200 ml BalanceBalance 550 ml 200 ml Results Result Diagram: 08/15/18 0535 08/15/18 0535 Medications Medications Current Medications IV Flush (NS 3 ml) 3 ml PER PROTOCOL IV ; Start 08/12/18 at 21:30 Ondansetron HCl (Zofran Inj) 4 mg Q6H PRN IV NAUSEA/VOMITING Last administered on 08/13/18at 13:32; Admin Dose 4 MG; Start 08/12/18 at 21:30 Acetaminophen (Tylenol Tab) 650 mg Q6H PRN PO .PAIN 1-3 OR TEMP; Start 08/12/18 at 21:30 Docusate Sodium (Colace) 100 mg Q12H PRN PO .CONSTIPATION; Start 08/12/18 at 21:30 Bisacodyl (Dulcolax) 5 mg DAILY PRN PO .CONSTIPATION Last administered on 08/15/18at 12:58; Admin Dose 5 MG; Start 08/12/18 at 21:30 Enoxaparin Sodium (Lovenox) 40 mg DAILY SC Last administered on 08/15/18at 08:40; Admin Dose 40 MG; Start 08/12/18 at 21:30 Aspirin (Aspirin) 81 mg DAILY PO Last administered on 08/15/18 08:28; Admin Dose 81 MG; Start 08/13/18 at 09:00 Docusate Sodium (Colace) 250 mg BID PO Last administered on 08/15/18at 08:27; Admin Dose 250 MG; Start 08/13/18 at 09:00 Tamsulosin HCl (Flomax) 0.4 mg HS PO Last administered on 08/14/18at 21:29; Admin Dose 0.4 MG; Start 08/13/18 at 21:00 Triamterene/HCTZ (Maxzide (75/50)) 1 tab DAILY PO Last administered on 08/14/18 09:32; Admin Dose 1 TAB; Start 08/13/18 at 09:00; Status Hold Diltiazem HCl (Cardizem Cd) 240 mg daily PO Last administered on 08/15/18 08:27; Admin Dose 240 MG; Start 08/13/18 at 09:00 Albuterol/ Ipratropium (Duoneb) 3 ml Q6H RESP THERAPY HHN Last administered on 08/15/18 09:07; Admin Dose 3 ML; Start 08/13/18 at 14:00 Nicotine (Nicoderm 14 Mg/ 24hr) 1 patch DAILY PRN TRANSDERM SMOKING URGE; Start 08/13/18 at 10:30 Oxycodone HCl (Roxicodone) 5 mg Q4 PRN PO MODERATE PAIN LEVEL 4-6 Last administered on 08/15/18 11:56; Admin Dose 5 MG; Start 08/13/18 at 16:30 Cefepime HCl 50 ml @ 100 mls/hr Q12 IVPB Last administered on 08/15/18 08:27; Admin Dose 100 MLS/HR; Start 08/14/18 at 09:00 Methylprednisolone Sodium Succinate (Solu-Medrol) 40 mg Q8 IV Last administered on 08/15/18 13:00; Admin Dose 40 MG; Start 08/14/18 at 14:00 Budesonide (Pulmicort (Neb)) 0.5 mg BID RESP THERAPY HHN Last administered on 08/15/18 09:07; Admin Dose 0.5 MG; Start 08/14/18 at 20:00 Pantoprazole (Protonix Tab) 40 mg DAILY@06 PO Last administered on 08/15/18 06:03; Admin Dose 40 MG; Start 08/14/18 at 13:30 Sucralfate (Carafate Susp) 1 gm QID PO Last administered on 08/15/18 12:58; Admin Dose 1 GM; Start 08/14/18 at 13:00 Losartan Potassium (Cozaar) 50 mg DAILY PO Last administered on 08/15/18 08:28; Admin Dose 50 MG; Start 08/15/18 at 09:00 Sodium Chloride 1,000 ml @ 50 mls/hr Q20H IV Last administered on 08/15/18at 09:11; Admin Dose 50 MLS/HR; Start 08/15/18 at 09:00; Stop 08/17/18 at 00:59 VTE Prophylaxis Risk score (from Ns)>0 risk: 7 SCD applied (from Ns): Yes Lines/Catheters IV Catheter Type: Puente in Place: No Assessment/Plan Hospital Course Subjective Patient feeling better today Objective Physical exam General: Patient is laying in bed and answers questions appropriately Mentation: Patient is alert and oriented 4, Head: Normocephalic atraumatic Eyes: EOMI, pupils reactive to light Neck: Supple, nontender, midline Respiratory: Wheezing to auscultation bilaterally Cardiovascular: regular rate, no obvious murmurs Gastrointestinal: non-tender to palpation, bowel sounds heard. Neurological: Moves all extremities spontaneously Skin: No new skin lesions Assessment and plan Acute on chronic hypercapnic and hypoxic respiratory failure -Secondary to COPD exacerbation -Continue nebulizers, add budesonide -Continue steroids, continue with increased dose steroids for now -Patient on 3 L of O2 at home Acute on chronic COPD exacerbation -Nebulizers, add budesonide -BiPAP if needed, currently on nasal cannula -Patient cannot remember the names of inhalers that he takes at home -Taper steroids when able, continue increased dose for now Questionable pneumonia -Change Levaquin to cefepime -Monitor -Infectious disease consulted Sepsis, secondary pneumonia -Changed to Levaquin to cefepime -Have been downtrending with steroids so this is an unexpected change, will consult infectious disease -Lactic acid still mildly elevated - IV fluids -CT chest ordered as lactic acid still elevated and patient not recovering as expected Hyponatremia with contraction alkalosis -Monitor closely, nephrology on board Poor p.o. intake -Patient reports poor appetite, IV hydration was given, encourage oral intake Hypertension -Continue home medications Dyslipidemia -Continue home meds History of bladder cancer status post chemotherapy -Patient chronically straight caths at home, continue Puente catheter while in house -Follow-up with outpatient urology and oncology Gout -Patient takes colchicine as needed, no issues currently Disposition -Continue treatment for COPD exacerbation, with pneumonia versus bronchitis SUDEEP LARIOS Aug 15, 2018 13:28
--- NOTE | 2018-08-15 14:23 | CONS ---
Assessment/Plan Assessment/Plan Hospital Course (Demo Recall) No acute changes overnight patient is alert feels good eating lunch no fevers overnight, no nausea vomiting diarrhea WBC 23 H&H 9.2 and 29.7 platelets 247 neutrophils 94.9 BUN 17 creatinine 0.72 lactic acid 2.4 Urinalysis from yesterday was positive for leukocyte WBC, few bacteria Microbiology: Blood cultures since admission negative Chest x-ray from yesterday revealed decreased interstitial opacities in the right lung base Antimicrobials: Cefepime head atraumatic normocephalic. Physical examination: This is a chronically ill appearing fragile cachectic elderly -[place] man who is awake in no distress. Head atraumatic normocephalic. Neck is supple. Chest rise symmetrical breath sounds diminished bases. Heart: S1-S2.Abdomen soft bowel sounds present. Extremities without cyanosis Assessment: 1. Persistent leukocytosis, likely steroid-induced, patient remains on Solu- Medrol 2. Questionable pneumonia 3. COPD exacerbation 4. Cachexia 5. History of bladder cancer status post chemotherapy 6. Possible UTI Plan patient remains stable nephrology recommendations noted continue present care and antibiotics, follow urine culture Consultation Date/Type/Reason Admit Date/Time Aug 12, 2018 at 21:20 Initial Consult Date Type of Consult id Date/Time of Note DATE: 08/15/18 TIME: 14:23 Exam/Review of Systems Exam Vitals Vital Signs Date Temp Pulse Resp B/P (MAP) Pulse Ox O2 O2 Flow FiO2 Time Delivery Rate 08/15/18 85 12:06 08/15/18 98.5 19 142/67 100 Nasal 2.0 11:21 (92) Cannula 08/13/18 30 01:09 Intake and Output 08/14/18 08/14/18 08/15/18 1515:00 23:00 07:00 IntakeIntake Total 550 ml 200 ml BalanceBalance 550 ml 200 ml Results Result Diagram: 08/15/18 0535 08/15/18 0535 Results 24hrs Laboratory Tests Test 08/14/18 15:46 08/15/18 05:35 08/15/18 09:48 Lactic Acid Level 2.2 *H 2.4 *H White Blood Count 23.0 #H Red Blood Count 3.22 L Hemoglobin 9.2 L Hematocrit 29.7 L Mean Corpuscular Volume 92.2 Mean Corpuscular Hemoglobin 28.6 L Mean Corpuscular Hemoglobin Concent 31.0 L Red Cell Distribution Width 13.0 Platelet Count 247 Mean Platelet Volume 9.6 Immature Granulocytes % 1.000 H Neutrophils % 94.9 H Lymphocytes % 2.5 L Monocytes % 1.5 Eosinophils % 0.0 Basophils % 0.1 Nucleated Red Blood Cells % 0.0 Immature Granulocytes # 0.220 H Neutrophils # 21.9 H Lymphocytes # 0.6 L Monocytes # 0.3 Eosinophils # 0.0 Basophils # 0.0 Nucleated Red Blood Cells # 0.0 Sodium Level 134 L Potassium Level 3.7 Chloride Level 81 L Carbon Dioxide Level 43 *H Anion Gap 10 Blood Urea Nitrogen 17 Creatinine 0.72 Est Glomerular Filtrat Rate mL/min Glucose Level 143 Calcium Level 8.2 L Total Bilirubin 0.4 Direct Bilirubin 0.00 Indirect Bilirubin 0.4 Aspartate Amino Transf (AST/SGOT) 34 Alanine Aminotransferase (ALT/SGPT) 19 Alkaline Phosphatase 76 Total Protein 7.3 Albumin 3.3 Globulin 4.00 H Albumin/Globulin Ratio 0.82 Medications Medication Current Medications IV Flush (NS 3 ml) 3 ml PER PROTOCOL IV ; Start 08/12/18 at 21:30 Ondansetron HCl (Zofran Inj) 4 mg Q6H PRN IV NAUSEA/VOMITING Last administered on 08/13/18at 13:32; Admin Dose 4 MG; Start 08/12/18 at 21:30 Acetaminophen (Tylenol Tab) 650 mg Q6H PRN PO .PAIN 1-3 OR TEMP; Start 08/12/18 at 21:30 Docusate Sodium (Colace) 100 mg Q12H PRN PO .CONSTIPATION; Start 08/12/18 at 21:30 Bisacodyl (Dulcolax) 5 mg DAILY PRN PO .CONSTIPATION Last administered on 08/15/18at 12:58; Admin Dose 5 MG; Start 08/12/18 at 21:30 Enoxaparin Sodium (Lovenox) 40 mg DAILY SC Last administered on 08/15/18at 08:40; Admin Dose 40 MG; Start 08/12/18 at 21:30 Aspirin (Aspirin) 81 mg DAILY PO Last administered on 08/15/18at 08:28; Admin Dose 81 MG; Start 08/13/18 at 09:00 Docusate Sodium (Colace) 250 mg BID PO Last administered on 08/15/18 08:27; Admin Dose 250 MG; Start 08/13/18 at 09:00 Tamsulosin HCl (Flomax) 0.4 mg HS PO Last administered on 08/14/18 21:29; Admin Dose 0.4 MG; Start 08/13/18 at 21:00 Triamterene/HCTZ (Maxzide (75/50)) 1 tab DAILY PO Last administered on 08/14/18 09:32; Admin Dose 1 TAB; Start 08/13/18 at 09:00; Status Hold Diltiazem HCl (Cardizem Cd) 240 mg daily PO Last administered on 08/15/18 08:27; Admin Dose 240 MG; Start 08/13/18 at 09:00 Albuterol/ Ipratropium (Duoneb) 3 ml Q6H RESP THERAPY HHN Last administered on 08/15/18 09:07; Admin Dose 3 ML; Start 08/13/18 at 14:00 Nicotine (Nicoderm 14 Mg/ 24hr) 1 patch DAILY PRN TRANSDERM SMOKING URGE; Start 08/13/18 at 10:30 Oxycodone HCl (Roxicodone) 5 mg Q4 PRN PO MODERATE PAIN LEVEL 4-6 Last administered on 08/15/18 11:56; Admin Dose 5 MG; Start 08/13/18 at 16:30 Cefepime HCl 50 ml @ 100 mls/hr Q12 IVPB Last administered on 08/15/18 08:27; Admin Dose 100 MLS/HR; Start 08/14/18 at 09:00 Methylprednisolone Sodium Succinate (Solu-Medrol) 40 mg Q8 IV Last administered on 08/15/18 13:00; Admin Dose 40 MG; Start 08/14/18 at 14:00 Budesonide (Pulmicort (Neb)) 0.5 mg BID RESP THERAPY HHN Last administered on 08/15/18 09:07; Admin Dose 0.5 MG; Start 08/14/18 at 20:00 Pantoprazole (Protonix Tab) 40 mg DAILY@06 PO Last administered on 08/15/18 06:03; Admin Dose 40 MG; Start 08/14/18 at 13:30 Sucralfate (Carafate Susp) 1 gm QID PO Last administered on 6/19/19at 12:58; Admin Dose 1 GM; Start 08/14/18 at 13:00 Losartan Potassium (Cozaar) 50 mg DAILY PO Last administered on 08/15/18at 08:28; Admin Dose 50 MG; Start 08/15/18 at 09:00 Sodium Chloride 1,000 ml @ 50 mls/hr Q20H IV Last administered on 08/15/18at 09:11; Admin Dose 50 MLS/HR; Start 08/15/18 at 09:00; Stop 08/17/18 at 00:59 MITCH MELGAR NP Aug 15, 2018 14:23
[2018-08-15] MEDS: TAMSULOSIN (SR) 0.4 MG CAP PO SCH (20:46)
[2018-08-16] VITALS (17 sets, daily range): BP systolic 112–157; BP diastolic 67–81; PULSE 56–108; RESP 17–22
[2018-08-16] MEDS: ALBUTEROL/IPRATROPIUM (NEB) 3 ML AMP HHN SCH ×4 (02:00→19:26)
[2018-08-16] MEDS: SOD CHLORIDE 0.9% 1,000 ML IV SCH (05:00)
[2018-08-16] MEDS: METHYLPREDNISOLONE 40 MG INJ IV SCH ×3 (06:48→21:15)
[2018-08-16] MEDS: PANTOPRAZOLE (EC) 40 MG TAB PO SCH (06:48)
[2018-08-16] MEDS: oxyCODONE 5 MG TAB PO PRN ×3 (06:53→21:58)
[2018-08-16] MEDS: BUDESONIDE (NEB) 0.5MG/2ML AMP HHN SCH ×2 (08:23→19:26)
[2018-08-16] MEDS: SUCRALFATE (100 MG/ML) 10ML CUP PO SCH ×4 (08:44→21:28)
[2018-08-16] MEDS: ASPIRIN 81 MG TAB PO SCH (08:45)
[2018-08-16] MEDS: DOCUSATE SODIUM 250 MG CAP PO SCH ×2 (08:45→21:15)
[2018-08-16] MEDS: DILTIAZEM (CD) 240 MG CAP PO SCH (08:45)
[2018-08-16] MEDS: LOSARTAN 50 MG TAB PO SCH (08:45)
[2018-08-16] MEDS: CEFEPIME 1GM/50 ML (PMX) 50 ML IVPB SCH ×2 (08:46→21:28)
[2018-08-16] MEDS: ENOXAPARIN 40 MG/0.4 ML SYG SC SCH (08:53)
[2018-08-16] MEDS ORDERED: POTASSIUM CHLORIDE (SR) 20 MEQ TAB PO STA (09:02)
[2018-08-16] MEDS ORDERED: ACETAZOLAMIDE 500 MG INJ IV ONE (10:00)
--- NOTE | 2018-08-16 11:15 | PN ---
DATE: 08/16/2018 SUBJECTIVE: The patient remains stable on 3 liters nasal cannula. No other acute events noted. No hemoptysis, hematemesis, hematochezia. OBJECTIVE: VITAL SIGNS: Blood pressure is 112/75, respiration 22, pulse 56, temperature 98.0. HEENT: Head is normocephalic. NECK: Supple. HEART: Regular rate. LUNGS: Show diminished breath sounds at the base. ABDOMEN: Soft, nontender to palpation without rebound or guarding. EXTREMITIES: Negative for clubbing, cyanosis, no edema. DERMATOLOGIC: No rashes. MUSCULOSKELETAL: No joint effusions. NEUROLOGIC: No change in exam. MEDICATIONS: The patient's medications have been reviewed. LABORATORY DATA: Has been reviewed. IMAGING STUDIES: Have been reviewed. ASSESSMENT AND PLAN: 1. Hyponatremia. Etiology is multifactorial. Sodium levels have improved. Continue to limit free water intake. Monitor closely. 2. Mixed acid base disorder. Patient has metabolic alkalosis, respiratory acidosis. The patient wa s given Diamox. No significant change. Continue another course of Diamox. Monitor bicarbonate leve ls and electrolyte levels closely. 3. Hypokalemia. Will replete with potassium chloride. 4. Anemia. Monitor hemoglobin and hematocrit levels. 5. Acute on chronic COPD exacerbation. Continue medical management, continue nebulizer, steroids. 6. Possible pneumonia. Continue current antibiotic regimen. 7. Hypertension. Blood pressure is well controlled. Continue to monitor. 8. History of bladder cancer status post chemotherapy. 9. History of gout. Dictated By: CLARICE ZAFAR/NTS Conf#: [id number] DID#: [id number] CC: ANNIKA KAYE MD; SUDEEP LARIOS MD; LINDA REYNOLDS MD;*EndCC*
--- NOTE | 2018-08-16 11:26 | CONS ---
Consultation Date/Type/Reason Admit Date/Time Aug 12, 2018 at 21:20 Date of Consultation: Aug 16, 2018 Type of Consult Pulmonary Patient is a 73-year-old gentleman who came into the hospital on the of this month with a few days history of increasing shortness of breath and chest congestion. Patient also has been wheezing. Patient however denies any chest pain, hemoptysis, any significant sputum production. Also denies any fever or chills. Patient is feeling somewhat better since admission. Past medical history; next 1. Severe COPD which is O2 dependent. 2. Possibly chronic hypercapnic respiratory failure as well. 3. Cachexia. 4. History of hypertension, BPH. 5. History of pulmonary hypertension. Possibly secondary to COPD. Medications; reviewed. Allergies; as outlined above. Social history; patient smokes about half to 1 pack a day. Family history; he is . He has 4 children. Occupational history; patient is a and also has had miscellaneous occupations. Review of systems; denies any headache, seizures, sinus symptoms. Denies any dysphasia. Has fair appetite. Denies any chest pain, denies any fever, chills, any body aches or myalgias. Denies any abdominal pain, nausea, vomiting, melena or hematochezia. Complains of chronic frequency and urgency of urination. General exam; elderly male, appears quite emaciated. Awake and alert. Currently in no distress. Date/Time of Note DATE: 08/16/18 TIME: 11:20 Past Medical History Home Meds Active Scripts Aspirin (Aspirin) 81 Mg Chew, 81 MG PO DAILY for 30 Days, #30 TAB Prov:FLORENCE MENDOZA MD 11/16/16 Reported Medications Budesonide-Formoterol Fumarate* (Symbicort*) 6 Gm Hfa.aer.ad, 6 GM IH BID 05/07/12 Albuterol/Ipratropium (Combivent) 14.7 Gm Inha, 14.7 GM IH DAILY 05/07/12 Colchicine (Colchicine) 0.6 Mg Tablet, 0.6 MG PO BID 05/07/12 Diclofenac Sodium* (Diclofenac Sodium*) 50 Mg Tablet.dr, 50 MG PO TID 05/07/12 Sildenafil Citrate* (Viagra*) 100 Mg Tablet, 100 MG PO PRN 05/07/12 Docusate Sodium (Stool Softener) 250 Mg Capsule, 250 MG PO BID 05/07/12 Losartan Potassium* (Cozaar*) 25 Mg Tablet, 25 MG PO DAILY 05/07/12 Tamsulosin Hcl* (Flomax*) 0.4 Mg Cap.sr.24h, 0.4 MG PO HS 05/07/12 Triamterene/Hctz (Maxzide (75-50)*) 1 Tab Tablet, 1 TAB PO DAILY 11/12/11 Diltiazem Hcl (Diltiazem Er) 240 Mg Capsule.cr, 240 MG PO daily 11/12/11 Tiotropium Ryan* (Spiriva*) 18 Mcg Cap.w.dev, 1 PUFF PO DAILY 04/03/11 Medications Current Medications IV Flush (NS 3 ml) 3 ml PER PROTOCOL IV ; Start 08/12/18 at 21:30 Ondansetron HCl (Zofran Inj) 4 mg Q6H PRN IV NAUSEA/VOMITING Last administered on 08/13/18at 13:32; Admin Dose 4 MG; Start 08/12/18 at 21:30 Acetaminophen (Tylenol Tab) 650 mg Q6H PRN PO .PAIN 1-3 OR TEMP; Start 08/12/18 at 21:30 Docusate Sodium (Colace) 100 mg Q12H PRN PO .CONSTIPATION; Start 08/12/18 at 21:30 Bisacodyl (Dulcolax) 5 mg DAILY PRN PO .CONSTIPATION Last administered on 08/15/18at 12:58; Admin Dose 5 MG; Start 08/12/18 at 21:30 Enoxaparin Sodium (Lovenox) 40 mg DAILY SC Last administered on 08/16/18at 08:53; Admin Dose 40 MG; Start 08/12/18 at 21:30 Aspirin (Aspirin) 81 mg DAILY PO Last administered on 08/16/18 08:45; Admin Dose 81 MG; Start 08/13/18 at 09:00 Docusate Sodium (Colace) 250 mg BID PO Last administered on 08/16/18at 08:45; Admin Dose 250 MG; Start 08/13/18 at 09:00 Tamsulosin HCl (Flomax) 0.4 mg HS PO Last administered on 08/15/18at 20:46; Admin Dose 0.4 MG; Start 08/13/18 at 21:00 Triamterene/HCTZ (Maxzide (75/50)) 1 tab DAILY PO Last administered on 08/14/18 09:32; Admin Dose 1 TAB; Start 08/13/18 at 09:00; Status Hold Diltiazem HCl (Cardizem Cd) 240 mg daily PO Last administered on 08/16/18 08:45; Admin Dose 240 MG; Start 08/13/18 at 09:00 Albuterol/ Ipratropium (Duoneb) 3 ml Q6H RESP THERAPY HHN Last administered on 08/16/18 08:23; Admin Dose 3 ML; Start 08/13/18 at 14:00 Nicotine (Nicoderm 14 Mg/ 24hr) 1 patch DAILY PRN TRANSDERM SMOKING URGE; Start 08/13/18 at 10:30 Oxycodone HCl (Roxicodone) 5 mg Q4 PRN PO MODERATE PAIN LEVEL 4-6 Last administered on 08/16/18 06:53; Admin Dose 5 MG; Start 08/13/18 at 16:30 Cefepime HCl 50 ml @ 100 mls/hr Q12 IVPB Last administered on 08/16/18 08:46; Admin Dose 100 MLS/HR; Start 08/14/18 at 09:00 Methylprednisolone Sodium Succinate (Solu-Medrol) 40 mg Q8 IV Last administered on 08/16/18 06:48; Admin Dose 40 MG; Start 08/14/18 at 14:00 Budesonide (Pulmicort (Neb)) 0.5 mg BID RESP THERAPY HHN Last administered on 08/16/18 08:23; Admin Dose 0.5 MG; Start 08/14/18 at 20:00 Pantoprazole (Protonix Tab) 40 mg DAILY@06 PO Last administered on 08/16/18 06 :48; Admin Dose 40 MG; Start 08/14/18 at 13:30 Sucralfate (Carafate Susp) 1 gm QID PO Last administered on 08/16/18 08:44; Admin Dose 1 GM; Start 08/14/18 at 13:00 Losartan Potassium (Cozaar) 50 mg DAILY PO Last administered on 08/16/18 08:45; Admin Dose 50 MG; Start 08/15/18 at 09:00 Sodium Chloride 1,000 ml @ 50 mls/hr Q20H IV Last administered on 08/15/18at 09:11; Admin Dose 50 MLS/HR; Start 08/15/18 at 09:00; Stop 08/17/18 at 00:59 Allergies: Coded Allergies: amoxicillin (Verified Allergy, Intermediate, 07/04/14) indomethacin (Verified Allergy, Intermediate, N/V, 07/04/14) indomethacin sodium (Verified Allergy, Intermediate, N/V, 07/04/14) oxybutynin (Verified Allergy, Intermediate, 07/05/14) tadalafil (Verified Allergy, Intermediate, N/V, 07/04/14) doxycycline (Verified Allergy, Unknown, 07/04/14) mometasone furoate (Verified Allergy, Unknown, 07/05/14) Social History Alcohol Use: none Smoking Status: Current every day smoker Drug Use: none Exam/Review of Systems Exam Vitals Vital Signs Date Temp Pulse Resp B/P (MAP) Pulse Ox O2 O2 Flow FiO2 Time Delivery Rate 08/16/18 Nasal 3.0 08:44 Cannula 08/16/18 84 20 98 08:33 08/16/18 98.0 112/75 08:07 (87) 08/13/18 30 01:09 Intake and Output 08/15/18 08/15/18 08/16/18 1515:00 23:00 07:00 IntakeIntake Total 50 ml 600 ml 500 ml OutputOutput Total 4300 ml 1300 ml BalanceBalance 50 ml -3700 ml -800 ml Exam Chest x-ray showing severe emphysematous changes. CT chest showing severe emphysema with scattered bullae. I could not appreciate any areas of significant mucus plugging to cause atelectasis. Assessment and recommendations; 1. Patient admitted with COPD exacerbation as well as bronchitis. 2. Chronic hypoxemic and hypercapnic respiratory failure. 3. Patient appears quite emaciated. 4. 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 5. History of BPH. 6. History of hypertension. 7. Anemia. Continue current supportive care. Patient will require home BiPAP. Results Result Diagram: 08/16/18 0538 08/16/18 0538 Results 24hrs Laboratory Tests Test 08/16/18 05:38 White Blood Count 14.1 #H Red Blood Count 3.30 L Hemoglobin 9.4 L Hematocrit 31.4 L Mean Corpuscular Volume 95.2 Mean Corpuscular Hemoglobin 28.5 L Mean Corpuscular Hemoglobin Concent 29.9 L Red Cell Distribution Width 12.6 Platelet Count 267 Mean Platelet Volume 9.9 Immature Granulocytes % 0.600 H Neutrophils % 90.6 H Lymphocytes % 4.8 L Monocytes % 3.7 Eosinophils % 0.1 Basophils % 0.2 Nucleated Red Blood Cells % 0.0 Immature Granulocytes # 0.080 H Neutrophils # 12.8 H Lymphocytes # 0.7 L Monocytes # 0.5 Eosinophils # 0.0 Basophils # 0.0 Nucleated Red Blood Cells # 0.0 Sodium Level 137 Potassium Level 3.2 L Chloride Level 90 L Carbon Dioxide Level 42 *H Anion Gap 5 Blood Urea Nitrogen 20 Creatinine 0.96 Est Glomerular Filtrat Rate mL/min Glucose Level 105 Calcium Level 8.3 L Phosphorus Level 2.8 Magnesium Level 2.3 Total Bilirubin 0.3 Direct Bilirubin 0.00 Indirect Bilirubin 0.3 Aspartate Amino Transf (AST/SGOT) 28 Alanine Aminotransferase (ALT/SGPT) 17 Alkaline Phosphatase 58 Total Protein 7.1 Albumin 3.2 L Globulin 3.90 H Albumin/Globulin Ratio 0.82 Medications Medication Current Medications IV Flush (NS 3 ml) 3 ml PER PROTOCOL IV ; Start 08/12/18 at 21:30 Ondansetron HCl (Zofran Inj) 4 mg Q6H PRN IV NAUSEA/VOMITING Last administered on 08/13/18at 13:32; Admin Dose 4 MG; Start 08/12/18 at 21:30 Acetaminophen (Tylenol Tab) 650 mg Q6H PRN PO .PAIN 1-3 OR TEMP; Start 08/12/18 at 21:30 Docusate Sodium (Colace) 100 mg Q12H PRN PO .CONSTIPATION; Start 08/12/18 at 21:30 Bisacodyl (Dulcolax) 5 mg DAILY PRN PO .CONSTIPATION Last administered on 08/15/18at 12:58; Admin Dose 5 MG; Start 08/12/18 at 21:30 Enoxaparin Sodium (Lovenox) 40 mg DAILY SC Last administered on 08/16/18at 08:53; Admin Dose 40 MG; Start 08/12/18 at 21:30 Aspirin (Aspirin) 81 mg DAILY PO Last administered on 08/16/18at 08:45; Admin Dose 81 MG; Start 08/13/18 at 09:00 Docusate Sodium (Colace) 250 mg BID PO Last administered on 08/16/18 08:45; Admin Dose 250 MG; Start 08/13/18 at 09:00 Tamsulosin HCl (Flomax) 0.4 mg HS PO Last administered on 08/15/18 20:46; Admin Dose 0.4 MG; Start 08/13/18 at 21:00 Triamterene/HCTZ (Maxzide (75/50)) 1 tab DAILY PO Last administered on 08/14/18 09:32; Admin Dose 1 TAB; Start 08/13/18 at 09:00; Status Hold Diltiazem HCl (Cardizem Cd) 240 mg daily PO Last administered on 08/16/18 08:45; Admin Dose 240 MG; Start 08/13/18 at 09:00 Albuterol/ Ipratropium (Duoneb) 3 ml Q6H RESP THERAPY HHN Last administered on 08/16/18 08:23; Admin Dose 3 ML; Start 08/13/18 at 14:00 Nicotine (Nicoderm 14 Mg/ 24hr) 1 patch DAILY PRN TRANSDERM SMOKING URGE; S tart 08/13/18 at 10:30 Oxycodone HCl (Roxicodone) 5 mg Q4 PRN PO MODERATE PAIN LEVEL 4-6 Last admini stered on 08/16/18 06:53; Admin Dose 5 MG; Start 08/13/18 at 16:30 Cefepime HCl 50 ml @ 100 mls/hr Q12 IVPB Last administered on 08/16/18 08:46; Admin Dose 100 MLS/HR; Start 08/14/18 at 09:00 Methylprednisolone Sodium Succinate (Solu-Medrol) 40 mg Q8 IV Last administered on 08/16/18 06:48; Admin Dose 40 MG; Start 08/14/18 at 14:00 Budesonide (Pulmicort (Neb)) 0.5 mg BID RESP THERAPY HHN Last administered on 08/16/18 08:23; Admin Dose 0.5 MG; Start 08/14/18 at 20:00 Pantoprazole (Protonix Tab) 40 mg DAILY@06 PO Last administered on 08/16/18 06:48; Admin Dose 40 MG; Start 08/14/18 at 13:30 Sucralfate (Carafate Susp) 1 gm QID PO Last administered on 08/16/18at 08:44; Admin Dose 1 GM; Start 08/14/18 at 13:00 Losartan Potassium (Cozaar) 50 mg DAILY PO Last administered on 08/16/18at 08:45; Admin Dose 50 MG; Start 08/15/18 at 09:00 Sodium Chloride 1,000 ml @ 50 mls/hr Q20H IV Last administered on 08/15/18at 09:11; Admin Dose 50 MLS/HR; Start 08/15/18 at 09:00; Stop 08/17/18 at 00:59 ANNIKA KAYE Aug 16, 2018 11:26
[2018-08-16] MEDS ORDERED: SOD CHLORIDE 0.9% 1,000 ML IV SCH (12:00)
--- NOTE | 2018-08-16 15:11 | CONS ---
Assessment/Plan Assessment/Plan Hospital Course (Demo Recall) 1300 Alert feels good eating lunch no fevers overnight no vomiting no diarrhea WBC 14.1 platelets 267 neutrophils 90.6 BUN 20 creatinine 0.96 Microbiology: Blood cultures since admission negative Antimicrobials: Cefepime Physical examination: This is a chronically ill appearing fragile cachectic elderly -[place] man who is awake in no distress. Head atraumatic normocephalic. Neck is supple. Chest rise symmetrical breath sounds diminished bases. Heart: S1-S2.Abdomen soft bowel sounds present. Extremities without cyanosis Assessment: 1. Persistent leukocytosis, likely steroid-induced: 2. Questionable pneumonia 3. COPD exacerbation 4. Cachexia 5. History of bladder cancer status post chemotherapy 6. Possible UTI Plan: Patient remains stable, WBC trending down, continue antibiotics, follow urine culture Consultation Date/Type/Reason Admit Date/Time Aug 12, 2018 at 21:20 Initial Consult Date Type of Consult id Date/Time of Note DATE: 08/16/18 TIME: 15:10 Exam/Review of Systems Exam Vitals Vital Signs Date Temp Pulse Resp B/P (MAP) Pulse Ox O2 O2 Flow FiO2 Time Delivery Rate 08/16/18 78 20 99 Nasal 3.0 14:16 Cannula 08/16/18 98.0 152/70 11:31 (97) 08/13/18 30 01:09 Intake and Output 08/15/18 08/15/18 08/16/18 1515:00 23:00 07:00 IntakeIntake Total 50 ml 600 ml 500 ml OutputOutput Total 4300 ml 1300 ml BalanceBalance 50 ml -3700 ml -800 ml Results Result Diagram: 08/16/18 0538 08/16/18 0538 Results 24hrs Laboratory Tests Test 08/16/18 05:38 08/16/18 10:45 08/16/18 12:00 White Blood Count 14.1 #H Red Blood Count 3.30 L Hemoglobin 9.4 L Hematocrit 31.4 L Mean Corpuscular Volume 95.2 Mean Corpuscular Hemoglobin 28.5 L Mean Corpuscular 29.9 L Hemoglobin Concent Red Cell Distribution Width 12.6 Platelet Count 267 Mean Platelet Volume 9.9 Immature Granulocytes % 0.600 H Neutrophils % 90.6 H Lymphocytes % 4.8 L Monocytes % 3.7 Eosinophils % 0.1 Basophils % 0.2 Nucleated Red Blood Cells % 0.0 Immature Granulocytes # 0.080 H Neutrophils # 12.8 H Lymphocytes # 0.7 L Monocytes # 0.5 Eosinophils # 0.0 Basophils # 0.0 Nucleated Red Blood Cells # 0.0 Sodium Level 137 Potassium Level 3.2 L Chloride Level 90 L Carbon Dioxide Level 42 *H Anion Gap 5 Blood Urea Nitrogen 20 Creatinine 0.96 Est Glomerular Filtrat Rate mL/min Glucose Level 105 Calcium Level 8.3 L Phosphorus Level 2.8 Magnesium Level 2.3 Total Bilirubin 0.3 Direct Bilirubin 0.00 Indirect Bilirubin 0.3 Aspartate Amino 28 Transf (AST/SGOT) Alanine 17 Aminotransferase (ALT/SGPT) Alkaline Phosphatase 58 Total Protein 7.1 Albumin 3.2 L Globulin 3.90 H Albumin/Globulin Ratio 0.82 Lactic Acid Level 2.8 *H Blood Gas Specimen Source Blood arterial Arterial Blood Date Drawn 08/16/2018 12:45:56 PM Arterial Blood pH 7.299 *L (Temp corrected) Arterial Blood pCO2 77.5 H (Temp correct) Arterial Blood pO2 92.6 H (Temp corrected) Arterial Blood HCO3 37.2 H Arterial Blood Base Excess 8.5 H Arterial Blood 96.3 Oxygen Saturation Trent Test ACCEPTAB Arterial Blood Gas Right Radial Puncture Site Arterial 0.3 Blood Carboxyhemoglobin Arterial Blood 0.3 Methemoglobin Blood Gas A-a O2 30.2 H Differential Oxyhemoglobin Percent 95.7 Blood Gas Temperature 37.0 Blood Gas Modality NASAL CANNULA FiO2 30.0 Blood Gas Critical Value FLORA MALONE Read Back Blood Gas Notified Whom TM Blood Gas Notified Time 08/16/2018 1:04:22 PM Medications Medication Current Medications IV Flush (NS 3 ml) 3 ml PER PROTOCOL IV ; Start 08/12/18 at 21:30 Ondansetron HCl (Zofran Inj) 4 mg Q6H PRN IV NAUSEA/VOMITING Last administered on 08/13/18at 13:32; Admin Dose 4 MG; Start 08/12/18 at 21:30 Acetaminophen (Tylenol Tab) 650 mg Q6H PRN PO .PAIN 1-3 OR TEMP; Start 08/12/18 at 21:30 Docusate Sodium (Colace) 100 mg Q12H PRN PO .CONSTIPATION; Start 08/12/18 at 21:30 Bisacodyl (Dulcolax) 5 mg DAILY PRN PO .CONSTIPATION Last administered on 08/15/18 12:58; Admin Dose 5 MG; Start 08/12/18 at 21:30 Enoxaparin Sodium (Lovenox) 40 mg DAILY SC Last administered on 08/16/18 08:53; Admin Dose 40 MG; Start 08/12/18 at 21:30 Aspirin (Aspirin) 81 mg DAILY PO Last administered on 08/16/18 08:45; Admin Dose 81 MG; Start 08/13/18 at 09:00 Docusate Sodium (Colace) 250 mg BID PO Last administered on 08/16/18 08:45; Admin Dose 250 MG; Start 08/13/18 at 09:00 Tamsulosin HCl (Flomax) 0.4 mg HS PO Last administered on 08/15/18 20:46; Admin Dose 0.4 MG; Start 08/13/18 at 21:00 Triamterene/HCTZ (Maxzide (75/50)) 1 tab DAILY PO Last administered on 08/14/18 09:32; Admin Dose 1 TAB; Start 08/13/18 at 09:00; Status Hold Diltiazem HCl (Cardizem Cd) 240 mg daily PO Last administered on 08/16/18 08:45; Admin Dose 240 MG; Start 08/13/18 at 09:00 Albuterol/ Ipratropium (Duoneb) 3 ml Q6H RESP THERAPY HHN Last administered on 08/16/18 14:16; Admin Dose 3 ML; Start 08/13/18 at 14:00 Nicotine (Nicoderm 14 Mg/ 24hr) 1 patch DAILY PRN TRANSDERM SMOKING URGE; Start 08/13/18 at 10:30 Oxycodone HCl (Roxicodone) 5 mg Q4 PRN PO MODERATE PAIN LEVEL 4-6 Last administered on 08/16/18 12:44; Admin Dose 5 MG; Start 08/13/18 at 16:30 Cefepime HCl 50 ml @ 100 mls/hr Q12 IVPB Last administered on 08/16/18 08:46; Admin Dose 100 MLS/HR; Start 08/14/18 at 09:00 Methylprednisolone Sodium Succinate (Solu-Medrol) 40 mg Q8 IV Last administered on 08/16/18 14:56; Admin Dose 40 MG; Start 08/14/18 at 14:00 Budesonide (Pulmicort (Neb)) 0.5 mg BID RESP THERAPY HHN Last administered on 08/16/18 08:23; Admin Dose 0.5 MG; Start 08/14/18 at 20:00 Pantoprazole (Protonix Tab) 40 mg DAILY@06 PO Last administered on 08/16/18 06:48; Admin Dose 40 MG; Start 08/14/18 at 13:30 Sucralfate (Carafate Susp) 1 gm QID PO Last administered on 08/16/18 12:40; Admin Dose 1 GM; Start 08/14/18 at 13:00 Losartan Potassium (Cozaar) 50 mg DAILY PO Last administered on 08/16/18 08:45; Admin Dose 50 MG; Start 08/15/18 at 09:00 Sodium Chloride 1,000 ml @ 50 mls/hr Q20H IV Last administered on 08/16/18 12:41; Admin Dose 50 MLS/HR; Start 08/16/18 at 12:00 MITCH MELGAR NP Aug 16, 2018 15:11
--- NOTE | 2018-08-16 15:12 | PN ---
Date/Time of Note Date/Time of Note DATE: 08/16/18 TIME: 15:07 Objective Vitals Vital Signs Date Temp Pulse Resp B/P (MAP) Pulse Ox O2 O2 Flow FiO2 Time Delivery Rate 08/16/18 78 20 99 Nasal 3.0 14:16 Cannula 08/16/18 98.0 152/70 11:31 (97) 08/13/18 30 01:09 Intake and Output 08/15/18 08/15/18 08/16/18 1515:00 23:00 07:00 IntakeIntake Total 50 ml 600 ml 500 ml OutputOutput Total 4300 ml 1300 ml BalanceBalance 50 ml -3700 ml -800 ml Results Result Diagram: 08/16/18 0538 08/16/18 0538 Medications Medications Current Medications IV Flush (NS 3 ml) 3 ml PER PROTOCOL IV ; Start 08/12/18 at 21:30 Ondansetron HCl (Zofran Inj) 4 mg Q6H PRN IV NAUSEA/VOMITING Last administered on 08/13/18at 13:32; Admin Dose 4 MG; Start 08/12/18 at 21:30 Acetaminophen (Tylenol Tab) 650 mg Q6H PRN PO .PAIN 1-3 OR TEMP; Start 08/12/18 at 21:30 Docusate Sodium (Colace) 100 mg Q12H PRN PO .CONSTIPATION; Start 08/12/18 at 21:30 Bisacodyl (Dulcolax) 5 mg DAILY PRN PO .CONSTIPATION Last administered on 08/15at 12:58; Admin Dose 5 MG; Start 08/12/18 at 21:30 Enoxaparin Sodium (Lovenox) 40 mg DAILY SC Last administered on 08/16/18at 08:53; Admin Dose 40 MG; Start 08/12/18 at 21:30 Aspirin (Aspirin) 81 mg DAILY PO Last administered on 08/16/18at 08:45; Admin Dose 81 MG; Start 08/13/18 at 09:00 Docusate Sodium (Colace) 250 mg BID PO Last administered on 08/16/18at 08:45; Admin Dose 250 MG; Start 08/13/18 at 09:00 Tamsulosin HCl (Flomax) 0.4 mg HS PO Last administered on 08/15/18at 20:46; Admin Dose 0.4 MG; Start 08/13/18 at 21:00 Triamterene/HCTZ (Maxzide (75/50)) 1 tab DAILY PO Last administered on 08/14/18 09:32; Admin Dose 1 TAB; Start 08/13/18 at 09:00; Status Hold Diltiazem HCl (Cardizem Cd) 240 mg daily PO Last administered on 08/16/18 08:45; Admin Dose 240 MG; Start 08/13/18 at 09:00 Albuterol/ Ipratropium (Duoneb) 3 ml Q6H RESP THERAPY HHN Last administered on 08/16/18 14:16; Admin Dose 3 ML; Start 08/13/18 at 14:00 Nicotine (Nicoderm 14 Mg/ 24hr) 1 patch DAILY PRN TRANSDERM SMOKING URGE; Start 08/13/18 at 10:30 Oxycodone HCl (Roxicodone) 5 mg Q4 PRN PO MODERATE PAIN LEVEL 4-6 Last administered on 08/16/18 12:44; Admin Dose 5 MG; Start 08/13/18 at 16:30 Cefepime HCl 50 ml @ 100 mls/hr Q12 IVPB Last administered on 08/16/18 08:46; Admin Dose 100 MLS/HR; Start 08/14/18 at 09:00 Methylprednisolone Sodium Succinate (Solu-Medrol) 40 mg Q8 IV Last administered on 08/16/18 14:56; Admin Dose 40 MG; Start 08/14/18 at 14:00 Budesonide (Pulmicort (Neb)) 0.5 mg BID RESP THERAPY HHN Last administered on 08/16/18 08:23; Admin Dose 0.5 MG; Start 08/14/18 at 20:00 Pantoprazole (Protonix Tab) 40 mg DAILY@06 PO Last administered on 08/16/18 06:48; Admin Dose 40 MG; Start 08/14/18 at 13:30 Sucralfate (Carafate Susp) 1 gm QID PO Last administered on 08/16/18 12:40; Admin Dose 1 GM; Start 08/14/18 at 13:00 Losartan Potassium (Cozaar) 50 mg DAILY PO Last administered on 08/16/18 08:45; Admin Dose 50 MG; Start 08/15/18 at 09:00 Sodium Chloride 1,000 ml @ 50 mls/hr Q20H IV Last administered on 08/16/18at 12:41; Admin Dose 50 MLS/HR; Start 08/16/18 at 12:00 VTE Prophylaxis Risk score (from Ns)>0 risk: 4 SCD applied (from Ns): Yes Lines/Catheters IV Catheter Type: Puente in Place: No Assessment/Plan Hospital Course Subjective Patient have some complaints regarding the service in the hospital however respiratory nam does not feel terrible, states he feels the same as yesterday Objective Physical exam General: Patient is laying in bed and answers questions appropriately Mentation: Patient is alert and oriented 4, Head: Normocephalic atraumatic Eyes: EOMI, pupils reactive to light Neck: Supple, nontender, midline Respiratory: Wheezing to auscultation bilaterally Cardiovascular: regular rate, no obvious murmurs Gastrointestinal: non-tender to palpation, bowel sounds heard. Neurological: Moves all extremities spontaneously Skin: No new skin lesions Assessment and plan Acute on chronic hypercapnic and hypoxic respiratory failure -Secondary to COPD exacerbation -Continue nebulizers, add budesonide -Continue steroids, continue with increased dose steroids for now -Patient on 3 L of O2 at home -Due to retention, pulmonary place patient back on BiPAP today, chest x-ray pending, BNP pending, ABG reordered for tomorrow Acute on chronic COPD exacerbation -Nebulizers, add budesonide -BiPAP, titrate off when able -Patient cannot remember the names of inhalers that he takes at home -Taper steroids when able, continue increased dose for now Questionable pneumonia -Change Levaquin to cefepime -Monitor -Infectious disease consulted Sepsis, secondary pneumonia -Changed to Levaquin to cefepime -Infectious disease on board -Lactic acid still mildly elevated, however this is likely a chronic issue with patient's chronic hypoxia per pulmonology - IV fluids -CT chest ordered as lactic acid still elevated and patient not recovering as expected Hyponatremia with contraction alkalosis -Monitor closely, nephrology on board Poor p.o. intake -Patient reports poor appetite, IV hydration was given, encourage oral intake Hypertension -Continue home medications Dyslipidemia -Continue home meds History of bladder cancer status post chemotherapy -Patient chronically straight caths at home, continue Puente catheter while in house -Follow-up with outpatient urology and oncology Gout -Patient takes colchicine as needed, no issues currently Disposition -Continue treatment for COPD exacerbation, with pneumonia versus bronchitis -Although patient not having any respiratory distress or complaints, patient's ABG looks worse than previous, pulmonary place patient back on BiPAP. SUDEEP LARIOS Aug 16, 2018 15:12
[2018-08-16] MEDS: TAMSULOSIN (SR) 0.4 MG CAP PO SCH (21:15)
[2018-08-17] VITALS (21 sets, daily range): BP systolic 130–157; BP diastolic 71–86; PULSE 67–98; RESP 18–22
[2018-08-17] MEDS: ALBUTEROL/IPRATROPIUM (NEB) 3 ML AMP HHN SCH ×4 (01:14→19:51)
[2018-08-17] MEDS: oxyCODONE 5 MG TAB PO PRN ×3 (02:37→23:56)
[2018-08-17] MEDS: PANTOPRAZOLE (EC) 40 MG TAB PO SCH (05:32)
[2018-08-17] MEDS: METHYLPREDNISOLONE 40 MG INJ IV SCH ×3 (05:32→21:02)
[2018-08-17] MEDS: BUDESONIDE (NEB) 0.5MG/2ML AMP HHN SCH ×2 (08:06→19:51)
[2018-08-17] MEDS: ASPIRIN 81 MG TAB PO SCH (08:55)
[2018-08-17] MEDS: DOCUSATE SODIUM 250 MG CAP PO SCH ×2 (08:55→20:07)
[2018-08-17] MEDS: SUCRALFATE (100 MG/ML) 10ML CUP PO SCH ×4 (08:56→20:07)
[2018-08-17] MEDS: LOSARTAN 50 MG TAB PO SCH (08:56)
[2018-08-17] MEDS: DILTIAZEM (CD) 240 MG CAP PO SCH (08:56)
[2018-08-17] MEDS: CEFEPIME 1GM/50 ML (PMX) 50 ML IVPB SCH ×2 (08:56→20:08)
[2018-08-17] MEDS: ENOXAPARIN 40 MG/0.4 ML SYG SC SCH (09:05)
[2018-08-17] MEDS ORDERED: NEUTRA-PHOS 250 MG PACKET PO ONE (09:30)
--- NOTE | 2018-08-17 10:09 | PN ---
DATE: 08/17/2018 SUBJECTIVE: The patient is stable, no events overnight. No fevers, chills, nausea or vomiting. OBJECTIVE: VITAL SIGNS: Blood pressure is 130/71, respirations 22, pulse 90, temperature 97.4. HEENT: Head is normocephalic. NECK: Supple. HEART: Regular rate. LUNGS: Show diminished breath sounds at the base. ABDOMEN: Soft, nontender to palpation. No rebound or guarding. EXTREMITIES: Negative for clubbing, cyanosis, no edema. DERMATOLOGIC: No rashes. MUSCULOSKELETAL: No joint effusion. NEUROLOGIC: No change in exam. MEDICATIONS: Reviewed. LABORATORY DATA: Reviewed. IMAGING STUDIES: Reviewed. ASSESSMENT AND PLAN: 1. Hypernatremia, resolved. 2. Mixed acid base disorder. The patient has metabolic alkalosis, respiratory acidosis. The patien t has been given Diamox. Bicarbonate levels have been improving. Continue to monitor. 3. Hypokalemia. Continue to monitor and replete. 4. Anemia. Monitor hemoglobin and hematocrit levels. 5. Acute on chronic obstructive pulmonary disease exacerbation. Continue medical management, contin ue nebulizer and steroids. 6. Possible pneumonia. Continue current antibiotic regimen. 7. Hypertension. Continue current blood pressure regimen. 8. History of bladder cancer status post chemotherapy. 9. History of gout. Dictated By: CLARICE CHAVIS DO NR/NTS Conf#: [id number] DID#: [id number] CC: SUDEEP LARIOS MD; ANNIKA KAYE MD; LINDA REYNOLDS MD;*EndCC*
--- NOTE | 2018-08-17 10:56 | CONS ---
Assessment/Plan Assessment/Plan Hospital Course (Demo Recall) All noted, pt is very SOB, was on Bipap over night, nad Microbiology: Blood cultures since admission negative Antimicrobials: Cefepime Physical examination: This is a chronically ill appearing fragile cachectic elderly -[place]one[place] man who is awake in no distress. Head atraumatic norm ocephalic. Neck is supple. Chest rise symmetrical breath sounds diminished bases. Heart: S1-S2.Abdomen soft bowel sounds present. Extremities without cyanosis Assessment: 1. Persistent leukocytosis, likely steroid-induced: 2. Questionable pneumonia==> cxr neg 3. COPD exacerbation 4. Cachexia 5. History of bladder cancer status post chemotherapy 6. Possible UTI> + UA Plan: Stable, neg PNA per cxr, will await for urine culture, continue steroids, f/u pulmonary rec-s Consultation Date/Type/Reason Admit Date/Time Aug 12, 2018 at 21:20 Initial Consult Date Type of Consult id Date/Time of Note DATE: 08/17/18 TIME: 10:54 Exam/Review of Systems Exam Vitals Vital Signs Date Temp Pulse Resp B/P (MAP) Pulse Ox O2 O2 Flow FiO2 Time Delivery Rate 08/17/18 89 09:00 08/17/18 3.0 08:06 08/17/18 Nasal 07:52 Cannula 08/17/18 97.4 22 130/71 100 07:22 (90) 08/17/18 30 05:45 Intake and Output 08/16/18 08/16/18 08/17/18 1515:00 23:00 07:00 IntakeIntake Total 240 ml 500 ml 640 ml OutputOutput Total 900 ml 850 ml BalanceBalance 240 ml -400 ml -210 ml Results Result Diagram: 08/17/18 0525 08/17/18 0525 Results 24hrs Laboratory Tests Test 08/16/18 12:00 08/17/18 05:25 08/17/18 07:00 Blood Gas Specimen Blood arterial Blood arterial Source Arterial Blood Date 08/16/2018 12:45:56 08/17/2018 7:14:48 AM Drawn PM Arterial Blood pH 7.299 *L 7.351 (Temp corrected) Arterial Blood pCO2 77.5 H 68.8 H (Temp correct) Arterial Blood pO2 92.6 H 98.9 H (Temp corrected) Arterial Blood HCO3 37.2 H 37.2 H Arterial Blood Base 8.5 H 9.6 H Excess Arterial Blood 96.3 97.4 Oxygen Saturation Trent Test ACCEPTAB N/A Arterial Blood Gas Right Radial Right Brachial Puncture Site Arterial 0.3 0.3 Blood Carboxyhemoglob in Arterial Blood 0.3 0.2 Methemoglobin Blood Gas A-a O2 30.2 H 34.2 H Differential Oxyhemoglobin Percent 95.7 96.9 Blood Gas Temperature 37.0 37.0 Blood Gas Modality NASAL CANNULA MASK - BIPAP FiO2 30.0 30.0 Blood Gas Critical FLORA RN Value Read Back Blood Gas Notified TM TM Whom Blood Gas Notified 08/16/2018 1:04:22 PM 08/17/2018 7:37:35 AM Time White Blood Count 14.6 H Red Blood Count 3.31 L Hemoglobin 9.5 L Hematocrit 31.4 L Mean Corpuscular 94.9 Volume Mean Corpuscular 28.7 L Hemoglobin Mean Corpuscular 30.3 L Hemoglobin Concent Red Cell Distribution 12.5 Width Platelet Count 265 Mean Platelet Volume 9.3 Immature Granulocytes 2.000 H % Neutrophils % 88.7 H Lymphocytes % 4.5 L Monocytes % 4.6 Eosinophils % 0.1 Basophils % 0.1 Nucleated Red Blood 0.0 Cells % Immature Granulocytes 0.290 H # Neutrophils # 13.0 H Lymphocytes # 0.7 L Monocytes # 0.7 Eosinophils # 0.0 Basophils # 0.0 Nucleated Red Blood 0.0 Cells # Sodium Level 139 Potassium Level 3.8 Chloride Level 96 L Carbon Dioxide Level 38 H Anion Gap 5 Blood Urea Nitrogen 23 H Creatinine 0.97 Est Glomerular Filtrat Rate mL/min Glucose Level 152 Calcium Level 8.4 Phosphorus Level 1.6 #L Magnesium Level 2.4 Total Bilirubin 0.3 Direct Bilirubin 0.00 Indirect Bilirubin 0.3 Aspartate Amino 29 Transf (AST/SGOT) Alanine 20 Aminotransferase (ALT /SGPT) Alkaline Phosphatase 64 B-Type Natriuretic 2210 H Peptide Total Protein 7.0 Albumin 3.1 L Globulin 3.90 H Albumin/Globulin 0.79 Ratio Blood Gas Respiration 20.0 Rate Blood Gas Actual 21 Respiration Rate Blood Gas Pressure 7 Support Blood Gas IPAP/EPAP 12/5 Ratio Medications Medication Current Medications IV Flush (NS 3 ml) 3 ml PER PROTOCOL IV ; Start 08/12/18 at 21:30 Ondansetron HCl (Zofran Inj) 4 mg Q6H PRN IV NAUSEA/VOMITING Last administered on 08/13/18 13:32; Admin Dose 4 MG; Start 08/12/18 at 21:30 Acetaminophen (Tylenol Tab) 650 mg Q6H PRN PO .PAIN 1-3 OR TEMP; Start 08/12/18 at 21:30 Docusate Sodium (Colace) 100 mg Q12H PRN PO .CONSTIPATION; Start 08/12/18 at 21:30 Bisacodyl (Dulcolax) 5 mg DAILY PRN PO .CONSTIPATION Last administered on 08/15/18 12:58; Admin Dose 5 MG; Start 08/12/18 at 21:30 Enoxaparin Sodium (Lovenox) 40 mg DAILY SC Last administered on 08/17/18 09:05; Admin Dose 40 MG; Start 08/12/18 at 21:30 Aspirin (Aspirin) 81 mg DAILY PO Last administered on 08/17/18 08:55; Admin Dose 81 MG; Start 08/13/18 at 09:00 Docusate Sodium (Colace) 250 mg BID PO Last administered on 08/17/18 08:55; Admin Dose 250 MG; Start 08/13/18 at 09:00 Tamsulosin HCl (Flomax) 0.4 mg HS PO Last administered on 08/16/18 21:15; Admin Dose 0.4 MG; Start 08/13/18 at 21:00 Triamterene/HCTZ (Maxzide (75/50)) 1 tab DAILY PO Last administered on 08/14/18 09:32; Admin Dose 1 TAB; Start 08/13/18 at 09:00; Status Hold Diltiazem HCl (Cardizem Cd) 240 mg daily PO Last administered on 08/17/18 08:56; Admin Dose 240 MG; Start 08/13/18 at 09:00 Albuterol/ Ipratropium (Duoneb) 3 ml Q6H RESP THERAPY HHN Last administered on 08/17/18at 01:14; Admin Dose 3 ML; Start 08/13/18 at 14:00 Nicotine (Nicoderm 14 Mg/ 24hr) 1 patch DAILY PRN TRANSDERM SMOKING URGE; Start 08/13/18 at 10:30 Oxycodone HCl (Roxicodone) 5 mg Q4 PRN PO MODERATE PAIN LEVEL 4-6 Last administered on 08/17/18 02:37; Admin Dose 5 MG; Start 08/13/18 at 16:30 Cefepime HCl 50 ml @ 100 mls/hr Q12 IVPB Last administered on 08/17/18 08:56; Admin Dose 100 MLS/HR; Start 08/14/18 at 09:00 Methylprednisolone Sodium Succinate (Solu-Medrol) 40 mg Q8 IV Last administered on 08/17/18 05:32; Admin Dose 40 MG; Start 08/14/18 at 14:00 Budesonide (Pulmicort (Neb)) 0.5 mg BID RESP THERAPY HHN Last administered on 08/16/18 19:26; Admin Dose 0.5 MG; Start 08/14/18 at 20:00 Pantoprazole (Protonix Tab) 40 mg DAILY@06 PO Last administered on 08/17/18 05:32; Admin Dose 40 MG; Start 08/14/18 at 13:30 Sucralfate (Carafate Susp) 1 gm QID PO Last administered on 08/17/18 08:56; Admin Dose 1 GM; Start 08/14/18 at 13:00 Losartan Potassium (Cozaar) 50 mg DAILY PO Last administered on 08/17/18 08:5 6; Admin Dose 50 MG; Start 08/15/18 at 09:00 MITCH MELGAR NP Aug 17, 2018 10:56
--- NOTE | 2018-08-17 11:03 | CONS ---
Consultation Date/Type/Reason Admit Date/Time Aug 12, 2018 at 21:20 Initial Consult Date 08/16/18 Type of Consult Pulmonary Patient is a 73-year-old gentleman who came into the hospital on the of this month with a few days history of increasing shortness of breath and chest congestion. Patient also has been wheezing. Patient however denies any chest pain, hemoptysis, any significant sputum production. Also denies any fever or chills. Patient is feeling somewhat better since admission. Past medical history; next 1. Severe COPD which is O2 dependent. 2. Possibly chronic hypercapnic respiratory failure as well. 3. Cachexia. 4. History of hypertension, BPH. 5. History of pulmonary hypertension. Possibly secondary to COPD. Medications; reviewed. Allergies; as outlined above. Social history; patient smokes about half to 1 pack a day. Family history; he is . He has 4 children. Occupational history; patient is a and also has had miscellaneous occupations. Review of systems; denies any headache, seizures, sinus symptoms. Denies any dysphasia. Has fair appetite. Denies any chest pain, denies any fever, chills, any body aches or myalgias. Denies any abdominal pain, nausea, vomiting, melena or hematochezia. Complains of chronic frequency and urgency of urination. General exam; elderly male, appears quite emaciated. Awake and alert. Currently in no distress. Date/Time of Note DATE: 08/17/18 TIME: 11:01 24 HR Interval Summary Free Text/Dictation Patient's condition is stable. Still complains of shortness of breath with very mild wheezing. General exam; elderly male, appears quite emaciated. Currently in no distress. H EENT exam; supple neck, no JVD. No lymphadenopathy. Midline trachea. No thyromegaly. Patient is edentulous. No neck masses. Chest exam; diminished breath sounds throughout. With very minimal expiratory wheezing. S1-S2 audible, no murmurs. Regular rhythm. No gallop. There is severe loss of intercostal muscles bilaterally. Abdomen exam; soft, scaphoid. No organomegaly. Bowel sounds are audible. Extremity exam; no peripheral edema or clubbing. RING FACER exam; no focal deficit. Assessment and recommendations; 1. Patient with history of end-stage COPD admitted with exacerbation with acute bronchitis. Currently on appropriate treatment regimen. 2. Likely underlying chronic type II respiratory failure with underlying hypercapnia, patient maintained on BiPAP. 3. Severe bullous emphysema. 4. Cachexia. 5. History of pulmonary hypertension. 6. BPH. 7. History of systemic hypertension. Continue current supportive care. Continue BiPAP. Continue current proper dilator regimen as well as Solu-Medrol. Prognosis is poor. Exam/Review of Systems Exam Vitals Vital Signs Date Temp Pulse Resp B/P (MAP) Pulse Ox O2 O2 Flow FiO2 Time Delivery Rate 08/17/18 89 09:00 08/17/18 3.0 08:06 08/17/18 Nasal 07:52 Cannula 08/17/18 97.4 22 130/71 100 07:22 (90) 08/17/18 30 05:45 Intake and Output 08/16/18 08/16/18 08/17/18 1515:00 23:00 07:00 IntakeIntake Total 240 ml 500 ml 640 ml OutputOutput Total 900 ml 850 ml BalanceBalance 240 ml -400 ml -210 ml Results Result Diagram: 08/17/18 0525 08/17/18 0525 Results 24hrs Laboratory Tests Test 08/16/18 12:00 08/17/18 05:25 08/17/18 07:00 Blood Gas Specimen Blood arterial Blood arterial Source Arterial Blood Date 08/16/2018 12:45:56 08/17/2018 7:14:48 AM Drawn PM Arterial Blood pH 7.299 *L 7.351 (Temp corrected) Arterial Blood pCO2 77.5 H 68.8 H (Temp correct) Arterial Blood pO2 92.6 H 98.9 H (Temp corrected) Arterial Blood HCO3 37.2 H 37.2 H Arterial Blood Base 8.5 H 9.6 H Excess Arterial Blood 96.3 97.4 Oxygen Saturation Trent Test ACCEPTAB N/A Arterial Blood Gas Right Radial Right Brachial Puncture Site Arterial 0.3 0.3 Blood Carboxyhemoglob in Arterial Blood 0.3 0.2 Methemoglobin Blood Gas A-a O2 30.2 H 34.2 H Differential Oxyhemoglobin Percent 95.7 96.9 Blood Gas Temperature 37.0 37.0 Blood Gas Modality NASAL CANNULA MASK - BIPAP FiO2 30.0 30.0 Blood Gas Critical IYEE RN Value Read Back Blood Gas Notified TM TM Whom Blood Gas Notified 08/16/2018 1:04:22 PM 08/17/2018 7:37:35 AM Time White Blood Count 14.6 H Red Blood Count 3.31 L Hemoglobin 9.5 L Hematocrit 31.4 L Mean Corpuscular 94.9 Volume Mean Corpuscular 28.7 L Hemoglobin Mean Corpuscular 30.3 L Hemoglobin Concent Red Cell Distribution 12.5 Width Platelet Count 265 Mean Platelet Volume 9.3 Immature Granulocytes 2.000 H % Neutrophils % 88.7 H Lymphocytes % 4.5 L Monocytes % 4.6 Eosinophils % 0.1 Basophils % 0.1 Nucleated Red Blood 0.0 Cells % Immature Granulocytes 0.290 H # Neutrophils # 13.0 H Lymphocytes # 0.7 L Monocytes # 0.7 Eosinophils # 0.0 Basophils # 0.0 Nucleated Red Blood 0.0 Cells # Sodium Level 139 Potassium Level 3.8 Chloride Level 96 L Carbon Dioxide Level 38 H Anion Gap 5 Blood Urea Nitrogen 23 H Creatinine 0.97 Est Glomerular Filtrat Rate mL/min Glucose Level 152 Calcium Level 8.4 Phosphorus Level 1.6 #L Magnesium Level 2.4 Total Bilirubin 0.3 Direct Bilirubin 0.00 Indirect Bilirubin 0.3 Aspartate Amino 29 Transf (AST/SGOT) Alanine 20 Aminotransferase (ALT /SGPT) Alkaline Phosphatase 64 B-Type Natriuretic 2210 H Peptide Total Protein 7.0 Albumin 3.1 L Globulin 3.90 H Albumin/Globulin 0.79 Ratio Blood Gas Respiration 20.0 Rate Blood Gas Actual 21 Respiration Rate Blood Gas Pressure 7 Support Blood Gas IPAP/EPAP 12/5 Ratio Medications Medication Current Medications IV Flush (NS 3 ml) 3 ml PER PROTOCOL IV ; Start 08/12/18 at 21:30 Ondansetron HCl (Zofran Inj) 4 mg Q6H PRN IV NAUSEA/VOMITING Last administered on 08/13/18at 13:32; Admin Dose 4 MG; Start 08/12/18 at 21:30 Acetaminophen (Tylenol Tab) 650 mg Q6H PRN PO .PAIN 1-3 OR TEMP; Start 08/12/18 at 21:30 Docusate Sodium (Colace) 100 mg Q12H PRN PO .CONSTIPATION; Start 08/12/18 at 21:30 Bisacodyl (Dulcolax) 5 mg DAILY PRN PO .CONSTIPATION Last administered on 6/19/19at 12:58; Admin Dose 5 MG; Start 08/12/18 at 21:30 Enoxaparin Sodium (Lovenox) 40 mg DAILY SC Last administered on 08/17/18 09:05; Admin Dose 40 MG; Start 08/12/18 at 21:30 Aspirin (Aspirin) 81 mg DAILY PO Last administered on 08/17/18 08:55; Admin Dose 81 MG; Start 08/13/18 at 09:00 Docusate Sodium (Colace) 250 mg BID PO Last administered on 08/17/18 08:55; Admin Dose 250 MG; Start 08/13/18 at 09:00 Tamsulosin HCl (Flomax) 0.4 mg HS PO Last administered on 08/16/18 21:15; Admin Dose 0.4 MG; Start 08/13/18 at 21:00 Triamterene/HCTZ (Maxzide (75/50)) 1 tab DAILY PO Last administered on 09:32; Admin Dose 1 TAB; Start 08/13/18 at 09:00; Status Hold Diltiazem HCl (Cardizem Cd) 240 mg daily PO Last administered on 08/17/18 08:56; Admin Dose 240 MG; Start 08/13/18 at 09:00 Albuterol/ Ipratropium (Duoneb) 3 ml Q6H RESP THERAPY HHN Last administered on 08/17/18 01:14; Admin Dose 3 ML; Start 08/13/18 at 14:00 Nicotine (Nicoderm 14 Mg/ 24hr) 1 patch DAILY PRN TRANSDERM SMOKING URGE; Start 08/13/18 at 10:30 Oxycodone HCl (Roxicodone) 5 mg Q4 PRN PO MODERATE PAIN LEVEL 4-6 Last administered on 08/17/18 02:37; Admin Dose 5 MG; Start 08/13/18 at 16:30 Cefepime HCl 50 ml @ 100 mls/hr Q12 IVPB Last administered on 08/17/18 08:56; Admin Dose 100 MLS/HR; Start 08/14/18 at 09:00 Methylprednisolone Sodium Succinate (Solu-Medrol) 40 mg Q8 IV Last administered on 08/17/18 05:32; Admin Dose 40 MG; Start 08/14/18 at 14:00 Budesonide (Pulmicort (Neb)) 0.5 mg BID RESP THERAPY HHN Last administered on 08/16/18 19:26; Admin Dose 0.5 MG; Start 08/14/18 at 20:00 Pantoprazole (Protonix Tab) 40 mg DAILY@06 PO Last administered on 08/17/18 05:32; Admin Dose 40 MG; Start 08/14/18 at 13:30 Sucralfate (Carafate Susp) 1 gm QID PO Last administered on 08/17/18 08:56; Admin Dose 1 GM; Start 08/14/18 at 13:00 Losartan Potassium (Cozaar) 50 mg DAILY PO Last administered on 08/17/18 08:56; Admin Dose 50 MG; Start 08/15/18 at 09:00 ANNIKA KAYE Aug 17, 2018 11:03
--- NOTE | 2018-08-17 16:05 | PN ---
Date/Time of Note Date/Time of Note DATE: 08/17/18 TIME: 16:01 Objective Vitals Vital Signs Date Temp Pulse Resp B/P (MAP) Pulse Ox O2 O2 Flow FiO2 Time Delivery Rate 08/17/18 97.9 79 21 143/80 100 BIPAP 14:54 (101) 08/17/18 30 13:45 08/17/18 3.0 09:50 Intake and Output 08/16/18 08/16/18 08/17/18 1515:00 23:00 07:00 IntakeIntake Total 240 ml 500 ml 640 ml OutputOutput Total 900 ml 850 ml BalanceBalance 240 ml -400 ml -210 ml Results Result Diagram: 08/17/1852408/17/18 05 Medications Medications Current Medications IV Flush (NS 3 ml) 3 ml PER PROTOCOL IV ; Start 08/12/18 at 21:30 Ondansetron HCl (Zofran Inj) 4 mg Q6H PRN IV NAUSEA/VOMITING Last administered on 08/13/18at 13:32; Admin Dose 4 MG; Start 08/12/18 at 21:30 Acetaminophen (Tylenol Tab) 650 mg Q6H PRN PO .PAIN 1-3 OR TEMP; Start 08/12/18 at 21:30 Docusate Sodium (Colace) 100 mg Q12H PRN PO .CONSTIPATION; Start 08/12/18 at 21:30 Bisacodyl (Dulcolax) 5 mg DAILY PRN PO .CONSTIPATION Last administered on 08/15/18at 12:58; Admin Dose 5 MG; Start 08/12/18 at 21:30 Enoxaparin Sodium (Lovenox) 40 mg DAILY SC Last administered on 08/17/18at 09:05; Admin Dose 40 MG; Start 08/12/18 at 21:30 Aspirin (Aspirin) 81 mg DAILY PO Last administered on 08/17/18at 08:55; Admin Dose 81 MG; Start 08/13/18 at 09:00 Docusate Sodium (Colace) 250 mg BID PO Last administered on 08/17/18at 08:55; Admin Dose 250 MG; Start 08/13/18 at 09:00 Tamsulosin HCl (Flomax) 0.4 mg HS PO Last administered on 08/16/18at 21:15; Admin Dose 0.4 MG; Start 08/13/18 at 21:00 Triamterene/HCTZ (Maxzide (75/50)) 1 tab DAILY PO Last administered on 07/28 09:32; Admin Dose 1 TAB; Start 08/13/18 at 09:00; Status Hold Diltiazem HCl (Cardizem Cd) 240 mg daily PO Last administered on 08/17/18 08:56; Admin Dose 240 MG; Start 08/13/18 at 09:00 Albuterol/ Ipratropium (Duoneb) 3 ml Q6H RESP THERAPY HHN Last administered on 08/17/18 13:44; Admin Dose 3 ML; Start 08/13/18 at 14:00 Nicotine (Nicoderm 14 Mg/ 24hr) 1 patch DAILY PRN TRANSDERM SMOKING URGE; Start 08/13/18 at 10:30 Oxycodone HCl (Roxicodone) 5 mg Q4 PRN PO MODERATE PAIN LEVEL 4-6 Last administered on 08/17/18 02:37; Admin Dose 5 MG; Start 08/13/18 at 16:30 Cefepime HCl 50 ml @ 100 mls/hr Q12 IVPB Last administered on 08/17/18 08:56; Admin Dose 100 MLS/HR; Start 08/14/18 at 09:00 Methylprednisolone Sodium Succinate (Solu-Medrol) 40 mg Q8 IV Last administered on 08/17/18 13:26; Admin Dose 40 MG; Start 08/14/18 at 14:00 Budesonide (Pulmicort (Neb)) 0.5 mg BID RESP THERAPY HHN Last administered on 08/16/18 19:26; Admin Dose 0.5 MG; Start 08/14/18 at 20:00 Pantoprazole (Protonix Tab) 40 mg DAILY@06 PO Last administered on 08/17/18 05:32; Admin Dose 40 MG; Start 08/14/18 at 13:30 Sucralfate (Carafate Susp) 1 gm QID PO Last administered on 08/17/18 13:26; Admin Dose 1 GM; Start 08/14/18 at 13:00 Losartan Potassium (Cozaar) 50 mg DAILY PO Last administered on 08/17/18 08:56; Admin Dose 50 MG; Start 08/15/18 at 09:00 VTE Prophylaxis Risk score (from Nsg)>0 risk: 4 SCD applied (from Ns): Yes Lines/Catheters IV Catheter Type: Puente in Place: No Assessment/Plan Hospital Course Subjective Patient have some complaints regarding the service in the hospital however respiratory nam does not feel terrible, states he feels better than yesterday Objective Physical exam General: Patient is laying in bed and answers questions appropriately Mentation: Patient is alert and oriented 4, Head: Normocephalic atraumatic Eyes: EOMI, pupils reactive to light Neck: Supple, nontender, midline Respiratory: Wheezing to auscultation bilaterally Cardiovascular: regular rate, no obvious murmurs Gastrointestinal: non-tender to palpation, bowel sounds heard. Neurological: Moves all extremities spontaneously Skin: No new skin lesions Assessment and plan Acute on chronic hypercapnic and hypoxic respiratory failure -Secondary to COPD exacerbation -Continue nebulizers, add budesonide -Continue steroids, continue with increased dose steroids for now -Patient on 3 L of O2 at home -Due to retention, pulmonary place patient back on BiPAP, will monitor, possible removal tomorrow Acute on chronic COPD exacerbation -Nebulizers, add budesonide -BiPAP, titrate off when able -Patient cannot remember the names of inhalers that he takes at home -Taper steroids when able, continue increased dose for now Questionable pneumonia -Change Levaquin to cefepime -Monitor -Infectious disease consulted Sepsis, secondary pneumonia -Changed to Levaquin to cefepime -Infectious disease on board -Lactic acid still mildly elevated, however this is likely a chronic issue with patient's chronic hypoxia per pulmonology - IV fluids -CT chest noted Hyponatremia with contraction alkalosis -Monitor closely, nephrology on board Poor p.o. intake -Patient reports poor appetite, IV hydration was given, encourage oral intake Hypertension -Continue home medications Dyslipidemia -Continue home meds History of bladder cancer status post chemotherapy -Patient chronically straight caths at home, continue Puente catheter while in house -Follow-up with outpatient urology and oncology Gout -Patient takes colchicine as needed, no issues currently Disposition -Continue treatment for COPD exacerbation, with pneumonia versus bronchitis -Although patient not having any respiratory distress or complaints, continue BiPAP for now. SUDEEP LARIOS Aug 17, 2018 16:05
--- NOTE | 2018-08-17 16:35 | RADRPT ---
Echocardiogram Report Patient Name: MARCOS AUSTINPatient ID: [id number] : 1945 (73y )Study Date: 08/17/2018 9:49:26 AM Gender: MAccession #: [id number] Tech: RomainAman [facility] Location: [place] Ref.Physician: SUDEEP LARIOS Height(Cm): BSA: Weight(Kg): Quality: Technically Difficult StudyOrder Physician: SUDEEP LARIOS Account #: Procedures: Echocardiographic Report: Transthoracic echocardiogram with complete 2D, M-Mode, and doppler examination. Indications: Congestive Heart Failure. Measurements: 2D/M Mode Doppler Measurement Value Normal Range Measurement Value Normal Range LVIDd 2D 4.2 [ 4.2 - 5.8 ] cm AV Peak Eric 1.2 [ 100.0 - 170.0 ] cm/sec LVIDs 2D 2.6 [ 2.5 - 4.0 ] cm AV Peak PG 5.0 [ 2.0 - 9.0 ] mmHg LVPWd 2D 1.0 [ 0.6 - 1.0 ] cm LVOT Peak Eric 0.9 [ 70.0 - 110.0 ] cm/sec IVSd 2D 1.1 [ 0.6 - 1.0 ] cm LVOT Peak PG 3.0 [ 2.0 - 6.0 ] mmHg AoR Diam 2D 2.7 [ 2.6 - 3.4 ] cm MV E Peak Eric 0.6 [ 60.0 - 130.0 ] cm/sec EDV 2D 79.0 [ 62.0 - 150.0 ] ml MV A Peak Eric 1.1 [ 100.0 - 120.0 ] cm/sec ESV 2D 24.6 [ 21.0 - 61.0 ] ml MV E/A 0.6 [ 0.8 - 1.5 ] ratio EF 2D 68.9 [ 52.0 - 72.0 ] percent MV Decel Time 197 [ 104 - 258 ] msec LA Dimen 2D 3.5 [ 3.0 - 4.0 ] cm Lat E` Eric 0.1 [ 10.0 - 15.0 ] cm/sec Lateral E/E` 9.5 [ 1.0 - 2.0 ] ratio Med E` Eric 0.1 cm/sec MV E/A 0.6 [ 0.8 - 1.5 ] ratio TR Peak Eric 3.2 [ 100.0 - 280.0 ] cm/sec TR Peak PG 41.0 mmHg RVSP 44.0 [ 10.0 - 36.0 ] mmHg Findings: Left Ventricle: Normal left ventricular systolic function. Normal left ventricular cavity size. Mild asymmetric septal hypertrophy. Ejection fraction is visually estimated at 60 %. Tissue Doppler/Mitral Doppler indices are consistent with impaired relaxation (Stage I diastolic dysfunction). Right Ventricle: Normal right ventricular size. Normal right ventricular systolic function. Left Atrium: The left atrium is normal in size. Right Atrium: The right atrium is normal in size. Mitral Valve: Mild mitral leaflet calcification. Mild mitral annular calcification. Trace mitral regurgitation. Aortic Valve: No significant aortic stenosis or insufficiency. Aortic cusps appear mildly calcified. Tricuspid Valve: Normal appearance of the tricuspid valve. The estimated Peak RVSP is 44 mmHg. There is mild tricuspid regurgitation. Pericardium: Normal pericardium with no significant pericardial effusion. Aorta: Normal aortic root. IVC: Normal size and normal respiratory collapse consistent with normal right atrial pressure. Conclusions: Normal left ventricular systolic function. Normal left ventricular cavity size. Mild asymmetric septal hypertrophy. Ejection fraction is visually estimated at 60 %. Tissue Doppler/Mitral Doppler indices are consistent with impaired relaxation (Stage I diastolic dysfunction). Mild mitral leaflet calcification. Mild mitral annular calcification. Trace mitral regurgitation. No significant aortic stenosis or insufficiency. Aortic cusps appear mildly calcified. Electronically Signed By: Yovani Bocanegra 2018-08-17 16:34:44 PDT
[2018-08-17] MEDS: TAMSULOSIN (SR) 0.4 MG CAP PO SCH (20:07)
[2018-08-18] VITALS (14 sets, daily range): BP systolic 130–166; BP diastolic 69–93; PULSE 79–105; RESP 17–23
[2018-08-18] MEDS: ALBUTEROL/IPRATROPIUM (NEB) 3 ML AMP HHN SCH ×4 (01:24→19:18)
[2018-08-18] MEDS: METHYLPREDNISOLONE 40 MG INJ IV SCH ×3 (05:39→21:50)
[2018-08-18] MEDS: oxyCODONE 5 MG TAB PO PRN ×3 (05:39→20:04)
[2018-08-18] MEDS: PANTOPRAZOLE (EC) 40 MG TAB PO SCH (05:39)
[2018-08-18] MEDS: DILTIAZEM (CD) 240 MG CAP PO SCH (09:27)
[2018-08-18] MEDS: SUCRALFATE (100 MG/ML) 10ML CUP PO SCH ×4 (09:27→20:04)
[2018-08-18] MEDS: DOCUSATE SODIUM 250 MG CAP PO SCH ×2 (09:27→20:03)
[2018-08-18] MEDS: ASPIRIN 81 MG TAB PO SCH (09:27)
[2018-08-18] MEDS: LOSARTAN 50 MG TAB PO SCH (09:28)
--- NOTE | 2018-08-18 09:38 | CONS ---
Consult Date/Type/Reason Admit Date/Time Aug 12, 2018 at 21:20 Initial Consult Date 08/16/18 Date/Time of Note DATE: 08/18/18 TIME: 09:34 Subjective The patient is stable. still having SOB upon exertion, pt was on bibap all night, ABG ordered this am, vital signs stable. certainly comfortable at rest with 3L of oxygen via NC OBJECTIVE: HEENT: Head is normocephalic. NECK: Supple. HEART: Regular rate. LUNGS: Show diminished breath sounds at the base. ABDOMEN: Soft, nontender to palpation without rebound or guarding. EXTREMITIES: Negative for clubbing, cyanosis, no edema. DERMATOLOGIC: No rashes. MUSCULOSKELETAL: No joint effusion. NEUROLOGIC: No change in exam. Objective Vitals Vital Signs Date Temp Pulse Resp B/P (MAP) Pulse Ox O2 O2 Flow FiO2 Time Delivery Rate 08/18/18 92 08:00 08/18/18 98.2 17 166/93 100 07:49 (117) 08/18/18 Nasal 3.0 07:49 Cannula 08/18/18 30 03:22 Intake and Output 08/17/18 08/17/18 08/18/18 1515:00 23:00 07:00 IntakeIntake Total 360 ml 590 ml 500 ml OutputOutput Total 700 ml 700 ml BalanceBalance -340 ml 590 ml -200 ml Results/Medications Result Diagram: 08/18/18 0503 08/18/18 0503 Results 24 hrs Laboratory Tests Test 08/18/18 05:03 08/18/18 07:00 White Blood Count 14.6 H Red Blood Count 3.29 L Hemoglobin 9.5 L Hematocrit 30.6 L Mean Corpuscular Volume 93.0 Mean Corpuscular Hemoglobin 28.9 L Mean Corpuscular Hemoglobin Concent 31.0 L Red Cell Distribution Width 12.7 Platelet Count 275 Mean Platelet Volume 9.2 Immature Granulocytes % 2.300 H Neutrophils % 88.3 H Lymphocytes % 5.6 L Monocytes % 3.7 Eosinophils % 0.0 Basophils % 0.1 Nucleated Red Blood Cells % 0.0 Immature Granulocytes # 0.330 H Neutrophils # 12.9 H Lymphocytes # 0.8 Monocytes # 0.5 Eosinophils # 0.0 Basophils # 0.0 Nucleated Red Blood Cells # 0.0 Sodium Level 139 Potassium Level 3.7 Chloride Level 92 L Carbon Dioxide Level 40 H Anion Gap 7 Blood Urea Nitrogen 25 H Creatinine 0.94 Est Glomerular Filtrat Rate mL/min Glucose Level 143 Calcium Level 8.6 Phosphorus Level 2.3 L Magnesium Level 2.4 Blood Gas Specimen Source Blood arterial Arterial Blood Date Drawn 08/18/2018 8:00:47 AM Arterial Blood pH (Temp corrected) 7.424 Arterial Blood pCO2 (Temp correct) 63.8 H Arterial Blood pO2 (Temp corrected) 117.4 H Arterial Blood HCO3 40.8 *H Arterial Blood Base Excess 14.1 H Arterial Blood Oxygen Saturation 98.2 Trent Test N/A Arterial Blood Gas Puncture Site Right Brachial Arterial Blood Carboxyhemoglobin 0.2 Arterial Blood Methemoglobin 0.1 Blood Gas A-a O2 Differential 21.5 Oxyhemoglobin Percent 97.9 Blood Gas Temperature 37.0 Blood Gas Modality NASAL CANNULA FiO2 30.0 Blood Gas Critical Value Read Back BRENT MALONE Blood Gas Notified Whom CW Blood Gas Notified Time 08/18/2018 8:24:51 AM Home Meds Active Scripts Aspirin (Aspirin) 81 Mg Chew, 81 MG PO DAILY for 30 Days, #30 TAB Prov:FLORENCE MENDOZA MD 11/16/16 Reported Medications Budesonide-Formoterol Fumarate* (Symbicort*) 6 Gm Hfa.aer.ad, 6 GM IH BID 05/07/12 Albuterol/Ipratropium (Combivent) 14.7 Gm Inha, 14.7 GM IH DAILY 05/07/12 Colchicine (Colchicine) 0.6 Mg Tablet, 0.6 MG PO BID 05/07/12 Diclofenac Sodium* (Diclofenac Sodium*) 50 Mg Tablet.dr, 50 MG PO TID 05/07/12 Sildenafil Citrate* (Viagra*) 100 Mg Tablet, 100 MG PO PRN 05/07/12 Docusate Sodium (Stool Softener) 250 Mg Capsule, 250 MG PO BID 05/07/12 Losartan Potassium* (Cozaar*) 25 Mg Tablet, 25 MG PO DAILY 05/07/12 Tamsulosin Hcl* (Flomax*) 0.4 Mg Cap.sr.24h, 0.4 MG PO HS 05/07/12 Triamterene/Hctz (Maxzide (75-50)*) 1 Tab Tablet, 1 TAB PO DAILY 11/12/11 Diltiazem Hcl (Diltiazem Er) 240 Mg Capsule.cr, 240 MG PO daily 11/12/[address]* (Spiriva*) 18 Mcg Cap.w.dev, 1 PUFF PO DAILY 04/03/11 Medications Current Medications IV Flush (NS 3 ml) 3 ml PER PROTOCOL IV ; Start 08/12/18 at 21:30 Ondansetron HCl (Zofran Inj) 4 mg Q6H PRN IV NAUSEA/VOMITING Last administered on 08/13/18 13:32; Admin Dose 4 MG; Start 08/12/18 at 21:30 Acetaminophen (Tylenol Tab) 650 mg Q6H PRN PO .PAIN 1-3 OR TEMP; Start 08/12/18 at 21:30 Docusate Sodium (Colace) 100 mg Q12H PRN PO .CONSTIPATION; Start 08/12/18 at 21:30 Bisacodyl (Dulcolax) 5 mg DAILY PRN PO .CONSTIPATION Last administered on 08/15/18 12:58; Admin Dose 5 MG; Start 08/12/18 at 21:30 Enoxaparin Sodium (Lovenox) 40 mg DAILY SC Last administered on 08/17/18 09:05; Admin Dose 40 MG; Start 08/12/18 at 21:30 Aspirin (Aspirin) 81 mg DAILY PO Last administered on 08/17/18 08:55; Admin Dose 81 MG; Start 08/13/18 at 09:00 Docusate Sodium (Colace) 250 mg BID PO Last administered on 08/17/18 20:07; Admin Dose 250 MG; Start 08/13/18 at 09:00 Tamsulosin HCl (Flomax) 0.4 mg HS PO Last administered on 08/17/18 20:07; Admin Dose 0.4 MG; Start 08/13/18 at 21:00 Triamterene/HCTZ (Maxzide (75/50)) 1 tab DAILY PO Last administered on 08/14/18 09:32; Admin Dose 1 TAB; Start 08/13/18 at 09:00; Status Hold Diltiazem HCl (Cardizem Cd) 240 mg daily PO Last administered on 08/17/18 08:56; Admin Dose 240 MG; Start 08/13/18 at 09:00 Albuterol/ Ipratropium (Duoneb) 3 ml Q6H RESP THERAPY HHN Last administered on 08/18/18at 01:24; Admin Dose 3 ML; Start 08/13/18 at 14:00 Nicotine (Nicoderm 14 Mg/ 24hr) 1 patch DAILY PRN TRANSDERM SMOKING URGE; Start 08/13/18 at 10:30 Oxycodone HCl (Roxicodone) 5 mg Q4 PRN PO MODERATE PAIN LEVEL 4-6 Last administered on 08/18/18 05:39; Admin Dose 5 MG; Start 08/13/18 at 16:30 Cefepime HCl 50 ml @ 100 mls/hr Q12 IVPB Last administered on 08/17/18 20:08; Admin Dose 100 MLS/HR; Start 08/14/18 at 09:00 Methylprednisolone Sodium Succinate (Solu-Medrol) 40 mg Q8 IV Last administered on 08/18/18 05:39; Admin Dose 40 MG; Start 08/14/18 at 14:00 Budesonide (Pulmicort (Neb)) 0.5 mg BID RESP THERAPY HHN Last administered on 08/17/18at 19:51; Admin Dose 0.5 MG; Start 08/14/18 at 20:00 Pantoprazole (Protonix Tab) 40 mg DAILY@06 PO Last administered on 08/18/18 05:39; Admin Dose 40 MG; Start 08/14/18 at 13:30 Sucralfate (Carafate Susp) 1 gm QID PO Last administered on 08/17/18 20:07; Admin Dose 1 GM; Start 08/14/18 at 13:00 Losartan Potassium (Cozaar) 50 mg DAILY PO Last administered on 08/17/18 08:56; Admin Dose 50 MG; Start 08/15/18 at 09:00 Assessment/Plan Assessment/Plan (Daily) 1. 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 Continue to monitor closely, improved. 2. The patient has metabolic alkalosis and respiratory acidosis. SP a dose of Diamox. abg reviewed today. monitor. treat respiratory component. 3. Anemia. Monitor hemoglobin and hematocrit levels. 4. Acute chronic obstructive pulmonary disease exacerbation. Continue medical management and nebulizers and steroids. 5. Positive pneumonia. Continue antibiotic regimen. 6. Hypertension. Continue current blood pressure regimen. 7. History of bladder cancer, status post chemotherapy. 8. History of gout. JESSICA DAWN MD Aug 18, 2018 09:38
[2018-08-18] MEDS: ENOXAPARIN 40 MG/0.4 ML SYG SC SCH (09:40)
[2018-08-18] MEDS: CEFEPIME 1GM/50 ML (PMX) 50 ML IVPB SCH ×2 (09:42→20:03)
[2018-08-18] MEDS: BUDESONIDE (NEB) 0.5MG/2ML AMP HHN SCH ×2 (09:46→19:28)
--- NOTE | 2018-08-18 12:49 | CONS ---
Assessment/Plan Assessment/Plan Hospital Course (Demo Recall) ID PROGRESS NOTE CURRENT ABX: DAY # =>Cefepime 24H INTERVAL SUMMARY * VSS, NAD, no fevers == currently on supplemental O2 via NC -- tells me he is OFF BIPAP * Microbiology: Blood cultures since admission negative DIAGNOSTIC IMAGING * 08/16/18 CXR: PHYSICAL EXAMINATION: GENERAL: VSS, NAD HEENT: AT, NC, NECK: Supple, CHEST: Rise symmetrical HEART: Pulse RRR ABDOMEN: Benign EXTREMITIES: Warm, dry SKIN: No rash, no diaphoresis ID ASSESSMENT 73 yo M admit with: 1. Persistent leukocytosis, likely steroid-induced: 2. BronchoPNA -- Questionable pneumonia==> cxr neg 3. COPD exacerbation 4. Cachexia 5. History of bladder cancer status post chemotherapy 6. Possible UTI-> + UA (-)MRSA Nares ABX ALLERGIES: Amoxicillian/Doxycycline INVASIVES: PIV CURRENT ABX: DAY # Cefepime ID RECOMMENDATIONS/PLAN: 1. Continue Cefepime over the weekend. . Consultation Date/Type/Reason Admit Date/Time Aug 12, 2018 at 21:20 Initial Consult Date 08/16/18 Date/Time of Note DATE: 08/18/18 TIME: 12:48 Exam/Review of Systems Exam Vitals Vital Signs Date Temp Pulse Resp B/P (MAP) Pulse Ox O2 O2 Flow FiO2 Time Delivery Rate 08/18/18 98.3 100 19 135/82 100 11:33 (99) 08/18/18 Nasal 3.0 09:50 Cannula 08/18/18 30 03:22 Intake and Output 08/17/18 08/17/18 08/18/18 1515:00 23:00 07:00 IntakeIntake Total 360 ml 590 ml 500 ml OutputOutput Total 700 ml 700 ml BalanceBalance -340 ml 590 ml -200 ml Results Result Diagram: 08/18/18 0503 08/18/18 0503 Results 24hrs Laboratory Tests Test 08/18/18 05:03 08/18/18 07:00 White Blood Count 14.6 H Red Blood Count 3.29 L Hemoglobin 9.5 L Hematocrit 30.6 L Mean Corpuscular Volume 93.0 Mean Corpuscular Hemoglobin 28.9 L Mean Corpuscular Hemoglobin Concent 31.0 L Red Cell Distribution Width 12.7 Platelet Count 275 Mean Platelet Volume 9.2 Immature Granulocytes % 2.300 H Neutrophils % 88.3 H Lymphocytes % 5.6 L Monocytes % 3.7 Eosinophils % 0.0 Basophils % 0.1 Nucleated Red Blood Cells % 0.0 Immature Granulocytes # 0.330 H Neutrophils # 12.9 H Lymphocytes # 0.8 Monocytes # 0.5 Eosinophils # 0.0 Basophils # 0.0 Nucleated Red Blood Cells # 0.0 Sodium Level 139 Potassium Level 3.7 Chloride Level 92 L Carbon Dioxide Level 40 H Anion Gap 7 Blood Urea Nitrogen 25 H Creatinine 0.94 Est Glomerular Filtrat Rate mL/min Glucose Level 143 Calcium Level 8.6 Phosphorus Level 2.3 L Magnesium Level 2.4 Blood Gas Specimen Source Blood arterial Arterial Blood Date Drawn 08/18/2018 8:00:47 AM Arterial Blood pH (Temp corrected) 7.424 Arterial Blood pCO2 (Temp correct) 63.8 H Arterial Blood pO2 (Temp corrected) 117.4 H Arterial Blood HCO3 40.8 *H Arterial Blood Base Excess 14.1 H Arterial Blood Oxygen Saturation 98.2 Trent Test N/A Arterial Blood Gas Puncture Site Right Brachial Arterial Blood Carboxyhemoglobin 0.2 Arterial Blood Methemoglobin 0.1 Blood Gas A-a O2 Differential 21.5 Oxyhemoglobin Percent 97.9 Blood Gas Temperature 37.0 Blood Gas Modality NASAL CANNULA FiO2 30.0 Blood Gas Critical Value Read Back BRENT MALONE Blood Gas Notified Whom Blood Gas Notified Time 08/18/2018 8:24:51 AM Medications Medication Current Medications IV Flush (NS 3 ml) 3 ml PER PROTOCOL IV ; Start 08/12/18 at 21:30 Ondansetron HCl (Zofran Inj) 4 mg Q6H PRN IV NAUSEA/VOMITING Last administered on 08/13/18at 13:32; Admin Dose 4 MG; Start 08/12/18 at 21:30 Acetaminophen (Tylenol Tab) 650 mg Q6H PRN PO .PAIN 1-3 OR TEMP; Start 08/12/18 at 21:30 Docusate Sodium (Colace) 100 mg Q12H PRN PO .CONSTIPATION; Start 08/12/18 at 21:30 Bisacodyl (Dulcolax) 5 mg DAILY PRN PO .CONSTIPATION Last administered on 08/15/18at 12:58; Admin Dose 5 MG; Start 08/12/18 at 21:30 Enoxaparin Sodium (Lovenox) 40 mg DAILY SC Last administered on 08/18/18 09:4 0; Admin Dose 40 MG; Start 08/12/18 at 21:30 Aspirin (Aspirin) 81 mg DAILY PO Last administered on 08/18/18 09:27; Admin Dose 81 MG; Start 08/13/18 at 09:00 Docusate Sodium (Colace) 250 mg BID PO Last administered on 08/18/18 09:27; Admin Dose 250 MG; Start 08/13/18 at 09:00 Tamsulosin HCl (Flomax) 0.4 mg HS PO Last administered on 08/17/18 20:07; Admin Dose 0.4 MG; Start 08/13/18 at 21:00 Triamterene/HCTZ (Maxzide (75/50)) 1 tab DAILY PO Last administered on 08/14/18 09:32; Admin Dose 1 TAB; Start 08/13/18 at 09:00; Status Hold Diltiazem HCl (Cardizem Cd) 240 mg daily PO Last administered on 08/18/18 09:27; Admin Dose 240 MG; Start 08/13/18 at 09:00 Albuterol/ Ipratropium (Duoneb) 3 ml Q6H RESP THERAPY HHN Last administered on 08/18/18 09:46; Admin Dose 3 ML; Start 08/13/18 at 14:00 Nicotine (Nicoderm 14 Mg/ 24hr) 1 patch DAILY PRN TRANSDERM SMOKING URGE; Start 08/13/18 at 10:30 Oxycodone HCl (Roxicodone) 5 mg Q4 PRN PO MODERATE PAIN LEVEL 4-6 Last administered on 08/18/18 09:28; Admin Dose 5 MG; Start 08/13/18 at 16:30 Cefepime HCl 50 ml @ 100 mls/hr Q12 IVPB Last administered on 08/18/18 09:42; Admin Dose 100 MLS/HR; Start 08/14/18 at 09:00 Methylprednisolone Sodium Succinate (Solu-Medrol) 40 mg Q8 IV Last administered on 08/18/18 05:39; Admin Dose 40 MG; Start 08/14/18 at 14:00 Budesonide (Pulmicort (Neb)) 0.5 mg BID RESP THERAPY HHN Last administered on 08/18/18 09:46; Admin Dose 0.5 MG; Start 08/14/18 at 20:00 Pantoprazole (Protonix Tab) 40 mg DAILY@06 PO Last administered on 08/18/18 05:39; Admin Dose 40 MG; Start 08/14/18 at 13:30 Sucralfate (Carafate Susp) 1 gm QID PO Last administered on 08/18/18 09:27; Admin Dose 1 GM; Start 08/14/18 at 13:00 Losartan Potassium (Cozaar) 50 mg DAILY PO Last administered on 08/18/18 09:28; Admin Dose 50 MG; Start 08/15/18 at 09:00 CALVIN HO NP Aug 18, 2018 12:49
--- NOTE | 2018-08-18 13:03 | PN ---
Date/Time of Note Date/Time of Note DATE: 08/18/18 TIME: 13:02 Objective Vitals Vital Signs Date Temp Pulse Resp B/P (MAP) Pulse Ox O2 O2 Flow FiO2 Time Delivery Rate 08/18/18 98.3 100 19 135/82 100 11:33 (99) 08/18/18 Nasal 3.0 09:50 Cannula 08/18/18 30 03:22 Intake and Output 08/17/18 08/17/18 08/18/18 1515:00 23:00 07:00 IntakeIntake Total 360 ml 590 ml 500 ml OutputOutput Total 700 ml 700 ml BalanceBalance -340 ml 590 ml -200 ml Results Result Diagram: 08/18/18 0503 08/18/18 0503 Medications Medications Current Medications IV Flush (NS 3 ml) 3 ml PER PROTOCOL IV ; Start 08/12/18 at 21:30 Ondansetron HCl (Zofran Inj) 4 mg Q6H PRN IV NAUSEA/VOMITING Last administered on 08/13/18at 13:32; Admin Dose 4 MG; Start 08/12/18 at 21:30 Acetaminophen (Tylenol Tab) 650 mg Q6H PRN PO .PAIN 1-3 OR TEMP; Start 08/12/18 at 21:30 Docusate Sodium (Colace) 100 mg Q12H PRN PO .CONSTIPATION; Start 08/12/18 at 21:30 Bisacodyl (Dulcolax) 5 mg DAILY PRN PO .CONSTIPATION Last administered on 07/28 11/15at 12:58; Admin Dose 5 MG; Start 08/12/18 at 21:30 Enoxaparin Sodium (Lovenox) 40 mg DAILY SC Last administered on 08/18/18at 09:40; Admin Dose 40 MG; Start 08/12/18 at 21:30 Aspirin (Aspirin) 81 mg DAILY PO Last administered on 08/18/18at 09:27; Admin Dose 81 MG; Start 08/13/18 at 09:00 Docusate Sodium (Colace) 250 mg BID PO Last administered on 08/18/18at 09:27; Admin Dose 250 MG; Start 08/13/18 at 09:00 Tamsulosin HCl (Flomax) 0.4 mg HS PO Last administered on 08/17/18at 20:07; Admin Dose 0.4 MG; Start 08/13/18 at 21:00 Triamterene/HCTZ (Maxzide (75/50)) 1 tab DAILY PO Last administered on 08/14/18 09:32; Admin Dose 1 TAB; Start 08/13/18 at 09:00; Status Hold Diltiazem HCl (Cardizem Cd) 240 mg daily PO Last administered on 08/18/18 09:27; Admin Dose 240 MG; Start 08/13/18 at 09:00 Albuterol/ Ipratropium (Duoneb) 3 ml Q6H RESP THERAPY HHN Last administered on 08/18/18 09:46; Admin Dose 3 ML; Start 08/13/18 at 14:00 Nicotine (Nicoderm 14 Mg/ 24hr) 1 patch DAILY PRN TRANSDERM SMOKING URGE; Start 08/13/18 at 10:30 Oxycodone HCl (Roxicodone) 5 mg Q4 PRN PO MODERATE PAIN LEVEL 4-6 Last administered on 08/18/18 09:28; Admin Dose 5 MG; Start 08/13/18 at 16:30 Cefepime HCl 50 ml @ 100 mls/hr Q12 IVPB Last administered on 08/18/18 09:42; Admin Dose 100 MLS/HR; Start 08/14/18 at 09:00 Methylprednisolone Sodium Succinate (Solu-Medrol) 40 mg Q8 IV Last administered on 08/18/18 05:39; Admin Dose 40 MG; Start 08/14/18 at 14:00 Budesonide (Pulmicort (Neb)) 0.5 mg BID RESP THERAPY HHN Last administered on 08/18/18 09:46; Admin Dose 0.5 MG; Start 08/14/18 at 20:00 Pantoprazole (Protonix Tab) 40 mg DAILY@06 PO Last administered on 08/18/18 05:39; Admin Dose 40 MG; Start 08/14/18 at 13:30 Sucralfate (Carafate Susp) 1 gm QID PO Last administered on 08/18/18 09:27; Admin Dose 1 GM; Start 08/14/18 at 13:00 Losartan Potassium (Cozaar) 50 mg DAILY PO Last administered on 08/18/18 09:28; Admin Dose 50 MG; Start 08/15/18 at 09:00 VTE Prophylaxis Risk score (from Nsg)>0 risk: 4 SCD applied (from Ns): Yes Lines/Catheters IV Catheter Type: Puente in Place: No Assessment/Plan Hospital Course Subjective Patient now off BiPAP Objective Physical exam General: Patient is laying in bed and answers questions appropriately Mentation: Patient is alert and oriented 4, Head: Normocephalic atraumatic Eyes: EOMI, pupils reactive to light Neck: Supple, nontender, midline Respiratory: Wheezing to auscultation bilaterally Cardiovascular: regular rate, no obvious murmurs Gastrointestinal: non-tender to palpation, bowel sounds heard. Neurological: Moves all extremities spontaneously Skin: No new skin lesions Assessment and plan Acute on chronic hypercapnic and hypoxic respiratory failure -Secondary to COPD exacerbation -Continue nebulizers, add budesonide -Continue steroids, continue with increased dose steroids for now -Patient on 3 L of O2 at home -We will attempt trial of patient being off BiPAP for now Acute on chronic COPD exacerbation -Nebulizers, add budesonide -BiPAP as needed -Patient cannot remember the names of inhalers that he takes at home -Taper steroids when able, continue increased dose for now Questionable pneumonia -Changed Levaquin to cefepime -Monitor -Infectious disease consulted Sepsis, secondary pneumonia -Changed to Levaquin to cefepime -Infectious disease on board -Lactic acid still mildly elevated, however this is likely a chronic issue with patient's chronic hypoxia per pulmonology - IV fluids -CT chest noted Hyponatremia with contraction alkalosis -Monitor closely, nephrology on board Poor p.o. intake -Patient reports poor appetite, IV hydration was given, encourage oral intake Hypertension -Continue home medications Dyslipidemia -Continue home meds History of bladder cancer status post chemotherapy -Patient chronically straight caths at home, continue Puente catheter while in ho use -Follow-up with outpatient urology and oncology Gout -Patient takes colchicine as needed, no issues currently Disposition -Continue treatment for COPD exacerbation, with pneumonia versus bronchitis -Patient now off BiPAP, will get repeat ABG tomorrow morning to reassess. SUDEEP LARIOS Aug 18, 2018 13:03
[2018-08-18] MEDS ORDERED: NEUTRA-PHOS 250 MG PACKET PO ONE (13:30)
[2018-08-18] MEDS: TAMSULOSIN (SR) 0.4 MG CAP PO SCH (20:04)
[2018-08-19] VITALS (12 sets, daily range): BP systolic 138–160; BP diastolic 70–88; PULSE 78–104; RESP 17–18
[2018-08-19] MEDS: ALBUTEROL/IPRATROPIUM (NEB) 3 ML AMP HHN SCH ×4 (01:24→20:53)
--- NOTE | 2018-08-19 04:36 | PN ---
DATE: 08/18/2018 SUBJECTIVE: Chart reviewed. The patient on 3 liters O2 nasal cannula, saturating 100%. Does not ap pear in acute distress. PHYSICAL EXAMINATION: VITAL SIGNS: Blood pressure 135/82, pulse 100, respiration 19, temperature 98.3. HEENT: Pupils are equal and react to light. NECK: Supple. No JVD noted, no cervical adenopathy noted. LUNG: Few scattered rhonchi, wheezes. CARDIOVASCULAR: S1 and S2 normal. ABDOMEN: Soft, nontender, no organomegaly or masses noted. EXTREMITIES: No clubbing or cyanosis noted. NEUROLOGIC: Awake. LABORATORY DATA: Sodium 139, potassium 3.7, chloride 92, CO2 of 40, BUN 25, creatinine 0.94, glucose 143. WBC 14.6, hemoglobin 9.5, hematocrit 30.6, platelets 275. ABG shows a pH of 7.42, pCO2 of 64, pO2 of 117. FINAL DIAGNOSES: 1. Acute on chronic hypercapnic and hypoxemic respiratory failure. 2. Chronic obstructive pulmonary disease exacerbation. 3. Acute bronchitis. 4. Severe bullous emphysema. 5. Cachexia. 6. Pulmonary hypertension secondary to chronic obstructive pulmonary disease. 7. Benign prostatic hypertrophy. 8. History of hypertension. PLAN: 1. Continue steroids. 2. Bronchodilators. 3. Oxygen. 4. BiPAP p.r.n. 5. I have discussed with . Dictated By: CHARITY ESPINO MD, MA/MARLENA Conf#: [id number] DID#: [id number]
[2018-08-19] MEDS: METHYLPREDNISOLONE 40 MG INJ IV SCH ×3 (05:35→21:38)
[2018-08-19] MEDS: PANTOPRAZOLE (EC) 40 MG TAB PO SCH (05:35)
[2018-08-19] MEDS ORDERED: POTASSIUM CHLORIDE (SR) 20 MEQ TAB PO STA (07:09)
[2018-08-19] MEDS ORDERED: NEUTRA-PHOS 250 MG PACKET PO ONE (09:30)
--- NOTE | 2018-08-19 09:30 | CONS ---
Consult Date/Type/Reason Admit Date/Time Aug 12, 2018 at 21:20 Initial Consult Date 08/16/18 Date/Time of Note DATE: 08/19/18 TIME: 09:27 Subjective The patient is stable. still having SOB upon exertion pt tolerated well on 3L of oxygen via NC overnight without using bibap, still SOB when trying to walk to the bathroom, OBJECTIVE: HEENT: Head is normocephalic. NECK: Supple. HEART: Regular rate. LUNGS: Show diminished breath sounds at the base. ABDOMEN: Soft, nontender to palpation without rebound or guarding. EXTREMITIES: Negative for clubbing, cyanosis, no edema. DERMATOLOGIC: No rashes. MUSCULOSKELETAL: No joint effusion. NEUROLOGIC: No change in exam. Objective Vitals Vital Signs Date Temp Pulse Resp B/P (MAP) Pulse Ox O2 O2 Flow FiO2 Time Delivery Rate 08/19/18 83 08:34 08/19/18 97.4 17 140/70 99 07:38 (93) 08/19/18 3.0 32 01:25 08/19/18 Nasal 01:25 Cannula Intake and Output 08/18/18 08/18/18 08/19/18 1515:00 23:00 07:00 IntakeIntake Total 480 ml 930 ml OutputOutput Total 1100 ml BalanceBalance 480 ml -170 ml Results/Medications Result Diagram: 08/19/18 0455 08/19/18 0455 Results 24 hrs Laboratory Tests Test 08/19/18 04:55 White Blood Count 18.8 #H Red Blood Count 3.31 L Hemoglobin 9.6 L Hematocrit 31.1 L Mean Corpuscular Volume 94.0 Mean Corpuscular Hemoglobin 29.0 Mean Corpuscular Hemoglobin Concent 30.9 L Red Cell Distribution Width 12.7 Platelet Count 290 Mean Platelet Volume 9.4 Immature Granulocytes % 3.300 H Neutrophils % 87.8 H Lymphocytes % 3.9 L Monocytes % 4.6 Eosinophils % 0.0 Basophils % 0.4 Nucleated Red Blood Cells % 0.0 Immature Granulocytes # 0.620 H Neutrophils # 16.5 H Lymphocytes # 0.7 L Monocytes # 0.9 Eosinophils # 0.0 Basophils # 0.1 Nucleated Red Blood Cells # 0.0 Sodium Level 137 Potassium Level 3.3 L Chloride Level 91 L Carbon Dioxide Level 41 *H Anion Gap 5 Blood Urea Nitrogen 24 H Creatinine 0.76 Est Glomerular Filtrat Rate mL/min Glucose Level 160 Calcium Level 8.0 L Phosphorus Level 2.3 L Magnesium Level 2.3 Home Meds Active Scripts Aspirin (Aspirin) 81 Mg Chew, 81 MG PO DAILY for 30 Days, #30 TAB Prov:FLORENCE MENDOZA MD 11/16/16 Reported Medications Budesonide-Formoterol Fumarate* (Symbicort*) 6 Gm Hfa.aer.ad, 6 GM IH BID 05/07/12 Albuterol/Ipratropium (Combivent) 14.7 Gm Inha, 14.7 GM IH DAILY 05/07/12 Colchicine (Colchicine) 0.6 Mg Tablet, 0.6 MG PO BID 05/07/12 Diclofenac Sodium* (Diclofenac Sodium*) 50 Mg Tablet.dr, 50 MG PO TID 05/07/12 Sildenafil Citrate* (Viagra*) 100 Mg Tablet, 100 MG PO PRN 05/07/12 Docusate Sodium (Stool Softener) 250 Mg Capsule, 250 MG PO BID 05/07/12 Losartan Potassium* (Cozaar*) 25 Mg Tablet, 25 MG PO DAILY 05/07/12 Tamsulosin Hcl* (Flomax*) 0.4 Mg Cap.sr.24h, 0.4 MG PO HS 05/07/12 Triamterene/Hctz (Maxzide (75-50)*) 1 Tab Tablet, 1 TAB PO DAILY 11/12/11 Diltiazem Hcl (Diltiazem Er) 240 Mg Capsule.cr, 240 MG PO daily 11/12/11 Tiotropium [place]* (Spiriva*) 18 Mcg Cap.w.dev, 1 PUFF PO DAILY 04/03/11 Medications Current Medications IV Flush (NS 3 ml) 3 ml PER PROTOCOL IV ; Start 08/12/18 at 21:30 Ondansetron HCl (Zofran Inj) 4 mg Q6H PRN IV NAUSEA/VOMITING Last administered on 08/13/18at 13:32; Admin Dose 4 MG; Start 08/12/18 at 21:30 Acetaminophen (Tylenol Tab) 650 mg Q6H PRN PO .PAIN 1-3 OR TEMP; Start 08/12/18 at 21:30 Docusate Sodium (Colace) 100 mg Q12H PRN PO .CONSTIPATION; Start 08/12/18 at 21:30 Bisacodyl (Dulcolax) 5 mg DAILY PRN PO .CONSTIPATION Last administered on 08/15/18 12:58; Admin Dose 5 MG; Start 08/12/18 at 21:30 Enoxaparin Sodium (Lovenox) 40 mg DAILY SC Last administered on 08/18/18 09:40; Admin Dose 40 MG; Start 08/12/18 at 21:30 Aspirin (Aspirin) 81 mg DAILY PO Last administered on 08/18/18 09:27; Admin Dose 81 MG; Start 08/13/18 at 09:00 Docusate Sodium (Colace) 250 mg BID PO Last administered on 08/18/18 20:03; Admin Dose 250 MG; Start 08/13/18 at 09:00 Tamsulosin HCl (Flomax) 0.4 mg HS PO Last administered on 08/18/18 20:04; Admin Dose 0.4 MG; Start 08/13/18 at 21:00 Triamterene/HCTZ (Maxzide (75/50)) 1 tab DAILY PO Last administered on 08/14/18 09:32; Admin Dose 1 TAB; Start 08/13/18 at 09:00; Status Hold Diltiazem HCl (Cardizem Cd) 240 mg daily PO Last administered on 08/18/18 09:27; Admin Dose 240 MG; Start 08/13/18 at 09:00 Albuterol/ Ipratropium (Duoneb) 3 ml Q6H RESP THERAPY HHN Last administered on 08/19/18 01:24; Admin Dose 3 ML; Start 08/13/18 at 14:00 Nicotine (Nicoderm 14 Mg/ 24hr) 1 patch DAILY PRN TRANSDERM SMOKING URGE; Start 08/13/18 at 10:30 Oxycodone HCl (Roxicodone) 5 mg Q4 PRN PO MODERATE PAIN LEVEL 4-6 Last administered on 08/18/18 20:04; Admin Dose 5 MG; Start 08/13/18 at 16:30 Cefepime HCl 50 ml @ 100 mls/hr Q12 IVPB Last administered on 08/18/18 20:03; Admin Dose 100 MLS/HR; Start 08/14/18 at 09:00 Methylprednisolone Sodium Succinate (Solu-Medrol) 40 mg Q8 IV Last administered on 08/19/18 05:35; Admin Dose 40 MG; Start 08/14/18 at 14:00 Budesonide (Pulmicort (Neb)) 0.5 mg BID RESP THERAPY HHN Last administered on 08/18/18 19:28; Admin Dose 0.5 MG; Start 08/14/18 at 20:00 Pantoprazole (Protonix Tab) 40 mg DAILY@06 PO Last administered on 08/19/18 05:35; Admin Dose 40 MG; Start 08/14/18 at 13:30 Sucralfate (Carafate Susp) 1 gm QID PO Last administered on 08/18/18 20:04; Admin Dose 1 GM; Start 08/14/18 at 13:00 Losartan Potassium (Cozaar) 50 mg DAILY PO Last administered on 08/18/18 09:28; Admin Dose 50 MG; Start 08/15/18 at 09:00 Sodium Phosphate (Neutra-Phos) 250 mg ONCE ONCE PO ; Start 08/19/18 at 09:30; Stop 08/19/18 at 09:31; Status UNV Assessment/Plan Hospital Course (Demo Recall) 1. 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 Continue to monitor closely, improved. 2. The patient has metabolic alkalosis and respiratory acidosis. SP a dose of Diamox. monitor. treat respiratory component. 3. Anemia. Monitor hemoglobin and hematocrit levels. 4. Acute chronic obstructive pulmonary disease exacerbation. Continue medical management and nebulizers and steroids. 5. Positive pneumonia. Continue antibiotic regimen. 6. Hypertension. Continue current blood pressure regimen. 7. History of bladder cancer, status post chemotherapy. 8. History of gout. 9. hypokalemia- replace. JESSICA DAWN MD Aug 19, 2018 09:30
[2018-08-19] MEDS: ASPIRIN 81 MG TAB PO SCH (09:52)
--- NOTE | 2018-08-19 09:52 | PN ---
Date/Time of Note Date/Time of Note DATE: 08/19/18 TIME: 09:50 Objective Vitals Vital Signs Date Temp Pulse Resp B/P (MAP) Pulse Ox O2 O2 Flow FiO2 Time Delivery Rate 08/19/18 83 08:34 08/19/18 97.4 17 140/70 99 07:38 (93) 08/19/18 3.0 32 01:25 08/19/18 Nasal 01:25 Cannula Intake and Output 08/18/18 08/18/18 08/19/18 1515:00 23:00 07:00 IntakeIntake Total 480 ml 930 ml OutputOutput Total 1100 ml BalanceBalance 480 ml -170 ml Results Result Diagram: 08/19/18 0455 08/19/18 0455 Medications Medications Current Medications IV Flush (NS 3 ml) 3 ml PER PROTOCOL IV ; Start 08/12/18 at 21:30 Ondansetron HCl (Zofran Inj) 4 mg Q6H PRN IV NAUSEA/VOMITING Last administered on 08/13/18at 13:32; Admin Dose 4 MG; Start 08/12/18 at 21:30 Acetaminophen (Tylenol Tab) 650 mg Q6H PRN PO .PAIN 1-3 OR TEMP; Start 08/12/18 at 21:30 Docusate Sodium (Colace) 100 mg Q12H PRN PO .CONSTIPATION; Start 08/12/18 at 21:30 Bisacodyl (Dulcolax) 5 mg DAILY PRN PO .CONSTIPATION Last administered on 08/15/18at 12:58; Admin Dose 5 MG; Start 08/12/18 at 21:30 Enoxaparin Sodium (Lovenox) 40 mg DAILY SC Last administered on 08/18/18at 09:40; Admin Dose 40 MG; Start 08/12/18 at 21:30 Aspirin (Aspirin) 81 mg DAILY PO Last administered on 08/18/18 09:27; Admin Dose 81 MG; Start 08/13/18 at 09:00 Docusate Sodium (Colace) 250 mg BID PO Last administered on 08/18/18at 20:03; Admin Dose 250 MG; Start 08/13/18 at 09:00 Tamsulosin HCl (Flomax) 0.4 mg HS PO Last administered on 08/18/18at 20:04; Admin Dose 0.4 MG; Start 08/13/18 at 21:00 Triamterene/HCTZ (Maxzide (75/50)) 1 tab DAILY PO Last administered on 08/14/18 09:32; Admin Dose 1 TAB; Start 08/13/18 at 09:00; Status Hold Diltiazem HCl (Cardizem Cd) 240 mg daily PO Last administered on 08/18/18 09:27; Admin Dose 240 MG; Start 08/13/18 at 09:00 Albuterol/ Ipratropium (Duoneb) 3 ml Q6H RESP THERAPY HHN Last administered on 08/19/18 01:24; Admin Dose 3 ML; Start 08/13/18 at 14:00 Nicotine (Nicoderm 14 Mg/ 24hr) 1 patch DAILY PRN TRANSDERM SMOKING URGE; Start 08/13/18 at 10:30 Oxycodone HCl (Roxicodone) 5 mg Q4 PRN PO MODERATE PAIN LEVEL 4-6 Last administered on 08/18/18 20:04; Admin Dose 5 MG; Start 08/13/18 at 16:30 Cefepime HCl 50 ml @ 100 mls/hr Q12 IVPB Last administered on 08/18/18 20:03; Admin Dose 100 MLS/HR; Start 08/14/18 at 09:00 Methylprednisolone Sodium Succinate (Solu-Medrol) 40 mg Q8 IV Last administered on 08/19/18 05:35; Admin Dose 40 MG; Start 08/14/18 at 14:00 Budesonide (Pulmicort (Neb)) 0.5 mg BID RESP THERAPY HHN Last administered on 08/18/18 19:28; Admin Dose 0.5 MG; Start 08/14/18 at 20:00 Pantoprazole (Protonix Tab) 40 mg DAILY@06 PO Last administered on 08/19/18 05:35; Admin Dose 40 MG; Start 08/14/18 at 13:30 Sucralfate (Carafate Susp) 1 gm QID PO Last administered on 08/18/18 20:04; Admin Dose 1 GM; Start 08/14/18 at 13:00 Losartan Potassium (Cozaar) 50 mg DAILY PO Last administered on 08/18/18 09:28; Admin Dose 50 MG; Start 08/15/18 at 09:00 VTE Prophylaxis Risk score (from Nsg)>0 risk: 4 SCD applied (from Ns): Yes Lines/Catheters IV Catheter Type: Puente in Place: No Assessment/Plan Hospital Course Subjective Patient now off BiPAP, no acute complaints except for about the service, refused ABG this morning Objective Physical exam General: Patient is laying in bed and answers questions appropriately Mentation: Patient is alert and oriented 4, Head: Normocephalic atraumatic Eyes: EOMI, pupils reactive to light Neck: Supple, nontender, midline Respiratory: Wheezing to auscultation bilaterally Cardiovascular: regular rate, no obvious murmurs Gastrointestinal: non-tender to palpation, bowel sounds heard. Neurological: Moves all extremities spontaneously Skin: No new skin lesions Assessment and plan Acute on chronic hypercapnic and hypoxic respiratory failure -Secondary to COPD exacerbation -Continue nebulizers, add budesonide -Continue steroids, continue with increased dose steroids for now -Patient on 3 L of O2 at home -We will attempt trial of patient being off BiPAP for now, patient refused ABG this morning due to it being painful, however no respiratory distress, will monitor on current status for now. Acute on chronic COPD exacerbation -Nebulizers, added budesonide -BiPAP as needed -Patient cannot remember the names of inhalers that he takes at home -Taper steroids when able, continue increased dose for now Questionable pneumonia -Changed Levaquin to cefepime -Monitor -Infectious disease consulted Sepsis, secondary pneumonia -Changed to Levaquin to cefepime -Infectious disease on board -Lactic acid still mildly elevated, however this is likely a chronic issue with patient's chronic hypoxia per pulmonology - IV fluids -CT chest noted Hyponatremia with contraction alkalosis -Monitor closely, nephrology on board Poor p.o. intake -Patient reports poor appetite, IV hydration was given, encourage oral intake Hypertension -Continue home medications Dyslipidemia -Continue home meds History of bladder cancer status post chemotherapy -Patient chronically straight caths at home, continue Puente catheter while in house -Follow-up with outpatient urology and oncology Gout -Patient takes colchicine as needed, no issues currently Disposition -Continue treatment for COPD exacerbation, with pneumonia versus bronchitis -Patient now off BiPAP, refused ABG due to pain, continue to monitor closely and with pulmonary recommendations, titrate off steroids when able however will need to titrate off very slowly as patient is near end-stage lung disease. SUDEEP LARIOS Aug 19, 2018 09:52
[2018-08-19] MEDS: LOSARTAN 50 MG TAB PO SCH (09:53)
[2018-08-19] MEDS: SUCRALFATE (100 MG/ML) 10ML CUP PO SCH ×4 (09:53→20:04)
[2018-08-19] MEDS: DOCUSATE SODIUM 250 MG CAP PO SCH ×2 (09:53→20:04)
[2018-08-19] MEDS: DILTIAZEM (CD) 240 MG CAP PO SCH (09:54)
[2018-08-19] MEDS: CEFEPIME 1GM/50 ML (PMX) 50 ML IVPB SCH ×2 (09:58→20:04)
[2018-08-19] MEDS: ENOXAPARIN 40 MG/0.4 ML SYG SC SCH (10:03)
[2018-08-19] MEDS: oxyCODONE 5 MG TAB PO PRN ×3 (10:06→20:05)
[2018-08-19] MEDS: BUDESONIDE (NEB) 0.5MG/2ML AMP HHN SCH ×2 (10:29→20:53)
--- NOTE | 2018-08-19 13:29 | PN ---
DATE: 08/19/2018 SUBJECTIVE: Chart was reviewed. The patient is off of BiPAP now, currently on 3 liters' nasal cannu la, saturating 98%. The patient refused ABG earlier today. PHYSICAL EXAMINATION: VITAL SIGNS: Blood pressure 138/72, pulse 101, respirations 17, temperature 98.9. HEENT: Pupils are equal and react to light. NECK: Supple. No JVD noted, no cervical adenopathy noted. LUNGS: Few scattered rhonchi. CARDIOVASCULAR: S1, S2 normal. ABDOMEN: Soft, nontender. No organomegaly, masses noted. EXTREMITIES: No clubbing or cyanosis noted. NEUROLOGICAL: Awake. LABORATORY DATA: WBC 18.8, hemoglobin 9.6, hematocrit 31.1, platelets 290. Sodium 137, potassium 3. 3, chloride 91, CO2 of 41, BUN 24, creatinine 0.76, glucose 160. ABG done earlier shows pH of 7.39, pCO2 of 72, pO2 of 107. IMPRESSION: 1. Acute on chronic hypercapnic and hypoxemic respiratory failure. 2. Chronic obstructive pulmonary disease exacerbation. 3. Acute bronchitis. 4. Severe bullous emphysema. 5. Cachexia. 6. Pulmonary hypertension likely secondary to chronic obstructive pulmonary disease. 7. Benign prostatic hypertrophy. 8. History of hypertension. RECOMMENDATIONS: 1. Continue steroids and slow taper. 2. Bronchodilators. 3. Oxygen. 4. BiPAP p.r.n. Dictated By: CHARITY ESPINO MD, MA/MARLENA Conf#: [id number] DID#: [id number] CC: SUDEEP LARIOS MD; LINDA REYNOLDS MD; ANNIKA KAYE MD;*End*
--- NOTE | 2018-08-19 18:30 | CONS ---
Assessment/Plan Assessment/Plan Hospital Course (Demo Recall) ID PROGRESS NOTE CURRENT ABX: DAY # =>Cefepime 24H INTERVAL SUMMARY * Dyspnea continues -- he has hematuria, tells me that he told prior provider who dismissed his concern -- tells me he does not like being dismissed * Advised him I will repeat urine for C&S as his recent urine had low colony bacteria counts * Microbiology: * Blood cultures since admission negative * 08/16/18 Urine Cx URINE CULTURE Final Organism 1 MIXED GRAM POSITIVE ORGANISMS COLONY COUNT <10,000 CFU/ml DIAGNOSTIC IMAGING * 08/16/18 CXR: 1. No evidence of acute cardiopulmonary process.2. Hyperinflated lungs, suggesting COPD.3. Aortic atherosclerosis. PHYSICAL EXAMINATION: GENERAL: VSS, NAD HEENT: AT, NC, NECK: Supple, CHEST: Rise symmetrical (+)purse lip breathing, diminished air exchange HEART: Pulse RRR ABDOMEN: Benign : FC in place EXTREMITIES: Warm, dry SKIN: No rash, no diaphoresis ID ASSESSMENT 73 yo M admit with: 1. Persistent leukocytosis, likely steroid-induced: 2. BronchoPNA -- Questionable pneumonia==> cxr neg 3. COPD exacerbation 4. Cachexia 5. History of bladder cancer status post chemotherapy 6. Possible UTI-> + UA (-)MRSA Nares ABX ALLERGIES: Amoxicillian/Doxycycline INVASIVES: PIV CURRENT ABX: DAY # Cefepime ID RECOMMENDATIONS/PLAN: 1. Continue Cefepime over the weekend. 2. He has hematuria -- hx of bladder CA, yet he feels hematuria more pronounced than prior * --> tells me that he told prior provider who dismissed his concern -- tells me he does not like being dismissed * Advised him I will repeat urine for C&S as his recent urine had low colony bacteria counts . Consultation Date/Type/Reason Admit Date/Time Aug 12, 2018 at 21:20 Initial Consult Date 08/16/18 Date/Time of Note DATE: 08/19/18 TIME: 18:25 Exam/Review of Systems Exam Vitals Vital Signs Date Temp Pulse Resp B/P (MAP) Pulse Ox O2 O2 Flow FiO2 Time Delivery Rate 08/19/18 102 16:14 08/19/18 98.5 17 152/74 99 15:50 (100) 08/19/18 3.0 32 14:03 08/19/18 Nasal 13:56 Cannula Intake and Output 08/18/18 08/18/18 08/19/18 1515:00 23:00 07:00 IntakeIntake Total 480 ml 930 ml OutputOutput Total 1100 ml BalanceBalance 480 ml -170 ml Results Result Diagram: 08/19/18 0455 08/19/18 0455 Results 24hrs Laboratory Tests Test 08/19/18 04:55 08/19/18 07:00 White Blood Count 18.8 #H Red Blood Count 3.31 L Hemoglobin 9.6 L Hematocrit 31.1 L Mean Corpuscular Volume 94.0 Mean Corpuscular Hemoglobin 29.0 Mean Corpuscular Hemoglobin Concent 30.9 L Red Cell Distribution Width 12.7 Platelet Count 290 Mean Platelet Volume 9.4 Immature Granulocytes % 3.300 H Neutrophils % 87.8 H Lymphocytes % 3.9 L Monocytes % 4.6 Eosinophils % 0.0 Basophils % 0.4 Nucleated Red Blood Cells % 0.0 Immature Granulocytes # 0.620 H Neutrophils # 16.5 H Lymphocytes # 0.7 L Monocytes # 0.9 Eosinophils # 0.0 Basophils # 0.1 Nucleated Red Blood Cells # 0.0 Sodium Level 137 Potassium Level 3.3 L Chloride Level 91 L Carbon Dioxide Level 41 *H Anion Gap 5 Blood Urea Nitrogen 24 H Creatinine 0.76 Est Glomerular Filtrat Rate mL/min Glucose Level 160 Calcium Level 8.0 L Phosphorus Level 2.3 L Magnesium Level 2.3 Blood Gas Specimen Source Blood arterial Arterial Blood Date Drawn 08/19/2018 11:20:44 AM Arterial Blood pH (Temp corrected) 7.399 Arterial Blood pCO2 (Temp correct) 72.4 H Arterial Blood pO2 (Temp corrected) 106.8 H Arterial Blood HCO3 43.7 *H Arterial Blood Base Excess 15.7 H Arterial Blood Oxygen Saturation 97.9 Trent Test ACCEPTAB Arterial Blood Gas Puncture Site Left Radial Arterial Blood Carboxyhemoglobin 0.4 Arterial Blood Methemoglobin 0.2 Blood Gas A-a O2 Differential 22.0 Oxyhemoglobin Percent 97.3 Blood Gas Temperature 37.0 Blood Gas Modality NASAL CANNULA FiO2 30.0 Blood Gas Critical Value Read Back MARISSA BROTHERS RN Blood Gas Notified Whom Alvin BELTRAN RCP Blood Gas Notified Time 08/19/2018 11:30:18 AM Medications Medication Current Medications IV Flush (NS 3 ml) 3 ml PER PROTOCOL IV ; Start 08/12/18 at 21:30 Ondansetron HCl (Zofran Inj) 4 mg Q6H PRN IV NAUSEA/VOMITING Last administered on 08/13/18 13:32; Admin Dose 4 MG; Start 08/12/18 at 21:30 Acetaminophen (Tylenol Tab) 650 mg Q6H PRN PO .PAIN 1-3 OR TEMP; Start 08/12/18 at 21:30 Docusate Sodium (Colace) 100 mg Q12H PRN PO .CONSTIPATION; Start 08/12/18 at 21:30 Bisacodyl (Dulcolax) 5 mg DAILY PRN PO .CONSTIPATION Last administered on 08/15/18 12:58; Admin Dose 5 MG; Start 08/12/18 at 21:30 Enoxaparin Sodium (Lovenox) 40 mg DAILY SC Last administered on 08/19/18 10:03; Admin Dose 40 MG; Start 08/12/18 at 21:30 Aspirin (Aspirin) 81 mg DAILY PO Last administered on 08/19/18 09:52; Admin Dose 81 MG; Start 08/13/18 at 09:00 Docusate Sodium (Colace) 250 mg BID PO Last administered on 08/19/18 09:53; Admin Dose 250 MG; Start 08/13/18 at 09:00 Tamsulosin HCl (Flomax) 0.4 mg HS PO Last administered on 08/18/18 20:04; Admin Dose 0.4 MG; Start 08/13/18 at 21:00 Triamterene/HCTZ (Maxzide (75/50)) 1 tab DAILY PO Last administered on 08/14/18 09:32; Admin Dose 1 TAB; Start 08/13/18 at 09:00; Status Hold Diltiazem HCl (Cardizem Cd) 240 mg daily PO Last administered on 08/19/18 09:54; Admin Dose 240 MG; Start 08/13/18 at 09:00 Albuterol/ Ipratropium (Duoneb) 3 ml Q6H RESP THERAPY HHN Last administered on 08/19/18 13:55; Admin Dose 3 ML; Start 08/13/18 at 14:00 Nicotine (Nicoderm 14 Mg/ 24hr) 1 patch DAILY PRN TRANSDERM SMOKING URGE; Start 08/13/18 at 10:30 Oxycodone HCl (Roxicodone) 5 mg Q4 PRN PO MODERATE PAIN LEVEL 4-6 Last administered on 08/19/18 14:37; Admin Dose 5 MG; Start 08/13/18 at 16:30 Cefepime HCl 50 ml @ 100 mls/hr Q12 IVPB Last administered on 08/19/18 09:58; Admin Dose 100 MLS/HR; Start 08/14/18 at 09:00 Methylprednisolone Sodium Succinate (Solu-Medrol) 40 mg Q8 IV Last administered on 08/19/18 13:21; Admin Dose 40 MG; Start 08/14/18 at 14:00 Budesonide (Pulmicort (Neb)) 0.5 mg BID RESP THERAPY HHN Last administered on 08/19/18 10:29; Admin Dose 0.5 MG; Start 08/14/18 at 20:00 Pantoprazole (Protonix Tab) 40 mg DAILY@06 PO Last administered on 08/19/18 05:35; Admin Dose 40 MG; Start 08/14/18 at 13:30 Sucralfate (Carafate Susp) 1 gm QID PO Last administered on 08/19/18 16:24; Admin Dose 1 GM; Start 08/14/18 at 13:00 Losartan Potassium (Cozaar) 50 mg DAILY PO Last administered on 08/19/18 09:53; Admin Dose 50 MG; Start 08/15/18 at 09:00 CALVIN HO NP Aug 19, 2018 18:30
[2018-08-19] MEDS: TAMSULOSIN (SR) 0.4 MG CAP PO SCH (20:04)
[2018-08-20] VITALS (12 sets, daily range): BP systolic 132–160; BP diastolic 68–82; PULSE 89–105; RESP 18–20
[2018-08-20] MEDS: ALBUTEROL/IPRATROPIUM (NEB) 3 ML AMP HHN SCH ×4 (01:30→21:12)
[2018-08-20] MEDS: METHYLPREDNISOLONE 40 MG INJ IV SCH ×3 (05:45→21:04)
[2018-08-20] MEDS: PANTOPRAZOLE (EC) 40 MG TAB PO SCH (05:45)
[2018-08-20] MEDS: LOSARTAN 50 MG TAB PO SCH (08:37)
[2018-08-20] MEDS: SUCRALFATE (100 MG/ML) 10ML CUP PO SCH ×4 (08:37→21:04)
[2018-08-20] MEDS: DOCUSATE SODIUM 250 MG CAP PO SCH ×2 (08:37→21:04)
[2018-08-20] MEDS: ASPIRIN 81 MG TAB PO SCH (08:37)
[2018-08-20] MEDS: DILTIAZEM (CD) 240 MG CAP PO SCH (08:38)
[2018-08-20] MEDS: ENOXAPARIN 40 MG/0.4 ML SYG SC SCH (08:48)
--- NOTE | 2018-08-20 08:57 | PN ---
DATE: 08/20/2018 SUBJECTIVE: The patient is stable. No events overnight, currently stable on nasal cannula. OBJECTIVE: VITAL SIGNS: Blood pressure is 150/68, pulse 89, respirations 18, temperature 98.1. HEENT: Head is normocephalic. NECK: Supple. HEART: Regular rate. LUNGS: Show diminished breath sounds at the base. ABDOMEN: Soft, nontender to palpation without rebound or guarding. EXTREMITIES: Negative for clubbing, cyanosis, no edema. DERMATOLOGIC: No rashes. MUSCULOSKELETAL: No joint effusion. NEUROLOGIC: No change in exam. MEDICATIONS: The patient's medications have been reviewed. LABORATORY DATA: Reviewed. IMAGING STUDIES: Reviewed. ASSESSMENT AND PLAN: 1. Hypernatremia, improved. We will continue to monitor. 2. Mixed acid base disorder. The patient has metabolic alkalosis, respiratory acidosis. We will co ntinue intermittent Diamox as needed. Continue to treat underlying chronic obstructive pulmonary dis ease. 3. Anemia. Monitor hemoglobin and hematocrit levels. 4. Chronic obstructive pulmonary disease exacerbation. Continue medical management. Continue nebul izer, steroids. 5. Pneumonia. Continue current antibiotic regimen. 6. Hypertension. Continue current blood pressure regimen. 7. History of bladder cancer. 8. History of gout. Dictated By: CLARICE CHAVIS DO NR/NTS Conf#: [id number] DID#: [id number] CC: LINDA REYNOLDS MD; ANNIKA KAYE MD; SUDEEP LARIOS MD;*[facility]*
[2018-08-20] MEDS: CEFEPIME 1GM/50 ML (PMX) 50 ML IVPB SCH ×2 (09:01→21:05)
[2018-08-20] MEDS: oxyCODONE 5 MG TAB PO PRN (09:04)
[2018-08-20] MEDS: BUDESONIDE (NEB) 0.5MG/2ML AMP HHN SCH ×2 (09:58→21:12)
[2018-08-20] MEDS: ACETAZOLAMIDE 250 MG TAB PO SCH ×2 (10:12→21:05)
[2018-08-20] MEDS ORDERED: VITAMIN A & D 5 GM OINT PACKET TOP SCH (13:00)
--- NOTE | 2018-08-20 14:58 | CONS ---
Assessment/Plan Assessment/Plan Hospital Course (Demo Recall) No acute changes. Patient is awake feels better looks comfortable no fevers overnight, no nausea vomiting diarrhea WBC 27.8 platelets 293 neutrophils 88.6 BUN 22 creatinine 0.72 Repeat urine culture preliminary negative Indwelling: Puente Antimicrobials: Cefepime Physical examination: This is a chronically ill appearing fragile cachectic elderly -[place] man who is awake in no distress. Head atraumatic normocephalic. Neck is supple. Chest rise symmetrical breath sounds diminished bases. Heart: S1-S2.Abdomen soft bowel sounds present. Extremities without cyanosis Assessment: 1. Persistent leukocytosis, likely steroid-induced 2. COPD exacerbation 3. Cachexia 4. History of bladder cancer status post chemotherapy 5. Possible UTI> + UA Plan: Clinically stable, urine culture neg, consider steroids taper, f/u pulmonary rec-s Consultation Date/Type/Reason Admit Date/Time Aug 12, 2018 at 21:20 Initial Consult Date Type of Consult id Date/Time of Note DATE: 08/20/18 TIME: 14:54 Exam/Review of Systems Exam Vitals Vital Signs Date Temp Pulse Resp B/P (MAP) Pulse Ox O2 O2 Flow FiO2 Time Delivery Rate 08/20/18 93 12:00 08/20/18 98.1 18 157/82 95 11:35 (107) 08/20/18 Nasal 3.0 08:15 Cannula 08/20/18 31 01:44 Intake and Output 08/19/18 08/19/18 08/20/18 1515:00 23:00 07:00 IntakeIntake Total 590 ml 900 ml OutputOutput Total 800 ml BalanceBalance 590 ml 100 ml Results Result Diagram: 08/20/18 0505 08/20/18 0505 Results 24hrs Laboratory Tests Test 08/19/18 22:00 08/20/18 05:05 Urine Color YELLOW Urine Clarity CLEAR Urine pH 6.0 Urine Specific [place] 1.016 Urine Ketones NEGATIVE Urine Nitrite NEGATIVE Urine Bilirubin NEGATIVE Urine Urobilinogen 1+ H Urine Leukocyte Esterase TRACE A Urine Microscopic RBC 114 H Urine Microscopic WBC 8 H Urine Bacteria FEW A Urine Hemoglobin 3+ H Urine Glucose NEGATIVE Urine Total Protein NEGATIVE White Blood Count 27.8 #H Red Blood Count 3.20 L Hemoglobin 9.4 L Hematocrit 30.6 L Mean Corpuscular Volume 95.6 Mean Corpuscular Hemoglobin 29.4 Mean Corpuscular Hemoglobin Concent 30.7 L Red Cell Distribution Width 13.0 Platelet Count 293 Mean Platelet Volume 9.5 Immature Granulocytes % 2.700 H Neutrophils % 88.6 H Lymphocytes % 3.0 L Monocytes % 5.4 Eosinophils % 0.0 Basophils % 0.3 Nucleated Red Blood Cells % 0.0 Immature Granulocytes # 0.740 H Neutrophils # 24.7 H Lymphocytes # 0.8 Monocytes # 1.5 H Eosinophils # 0.0 Basophils # 0.1 Nucleated Red Blood Cells # 0.0 Sodium Level 136 Potassium Level 4.3 Chloride Level 90 L Carbon Dioxide Level 43 *H Anion Gap 3 L Blood Urea Nitrogen 22 H Creatinine 0.72 Est Glomerular Filtrat Rate mL/min Glucose Level 161 Calcium Level 8.1 L Phosphorus Level 2.7 Magnesium Level 2.4 Total Bilirubin 0.3 Direct Bilirubin 0.00 Indirect Bilirubin 0.3 Aspartate Amino Transf (AST/SGOT) 33 Alanine Aminotransferase (ALT/SGPT) 43 Alkaline Phosphatase 71 Total Protein 6.5 Albumin 3.0 L Globulin 3.50 H Albumin/Globulin Ratio 0.85 Medications Medication Current Medications IV Flush (NS 3 ml) 3 ml PER PROTOCOL IV ; Start 08/12/18 at 21:30 Ondansetron HCl (Zofran Inj) 4 mg Q6H PRN IV NAUSEA/VOMITING Last administered on 08/13/18at 13:32; Admin Dose 4 MG; Start 08/12/18 at 21:30 Acetaminophen (Tylenol Tab) 650 mg Q6H PRN PO .PAIN 1-3 OR TEMP; Start 08/12/18 at 21:30 Docusate Sodium (Colace) 100 mg Q12H PRN PO .CONSTIPATION; Start 08/12/18 at 21:30 Bisacodyl (Dulcolax) 5 mg DAILY PRN PO .CONSTIPATION Last administered on 08/15/18at 12:58; Admin Dose 5 MG; Start 08/12/18 at 21:30 Enoxaparin Sodium (Lovenox) 40 mg DAILY SC Last administered on 08/20/18at 08:48; Admin Dose 40 MG; Start 08/12/18 at 21:30 Aspirin (Aspirin) 81 mg DAILY PO Last administered on 08/20/18at 08:37; Admin Dose 81 MG; Start 08/13/18 at 09:00 Docusate Sodium (Colace) 250 mg BID PO Last administered on 08/20/18 08:37; Admin Dose 250 MG; Start 08/13/18 at 09:00 Tamsulosin HCl (Flomax) 0.4 mg HS PO Last administered on 08/19/18 20:04; Admin Dose 0.4 MG; Start 08/13/18 at 21:00 Triamterene/HCTZ (Maxzide (75/50)) 1 tab DAILY PO Last administered on 08/14/18 09:32; Admin Dose 1 TAB; Start 08/13/18 at 09:00; Status Hold Diltiazem HCl (Cardizem Cd) 240 mg daily PO Last administered on 08/20/18 08:38; Admin Dose 240 MG; Start 08/13/18 at 09:00 Albuterol/ Ipratropium (Duoneb) 3 ml Q6H RESP THERAPY HHN Last administered on 08/20/18 08:00; Admin Dose 3 ML; Start 08/13/18 at 14:00 Nicotine (Nicoderm 14 Mg/ 24hr) 1 patch DAILY PRN TRANSDERM SMOKING URGE; St art 08/13/18 at 10:30 Oxycodone HCl (Roxicodone) 5 mg Q4 PRN PO MODERATE PAIN LEVEL 4-6 Last adminis tered on 08/20/18 09:04; Admin Dose 5 MG; Start 08/13/18 at 16:30 Cefepime HCl 50 ml @ 100 mls/hr Q12 IVPB Last administered on 08/20/18 09:01; Admin Dose 100 MLS/HR; Start 08/14/18 at 09:00 Methylprednisolone Sodium Succinate (Solu-Medrol) 40 mg Q8 IV Last administered on 08/20/18 13:02; Admin Dose 40 MG; Start 08/14/18 at 14:00 Budesonide (Pulmicort (Neb)) 0.5 mg BID RESP THERAPY HHN Last administered on 08/20/18 09:58; Admin Dose 0.5 MG; Start 08/14/18 at 20:00 Pantoprazole (Protonix Tab) 40 mg DAILY@06 PO Last administered on 08/20/18 05:45; Admin Dose 40 MG; Start 08/14/18 at 13:30 Sucralfate (Carafate Susp) 1 gm QID PO Last administered on 08/20/18at 13:02; Admin Dose 1 GM; Start 08/14/18 at 13:00 Losartan Potassium (Cozaar) 50 mg DAILY PO Last administered on 08/20/18at 0 8:37; Admin Dose 50 MG; Start 08/15/18 at 09:00 Acetazolamide (Diamox) 250 mg BID PO Last administered on 08/20/18at 10:12; Admin Dose 250 MG; Start 08/20/18 at 09:00 MITCH MELGAR NP Aug 20, 2018 14:58
--- NOTE | 2018-08-20 15:25 | PN ---
Date/Time of Note Date/Time of Note DATE: 08/20/18 TIME: 15:20 Assessment/Plan VTE Prophylaxis Risk score (from Ns)>0 risk: 6 SCD applied (from Ns): Yes Pharmacological prophylaxis: LMWH Lines/Catheters IV [facility] Peripheral IV Urinary Cath still in place: Yes Reason Cath still needed: urinary retention Assessment/Plan Assessment/Plan 1. Acute on chronic hypercapnic and hypoxic respiratory failure - Secondary to COPD exacerbation - Continue slow steroid taper given was titrated quickly and required BIPAP - continue bronchodilators 2. Acute on chronic COPD exacerbation - Continue current treatment - BIPAP as needed - on 3L home O2 3. Leukocytosis - most likely steroid induced - no PNA noted on CXR - ID on board and appreciate recommendations 4. HTN - continue home medications 5. Dyslipidemia - Continue home meds 6. History of bladder cancer status post chemotherapy - Patient chronically straight caths at home, continue Puente catheter while in house - Follow-up with outpatient urology and oncology 7. Gout - Patient takes colchicine as needed, no issues currently 8. Disposition - Continue slow steroid taper and monitor for improvement in respiratory status Result Diagram: 08/20/18 0505 08/20/18 0505 Results 24hrs Laboratory Tests Test 08/19/18 22:00 08/20/18 05:05 Urine Color YELLOW Urine Clarity CLEAR Urine pH 6.0 Urine Specific [place] 1.016 Urine Ketones NEGATIVE Urine Nitrite NEGATIVE Urine Bilirubin NEGATIVE Urine Urobilinogen 1+ H Urine Leukocyte Esterase TRACE A Urine Microscopic RBC 114 H Urine Microscopic WBC 8 H Urine Bacteria FEW A Urine Hemoglobin 3+ H Urine Glucose NEGATIVE Urine Total Protein NEGATIVE White Blood Count 27.8 #H Red Blood Count 3.20 L Hemoglobin 9.4 L Hematocrit 30.6 L Mean Corpuscular Volume 95.6 Mean Corpuscular Hemoglobin 29.4 Mean Corpuscular Hemoglobin Concent 30.7 L Red Cell Distribution Width 13.0 Platelet Count 293 Mean Platelet Volume 9.5 Immature Granulocytes % 2.700 H Neutrophils % 88.6 H Lymphocytes % 3.0 L Monocytes % 5.4 Eosinophils % 0.0 Basophils % 0.3 Nucleated Red Blood Cells % 0.0 Immature Granulocytes # 0.740 H Neutrophils # 24.7 H Lymphocytes # 0.8 Monocytes # 1.5 H Eosinophils # 0.0 Basophils # 0.1 Nucleated Red Blood Cells # 0.0 Sodium Level 136 Potassium Level 4.3 Chloride Level 90 L Carbon Dioxide Level 43 *H Anion Gap 3 L Blood Urea Nitrogen 22 H Creatinine 0.72 Est Glomerular Filtrat Rate mL/min Glucose Level 161 Calcium Level 8.1 L Phosphorus Level 2.7 Magnesium Level 2.4 Total Bilirubin 0.3 Direct Bilirubin 0.00 Indirect Bilirubin 0.3 Aspartate Amino Transf (AST/SGOT) 33 Alanine Aminotransferase (ALT/SGPT) 43 Alkaline Phosphatase 71 Total Protein 6.5 Albumin 3.0 L Globulin 3.50 H Albumin/Globulin Ratio 0.85 Subjective 24 Hr Interval Summary Free Text/Dictation Patient states he's feeling better but still with wheezing. Still short of breath as well but no acute overnight events. Exam/Review of Systems Exam Vitals Vital Signs Date Temp Pulse Resp B/P (MAP) Pulse Ox O2 O2 Flow FiO2 Time Delivery Rate 08/20/18 93 12:00 08/20/18 98.1 18 157/82 95 11:35 (107) 08/20/18 Nasal 3.0 08:15 Cannula 08/20/18 31 01:44 Intake and Output 08/19/18 08/19/18 08/20/18 1515:00 23:00 07:00 IntakeIntake Total 590 ml 900 ml OutputOutput Total 800 ml BalanceBalance 590 ml 100 ml Exam General: Patient is laying in bed and answers questions appropriately Neck: Supple, nontender, midline Respiratory: Wheezing to auscultation bilaterally. diminished bilaterally. no crackles appreciated Cardiovascular: regular rate and rhythm, no obvious murmurs Gastrointestinal: soft, non-tender to palpation, nondistended, bowel sounds heard. Neurological: Moves all extremities spontaneously Skin: No new skin lesions Results Results 24hrs Laboratory Tests Test 08/19/18 22:00 08/20/18 05:05 Urine Color YELLOW Urine Clarity CLEAR Urine pH 6.0 Urine Specific [place] 1.016 Urine Ketones NEGATIVE Urine Nitrite NEGATIVE Urine Bilirubin NEGATIVE Urine Urobilinogen 1+ H Urine Leukocyte Esterase TRACE A Urine Microscopic RBC 114 H Urine Microscopic WBC 8 H Urine Bacteria FEW A Urine Hemoglobin 3+ H Urine Glucose NEGATIVE Urine Total Protein NEGATIVE White Blood Count 27.8 #H Red Blood Count 3.20 L Hemoglobin 9.4 L Hematocrit 30.6 L Mean Corpuscular Volume 95.6 Mean Corpuscular Hemoglobin 29.4 Mean Corpuscular Hemoglobin Concent 30.7 L Red Cell Distribution Width 13.0 Platelet Count 293 Mean Platelet Volume 9.5 Immature Granulocytes % 2.700 H Neutrophils % 88.6 H Lymphocytes % 3.0 L Monocytes % 5.4 Eosinophils % 0.0 Basophils % 0.3 Nucleated Red Blood Cells % 0.0 Immature Granulocytes # 0.740 H Neutrophils # 24.7 H Lymphocytes # 0.8 Monocytes # 1.5 H Eosinophils # 0.0 Basophils # 0.1 Nucleated Red Blood Cells # 0.0 Sodium Level 136 Potassium Level 4.3 Chloride Level 90 L Carbon Dioxide Level 43 *H Anion Gap 3 L Blood Urea Nitrogen 22 H Creatinine 0.72 Est Glomerular Filtrat Rate mL/min Glucose Level 161 Calcium Level 8.1 L Phosphorus Level 2.7 Magnesium Level 2.4 Total Bilirubin 0.3 Direct Bilirubin 0.00 Indirect Bilirubin 0.3 Aspartate Amino Transf (AST/SGOT) 33 Alanine Aminotransferase (ALT/SGPT) 43 Alkaline Phosphatase 71 Total Protein 6.5 Albumin 3.0 L Globulin 3.50 H Albumin/Globulin Ratio 0.85 Medications Medication Current Medications IV Flush (NS 3 ml) 3 ml PER PROTOCOL IV ; Start 08/12/18 at 21:30 Ondansetron HCl (Zofran Inj) 4 mg Q6H PRN IV NAUSEA/VOMITING Last administered on 08/13/18at 13:32; Admin Dose 4 MG; Start 08/12/18 at 21:30 Acetaminophen (Tylenol Tab) 650 mg Q6H PRN PO .PAIN 1-3 OR TEMP; Start 08/12/18 at 21:30 Docusate Sodium (Colace) 100 mg Q12H PRN PO .CONSTIPATION; Start 08/12/18 at 21:30 Bisacodyl (Dulcolax) 5 mg DAILY PRN PO .CONSTIPATION Last administered on 08/15/18at 12:58; Admin Dose 5 MG; Start 08/12/18 at 21:30 Enoxaparin Sodium (Lovenox) 40 mg DAILY SC Last administered on 08/20/18at 08:48; Admin Dose 40 MG; Start 08/12/18 at 21:30 Aspirin (Aspirin) 81 mg DAILY PO Last administered on 08/20/18at 08:37; Admin Dose 81 MG; Start 08/13/18 at 09:00 Docusate Sodium (Colace) 250 mg BID PO Last administered on 08/20/18 08:37; Admin Dose 250 MG; Start 08/13/18 at 09:00 Tamsulosin HCl (Flomax) 0.4 mg HS PO Last administered on 08/19/18 20:04; Admin Dose 0.4 MG; Start 08/13/18 at 21:00 Triamterene/HCTZ (Maxzide (75/50)) 1 tab DAILY PO Last administered on 08/14/18 09:32; Admin Dose 1 TAB; Start 08/13/18 at 09:00; Status Hold Diltiazem HCl (Cardizem Cd) 240 mg daily PO Last administered on 08/20/18 08:38; Admin Dose 240 MG; Start 08/13/18 at 09:00 Albuterol/ Ipratropium (Duoneb) 3 ml Q6H RESP THERAPY HHN Last administered on 08/20/18 08:00; Admin Dose 3 ML; Start 08/13/18 at 14:00 Nicotine (Nicoderm 14 Mg/ 24hr) 1 patch DAILY PRN TRANSDERM SMOKING URGE; Start 08/13/18 at 10:30 Oxycodone HCl (Roxicodone) 5 mg Q4 PRN PO MODERATE PAIN LEVEL 4-6 Last administered on 08/20/18 09:04; Admin Dose 5 MG; Start 08/13/18 at 16:30 Cefepime HCl 50 ml @ 100 mls/hr Q12 IVPB Last administered on 08/20/18 09:01; Admin Dose 100 MLS/HR; Start 08/14/18 at 09:00 Methylprednisolone Sodium Succinate (Solu-Medrol) 40 mg Q8 IV Last administered on 08/20/18 13:02; Admin Dose 40 MG; Start 08/14/18 at 14:00 Budesonide (Pulmicort (Neb)) 0.5 mg BID RESP THERAPY HHN Last administered on 08/20/18 09:58; Admin Dose 0.5 MG; Start 08/14/18 at 20:00 Pantoprazole (Protonix Tab) 40 mg DAILY@06 PO Last administered on 08/20/18 05:45; Admin Dose 40 MG; Start 08/14/18 at 13:30 Sucralfate (Carafate Susp) 1 gm QID PO Last administered on 08/20/18 13:02; Admin Dose 1 GM; Start 08/14/18 at 13:00 Losartan Potassium (Cozaar) 50 mg DAILY PO Last administered on 08/20/18 08:37; Admin Dose 50 MG; Start 08/15/18 at 09:00 Acetazolamide (Diamox) 250 mg BID PO Last administered on 08/20/18 10:12; Admin Dose 250 MG; Start 08/20/18 at 09:00 LUCINA MELLO MD Aug 20, 2018 15:25
--- NOTE | 2018-08-20 15:38 | CONS ---
Consult Date/Type/Reason Admit Date/Time Aug 12, 2018 at 21:20 Initial Consult Date 08/16/18 Type of Consult Pulmonary Date/Time of Note DATE: 08/20/18 TIME: 15:38 Subjective Patient stable this morning. States his breathing is improving. Objective Vital Signs Date Temp Pulse Resp B/P (MAP) Pulse Ox O2 O2 Flow FiO2 Time Delivery Rate 08/20/18 97.7 100 18 146/72 100 15:33 (96) 08/20/18 Nasal 3.0 08:15 Cannula 08/20/18 31 01:44 Intake and Output 08/19/18 08/19/18 08/20/18 1515:00 23:00 07:00 IntakeIntake Total 590 ml 900 ml OutputOutput Total 800 ml BalanceBalance 590 ml 100 ml Exam PHYSICAL EXAMINATION: VITAL SIGNS: HEENT: Pupils are equal and react to light. NECK: Supple. No JVD noted, no cervical adenopathy noted. LUNGS: Few scattered rhonchi. CARDIOVASCULAR: S1, S2 normal. ABDOMEN: Soft, nontender. No organomegaly, masses noted. EXTREMITIES: No clubbing or cyanosis noted. NEUROLOGICAL: Awake. Vent Setting Fraction of Inspired Oxygen pe: 31 Results/Medications Result Diagram: 08/20/18 0505 08/20/18 0505 Results 24 hrs Laboratory Tests Test 08/19/18 22:00 08/20/18 05:05 Urine Color YELLOW Urine Clarity CLEAR Urine pH 6.0 Urine Specific [place] 1.016 Urine Ketones NEGATIVE Urine Nitrite NEGATIVE Urine Bilirubin NEGATIVE Urine Urobilinogen 1+ H Urine Leukocyte Esterase TRACE A Urine Microscopic RBC 114 H Urine Microscopic WBC 8 H Urine Bacteria FEW A Urine Hemoglobin 3+ H Urine Glucose NEGATIVE Urine Total Protein NEGATIVE White Blood Count 27.8 #H Red Blood Count 3.20 L Hemoglobin 9.4 L Hematocrit 30.6 L Mean Corpuscular Volume 95.6 Mean Corpuscular Hemoglobin 29.4 Mean Corpuscular Hemoglobin Concent 30.7 L Red Cell Distribution Width 13.0 Platelet Count 293 Mean Platelet Volume 9.5 Immature Granulocytes % 2.700 H Neutrophils % 88.6 H Lymphocytes % 3.0 L Monocytes % 5.4 Eosinophils % 0.0 Basophils % 0.3 Nucleated Red Blood Cells % 0.0 Immature Granulocytes # 0.740 H Neutrophils # 24.7 H Lymphocytes # 0.8 Monocytes # 1.5 H Eosinophils # 0.0 Basophils # 0.1 Nucleated Red Blood Cells # 0.0 Sodium Level 136 Potassium Level 4.3 Chloride Level 90 L Carbon Dioxide Level 43 *H Anion Gap 3 L Blood Urea Nitrogen 22 H Creatinine 0.72 Est Glomerular Filtrat Rate mL/min Glucose Level 161 Calcium Level 8.1 L Phosphorus Level 2.7 Magnesium Level 2.4 Total Bilirubin 0.3 Direct Bilirubin 0.00 Indirect Bilirubin 0.3 Aspartate Amino Transf (AST/SGOT) 33 Alanine Aminotransferase (ALT/SGPT) 43 Alkaline Phosphatase 71 Total Protein 6.5 Albumin 3.0 L Globulin 3.50 H Albumin/Globulin Ratio 0.85 Medications Current Medications IV Flush (NS 3 ml) 3 ml PER PROTOCOL IV ; Start 08/12/18 at 21:30 Ondansetron HCl (Zofran Inj) 4 mg Q6H PRN IV NAUSEA/VOMITING Last administered on 08/13/18 13:32; Admin Dose 4 MG; Start 08/12/18 at 21:30 Acetaminophen (Tylenol Tab) 650 mg Q6H PRN PO .PAIN 1-3 OR TEMP; Start 08/12/18 at 21:30 Docusate Sodium (Colace) 100 mg Q12H PRN PO .CONSTIPATION; Start 08/12/18 at 21:30 Bisacodyl (Dulcolax) 5 mg DAILY PRN PO .CONSTIPATION Last administered on 08/15/18 12:58; Admin Dose 5 MG; Start 08/12/18 at 21:30 Enoxaparin Sodium (Lovenox) 40 mg DAILY SC Last administered on 08/20/18 08:48; Admin Dose 40 MG; Start 08/12/18 at 21:30 Aspirin (Aspirin) 81 mg DAILY PO Last administered on 08/20/18 08:37; Admin Dose 81 MG; Start 08/13/18 at 09:00 Docusate Sodium (Colace) 250 mg BID PO Last administered on 08/20/18 08:37; Admin Dose 250 MG; Start 08/13/18 at 09:00 Tamsulosin HCl (Flomax) 0.4 mg HS PO Last administered on 08/19/18 20:04; Admin Dose 0.4 MG; Start 08/13/18 at 21:00 Triamterene/HCTZ (Maxzide (75/50)) 1 tab DAILY PO Last administered on 08/14/18 09:32; Admin Dose 1 TAB; Start 08/13/18 at 09:00; Status Hold Diltiazem HCl (Cardizem Cd) 240 mg daily PO Last administered on 08/20/18 08:38; Admin Dose 240 MG; Start 08/13/18 at 09:00 Albuterol/ Ipratropium (Duoneb) 3 ml Q6H RESP THERAPY HHN Last administered on 08/20/18 08:00; Admin Dose 3 ML; Start 08/13/18 at 14:00 Nicotine (Nicoderm 14 Mg/ 24hr) 1 patch DAILY PRN TRANSDERM SMOKING URGE; S tart 08/13/18 at 10:30 Oxycodone HCl (Roxicodone) 5 mg Q4 PRN PO MODERATE PAIN LEVEL 4-6 Last admini stered on 08/20/18 09:04; Admin Dose 5 MG; Start 08/13/18 at 16:30 Cefepime HCl 50 ml @ 100 mls/hr Q12 IVPB Last administered on 08/20/18 09:01; Admin Dose 100 MLS/HR; Start 08/14/18 at 09:00 Methylprednisolone Sodium Succinate (Solu-Medrol) 40 mg Q8 IV Last administered on 08/20/18 13:02; Admin Dose 40 MG; Start 08/14/18 at 14:00 Budesonide (Pulmicort (Neb)) 0.5 mg BID RESP THERAPY HHN Last administered on 08/20/18 09:58; Admin Dose 0.5 MG; Start 08/14/18 at 20:00 Pantoprazole (Protonix Tab) 40 mg DAILY@06 PO Last administered on 08/20/18 05:45; Admin Dose 40 MG; Start 08/14/18 at 13:30 Sucralfate (Carafate Susp) 1 gm QID PO Last administered on 08/20/18 13:02; Admin Dose 1 GM; Start 08/14/18 at 13:00 Losartan Potassium (Cozaar) 50 mg DAILY PO Last administered on 08/20/18 08:37; Admin Dose 50 MG; Start 08/15/18 at 09:00 Acetazolamide (Diamox) 250 mg BID PO Last administered on 6/24/19at 10:12; Admin Dose 250 MG; Start 08/20/18 at 09:00 Assessment/Plan Hospital Course (Demo Recall) IMPRESSION: 1. Acute on chronic hypercapnic and hypoxemic respiratory failure. 2. Chronic obstructive pulmonary disease exacerbation. 3. Acute bronchitis. 4. Severe bullous emphysema. 5. Cachexia. 6. Pulmonary hypertension likely secondary to chronic obstructive pulmonary disease. 7. Benign prostatic hypertrophy. 8. History of hypertension. RECOMMENDATIONS: 1. Continue steroids and slow taper. 2. Bronchodilators. 3. Oxygen. 4. BiPAP p.r.n. Can likely be discharged home tomorrow on p.o. steroids. Follow-up with me as an outpatient. ANGE KUHN MD, [facility] Aug 20, 2018 15:38
[2018-08-20] MEDS: TAMSULOSIN (SR) 0.4 MG CAP PO SCH (21:05)
[2018-08-21] VITALS (10 sets, daily range): BP systolic 137–159; BP diastolic 69–80; PULSE 63–112; RESP 16–22
[2018-08-21] MEDS: oxyCODONE 5 MG TAB PO PRN ×2 (01:18→21:48)
[2018-08-21] MEDS: ONDANSETRON 4 MG INJ IV PRN (01:19)
[2018-08-21] MEDS: ALBUTEROL/IPRATROPIUM (NEB) 3 ML AMP HHN SCH ×4 (01:22→19:36)
[2018-08-21] MEDS ORDERED: DIPHENHYDRAMINE 50 MG CAP PO ONE (01:30)
[2018-08-21] MEDS ORDERED: OLANZAPINE 5 MG TAB PO SCH (01:30)
[2018-08-21] MEDS: METHYLPREDNISOLONE 40 MG INJ IV SCH ×3 (06:14→21:40)
[2018-08-21] MEDS: PANTOPRAZOLE (EC) 40 MG TAB PO SCH (06:14)
[2018-08-21] MEDS: BUDESONIDE (NEB) 0.5MG/2ML AMP HHN SCH ×2 (08:07→19:36)
[2018-08-21] MEDS ORDERED: POTASSIUM CHLORIDE (SR) 20 MEQ TAB PO STA (08:29)
[2018-08-21] MEDS: DOCUSATE SODIUM 250 MG CAP PO SCH ×2 (08:38→21:39)
[2018-08-21] MEDS: ACETAZOLAMIDE 250 MG TAB PO SCH ×2 (08:38→21:39)
[2018-08-21] MEDS: ASPIRIN 81 MG TAB PO SCH (08:39)
[2018-08-21] MEDS: CEFEPIME 1GM/50 ML (PMX) 50 ML IVPB SCH (08:39)
[2018-08-21] MEDS: SUCRALFATE (100 MG/ML) 10ML CUP PO SCH ×4 (08:39→21:39)
[2018-08-21] MEDS: LOSARTAN 50 MG TAB PO SCH (08:40)
[2018-08-21] MEDS: DILTIAZEM (CD) 240 MG CAP PO SCH (08:41)
[2018-08-21] MEDS: ENOXAPARIN 40 MG/0.4 ML SYG SC SCH (08:51)
--- NOTE | 2018-08-21 08:59 | PN ---
DATE: 08/20/2018 SUBJECTIVE: The patient remains stable. No events overnight. OBJECTIVE: VITAL SIGNS: Blood pressure is 146/69, respirations 17, pulse 93, temperature 97.7. HEENT: Head is normocephalic. NECK: Supple. HEART: Regular rate. LUNGS: Show diminished breath sounds at the base. ABDOMEN: Soft, nontender to palpation without rebound or guarding. EXTREMITIES: Negative for clubbing, cyanosis, no edema. DERMATOLOGIC: No rashes. MUSCULOSKELETAL: No joint effusion. NEUROLOGIC: No change in exam. MEDICATIONS: Reviewed. LABORATORY DATA: Reviewed. IMAGING STUDIES: Reviewed. ASSESSMENT AND PLAN: 1. Hypernatremia, improved. Continue to monitor. 2. Mixed acid base disorder. The patient has metabolic alkalosis, respiratory acidosis. Continue i ntermittent Diamox. Monitor closely. Continue to treat underlying chronic obstructive pulmonary dis ease. 3. Anemia. Monitor hemoglobin and hematocrit levels. 4. Chronic obstructive pulmonary disease exacerbation. Continue medical management. Continue nebul izer, steroids. 5. Pneumonia. The patient is completing antibiotic course. 6. Hypertension. Continue current blood pressure regimen. 7. History of bladder cancer. 8. History of gout. Dictated By: CLARICE CHAVIS DO NR/NTS Conf#: [id number] DID#: [id number] CC: ANNIKA KAYE MD; LUCINA MELLO MD; LINDA REYNOLDS MD;*End*
--- NOTE | 2018-08-21 10:32 | PN ---
Date/Time of Note Date/Time of Note DATE: 08/21/18 TIME: 10:32 Assessment/Plan VTE Prophylaxis Risk score (from Ns)>0 risk: 6 SCD applied (from Nsg): Yes Pharmacological prophylaxis: LMWH Lines/Catheters IV Catheter Type (from Nrs): Peripheral IV Urinary Cath still in place: Yes Reason Cath still needed: urinary retention Assessment/Plan Assessment/Plan 1. Acute on chronic hypercapnic and hypoxic respiratory failure- improving - Secondary to COPD exacerbation - doing well on NC at 3L which is his home dose - will transition to PO steroids tomorrow - continue bronchodilators 2. Acute on chronic COPD exacerbation- improving - Continue current treatment - BIPAP as needed - on 3L home O2 3. Leukocytosis- improving - most likely steroid induced - no PNA noted on CXR - ID on board and appreciate recommendations. will d/c antibiotics and monitor off 4. HTN - continue home medications 5. Dyslipidemia - Continue home meds 6. History of bladder cancer status post chemotherapy - Patient chronically straight cath at home, continue Puente catheter while in house - Follow-up with outpatient urology and oncology 7. Gout - Patient takes colchicine as needed, no issues currently 8. Disposition -If remains stable, will d/c home tomorrow on PO steroid taper Result Diagram: 08/21/18 0525 08/21/18 0525 Results 24hrs Laboratory Tests Test 08/21/18 05:25 White Blood Count 24.4 H Red Blood Count 3.31 L Hemoglobin 9.4 L Hematocrit 32.0 L Mean Corpuscular Volume 96.7 Mean Corpuscular Hemoglobin 28.4 L Mean Corpuscular Hemoglobin Concent 29.4 L Red Cell Distribution Width 13.3 Platelet Count 305 Mean Platelet Volume 9.2 Immature Granulocytes % 5.100 H Neutrophils % 85.5 H Segmented Neutrophils % (Manual) 89 H Band Neutrophils % (Manual) 3 Lymphocytes % 3.4 L Lymphocytes % (Manual) 2 L Monocytes % 5.8 Monocytes % (Manual) 6 Eosinophils % 0.0 Basophils % 0.2 Nucleated Red Blood Cells % 0.1 H Immature Granulocytes # 1.240 H Neutrophils # 20.9 H Neutrophils # (Manual) 21.9 H Band Neutrophils # 0.7 H Lymphocytes (Manual) 0.4 L Lymphocytes # 0.8 Monocytes # 1.4 H Monocytes # (Manual) 1.4 H Eosinophils # 0.0 Basophils # 0.1 Nucleated Red Blood Cells # 0.0 Platelet Estimate NORMAL Polychromasia 1+ Anisocytosis 2+ Macrocytosis 2+ Sodium Level 137 Potassium Level 3.6 Chloride Level 89 L Carbon Dioxide Level 42 *H Anion Gap 6 Blood Urea Nitrogen 19 Creatinine 0.85 Est Glomerular Filtrat Rate mL/min Glucose Level 161 Calcium Level 8.0 L Phosphorus Level 2.4 L Magnesium Level 2.4 Subjective 24 Hr Interval Summary Free Text/Dictation Patient states hes feeling better but would like to call his sister and neighbor to make sure his home is ready for discharge. Requesting d/c tomorrow. Exam/Review of Systems Exam Vitals Vital Signs Date Temp Pulse Resp B/P (MAP) Pulse Ox O2 O2 Flow FiO2 Time Delivery Rate 08/21/18 92 08:19 08/21/18 18 96 Nasal 3.0 08:18 Cannula 08/21/18 97.7 146/69 07:36 (94) 08/21/18 31 01:52 Intake and Output 08/20/18 08/20/18 08/21/18 1515:00 23:00 07:00 IntakeIntake Total 50 ml 1000 ml OutputOutput Total 800 ml 1250 ml BalanceBalance -750 ml -250 ml Exam General: Patient is laying in bed and answers questions appropriately Neck: Supple, nontender, midline Respiratory: diminished bilaterally. no crackles or wheezing appreciated Cardiovascular: regular rate and rhythm, no obvious murmurs Gastrointestinal: soft, non-tender to palpation, nondistended, bowel sounds heard. Neurological: Moves all extremities spontaneously Skin: No new skin lesions Results Results 24hrs Laboratory Tests Test 08/21/18 05:25 White Blood Count 24.4 H Red Blood Count 3.31 L Hemoglobin 9.4 L Hematocrit 32.0 L Mean Corpuscular Volume 96.7 Mean Corpuscular Hemoglobin 28.4 L Mean Corpuscular Hemoglobin Concent 29.4 L Red Cell Distribution Width 13.3 Platelet Count 305 Mean Platelet Volume 9.2 Immature Granulocytes % 5.100 H Neutrophils % 85.5 H Segmented Neutrophils % (Manual) 89 H Band Neutrophils % (Manual) 3 Lymphocytes % 3.4 L Lymphocytes % (Manual) 2 L Monocytes % 5.8 Monocytes % (Manual) 6 Eosinophils % 0.0 Basophils % 0.2 Nucleated Red Blood Cells % 0.1 H Immature Granulocytes # 1.240 H Neutrophils # 20.9 H Neutrophils # (Manual) 21.9 H Band Neutrophils # 0.7 H Lymphocytes (Manual) 0.4 L Lymphocytes # 0.8 Monocytes # 1.4 H Monocytes # (Manual) 1.4 H Eosinophils # 0.0 Basophils # 0.1 Nucleated Red Blood Cells # 0.0 Platelet Estimate NORMAL Polychromasia 1+ Anisocytosis 2+ Macrocytosis 2+ Sodium Level 137 Potassium Level 3.6 Chloride Level 89 L Carbon Dioxide Level 42 *H Anion Gap 6 Blood Urea Nitrogen 19 Creatinine 0.85 Est Glomerular Filtrat Rate mL/min Glucose Level 161 Calcium Level 8.0 L Phosphorus Level 2.4 L Magnesium Level 2.4 Medications Medication Current Medications IV Flush (NS 3 ml) 3 ml PER PROTOCOL IV ; Start 08/12/18 at 21:30 Ondansetron HCl (Zofran Inj) 4 mg Q6H PRN IV NAUSEA/VOMITING Last administered on 08/21/18 01:19; Admin Dose 4 MG; Start 08/12/18 at 21:30 Acetaminophen (Tylenol Tab) 650 mg Q6H PRN PO .PAIN 1-3 OR TEMP; Start 08/12/18 at 21:30 Docusate Sodium (Colace) 100 mg Q12H PRN PO .CONSTIPATION; Start 08/12/18 at 21:30 Bisacodyl (Dulcolax) 5 mg DAILY PRN PO .CONSTIPATION Last administered on 08/15/18at 12:58; Admin Dose 5 MG; Start 08/12/18 at 21:30 Enoxaparin Sodium (Lovenox) 40 mg DAILY SC Last administered on 08/21/18 08:51; Admin Dose 40 MG; Start 08/12/18 at 21:30 Aspirin (Aspirin) 81 mg DAILY PO Last administered on 08/21/18 08:39; Admin Dose 81 MG; Start 08/13/18 at 09:00 Docusate Sodium (Colace) 250 mg BID PO Last administered on 08/21/18 08:38; Admin Dose 250 MG; Start 08/13/18 at 09:00 Tamsulosin HCl (Flomax) 0.4 mg HS PO Last administered on 08/20/18at 21:05; Admin Dose 0.4 MG; Start 08/13/18 at 21:00 Triamterene/HCTZ (Maxzide (75/50)) 1 tab DAILY PO Last administered on 08/14/18 09:32; Admin Dose 1 TAB; Start 08/13/18 at 09:00; Status Hold Diltiazem HCl (Cardizem Cd) 240 mg daily PO Last administered on 08/21/18 08:41; Admin Dose 240 MG; Start 08/13/18 at 09:00 Albuterol/ Ipratropium (Duoneb) 3 ml Q6H RESP THERAPY HHN Last administered on 08/21/18 08:07; Admin Dose 3 ML; Start 08/13/18 at 14:00 Nicotine (Nicoderm 14 Mg/ 24hr) 1 patch DAILY PRN TRANSDERM SMOKING URGE; Start 08/13/18 at 10:30 Oxycodone HCl (Roxicodone) 5 mg Q4 PRN PO MODERATE PAIN LEVEL 4-6 Last administered on 08/21/18 01:18; Admin Dose 5 MG; Start 08/13/18 at 16:30 Cefepime HCl 50 ml @ 100 mls/hr Q12 IVPB Last administered on 08/21/18 08:39; Admin Dose 100 MLS/HR; Start 08/14/18 at 09:00 Methylprednisolone Sodium Succinate (Solu-Medrol) 40 mg Q8 IV Last administered on 08/21/18 06:14; Admin Dose 40 MG; Start 08/14/18 at 14:00 Budesonide (Pulmicort (Neb)) 0.5 mg BID RESP THERAPY HHN Last administered on 08/21/18 08:07; Admin Dose 0.5 MG; Start 08/14/18 at 20:00 Pantoprazole (Protonix Tab) 40 mg DAILY@06 PO Last administered on 08/21/18 06:14; Admin Dose 40 MG; Start 08/14/18 at 13:30 Sucralfate (Carafate Susp) 1 gm QID PO Last administered on 08/21/18 08:39; Admin Dose 1 GM; Start 08/14/18 at 13:00 Losartan Potassium (Cozaar) 50 mg DAILY PO Last administered on 08/21/18 08:40; Admin Dose 50 MG; Start 08/15/18 at 09:00 Acetazolamide (Diamox) 250 mg BID PO Last administered on 08/21/18at 08:38; Admin Dose 250 MG; Start 08/20/18 at 09:00 LUCINA MELLO MD Aug 21, 2018 10:32
--- NOTE | 2018-08-21 14:28 | CONS ---
Assessment/Plan Assessment/Plan Hospital Course (Demo Recall) No events no fevers patient looks comfortable no vomiting no diarrhea. WBC 24.4 neutrophils 85.5 BUN 19 creatinine 0.85 Repeat urine culture negative Indwelling: Puente Antimicrobials: Cefepime Physical examination: This is a chronically ill appearing fragile cachectic elderly -[place] man who is awake in no distress. Head atraumatic normocephalic. Neck is supple. Chest rise symmetrical breath sounds diminished bases. Heart: S1-S2.Abdomen soft bowel sounds present. Extremities without cyanosis Assessment: 1. Persistent leukocytosis, likely steroid-induced 2. COPD exacerbation 3. Cachexia 4. History of bladder cancer status post chemotherapy 5. Possible UTI> + UA Plan: Clinically stable, will discontinue antibiotics and monitor closely, f/u pulmonary rec-s Consultation Date/Type/Reason Admit Date/Time Aug 12, 2018 at 21:20 Initial Consult Date Type of Consult id Date/Time of Note DATE: 08/21/18 TIME: 14:27 Exam/Review of Systems Exam Vitals Vital Signs Date Temp Pulse Resp B/P (MAP) Pulse Ox O2 O2 Flow FiO2 Time Delivery Rate 08/21/18 95 18 94 Nasal 3.0 13:53 Cannula 08/21/18 97.8 149/72 11:18 (97) 08/21/18 31 01:52 Intake and Output 08/20/18 08/20/18 08/21/18 1515:00 23:00 07:00 IntakeIntake Total 50 ml 1000 ml OutputOutput Total 800 ml 1250 ml BalanceBalance -750 ml -250 ml Results Result Diagram: 08/21/18 0525 08/21/18 0525 Results 24hrs Laboratory Tests Test 08/21/18 05:25 White Blood Count 24.4 H Red Blood Count 3.31 L Hemoglobin 9.4 L Hematocrit 32.0 L Mean Corpuscular Volume 96.7 Mean Corpuscular Hemoglobin 28.4 L Mean Corpuscular Hemoglobin Concent 29.4 L Red Cell Distribution Width 13.3 Platelet Count 305 Mean Platelet Volume 9.2 Immature Granulocytes % 5.100 H Neutrophils % 85.5 H Segmented Neutrophils % (Manual) 89 H Band Neutrophils % (Manual) 3 Lymphocytes % 3.4 L Lymphocytes % (Manual) 2 L Monocytes % 5.8 Monocytes % (Manual) 6 Eosinophils % 0.0 Basophils % 0.2 Nucleated Red Blood Cells % 0.1 H Immature Granulocytes # 1.240 H Neutrophils # 20.9 H Neutrophils # (Manual) 21.9 H Band Neutrophils # 0.7 H Lymphocytes (Manual) 0.4 L Lymphocytes # 0.8 Monocytes # 1.4 H Monocytes # (Manual) 1.4 H Eosinophils # 0.0 Basophils # 0.1 Nucleated Red Blood Cells # 0.0 Platelet Estimate NORMAL Polychromasia 1+ Anisocytosis 2+ Macrocytosis 2+ Sodium Level 137 Potassium Level 3.6 Chloride Level 89 L Carbon Dioxide Level 42 *H Anion Gap 6 Blood Urea Nitrogen 19 Creatinine 0.85 Est Glomerular Filtrat Rate mL/min Glucose Level 161 Calcium Level 8.0 L Phosphorus Level 2.4 L Magnesium Level 2.4 Medications Medication Current Medications IV Flush (NS 3 ml) 3 ml PER PROTOCOL IV ; Start 08/12/18 at 21:30 Ondansetron HCl (Zofran Inj) 4 mg Q6H PRN IV NAUSEA/VOMITING Last administered on 08/21/18at 01:19; Admin Dose 4 MG; Start 08/12/18 at 21:30 Acetaminophen (Tylenol Tab) 650 mg Q6H PRN PO .PAIN 1-3 OR TEMP; Start 08/12/18 at 21:30 Docusate Sodium (Colace) 100 mg Q12H PRN PO .CONSTIPATION; Start 08/12/18 at 21:30 Bisacodyl (Dulcolax) 5 mg DAILY PRN PO .CONSTIPATION Last administered on 08/15/18at 12:58; Admin Dose 5 MG; Start 08/12/18 at 21:30 Enoxaparin Sodium (Lovenox) 40 mg DAILY SC Last administered on 08/21/18at 08:51; Admin Dose 40 MG; Start 08/12/18 at 21:30 Aspirin (Aspirin) 81 mg DAILY PO Last administered on 08/21/18 08:39; Admin Dose 81 MG; Start 08/13/18 at 09:00 Docusate Sodium (Colace) 250 mg BID PO Last administered on 08/21/18at 08:38; Admin Dose 250 MG; Start 08/13/18 at 09:00 Tamsulosin HCl (Flomax) 0.4 mg HS PO Last administered on 08/20/18at 21:05; Admin Dose 0.4 MG; Start 08/13/18 at 21:00 Triamterene/HCTZ (Maxzide (75/50)) 1 tab DAILY PO Last administered on 08/14/18 09:32; Admin Dose 1 TAB; Start 08/13/18 at 09:00; Status Hold Diltiazem HCl (Cardizem Cd) 240 mg daily PO Last administered on 08/21/18 08:41; Admin Dose 240 MG; Start 08/13/18 at 09:00 Albuterol/ Ipratropium (Duoneb) 3 ml Q6H RESP THERAPY HHN Last administered on 08/21/18 13:43; Admin Dose 3 ML; Start 08/13/18 at 14:00 Nicotine (Nicoderm 14 Mg/ 24hr) 1 patch DAILY PRN TRANSDERM SMOKING URGE; Start 08/13/18 at 10:30 Oxycodone HCl (Roxicodone) 5 mg Q4 PRN PO MODERATE PAIN LEVEL 4-6 Last administered on 08/21/18 01:18; Admin Dose 5 MG; Start 08/13/18 at 16:30 Cefepime HCl 50 ml @ 100 mls/hr Q12 IVPB Last administered on 08/21/18 08:39; Admin Dose 100 MLS/HR; Start 08/14/18 at 09:00 Methylprednisolone Sodium Succinate (Solu-Medrol) 40 mg Q8 IV Last administered on 08/21/18 14:05; Admin Dose 40 MG; Start 08/14/18 at 14:00 Budesonide (Pulmicort (Neb)) 0.5 mg BID RESP THERAPY HHN Last administered on 08/21/18 08:07; Admin Dose 0.5 MG; Start 08/14/18 at 20:00 Pantoprazole (Protonix Tab) 40 mg DAILY@06 PO Last administered on 08/21/18 06:14; Admin Dose 40 MG; Start 08/14/18 at 13:30 Sucralfate (Carafate Susp) 1 gm QID PO Last administered on 08/21/18 14:05; Admin Dose 1 GM; Start 08/14/18 at 13:00 Losartan Potassium (Cozaar) 50 mg DAILY PO Last administered on 08/21/18 08:40; Admin Dose 50 MG; Start 6/19/19 at 09:00 Acetazolamide (Diamox) 250 mg BID PO Last administered on 08/21/18at 08:38; Admin Dose 250 MG; Start 08/20/18 at 09:00 MITCH MELGAR NP Aug 21, 2018 14:28
[2018-08-21] MEDS: TAMSULOSIN (SR) 0.4 MG CAP PO SCH (21:39)
[2018-08-22] VITALS (7 sets, daily range): BP systolic 135–156; BP diastolic 64–75; PULSE 74–111; RESP 17–20
[2018-08-22] MEDS: ALBUTEROL/IPRATROPIUM (NEB) 3 ML AMP HHN SCH ×3 (01:19→13:55)
[2018-08-22] MEDS: PANTOPRAZOLE (EC) 40 MG TAB PO SCH ×2 (06:11→06:26)
[2018-08-22] MEDS: SUCRALFATE (100 MG/ML) 10ML CUP PO SCH ×3 (08:13→16:48)
[2018-08-22] MEDS: ACETAZOLAMIDE 250 MG TAB PO SCH (08:14)
[2018-08-22] MEDS: ASPIRIN 81 MG TAB PO SCH (08:14)
[2018-08-22] MEDS: DILTIAZEM (CD) 240 MG CAP PO SCH (08:14)
[2018-08-22] MEDS: DOCUSATE SODIUM 250 MG CAP PO SCH (08:14)
[2018-08-22] MEDS: LOSARTAN 50 MG TAB PO SCH (08:16)
[2018-08-22] MEDS: ENOXAPARIN 40 MG/0.4 ML SYG SC SCH (08:20)
--- NOTE | 2018-08-22 08:38 | PN ---
DATE: 08/22/2018 SUBJECTIVE: The patient is stable. No events overnight. OBJECTIVE: VITAL SIGNS: Blood pressure is 135/64, pulse 83, respirations 17, temperature 97.6. HEENT: Head is normocephalic. NECK: Supple. HEART: Regular rate. LUNGS: Show diminished breath sounds at the base. ABDOMEN: Soft, nontender to palpation without rebound or guarding. EXTREMITIES: Negative for clubbing, cyanosis, no edema. DERMATOLOGIC: No rashes. MUSCULOSKELETAL: No joint effusions. NEUROLOGIC: No change in exam. MEDICATIONS: The patient's medications have been reviewed. LABORATORY DATA: Has been reviewed. IMAGING STUDIES: Have been reviewed. ASSESSMENT AND PLAN: 1. Hypernatremia, improved. Continue to monitor. 2. Mixed acid base disorder. The patient has a metabolic alkalosis, respiratory acidosis. Continue intermittent Diamox. Continue to treat underlying chronic obstructive pulmonary disease. 3. Anemia. Monitor hemoglobin and hematocrit levels. 4. Chronic obstructive pulmonary disease. Continue medical management. Continue nebulizers and edwardo roids, antibiotics. 5. Hypertension. Continue current blood pressure regimen. 6. History of lung cancer. 7. History of gout. Dictated By: CLARICE CHAVIS DO NR/NTS Conf#: [id number] DID#: [id number] CC: ANNIKA KAYE MD; LUCINA MELLO MD; LINDA REYNOLDS MD;*End*
[2018-08-22] MEDS ORDERED: POTASSIUM CHLORIDE (SR) 20 MEQ TAB PO STA (08:47)
[2018-08-22] MEDS: BUDESONIDE (NEB) 0.5MG/2ML AMP HHN SCH (08:53)
[2018-08-22] MEDS ORDERED: predniSONE 50 MG TAB PO SCH (09:00)
--- NOTE | 2018-08-22 10:45 | PN ---
Date/Time of Note Date/Time of Note DATE: 08/22/18 TIME: 10:38 Assessment/Plan VTE Prophylaxis Risk score (from Ns)>0 risk: 8 SCD applied (from Ns): Yes Pharmacological prophylaxis: LMWH Lines/Catheters IV Catheter Type (from [email or web address] Saline Lock Urinary Cath still in place: No Assessment/Plan Assessment/Plan 1. Acute on chronic hypercapnic and hypoxic respiratory failure- resolving - Secondary to COPD exacerbation - doing well on NC at 3L which is his home dose - Continue on steroid taper - continue bronchodilators 2. Acute on chronic COPD exacerbation-resolving - Continue current treatment - BIPAP as needed - on 3L home O2 3. Leukocytosis- improving - most likely steroid induced - no PNA noted on CXR - ID on board and appreciate recommendations. will d/c antibiotics and monitor off 4. HTN - continue home medications 5. Dyslipidemia - Continue home meds 6. History of bladder cancer status post chemotherapy - Patient chronically straight cath at home, continue Puente catheter while in house - Follow-up with outpatient urology and oncology 7. Gout - Patient takes colchicine as needed, no issues currently 8. Disposition - Medically stable for discharge home Result Diagram: 08/21/18 0525 08/21/18 0525 Subjective 24 Hr Interval Summary Free Text/Dictation Patient doing well and states he's feeling better. No worsening of respiratory condition. Currently on 2L and upset about not being placed on 3L. Exam/Review of Systems Exam Vitals Vital Signs Date Temp Pulse Resp B/P (MAP) Pulse Ox O2 O2 Flow FiO2 Time Delivery Rate 08/22/18 20 99 Nasal 2.0 08:46 Cannula 08/22/18 103 08:37 08/22/18 97.6 135/64 07:24 (87) 08/21/18 31 01:52 Intake and Output 08/21/18 08/21/18 08/22/18 1515:00 23:00 07:00 IntakeIntake Total 1300 ml 250 ml 650 ml OutputOutput Total 750 ml 1300 ml BalanceBalance 550 ml 250 ml -650 ml Exam General: Patient is laying in bed and answers questions appropriately Neck: Supple, nontender, midline Respiratory: Mildly coarse breath sounds. no wheezing appreciated Cardiovascular: regular rate and rhythm, no obvious murmurs Gastrointestinal: soft, non-tender to palpation, nondistended, bowel sounds heard. Neurological: Moves all extremities spontaneously Skin: No new skin lesions Medications Medication Current Medications IV Flush (NS 3 ml) 3 ml PER PROTOCOL IV ; Start 08/12/18 at 21:30 Ondansetron HCl (Zofran Inj) 4 mg Q6H PRN IV NAUSEA/VOMITING Last administered on 08/21/18 01:19; Admin Dose 4 MG; Start 08/12/18 at 21:30 Acetaminophen (Tylenol Tab) 650 mg Q6H PRN PO .PAIN 1-3 OR TEMP; Start 08/12/18 at 21:30 Docusate Sodium (Colace) 100 mg Q12H PRN PO .CONSTIPATION; Start 08/12/18 at 21:30 Bisacodyl (Dulcolax) 5 mg DAILY PRN PO .CONSTIPATION Last administered on 08/15/18 12:58; Admin Dose 5 MG; Start 08/12/18 at 21:30 Enoxaparin Sodium (Lovenox) 40 mg DAILY SC Last administered on 08/22/18 08:20; Admin Dose 40 MG; Start 08/12/18 at 21:30 Aspirin (Aspirin) 81 mg DAILY PO Last administered on 08/22/18 08:14; Admin Dose 81 MG; Start 08/13/18 at 09:00 Docusate Sodium (Colace) 250 mg BID PO Last administered on 08/22/18 08:14; Admin Dose 250 MG; Start 08/13/18 at 09:00 Tamsulosin HCl (Flomax) 0.4 mg HS PO Last administered on 08/21/18 21:39; Admin Dose 0.4 MG; Start 08/13/18 at 21:00 Triamterene/HCTZ (Maxzide (75/50)) 1 tab DAILY PO Last administered on 08/14/18 09:32; Admin Dose 1 TAB; Start 08/13/18 at 09:00; Status Hold Diltiazem HCl (Cardizem Cd) 240 mg daily PO Last administered on 08/22/18 08:14; Admin Dose 240 MG; Start 08/13/18 at 09:00 Albuterol/ Ipratropium (Duoneb) 3 ml Q6H RESP THERAPY HHN Last administered on 08/22/18 08:53; Admin Dose 3 ML; Start 08/13/18 at 14:00 Nicotine (Nicoderm 14 Mg/ 24hr) 1 patch DAILY PRN TRANSDERM SMOKING URGE; Start 08/13/18 at 10:30 Oxycodone HCl (Roxicodone) 5 mg Q4 PRN PO MODERATE PAIN LEVEL 4-6 Last administered on 08/21/18 21:48; Admin Dose 5 MG; Start 08/13/18 at 16:30 Budesonide (Pulmicort (Neb)) 0.5 mg BID RESP THERAPY HHN Last administered on 08/22/18 08:53; Admin Dose 0.5 MG; Start 08/14/18 at 20:00 Pantoprazole (Protonix Tab) 40 mg DAILY@06 PO Last administered on 08/22/18 06:26; Admin Dose 40 MG; Start 08/14/18 at 13:30 Sucralfate (Carafate Susp) 1 gm QID PO Last administered on 08/22/18 08:13; Admin Dose 1 GM; Start 08/14/18 at 13:00 Losartan Potassium (Cozaar) 50 mg DAILY PO Last administered on 08/22/18 08:16; Admin Dose 50 MG; Start 08/15/18 at 09:00 Acetazolamide (Diamox) 250 mg BID PO Last administered on 08/22/18 08:14; Admin Dose 250 MG; Start 08/20/18 at 09:00 Prednisone (Prednisone) 50 mg DAILY PO Last administered on 08/22/18 08:14; Admin Dose 50 MG; Start 08/22/18 at 09:00 LUCINA MELLO MD Aug 22, 2018 10:45
[2018-08-22] MEDS ORDERED: PRED10TA PO (10:50)
[2018-08-22] MEDS ORDERED: LOSA50TA14 PO (10:50)
[2018-08-22] MEDS ORDERED: PANT40TA4 PO (10:50)
--- NOTE | 2018-08-22 11:02 | PDOCDIS ---
Discharge Instructions DIAGNOSIS Discharge Diagnosis 1. Acute on chronic hypercapnic and hypoxic respiratory failure- improving 2. Acute on chronic COPD exacerbation- improving 3. Leukocytosis- improving 4. HTN 5. Dyslipidemia 6. History of bladder cancer status post chemotherapy 7. Gout CONDITION [id number] Patient Condition: [id number] Stable HOME CARE INSTRUCTIONS: [id number] Diet Instructions: [id number] Low Fat /Cholesterol ACTIVITY: [id number] Activity Restrictions: [id number] No Restrictions FOLLOW UP/APPOINTMENTS Follow-up Plan 1. Follow up with your primary care physician in 1-2 week 2. Follow up with Dr. Modi in 2 weeks 3. Continue on steroid taper starting tomorrow, 08/23, and make sure to take Pantoprazole to prevent any stomach ulcers - Take 50mg (5 tabs) for 4 days then 40mg (4 tabs) for 5 days then 30mg (3tabs) for 5 days then 20mg (2tabs) for 5 days then 10mg (1tab) for 5 days then 5mg (1/2) for 5 days 4. Your Cozaar was increased to 50mg and your Maxzide was discontinued 5. Continue all your other medications as prescribed 6. If experiencing any concerning symptoms , please go to your closest emergency department LUCINA MELLO MD Aug 22, 2018 11:02
--- NOTE | 2018-08-22 15:34 | CONS ---
Consult Date/Type/Reason Admit Date/Time Aug 12, 2018 at 21:20 Initial Consult Date 08/16/18 Type of Consult Pulmonary Date/Time of Note DATE: 08/22/18 TIME: 15:33 Subjective Patient stable no new events Objective Vital Signs Date Temp Pulse Resp B/P (MAP) Pulse Ox O2 O2 Flow FiO2 Time Delivery Rate 08/22/18 111 12:20 08/22/18 98.6 18 139/66 100 11:19 (90) 08/22/18 Nasal 2.0 08:46 Cannula 08/21/18 31 01:52 Intake and Output 08/21/18 08/21/18 08/22/18 1515:00 23:00 07:00 IntakeIntake Total 1300 ml 250 ml 650 ml OutputOutput Total 750 ml 1300 ml BalanceBalance 550 ml 250 ml -650 ml Exam GENERAL: VITAL SIGNS: per chart NECK: Supple. No JVD or lymphadenopathy. CARDIAC EXAM: S1, S2. No added sounds or murmurs. CHEST: clear bilaterally, No added sounds, rales or wheezes ABDOMEN: Soft, nontender. No guarding or rebound. EXTREMITIES: No cyanosis, clubbing or edema. NEUROLOGIC: Generalized weakness. No focal deficits. Vent Setting Fraction of Inspired Oxygen pe: 31 Results/Medications Result Diagram: 08/21/18 0525 08/21/18 05 Medications Current Medications IV Flush (NS 3 ml) 3 ml PER PROTOCOL IV ; Start 08/12/18 at 21:30 Ondansetron HCl (Zofran Inj) 4 mg Q6H PRN IV NAUSEA/VOMITING Last administered on 08/21/18at 01:19; Admin Dose 4 MG; Start 08/12/18 at 21:30 Acetaminophen (Tylenol Tab) 650 mg Q6H PRN PO .PAIN 1-3 OR TEMP; Start 08/12/18 at 21:30 Docusate Sodium (Colace) 100 mg Q12H PRN PO .CONSTIPATION; Start 08/12/18 at 21:30 Bisacodyl (Dulcolax) 5 mg DAILY PRN PO .CONSTIPATION Last administered on 08/15/18at 12:58; Admin Dose 5 MG; Start 08/12/18 at 21:30 Enoxaparin Sodium (Lovenox) 40 mg DAILY SC Last administered on 08/22/18at 08:20; Admin Dose 40 MG; Start 08/12/18 at 21:30 Aspirin (Aspirin) 81 mg DAILY PO Last administered on 08/22/18 08:14; Admin Dose 81 MG; Start 08/13/18 at 09:00 Docusate Sodium (Colace) 250 mg BID PO Last administered on 08/22/18 08:14; Admin Dose 250 MG; Start 08/13/18 at 09:00 Tamsulosin HCl (Flomax) 0.4 mg HS PO Last administered on 08/21/18 21:39; Admin Dose 0.4 MG; Start 08/13/18 at 21:00 Triamterene/HCTZ (Maxzide (75/50)) 1 tab DAILY PO Last administered on 08/14/18 09:32; Admin Dose 1 TAB; Start 08/13/18 at 09:00; Status Hold Diltiazem HCl (Cardizem Cd) 240 mg daily PO Last administered on 08/22/18 08:14; Admin Dose 240 MG; Start 08/13/18 at 09:00 Albuterol/ Ipratropium (Duoneb) 3 ml Q6H RESP THERAPY HHN Last administered on 08/22/18 08:53; Admin Dose 3 ML; Start 08/13/18 at 14:00 Nicotine (Nicoderm 14 Mg/ 24hr) 1 patch DAILY PRN TRANSDERM SMOKING URGE; Start 08/13/18 at 10:30 Oxycodone HCl (Roxicodone) 5 mg Q4 PRN PO MODERATE PAIN LEVEL 4-6 Last administered on 08/21/18 21:48; Admin Dose 5 MG; Start 08/13/18 at 16:30 Budesonide (Pulmicort (Neb)) 0.5 mg BID RESP THERAPY HHN Last administered on 08/22/18 08:53; Admin Dose 0.5 MG; Start 08/14/18 at 20:00 Pantoprazole (Protonix Tab) 40 mg DAILY@06 PO Last administered on 08/22/18 06:26; Admin Dose 40 MG; Start 08/14/18 at 13:30 Sucralfate (Carafate Susp) 1 gm QID PO Last administered on 08/22/18 13:15; Admin Dose 1 GM; Start 08/14/18 at 13:00 Losartan Potassium (Cozaar) 50 mg DAILY PO Last administered on 08/22/18at 08:16; Admin Dose 50 MG; Start 08/15/18 at 09:00 Acetazolamide (Diamox) 250 mg BID PO Last administered on 08/22/18at 08:14; Admin Dose 250 MG; Start 08/20/18 at 09:00 Prednisone (Prednisone) 50 mg DAILY PO Last administered on 08/22/18at 08:14; Admin Dose 50 MG; Start 08/22/18 at 09:00 Assessment/Plan Hospital Course (Demo Recall) IMPRESSION: 1. Acute on chronic hypercapnic and hypoxemic respiratory failure. 2. Chronic obstructive pulmonary disease exacerbation. 3. Acute bronchitis. 4. Severe bullous emphysema. 5. Cachexia. 6. Pulmonary hypertension likely secondary to chronic obstructive pulmonary disease. 7. Benign prostatic hypertrophy. 8. History of hypertension. RECOMMENDATIONS: 1. Continue steroids and slow taper. 2. Bronchodilators. 3. Oxygen. 4. BiPAP p.r.n. agree with discharge planning. ANGE KUHN MD, [facility] Aug 22, 2018 15:34
--- NOTE | 2018-08-22 15:42 | CONS ---
Assessment/Plan Assessment/Plan Hospital Course (Demo Recall) Looks comfortable, no fevers Repeat urine culture negative Indwelling: Puente Physical examination: This is a chronically ill appearing fragile cachectic elderly -Citizen Of [place] man who is awake in no distress. Head atraumatic normocephalic. Neck is supple. Chest rise symmetrical breath sounds diminished bases. Heart: S1-S2.Abdomen soft bowel sounds present. Extremities without cyanosis Assessment: 1. Persistent leukocytosis, likely steroid-induced 2. COPD exacerbation 3. Cachexia 4. History of bladder cancer status post chemotherapy 5. Possible UTI> + UA Plan: Clinically stable, completed antibiotics, will reculture prn Consultation Date/Type/Reason Admit Date/Time Aug 12, 2018 at 21:20 Initial Consult Date Type of Consult id Date/Time of Note DATE: 08/22/18 TIME: 15:41 Exam/Review of Systems Exam Vitals Vital Signs Date Temp Pulse Resp B/P (MAP) Pulse Ox O2 O2 Flow FiO2 Time Delivery Rate 08/22/18 111 12:20 08/22/18 98.6 18 139/66 100 11:19 (90) 08/22/18 Nasal 2.0 08:46 Cannula 08/21/18 31 01:52 Intake and Output 08/21/18 08/21/18 08/22/18 1515:00 23:00 07:00 IntakeIntake Total 1300 ml 250 ml 650 ml OutputOutput Total 750 ml 1300 ml BalanceBalance 550 ml 250 ml -650 ml Results Result Diagram: 08/21/18 0525 08/21/18 0525 Medications Medication Current Medications IV Flush (NS 3 ml) 3 ml PER PROTOCOL IV ; Start 08/12/18 at 21:30 Ondansetron HCl (Zofran Inj) 4 mg Q6H PRN IV NAUSEA/VOMITING Last administered on 08/21/18at 01:19; Admin Dose 4 MG; Start 08/12/18 at 21:30 Acetaminophen (Tylenol Tab) 650 mg Q6H PRN PO .PAIN 1-3 OR TEMP; Start 08/12/18 at 21:30 Docusate Sodium (Colace) 100 mg Q12H PRN PO .CONSTIPATION; Start 08/12/18 at 21:30 Bisacodyl (Dulcolax) 5 mg DAILY PRN PO .CONSTIPATION Last administered on 08/15/18at 12:58; Admin Dose 5 MG; Start 08/12/18 at 21:30 Enoxaparin Sodium (Lovenox) 40 mg DAILY SC Last administered on 08/22/18 08:20; Admin Dose 40 MG; Start 08/12/18 at 21:30 Aspirin (Aspirin) 81 mg DAILY PO Last administered on 08/22/18 08:14; Admin Dose 81 MG; Start 08/13/18 at 09:00 Docusate Sodium (Colace) 250 mg BID PO Last administered on 08/22/18 08:14; Admin Dose 250 MG; Start 08/13/18 at 09:00 Tamsulosin HCl (Flomax) 0.4 mg HS PO Last administered on 08/21/18 21:39; Admin Dose 0.4 MG; Start 08/13/18 at 21:00 Triamterene/HCTZ (Maxzide (75/50)) 1 tab DAILY PO Last administered on 08/14/18 09:32; Admin Dose 1 TAB; Start 08/13/18 at 09:00; Status Hold Diltiazem HCl (Cardizem Cd) 240 mg daily PO Last administered on 08/22/18 08:14; Admin Dose 240 MG; Start 08/13/18 at 09:00 Albuterol/ Ipratropium (Duoneb) 3 ml Q6H RESP THERAPY HHN Last administered on 08/22/18 08:53; Admin Dose 3 ML; Start 08/13/18 at 14:00 Nicotine (Nicoderm 14 Mg/ 24hr) 1 patch DAILY PRN TRANSDERM SMOKING URGE; Start 08/13/18 at 10:30 Oxycodone HCl (Roxicodone) 5 mg Q4 PRN PO MODERATE PAIN LEVEL 4-6 Last administered on 08/21/18 21:48; Admin Dose 5 MG; Start 08/13/18 at 16:30 Budesonide (Pulmicort (Neb)) 0.5 mg BID RESP THERAPY HHN Last administered on 08/22/18 08:53; Admin Dose 0.5 MG; Start 08/14/18 at 20:00 Pantoprazole (Protonix Tab) 40 mg DAILY@06 PO Last administered on 08/22/18 06:26; Admin Dose 40 MG; Start 08/14/18 at 13:30 Sucralfate (Carafate Susp) 1 gm QID PO Last administered on 08/22/18 13:15; Admin Dose 1 GM; Start 08/14/18 at 13:00 Losartan Potassium (Cozaar) 50 mg DAILY PO Last administered on 08/22/18 08:16; Admin Dose 50 MG; Start 08/15/18 at 09:00 Acetazolamide (Diamox) 250 mg BID PO Last administered on 08/22/18 08:14; Admin Dose 250 MG; Start 08/20/18 at 09:00 Prednisone (Prednisone) 50 mg DAILY PO Last administered on 08/22/18 08:14; Admin Dose 50 MG; Start 08/22/18 at 09:00 MITCH MELGAR NP Aug 22, 2018 15:42
--- NOTE | 2018-08-22 18:29 | DS ---
Date/Time of Note Date/Time of Note DATE: 08/22/18 TIME: 18:29 Discharge Summary Admission/Discharge Info Admit Date/Time Aug 12, 2018 at 21:20 Discharge Date/Time Aug 22, 2018 at 17:35 Discharge Diagnosis 1. Acute on chronic hypercapnic and hypoxic respiratory failure- improving 2. Acute on chronic COPD exacerbation- improving 3. Leukocytosis- improving 4. HTN 5. Dyslipidemia 6. History of bladder cancer status post chemotherapy 7. Gout Patient Condition: Stable Consults Pulmonology- Dr. Mccarthy/Rian Infectious disease- Dr. Bang Nephrology- Dr. Joya Hx of Present Illness Chief complaint: Shortness of breath x5 days This is a 73-year-old male with a past medical history of COPD, hypertension, hyperlipidemia and bladder cancer who presents to the emergency department complaining of approximately 5 days of shortness of breath. Patient reports that he also has had a cough along with thick purulent sputum. He denies any fevers. He denies any chest pain or calf swelling or vomiting. He has a history of bladder cancer status post chemotherapy treatment. He performs self- catheterization at home. He has a outpatient urologist oncologist at the [place]. Patient also uses supplemental O2 at home. He is currently a smoker Allergies: See EMR Hospital Course Patient was admitted for treatment of acute shortness of breath secondary to COPD exacerbation and possible pneumonia. Patients condition was not improving and Infectious disease was consulted for antibiotic recommendations. Nephrology was consulted for assistance with patients hyponatremia and contraction alkalosis. Patients respiratory status was not improving and Pulmonology was consulted as well for recommendations. Patient was started on BIPAP with improvement and weaned off to NC. Patient was continued on high dose steroids, IV antibiotics and bronchodilators. He slowly improved during course of hospitalization and completed a course of antibiotics. Steroids were transitioned to PO prednisone and he was saturating well on 3L O2 via NC which was his home dose. He was offered pulmonary rehab at [facility] but requested to go home. Patients overall condition improved and shortness of breath resolved. Patient was discharged home in stable condition on slow steroid taper. Home Meds Active Scripts Prednisone (Prednisone) 10 Mg Tab, 10 MG PO DAILY for 29 Days, #73 TAB 50mg for 4 days, 40mg for 5 days, 30mg for 5 days, 20mg for 5 days, 10mg for 5 days, 5mg for 5 days Prov:LUCINA MELLO MD 08/22/18 Pantoprazole* (Pantoprazole*) 40 Mg Tablet., 40 MG PO DAILY@06 for 30 Days, #30 TAB Prov:LUCINA MELLO MD 08/22/18 Losartan Potassium* (Losartan Potassium*) 50 Mg Tablet, 50 MG PO DAILY for 30 Days, #30 TAB Prov:LUCINA MELLO MD 08/22/18 Aspirin (Aspirin) 81 Mg Chew, 81 MG PO DAILY for 30 Days, #30 TAB Prov:FLORENCE MENDOZA MD 11/16/16 Reported Medications Budesonide-Formoterol Fumarate* (Symbicort*) 6 Gm Hfa.aer.ad, 6 GM IH BID 05/07/12 Albuterol/Ipratropium (Combivent) 14.7 Gm Inha, 14.7 GM IH DAILY 05/07/12 Colchicine (Colchicine) 0.6 Mg Tablet, 0.6 MG PO BID 05/07/12 Diclofenac Sodium* (Diclofenac Sodium*) 50 Mg Tablet.dr, 50 MG PO TID 05/07/12 Sildenafil Citrate* (Viagra*) 100 Mg Tablet, 100 MG PO PRN 05/07/12 Docusate Sodium (Stool Softener) 250 Mg Capsule, 250 MG PO BID 05/07/12 Tamsulosin Hcl* (Flomax*) 0.4 Mg Cap.sr.24h, 0.4 MG PO HS 05/07/12 Diltiazem Hcl (Diltiazem Er) 240 Mg Capsule.cr, 240 MG PO daily 11/12/11 Tiotropium [place]* (Spiriva*) 18 Mcg Cap.w.dev, 1 PUFF PO DAILY 04/03/11 Discontinued Reported Medications Losartan Potassium* (Cozaar*) 25 Mg Tablet, 25 MG PO DAILY 05/07/12 Triamterene/Hctz (Maxzide (75-50)*) 1 Tab Tablet, 1 TAB PO DAILY 11/12/11 Follow-up Plan 1. Follow up with your primary care physician in 1-2 week 2. Follow up with Dr. Modi in 2 weeks 3. Continue on steroid taper starting tomorrow, 08/23, and make sure to take Pantoprazole to prevent any stomach ulcers - Take 50mg (5 tabs) for 4 days then 40mg (4 tabs) for 5 days then 30mg (3tabs) for 5 days then 20mg (2tabs) for 5 days then 10mg (1tab) for 5 days then 5mg (1/2) for 5 days 4. Your Cozaar was increased to 50mg and your Maxzide was discontinued 5. Continue all your other medications as prescribed 6. If experiencing any concerning symptoms , please go to your closest emergency department Primary Care Provider Not On Staff Doctor Time spent on discharge: > 30 minutes LUCINA MELLO MD Aug 22, 2018 18:29
== END 2018-08-22 17:35 | disposition home or self-care (01) | DRG 871 ==
LOC: E/R 16:04 → 6WM 21:20
PROVIDERS: ADMIT Family Medicine; ATTEND Internal Medicine
DX: A41.9 Sepsis, unspecified organism (principal); J96.21 Acute and chronic respiratory failure with hypoxia; J18.9 Pneumonia, unspecified organism; J96.02 Acute respiratory failure with hypercapnia; J96.22 Acute and chronic respiratory failure with hypercapnia; J44.1 Chronic obstructive pulmonary disease with (acute) exacerbation; E87.1 Hypo-osmolality and hyponatremia; E87.3 Alkalosis; J44.0 Chronic obstructive pulmonary disease with (acute) lower respiratory infection; E87.0 Hyperosmolality and hypernatremia; R64 Cachexia; Z68.1 Body mass index [BMI] 19.9 or less, adult; N39.0 Urinary tract infection, site not specified; Z99.81 Dependence on supplemental oxygen; E86.0 Dehydration; C67.9 Malignant neoplasm of bladder, unspecified; D64.9 Anemia, unspecified; I10 Essential (primary) hypertension; E78.5 Hyperlipidemia, unspecified; F17.200 Nicotine dependence, unspecified, uncomplicated; M10.9 Gout, unspecified; J20.9 Acute bronchitis, unspecified; N40.0 Benign prostatic hyperplasia without lower urinary tract symptoms; E87.6 Hypokalemia
CPT/HCPCS: 36600; 71045; 71250; 80048; 80053; 80061; 81001; 81003; 82043; 82436; 82803; 83036; 83605; 83735; 83880; 84100; 84155; 84300; 84443; 84484; 85025; 87086; 87400; 93005; 93306; 94640; 94644; 94660; 94664; 96374; 96375; 97162; J0456; J0692; J0696; J1120; J1650; J1956; J2405; J2920; J2930; J7030; J7040; J7512

== ENCOUNTER 2018-10-20 20:33 | Inpatient (IN) | payer MEDICARE, OTHER ==
[~2018-10-20] VITALS: Ht 172.7 cm; Wt 51.4 kg
[~2018-10-20 20:33] MED LIST changes: +HYDR-3601 PO; -LOSA25TA2 PO; +LOSA50TA14 PO; -MAXIDE PO; +PANT40TA4 PO; +PRED10TA PO
[2018-10-21] MEDS ORDERED: SOD CHLORIDE 0.9% 1,000 ML IV ONE (00:30)
[2018-10-21 02:30] VITALS: BP 149/73; PULSE 93; RESP 24
[2018-10-21] MEDS ORDERED: DOCUSATE SODIUM 100 MG CAP PO PRN (03:00)
[2018-10-21] MEDS ORDERED: ONDANSETRON 4 MG INJ IV PRN ×2 (03:00)
[2018-10-21] MEDS ORDERED: BISACODYL (EC) 5 MG TAB PO PRN (03:00)
[2018-10-21] MEDS ORDERED: SILDENAFIL 100 MG TAB PO SCH (03:00)
[2018-10-21] MEDS ORDERED: ACETAMINOPHEN 325 MG TAB PO PRN ×2 (03:00)
[2018-10-21] MEDS ORDERED: NACL 0.9% 3 ML SYG IV SCH (03:00)
[2018-10-21] MEDS: morphine 2 MG INJ IV PRN ×5 (03:10→19:50)
[2018-10-21] MEDS: SOD CHLORIDE 0.9% 1,000 ML IV SCH ×2 (03:12→17:23)
[2018-10-21 03:27] VITALS: Ht 172.7 cm; Wt 51.4 kg
[2018-10-21 03:29] VITALS: BP 149/73; PULSE 93; RESP 22
[2018-10-21] MEDS: PANTOPRAZOLE (EC) 40 MG TAB PO SCH (05:25)
[2018-10-21] MEDS ORDERED: LEVALBUTEROL (NEB) 1.25 MG/0.5 ML AMP INH PRN (07:00)
[2018-10-21] MEDS: HYDROCODONE/APAP (5/325) TAB PO PRN (08:20)
[2018-10-21 08:24] VITALS: BP 163/83; PULSE 107; RESP 24
[2018-10-21] MEDS ORDERED: TIOTROPIUM 18 MCG CAPSULE INHA DEV INH SCH (09:00)
[2018-10-21] MEDS ORDERED: IPRATROPIUM IH SCH (09:00)
[2018-10-21] MEDS ORDERED: NON-FORMULARY/PATIENT OWN MED (Colchicine 0.6 MG) PO SCH (09:00)
[2018-10-21] MEDS ORDERED: predniSONE 10 MG TAB PO SCH (09:00)
[2018-10-21] MEDS: ARFORMOTEROL TARTRATE 15MCG/2 ML AMP INH SCH ×2 (09:00→21:32)
[2018-10-21] MEDS ORDERED: COLCHICINE 0.6 MG CAP PO SCH (09:00)
[2018-10-21] MEDS: BUDESONIDE (NEB) 0.5MG/2ML AMP INH SCH ×2 (09:00→21:32)
[2018-10-21] MEDS ORDERED: ALBUTEROL IH SCH (09:00)
[2018-10-21] MEDS ORDERED: BUDESONIDE FORMOTEROL FUMARATE IH SCH (09:00)
[2018-10-21] MEDS ORDERED: DILTIAZEM HCL 240 MG PO SCH (09:00)
[2018-10-21] MEDS: DILTIAZEM (CD) 240 MG CAP PO SCH (09:59)
[2018-10-21] MEDS: LOSARTAN 50 MG TAB PO SCH (09:59)
[2018-10-21] MEDS: DOCUSATE SODIUM 250 MG CAP PO SCH ×2 (10:01→21:17)
[2018-10-21] MEDS: TIOTROPIUM 18 MCG CAPSULE INHA DEV INH SCH (10:06)
[2018-10-21 10:51] VITALS: BP 148/82; PULSE 92
[2018-10-21] MEDS ORDERED: METHYLPREDNISOLONE 125 MG INJ IV ONE (11:00)
[2018-10-21] MEDS: ALBUTEROL/IPRATROPIUM (NEB) 3 ML AMP HHN SCH ×3 (11:00→21:32)
[2018-10-21 13:55] VITALS: BP 157/72; PULSE 91; RESP 16
[2018-10-21 21:08] VITALS: BP 142/76; PULSE 86; RESP 18
[2018-10-21] MEDS: TAMSULOSIN (SR) 0.4 MG CAP PO SCH (21:16)
[2018-10-22 01:30] VITALS: BP 144/66; PULSE 83; RESP 18
[2018-10-22] MEDS: PANTOPRAZOLE (EC) 40 MG TAB PO SCH (06:38)
[2018-10-22] MEDS: HYDROCODONE/APAP (5/325) TAB PO PRN ×2 (06:45→18:24)
[2018-10-22] MEDS: morphine 2 MG INJ IV PRN ×4 (07:04→20:44)
[2018-10-22 07:22] VITALS: BP 141/72; PULSE 98; RESP 20
[2018-10-22] MEDS: BUDESONIDE (NEB) 0.5MG/2ML AMP INH SCH ×2 (08:13→19:36)
[2018-10-22] MEDS: ARFORMOTEROL TARTRATE 15MCG/2 ML AMP INH SCH ×2 (08:13→19:36)
[2018-10-22] MEDS: ALBUTEROL/IPRATROPIUM (NEB) 3 ML AMP HHN SCH ×4 (08:14→19:43)
[2018-10-22] MEDS: COLCHICINE 0.6 MG CAP PO SCH (09:00)
[2018-10-22] MEDS ORDERED: METHYLPREDNISOLONE 125 MG INJ IV ONE (09:00)
[2018-10-22] MEDS: DOCUSATE SODIUM 250 MG CAP PO SCH ×2 (09:00→20:43)
[2018-10-22] MEDS: DILTIAZEM (CD) 240 MG CAP PO SCH (09:01)
[2018-10-22] MEDS: LOSARTAN 50 MG TAB PO SCH (09:01)
[2018-10-22] MEDS: TIOTROPIUM 18 MCG CAPSULE INHA DEV INH SCH (09:03)
[2018-10-22 14:14] VITALS: BP 134/68; PULSE 89; RESP 20
[2018-10-22 20:28] VITALS: BP 144/67; PULSE 85; RESP 19
[2018-10-22] MEDS: TAMSULOSIN (SR) 0.4 MG CAP PO SCH (20:43)
[2018-10-23] MEDS: morphine 2 MG INJ IV PRN ×6 (00:53→22:25)
[2018-10-23 01:51] VITALS: BP 144/66; PULSE 86; RESP 18
[2018-10-23] MEDS: PANTOPRAZOLE (EC) 40 MG TAB PO SCH (05:05)
[2018-10-23] MEDS: ALBUTEROL/IPRATROPIUM (NEB) 3 ML AMP HHN SCH ×2 (07:32→19:35)
[2018-10-23] MEDS: ARFORMOTEROL TARTRATE 15MCG/2 ML AMP INH SCH ×2 (07:42→19:35)
[2018-10-23] MEDS: BUDESONIDE (NEB) 0.5MG/2ML AMP INH SCH ×2 (07:52→19:35)
[2018-10-23 07:58] VITALS: BP 143/74; PULSE 90; RESP 18
[2018-10-23] MEDS: COLCHICINE 0.6 MG CAP PO SCH (09:25)
[2018-10-23] MEDS: DOCUSATE SODIUM 250 MG CAP PO SCH ×2 (09:26→20:31)
[2018-10-23] MEDS: predniSONE 10 MG TAB PO SCH (09:26)
[2018-10-23] MEDS: LOSARTAN 50 MG TAB PO SCH (09:26)
[2018-10-23] MEDS: DILTIAZEM (CD) 240 MG CAP PO SCH (09:27)
[2018-10-23] MEDS: TIOTROPIUM 18 MCG CAPSULE INHA DEV INH SCH (09:28)
[2018-10-23 14:25] VITALS: BP 140/66; PULSE 101; RESP 20
[2018-10-23 20:17] VITALS: BP 131/70; PULSE 100; RESP 20
[2018-10-23] MEDS: HYDROCODONE/APAP (5/325) TAB PO PRN (20:31)
[2018-10-23] MEDS: TAMSULOSIN (SR) 0.4 MG CAP PO SCH (20:31)
[2018-10-24] VITALS (22 sets, daily range): BP systolic 107–173; BP diastolic 55–84; PULSE 63–106; RESP 17–41
[2018-10-24] MEDS: morphine 2 MG INJ IV PRN ×4 (02:27→15:14)
[2018-10-24] MEDS: PANTOPRAZOLE (EC) 40 MG TAB PO SCH (06:27)
[2018-10-24] MEDS: BUDESONIDE (NEB) 0.5MG/2ML AMP INH SCH ×2 (09:00→20:00)
[2018-10-24] MEDS: ARFORMOTEROL TARTRATE 15MCG/2 ML AMP INH SCH ×2 (09:00→20:00)
[2018-10-24] MEDS: predniSONE 10 MG TAB PO SCH (09:00)
[2018-10-24] MEDS: DILTIAZEM (CD) 240 MG CAP PO SCH (09:00)
[2018-10-24] MEDS: DOCUSATE SODIUM 250 MG CAP PO SCH ×2 (09:00→22:51)
[2018-10-24] MEDS: LOSARTAN 50 MG TAB PO SCH (09:00)
[2018-10-24] MEDS: COLCHICINE 0.6 MG CAP PO SCH (09:00)
[2018-10-24] MEDS: TIOTROPIUM 18 MCG CAPSULE INHA DEV INH SCH (09:21)
[2018-10-24] MEDS: ALBUTEROL/IPRATROPIUM (NEB) 3 ML AMP HHN SCH ×3 (09:38→20:00)
[2018-10-24] MEDS: SOD CHLORIDE 0.9% 1,000 ML IV SCH ×2 (14:07→23:25)
[2018-10-24] MEDS ORDERED: MIDAZOLAM 1 MG/ML 2 ML INJ ONE (18:25)
[2018-10-24] MEDS ORDERED: SEVOFLURANE 15 MIN ONE (18:25)
[2018-10-24] MEDS ORDERED: PHENYLephrine 10 MG INJ ONE (19:02)
[2018-10-24] MEDS ORDERED: INDIGOTINDISULFONATE 0.8% 5 ML INJ ONE (19:31)
[2018-10-24] MEDS ORDERED: ETOMIDATE 20 MG INJ ONE (20:27)
[2018-10-24] MEDS ORDERED: LIDOCAINE 2% (SDV) 5 ML INJ ONE (20:27)
[2018-10-24] MEDS ORDERED: ONDANSETRON 4 MG INJ ONE (20:28)
[2018-10-24] MEDS ORDERED: CEFAZOLIN 1 GM INJ ONE (20:28)
[2018-10-24] MEDS ORDERED: ALBUTEROL 0.083% (NEB) 2.5 MG/3 ML AMP HHN PRN (21:00)
[2018-10-24] MEDS ORDERED: HYDROmorphONE 1 MG/5 ML IV SYRINGE IV PRN ×2 (21:00)
[2018-10-24] MEDS ORDERED: FENTAnyl 50 MCG/ML VIAL IV PRN (21:00)
[2018-10-24] MEDS ORDERED: ONDANSETRON 4 MG INJ IV PRN (21:00)
[2018-10-24] MEDS ORDERED: HYDROmorphONE 1 MG/5 ML IV SYRINGE IV ONE (21:00)
[2018-10-24] MEDS ORDERED: MEPERIDINE 25 MG INJ IV PRN (21:00)
[2018-10-24] MEDS ORDERED: LABETALOL HCL 20MG INJ IV PRN (21:00)
[2018-10-24] MEDS ORDERED: hydrALAzine 20 MG INJ IV PRN (21:00)
[2018-10-24] MEDS ORDERED: LEVALBUTEROL (NEB) 0.63 MG/3 ML AMP HHN PRN (21:00)
[2018-10-24] MEDS ORDERED: ALBUTEROL 0.5% (NEB) 2.5 MG/0.5 ML AMP ONE (21:03)
[2018-10-24] MEDS ORDERED: FENTAnyl 50 MCG/ML VIAL ONE (21:09)
[2018-10-24] MEDS ORDERED: ALBUTEROL/IPRATROPIUM (NEB) 3 ML AMP HHN STA (21:21)
[2018-10-24] MEDS: TAMSULOSIN (SR) 0.4 MG CAP PO SCH (22:51)
[2018-10-24] MEDS: PROMETHAZINE/CODEINE 5ML CUP PO PRN (22:52)
[2018-10-25 02:08] VITALS: BP 129/57; PULSE 72; RESP 20
[2018-10-25] MEDS: morphine 2 MG INJ IV PRN ×2 (05:19→22:08)
[2018-10-25] MEDS: PROMETHAZINE/CODEINE 5ML CUP PO PRN ×3 (05:19→19:20)
[2018-10-25] MEDS: PANTOPRAZOLE (EC) 40 MG TAB PO SCH (05:19)
[2018-10-25] MEDS: ALBUTEROL/IPRATROPIUM (NEB) 3 ML AMP HHN SCH ×3 (07:29→21:41)
[2018-10-25] MEDS: BUDESONIDE (NEB) 0.5MG/2ML AMP INH SCH ×2 (07:39→21:41)
[2018-10-25] MEDS: ARFORMOTEROL TARTRATE 15MCG/2 ML AMP INH SCH ×2 (07:49→21:41)
[2018-10-25 08:07] VITALS: BP 132/73; PULSE 110; RESP 18
[2018-10-25] MEDS: DILTIAZEM (CD) 240 MG CAP PO SCH (09:31)
[2018-10-25] MEDS: COLCHICINE 0.6 MG CAP PO SCH (09:31)
[2018-10-25] MEDS: LOSARTAN 50 MG TAB PO SCH (09:31)
[2018-10-25] MEDS: predniSONE 10 MG TAB PO SCH (09:31)
[2018-10-25] MEDS: DOCUSATE SODIUM 250 MG CAP PO SCH ×2 (09:31→20:43)
[2018-10-25] MEDS: TIOTROPIUM 18 MCG CAPSULE INHA DEV INH SCH (09:32)
[2018-10-25] MEDS: SOD CHLORIDE 0.9% 1,000 ML IV SCH ×3 (10:00→20:00)
[2018-10-25 14:58] VITALS: BP 145/70; PULSE 62; RESP 18
[2018-10-25] MEDS: HYDROCODONE/APAP (5/325) TAB PO PRN (18:28)
[2018-10-25 19:32] VITALS: BP 130/62; PULSE 100; RESP 18
[2018-10-25] MEDS: TAMSULOSIN (SR) 0.4 MG CAP PO SCH (20:43)
[2018-10-26] MEDS: SOD CHLORIDE 0.9% 1,000 ML IV SCH ×3 (01:05→22:00)
[2018-10-26 03:15] VITALS: BP 109/57; PULSE 83; RESP 19
[2018-10-26] MEDS: PANTOPRAZOLE (EC) 40 MG TAB PO SCH (05:48)
[2018-10-26] MEDS: HYDROCODONE/APAP (5/325) TAB PO PRN ×4 (05:48→20:59)
[2018-10-26 08:05] VITALS: BP 155/76; PULSE 74; RESP 18
[2018-10-26] MEDS: COLCHICINE 0.6 MG CAP PO SCH (09:07)
[2018-10-26] MEDS: LOSARTAN 50 MG TAB PO SCH (09:08)
[2018-10-26] MEDS: predniSONE 10 MG TAB PO SCH (09:08)
[2018-10-26] MEDS: DILTIAZEM (CD) 240 MG CAP PO SCH (09:08)
[2018-10-26] MEDS: DOCUSATE SODIUM 250 MG CAP PO SCH ×2 (09:08→20:59)
[2018-10-26] MEDS: ARFORMOTEROL TARTRATE 15MCG/2 ML AMP INH SCH ×2 (09:26→19:05)
[2018-10-26] MEDS: ALBUTEROL/IPRATROPIUM (NEB) 3 ML AMP HHN SCH ×3 (09:26→19:05)
[2018-10-26] MEDS: BUDESONIDE (NEB) 0.5MG/2ML AMP INH SCH ×2 (09:26→19:05)
[2018-10-26] MEDS: PROMETHAZINE/CODEINE 5ML CUP PO PRN ×2 (10:30→22:00)
[2018-10-26] MEDS: TIOTROPIUM 18 MCG CAPSULE INHA DEV INH SCH (12:19)
[2018-10-26 14:07] VITALS: BP 141/64; PULSE 79; RESP 18
[2018-10-26 20:12] VITALS: BP 136/63; PULSE 86; RESP 20
[2018-10-26] MEDS: TAMSULOSIN (SR) 0.4 MG CAP PO SCH (20:59)
[2018-10-27] MEDS: HYDROCODONE/APAP (5/325) TAB PO PRN ×4 (01:03→19:11)
[2018-10-27 02:01] VITALS: BP 128/68; PULSE 86; RESP 18
[2018-10-27] MEDS: PANTOPRAZOLE (EC) 40 MG TAB PO SCH (05:58)
[2018-10-27] MEDS: ALBUTEROL/IPRATROPIUM (NEB) 3 ML AMP HHN SCH ×2 (07:34→16:16)
[2018-10-27] MEDS: ARFORMOTEROL TARTRATE 15MCG/2 ML AMP INH SCH (07:34)
[2018-10-27] MEDS: BUDESONIDE (NEB) 0.5MG/2ML AMP INH SCH (07:35)
[2018-10-27] MEDS: PROMETHAZINE/CODEINE 5ML CUP PO PRN (08:04)
[2018-10-27 08:22] VITALS: BP 127/65; PULSE 100; RESP 18
[2018-10-27] MEDS: DOCUSATE SODIUM 250 MG CAP PO SCH (08:58)
[2018-10-27] MEDS: TIOTROPIUM 18 MCG CAPSULE INHA DEV INH SCH (08:58)
[2018-10-27] MEDS: COLCHICINE 0.6 MG CAP PO SCH (08:58)
[2018-10-27] MEDS: predniSONE 10 MG TAB PO SCH (08:58)
[2018-10-27] MEDS: DILTIAZEM (CD) 240 MG CAP PO SCH (08:59)
[2018-10-27] MEDS: LOSARTAN 50 MG TAB PO SCH (08:59)
[2018-10-27] MEDS: SOD CHLORIDE 0.9% 1,000 ML IV SCH (12:00)
[2018-10-27] MEDS: morphine 2 MG INJ IV PRN (13:52)
[2018-10-27 14:13] VITALS: BP 149/69; PULSE 90; RESP 16
== END 2018-10-27 19:15 | disposition home health service (06) | DRG 665 ==
LOC: E/R 20:33 → 2NE 23:54
PROVIDERS: ADMIT Family Medicine; ATTEND Family Medicine
PROC: 0VB08ZZ Excision of Prostate, Via Natural or Artificial Opening Endoscopic (ICD-10-PCS; 2018-10-24)
PROC: 0TBB8ZZ Excision of Bladder, Via Natural or Artificial Opening Endoscopic (ICD-10-PCS; principal; 2018-10-24 18:00)
DX: C67.9 Malignant neoplasm of bladder, unspecified (principal); E43 Unspecified severe protein-calorie malnutrition; J96.10 Chronic respiratory failure, unspecified whether with hypoxia or hypercapnia; Z68.1 Body mass index [BMI] 19.9 or less, adult; J44.9 Chronic obstructive pulmonary disease, unspecified; Z99.81 Dependence on supplemental oxygen; R31.0 Gross hematuria; E86.0 Dehydration; Z72.0 Tobacco use; R33.9 Retention of urine, unspecified
CPT/HCPCS: 36415; 71045; 76775; 80048; 80076; 81001; 83735; 84100; 84443; 84484; 85025; 85610; 85730; 86850; 86900; 86901; 87086; 88305; 88307; 88341; 88342; 93005; 94640; 94664; 97161; J0690; J1170; J2250; J2270; J2370; J2405; J2930; J3010; J7030; J7512